=== PATIENT | female | born 1970 ===

== ENCOUNTER 2020-04-06 09:54 | Outpatient (REF) | payer MEDICARE, MEDICAID, SELFPAY ==
[2020-04-06 11:17] LABS: Alanine Aminotransferase 12 U/L (0-31); Albumin Level 4.1 g/dL (3.5-5.0); Alkaline Phosphatase 112 U/L (39-117); Aspartate Amino Transferase 14 U/L (5-31); Bilirubin Direct < 0.2 mg/dL (0.0-0.5); Bilirubin Total 0.4 mg/dL (0.0-1.0); Cholesterol 223 mg/dL; HDL Cholesterol 57 mg/dL; LDL Cholesterol Calculated 153 mg/dl; Total Protein 6.9 g/dL (6.5-8.0); Triglycerides 68 mg/dL
[2020-04-06 11:41] LABS: Vitamin D 25-OH Total 23.7 ng/mL (>30)
== END 2020-04-06 09:55 | disposition home or self-care (01) ==
LOC: HO.LAB 09:54
PROVIDERS: PCP Internal Medicine; Visit Provider Internal Medicine
DX: E78.00 Pure hypercholesterolemia, unspecified (principal); E55.9 Vitamin D deficiency, unspecified
CPT/HCPCS: 80061; 80076; 82306

== ENCOUNTER → 2020-04-27 14:49 | Outpatient (BNVA) | payer MEDICARE, MEDICAID, SELFPAY | PROVIDERS: PCP Internal Medicine; Referring Provider Internal Medicine; Visit Provider Nurse Practitioner Family | DX: Z01.818 Encounter for other preprocedural examination (principal); R19.7 Diarrhea, unspecified; Z80.0 Family history of malignant neoplasm of digestive organs | CPT/HCPCS: 99212 ==

== ENCOUNTER → 2020-05-15 08:13 | Outpatient (BNVA) | payer MEDICARE, MEDICAID, SELFPAY | PROVIDERS: PCP Internal Medicine; Referring Provider Internal Medicine; Visit Provider Internal Medicine | DX: Z01.810 Encounter for preprocedural cardiovascular examination (principal); R06.02 Shortness of breath; R00.2 Palpitations | CPT/HCPCS: 93005; 99202 ==

== ENCOUNTER 2020-06-06 14:03 | Outpatient (REF) | payer MEDICARE, MEDICAID, SELFPAY | END 2020-06-06 14:04 | disposition home or self-care (01) | LOC: HO.LAB 14:03 | PROVIDERS: Nurse Practitioner Family; Visit Provider Internal Medicine | DX: Z20.828 Contact with and (suspected) exposure to other viral communicable diseases (principal) | CPT/HCPCS: U0003 ==

== ENCOUNTER → 2020-06-29 09:25 | Outpatient (REF) | payer MEDICARE, MEDICAID, SELFPAY ==
--- NOTE | 2020-06-29 09:29 | ECG_ITS ---
Hook-up date: 2020-06-29 10:43:00 Duration: 23:31:00 Test Indications: PALPITATIONS Medications: [id number] QRS complexes 6 Ventricular ectopics which represent <1 % of total QRS comp. 31 Supraventricular ectopics which represent <1 % of total QRS comp. * Paced QRS complexs which represent % of total QRS comp. VENTRICULAR ECTOPY 6 Isolated 0 Bigeminal Cycles 0 Couplets 0 Runs 0 Beats in Runs * Beats LONGEST at * BPM at :: -- * Beats FASTEST at * BPM at :: -- SUPRAVENTRICULAR ECTOPY 5 Isolated 0 Couplets 0 Runs 0 Beats in Runs 0 Beats LONGEST at 93 BPM at :: -- 0 Beats FASTEST at 93 BPM at :: -- HEART RATES 58 MIN at 01:05:34 2020-06-30 93 AVG 149 MAX at 16:34:00 2020-06-29 LONGEST RR 1.2080 secs at 17:41:25 2020-06-29 S-T LEVELS Channel 1 - 128 mm at 10:43:00 2020-06-29 - 128 mm at 10:43:00 2020-06-29 Channel 2 - 128 mm at 10:43:00 2020-06-29 - 128 mm at 10:43:00 2020-06-29 Channel 3 - 128 mm at 03:00:21 -- - 128 mm at 03:00:21 Basic rhythm Normal sinus rhythm No long pause or profound bradycardia No dangerous dysrhythm periods No diary submitted Referred By: Levi Willingham Overread By: GODWIN AMADOR MD
--- NOTE | 2020-06-29 09:30 | CA_ITS ---
Acquisition Time: 2020-06-29 10:01:42 Total Exercise Time: 00:06:23 Test Indications: Chest Pain Medications: SIMVASTATIN ALBUTEROL NABUMETINE Protocol: JORJE Max HR: 155 BPM 90% of Pred: 172 BPM Max BP: 132/050 mmHG Max Work Load: 7.5 METS Exercise stress test using Jorje protocol total of 6 min 23 sec. METS 7.5o and TAPHR up to 90%. Pt tolerated well. Denies any anginal sx. EKG with no arrhythmias, no ischemic changes. Normotensive response to exercise. Test reviewed with Dr. Willingham. Referred By: Levi Willingham Overread By: Sandra Mendenhall
== END ==
LOC: HO.CARD 09:25
PROVIDERS: Visit Provider Internal Medicine
DX: Z01.810 Encounter for preprocedural cardiovascular examination (principal); R00.2 Palpitations
CPT/HCPCS: 93017; 93225; 93226

== ENCOUNTER → 2020-06-30 07:34 | Outpatient (REF) | payer MEDICARE, MEDICAID, SELFPAY ==
--- NOTE | 2020-06-30 07:38 | CA_ITS ---
Transthoracic Echocardiogram Patient (Last, First, Middle): Jessy Dolan, Gender: Female Date of : 1970 Age: 49 Procedure Date: 06/30/2020 Procedure Type: Transthoracic Echocardiogram Location: OP Height: 160.02 cm Weight: 87.09 kg BSA: 1.90 m2 Heart Rate: bpm BP: 128 / 68 mmHg Endocrinologist: Referring MD: Levi Willingham MD Symptoms: R06.02 - Shortness of breath Study Quality: Excellent ECG Rhythm: Sinus Conclusions: - Normal left ventricular size and systolic function. - There is mildly increased left ventricular wall thickness. - Diastolic function is normal for age. - No significant valvular or pericardial pathology. Findings Left Ventricle Normal left ventricular size and systolic function. There is mildly increased left ventricular wall thickness. The visually estimated ejection fraction is between 55-60%. There is no evidence of regional wall motion abnormalities. Diastolic function is normal for age. Right Ventricle Normal right ventricular cavity size and systolic function. Atria Both atria are normal in size. Aortic Valve Normal aortic valve structure and function. There is no aortic valve stenosis. There is no aortic valve regurgitation. Mitral Valve Normal mitral valve structure and function. There is no mitral valve regurgitation. There is no mitral valve stenosis. Pulmonic Valve Normal pulmonic valve structure and function. Tricuspid Valve Normal tricuspid valve structure and function. There is trace tricuspid valve regurgitation. Normal right atrial pressure. There is no evidence of pulmonary hypertension. Great Vessels All visible segments of the aorta are normal in size. The visualized portions of the pulmonary artery and branches are normal. Venous The inferior vena cava is normal in size and collapses greater than 50% with inspiration. Pericardium/Pleural There is no evidence of pericardial effusion. Prior Study Comparison No prior study available for comparison. Measurements 2D Linear Measurements IVSd: 1.01 0.6-0.9/0.6-1.0 cm LVIDd: 4.65 3.9-5.3/4.2-5.9 cm LVIDd Index: 2.45 2.4-3.2/2.2-3.1 cm/m2 LVIDs: 2.92 2.0-3.6 cm LVPWd: 1.03 0.7-1.1 cm Ao Root: 2.80 2.1-3.5 cm LA Diam: 3.60 2.7-3.8/3.0-4.0 cm LAIDs Index: 1.89 1.5-2.3 cm/m2 LV Mass: 206.83 67-162/88-224 g LV Mass Index: 108.86 43-95/49-115 g/m2 LVOT Diam: 2.10 3.0+(-)1.3 cm Mitral Valve MV Pk E: 0.83 MV PK A: 0.67 MV Decel Time: 218.00 E/A: 1.20 E'Lateral: 14.80 E'Medial: 12.10 E/E' Med: 6.90 E/E' Lat: 5.60 PHT: 64.00 MVA PHT: 3.44 Decel [place]: 3.80 Aortic Valve AoV Pk Philipp: 1.32 AoV Mn Philipp: 0.84 AoV VTI: 0.29 AoV Pk Grad: 7.00 Aov Mn Grad: 3.00 JERMAINE Cont.VTI: 2.98 LVOT LVOT Pk Philipp: 1.10 LVOT Mn Philipp: 0.67 LVOT VTI: 0.25 LVOT Pk Grad: 5.00 LVOT Mn Grad: 2.00 LVOT Diam: 2.10 LVOT Area: 3.46 Diastolic Function MV Pk E: 0.83 MV Pk A: 0.67 E/A: 1.20 E'Medial: 12.10 E/E' Med: 6.90 E' Laterial: 14.80 E/E' Lat: 5.60 Tricuspid Valve TR Pk Philipp: 1.57 TR Pk Grad: 10.00 RA Press: 3.00 RVSP: 13.00 Great Vessels Aorta Ao Root-2D: 2.80 2.0-3.7 cm Ao Asc: 2.80 2.1-3.4 cm Pulmonary Valve PV Pk Philipp: 0.87 Peak PV Grad: 3.00 Updated in Other Vendor System with Status of Final Kota Gauthier MD electronically signed on 07/02/2020 6:33:44 AM with status of Final
== END ==
LOC: HO.CARD 07:34
PROVIDERS: Visit Provider Internal Medicine
DX: R06.02 Shortness of breath (principal)
CPT/HCPCS: 93306

== ENCOUNTER → 2020-07-03 08:21 | Outpatient (BNVA) | payer MEDICARE, MEDICAID, SELFPAY | PROVIDERS: PCP Internal Medicine; Visit Provider Internal Medicine | DX: Z01.810 Encounter for preprocedural cardiovascular examination (principal); R06.02 Shortness of breath; R00.2 Palpitations | CPT/HCPCS: Q3014 ==

== ENCOUNTER → 2020-07-14 14:16 | Outpatient (BNVA) | payer MEDICARE, MEDICAID, SELFPAY | PROVIDERS: PCP Internal Medicine; Visit Provider Nurse Practitioner Family | DX: Z13.89 Encounter for screening for other disorder (principal) | CPT/HCPCS: 99212 ==

== ENCOUNTER 2020-07-17 16:25 | Outpatient (REF) | payer MEDICARE, MEDICAID, SELFPAY | END 2020-07-17 16:26 | disposition home or self-care (01) | LOC: HO.LAB 16:25 | PROVIDERS: Visit Provider Internal Medicine | DX: Z20.822 Contact with and (suspected) exposure to COVID-19 (principal) | CPT/HCPCS: 36415; C9803; U0003 ==

== ENCOUNTER 2020-08-22 09:26 | Day surgery (SDC) | payer MEDICARE, MEDICAID, SELFPAY ==
[2020-08-16 14:11] VITALS: BMI 33.6
--- NOTE | 2020-08-21 08:27 | P.CONAN_ITS ---
Documented by User: Cheyanne Eastman 08/21/20 08:28 HPI - Anesthesia Eval Consult details Narrative: 50yo F for Colonoscopy [facility] Active Problems Active Problems: All Active Problems (Updated 08/16/20 @ 13:51 by Sarah Kay) Heart palpitations (Acute) Chest pain (Acute) History of IBS (Acute) Hypercholesterolemia (Acute) Hip pain (Acute) Obesity (BMI 30-39.9) (Acute) Asthma (Acute) Tobacco abuse (Acute) Past Medical History Medical History (Updated 08/22/20 @ 10:02 by Katelyn De La Fuente) Anxiety Arthritis Asthma Back pain GERD (gastroesophageal reflux disease) Hip pain History of IBS Hx of tuberculosis Hypercholesterolemia Obesity (BMI 30-39.9) Palpitations Panic attacks Tobacco abuse Family History Family History Father Tongue cancer Mother CVD (cardiovascular disease) Maternal Aunt Colon cancer Maternal Uncle Colon cancer Surgical History Surgical History History of appendectomy History of section History of meniscectomy of left knee History of removal of cyst Hx of endoscopy Hx of tubal ligation Social History Social History Are you a primary senior resident care director to a significant other at home: No Do you presently have visiting nurse or other home services: No Alcohol intake: never Smoking Status: Current every day smoker Tobacco Type: Cigarette Packs Per Day: 0.5 Cigarettes Per Day: 10.0 Years Smoked: 30 Smoked in Last 30 Days: Yes Patient Interested in Nicotine Replacement: No Patient Given Instructions on How to Stop Smoking: No Use of substances other than those prescribed or required for medical reasons: Yes Substance Use Type: Marijuana Substance Use Type Other:: Uses at night to help her sleep Substance Use Frequency: Daily Advance Directives: No Advance Directives Information Provided: No Advance Directives on File: No Recently lost weight without trying: No Meds Allergies Allergy/AdvReac Type Severity Reaction Status Date / Time morphine [MORPHINE] Allergy Unknown REDNESS, Verified 08/22/20 09:48 FEELS REALLY HOT, shortness of breath, anaphylaxis amoxicillin AdvReac Unknown yeast Verified 08/22/20 09:48 infection Penicillins [PENICILLINS] AdvReac Unknown YEAST Verified 08/22/20 09:48 INFECTION Home Medications Medication Instructions Recorded Confirmed Last Taken Type cholecalciferol (vitamin D3) 50 50 mcg PO DAILY 04/11/20 08/16/20 Unknown History mcg (2,000 unit) capsule diclofenac sodium 1 % topical gel 2 g TOPICAL QID 04/11/20 08/16/20 Unknown History dicyclomine 10 mg capsule 20 mg PO TID cap 04/11/20 08/16/20 Unknown History fluticasone furoate 100 1 inh INHALATION DAILY 04/11/20 08/16/20 Unknown History mcg/actuation blister powder for inhalation lorazepam 1 mg tablet 1 mg PO DAILY PRN 04/11/20 08/16/20 Unknown History simvastatin 10 mg tablet 10 mg PO QPM 04/11/20 08/16/20 Unknown History methylcellulose (laxative) 500 mg 500 mg PO DAILY 06/05/20 08/16/20 Unknown History tablet Exam Exam Date and Time: August 21, 2020 0827 Height,Weight and Vital Signs: Height 5 ft 3 in Weight 86.183 kg Narrative Narrative: Per cardiology Echocardiogram with normal LVEF, mild left ventricular hypertrophy but otherwise unremarkable. For 6 minutes and 23 seconds on the Griffin protocol and reached 7.5 Mets and also recent target heart rate. No anginal-type symptoms and no ischemic changes on the EKG. Holter monitor shows underlying sinus rhythm only without any arrhythmias. Overall, based on the above, no cardiac etiology to explain her symptoms. Probably all from smoking. Assessment and Plan Assessment Anesthesia Assessment: Chart Reviewed Documented by User: Katelyn De La Fuente 08/22/20 10:04 [facility] Past Medical History Medical History (Updated 08/22/20 @ 10:02 by Katelyn De La Fuente) Anxiety Arthritis Asthma Back pain GERD (gastroesophageal reflux disease) Hip pain History of IBS Hx of tuberculosis Hypercholesterolemia Obesity (BMI 30-39.9) Palpitations Panic attacks Tobacco abuse Family History Family History Father Tongue cancer Mother CVD (cardiovascular disease) Maternal Aunt Colon cancer Maternal Uncle Colon cancer Family history of problems with anesthesia: No Surgical History Surgical History History of appendectomy History of section History of meniscectomy of left knee History of removal of cyst Hx of endoscopy Hx of tubal ligation History of Problems with Anesthesia: No Social History Social History Are you a primary senior resident care director to a significant other at home: No Do you presently have visiting nurse or other home services: No Alcohol intake: never Smoking Status: Current every day smoker Tobacco Type: Cigarette Packs Per Day: 0.5 Cigarettes Per Day: 10.0 Years Smoked: 30 Smoked in Last 30 Days: Yes Patient Interested in Nicotine Replacement: No Patient Given Instructions on How to Stop Smoking: No Use of substances other than those prescribed or required for medical reasons: Yes Substance Use Type: Marijuana Substance Use Type Other:: Uses at night to help her sleep Substance Use Frequency: Daily Advance Directives: No Advance Directives Information Provided: No Advance Directives on File: No Recently lost weight without trying: No Meds Allergies Allergy/AdvReac Type Severity Reaction Status Date / Time morphine [MORPHINE] Allergy Unknown REDNESS, Verified 08/22/20 09:48 FEELS REALLY HOT, shortness of breath, anaphylaxis amoxicillin AdvReac Unknown yeast Verified 08/22/20 09:48 infection Penicillins [PENICILLINS] AdvReac Unknown YEAST Verified 08/22/20 09:48 INFECTION Home Medications Medication Instructions Recorded Confirmed Last Taken Type cholecalciferol (vitamin D3) 50 50 mcg PO DAILY 04/11/20 08/16/20 Unknown History mcg (2,000 unit) capsule diclofenac sodium 1 % topical gel 2 g TOPICAL QID 04/11/20 08/16/20 Unknown History dicyclomine 10 mg capsule 20 mg PO TID cap 04/11/20 08/16/20 Unknown History fluticasone furoate 100 1 inh INHALATION DAILY 04/11/20 08/16/20 Unknown History mcg/actuation blister powder for inhalation lorazepam 1 mg tablet 1 mg PO DAILY PRN 04/11/20 08/16/20 Unknown History simvastatin 10 mg tablet 10 mg PO QPM 04/11/20 08/16/20 Unknown History methylcellulose (laxative) 500 mg 500 mg PO DAILY 06/05/20 08/16/20 Unknown History tablet Exam Height,Weight and Vital Signs: Vital Signs Temp Pulse Resp BP Pulse Ox 08/22/20 09:50 98.4 F 95 16 123/68 98 Airway TM Dist: >3cm Neck ROM: Full Partial: Upper Loose/Missing/Broken Teeth: Yes (molars) Heart: RRR Lungs: CTAB Assessment and Plan Assessment Anesthesia Assessment: Anesthesia Plan Discussed and Chart Reviewed Final Anesthetic Review NPO: Yes ASA Class: II Final Preanesthetic Review: No Changes in Pt Med Stat, Meds/Allgs Chart Reviewed, Consent Obtained/Reviewed and Anes Risks/Benef Reviewed Patient Risk: Intermediate Procedure Risk: Low Assessment/Block/Sedation in SS: Assess/Block/Sedation-SS Anesthetic Plan Anesthetic Plan: MAC: Disposition: Standard PACU
[2020-08-22 09:50] VITALS: BP 123/68; PULSE 95; RESP 16; TEMP 36.9; O2SAT 98
[2020-08-22] MEDS: Lactated Ringers 1,000 ML 100 ML IVCONT (10:00)
--- NOTE | 2020-08-22 10:33 | MHC.SHP ---
Pre-Procedural Eval Section B Chief Complaint: screening Relevant Social History: Tobacco Use Present Medications: see Short Stay Collaborative assessment Medical History: Significant History (Anxiety Arthritis Asthma Back pain GERD (gastroesophageal reflux disease) Hip pain History of IBS Hx of tuberculosis Hypercholesterolemia Obesity (BMI 30-39.9) Palpitations Panic attacks Tobacco abuse) History of Previous Operations: Relevant previous surgery/procedure and date(s) (History of appendectomy History of section History of meniscectomy of left knee History of removal of cyst Hx of endoscopy Hx of tubal ligation) Allergies: Allergies Allergy/AdvReac Type Severity Reaction Status Date / Time morphine [MORPHINE] Allergy Unknown REDNESS, Verified 08/22/20 09:48 FEELS REALLY HOT, shortness of breath, anaphylaxis amoxicillin AdvReac Unknown yeast Verified 08/22/20 09:48 infection Penicillins [PENICILLINS] AdvReac Unknown YEAST Verified 08/22/20 09:48 INFECTION Review of Systems Sugical H&P ROS: Negative: Constitution, Cardiovascular, Respiratory, Neurological, Psychiatric, Hem-Onc, Allergic/Immunologic, Gastrointestinal, Genitourinary, Musculoskeletal, Integumentary, Endocrine and Eyes/Ears/Nose/Throat Exam Surgical H&P Exam: Normal: HEENT, Normal: Heart, Normal: Lungs, Normal: Extremities, Normal: Abdomen, Normal: Skin and Normal: Neurological Plan Diagnosis/Plan: Unchanged I have reviewed the history and physical and performed a pertinent physical examination on my patient. No changes have occurred unless specified.
--- NOTE | 2020-08-22 10:44 | PM.OP ---
Brief Operative Note Date of Service: 08/22/20 Pre-op diagnosis: colon screening Post-op diagnosis: same Procedure: see op note Surgeon: Jan Gutierrez MD Anesthesia: MAC Estimated blood loss (mL): 0 Condition: stable Disposition: PACU
--- NOTE | 2020-08-22 10:45 | W.PM.OPN ---
Operative Note Operative Note Date of Service: 08/22/20 Narrative: Operative Information Procedure Description: Colonoscopy COLONOSCOPY Instrument: Olympus variable stiffness pediatric scope 190L Colonoscopy Monitoring: Vital signs and clinical assessment, continuous EKG monitoring, Pulse oximetry, Carbon Dioxide monitoring and blood pressure monitoring were done throughout the procedure. Colon withdrawal time was 15 minutes. Procedure: The patient was placed in the left lateral decubitis position and pre-procedure medications were administered. After a digital rectal examination of the ano-rectum, the video colonoscope was inserted into the rectum and advanced through the colon to the cecum/TI. The colonoscope was slowly withdrawn in a retrograde panoramic fashion and the colon mucosa was carefully examined including a retroflexed view of the rectum. Findings and interventions are described below. Procedure Difficulty:moderate due to looping Findings: Terminal Ileum-normal, bx taken random colon bx taken due to c/o variable bowel habit and diarrhea Cecum:normal Ascending Colon: normal Transverse Colon -normal Descending Colon:normal Sigmoid Colon: mild diverticulosis noted Rectum: Retroflexion with small internal hemorrhoids, grade I Anorectum - normal Colon preparation: [place] Bowel Preparation Scale Right colon; 3 Transverse colon: 3 Left colon; 3 (0 = Unprepared colon segment with mucosa not seen due to solid stool that cannot be cleared. 1 = Portion of mucosa of the colon segment seen, but other areas of the colon segment not well seen due to staining, residual stool and/or opaque liquid. 2 = Minor amount of residual staining, small fragments of stool and/or opaque liquid, but mucosa of colon segment seen well. 3 = Entire mucosa of colon segment seen well with no residual staining, small fragments of stool or opaque liquid) Impression and Post Procedure Diagnosis: internal hemorrhoids diverticular disease Plan: High fiber diet leaflet Avoid straining at stool, epsom salts and sitz bath, anusol supps or cream as needed Repeat Colonoscopy in 10 years or earlier if clinically indicated Above findings were reviewed with the patient and relevant handouts were provided if indicated.
[2020-08-22 11:27] VITALS: BP 111/74; PULSE 78; RESP 20; O2SAT 98
== END 2020-08-22 12:45 | disposition home or self-care (01) ==
PROVIDERS: PCP Internal Medicine; Visit Provider Internal Medicine Gastroenterology
PROC: 0DJD8ZZ Inspection of Lower Intestinal Tract, Via Natural or Artificial Opening Endoscopic (ICD-10-PCS; CPT 45378; principal; 2020-08-22 10:40)
DX: Z12.11 Encounter for screening for malignant neoplasm of colon (principal); R19.7 Diarrhea, unspecified; K57.30 Diverticulosis of large intestine without perforation or abscess without bleeding; K64.0 First degree hemorrhoids; J45.909 Unspecified asthma, uncomplicated; K58.9 Irritable bowel syndrome, unspecified; F17.210 Nicotine dependence, cigarettes, uncomplicated; F12.90 Cannabis use, unspecified, uncomplicated; Z99.89 Dependence on other enabling machines and devices; Z88.0 Allergy status to penicillin; Z88.8 Allergy status to other drugs, medicaments and biological substances
CPT/HCPCS: 45380; 88305

== ENCOUNTER → 2020-09-05 14:35 | Outpatient (BNVA) | payer MEDICARE, MEDICAID, SELFPAY | PROVIDERS: PCP Internal Medicine; Visit Provider Nurse Practitioner Family | DX: Z13.89 Encounter for screening for other disorder (principal) | CPT/HCPCS: Q3014 ==

== ENCOUNTER → 2020-10-03 13:50 | Outpatient (BNVA) | payer MEDICARE, MEDICAID, SELFPAY | PROVIDERS: PCP Internal Medicine; Visit Provider Nurse Practitioner Family | DX: Z13.89 Encounter for screening for other disorder (principal) | CPT/HCPCS: Q3014 ==

== ENCOUNTER 2020-10-11 09:58 | Outpatient (REF) | payer MEDICARE, MEDICAID, SELFPAY ==
--- NOTE | ~2020-10-11 | XR_ITS ---
EXAMINATION: XR FOOT, LEFT CLINICAL INFORMATION: M79.675 - Pain in left toe(s) COMPARISON: 02/10/2020 TECHNIQUE: AP, lateral, and oblique views of the left foot. FINDINGS: No acute fracture or malalignment in the left foot. Bone mineralization is normal. 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 Joint spaces are well-preserved. No erosions. Mild generalized soft tissue swelling is present at the foot. XR/XR foot LT min 3V IMPRESSION: 1. No acute osseous findings at the left foot. 2. 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
== END 2020-10-11 09:59 | disposition home or self-care (01) ==
LOC: HO.LAB 09:58
PROVIDERS: PCP Internal Medicine; Visit Provider Internal Medicine
DX: M79.675 Pain in left toe(s) (principal)
CPT/HCPCS: 73630

== ENCOUNTER 2020-10-14 05:59 | Emergency (ER) | payer MEDICARE, MEDICAID, SELFPAY ==
--- NOTE | ~2020-10-14 | CT_ITS ---
EXAMINATION: CT FACIAL BONES WITHOUT CONTRAST CLINICAL INFORMATION: Severe sudden right thigh/Baylee pain. COMPARISON: None TECHNIQUE: CT facial bones with coronal and sagittal reconstructions. This CT examination was performed using dose optimization techniques as appropriate, variously including the following: *Automated exposure control *Adjustment of mA and/or kV according to patient size (this includes techniques or standardized protocols for targeted exams where dose is matched to indication/reason for exam; i.e. extremities or head) *Use of iterative reconstruction technique DLP: 360 mGy-cm FINDINGS: There is no acute maxillofacial fracture. The pterygoid plates are intact. The zygomatic arches are intact. The lamina papyracea are intact. The orbital rims are intact. No intraconal abnormality appreciated. There appears to be a small amount of fluid/edema with slightly increased Hounsfield unit density measurement compared to water just superficial to the right masseter muscle without significant abscess or significant fat stranding. The paranasal sinuses are well-aerated. No air-fluid levels are seen. There is a mucous retention cyst seen within the right maxillary sinus. There is no significant deviation of the nasal septum. The ostiomeatal complexes are clear. The lamina papyracea are intact. The ethmoid roofs are symmetric. The carotid canals are normally covered by bone. No maxillary periapical disease is seen. The mastoid air cells and visualized middle ear cavities are well-aerated. The orbits are normal. The TMJs are unremarkable. The imaged portions of the brain demonstrate no acute abnormality. CT/CT facial bones wo con IMPRESSION: Small amount of complex fluid just superficial to the right masseter muscle with no definite underlying abscess identified. This could be related to a small hematoma or early infectious process. No significant bony abnormality seen. Temporomandibular joint unremarkable. No right intraconal abnormality appreciated.
[2020-10-14 06:21] VITALS: PULSE 77; RESP 16; TEMP 36.6; O2SAT 98; BMI 33.2
--- NOTE | 2020-10-14 06:59 | ED_ITS ---
HPI - General Adult General Chief complaint: General Medical Stated complaint: JAW PAIN/HURTS TO SWALLOW Time Seen by Provider: 10/14/20 06:53 Source: patient Mode of arrival: ambulatory Limitations: no limitations History of Present Illness HPI narrative: 50-year-old female came in for evaluation of right facial pain. Right facial pain started at 03:00, patient started to open and close her mouth hoping the pain would be relieved the patient went to bed in pain, patient woke up this morning with pain is more severe on able to open her mouth with pain around her right ear and the whole right facial area, pain is constant, described as sharp pain mostly on the right show area, no radiation of the pain to the neck or chest. Patient declined any recent dental work, no trauma to the face. Pain is worsening with opening and closing the mouth. Nothing relieves the pain. Related Data Home Medications Medication Instructions Recorded Confirmed cholecalciferol (vitamin D3) 50 50 mcg PO DAILY 04/11/20 10/10/20 mcg (2,000 unit) capsule diclofenac sodium 1 % topical gel 2 g TOPICAL QID 04/11/20 10/10/20 dicyclomine 10 mg capsule 20 mg PO TID cap 04/11/20 10/10/20 fluticasone furoate 100 1 inh INHALATION DAILY 04/11/20 10/10/20 mcg/actuation blister powder for inhalation lorazepam 1 mg tablet 1 mg PO DAILY PRN 04/11/20 10/10/20 simvastatin 10 mg tablet 10 mg PO QPM 04/11/20 10/10/20 methylcellulose (laxative) 500 mg 500 mg PO DAILY 06/05/20 10/10/20 tablet Previous Rx's Medication Instructions Recorded dextromethorphan-guaifenesin ER 60 1 tab PO Q12H 7 Days #14 tab 06/05/20 mg-1,200 mg tab,extend release,12hr albuterol sulfate 90 mcg/actuation 2 puff INHALATION Q4-6H PRN #8.5 g 06/27/20 aerosol inhaler polyethylene glycol 3350 17 17 g PO ONCE #238 g 07/14/20 gram/dose oral powder sennosides 8.6 mg tablet 8.6 mg PO BEDTIME PRN #30 tab 07/14/20 linaclotide 145 mcg capsule 145 mcg PO DAILY #30 cap 09/05/20 nabumetone 500 mg tablet 500 mg PO BID #60 tab 09/12/20 cyclobenzaprine 10 mg PO TID PRN #10 tab 10/14/20 oxycodone 5 mg PO Q8H PRN #7 tab 10/14/20 Allergies Allergy/AdvReac Type Severity Reaction Status Date / Time morphine [MORPHINE] Allergy Unknown REDNESS, Verified 10/03/20 13:55 FEELS REALLY HOT, shortness of breath, anaphylaxis amoxicillin AdvReac Unknown yeast Verified 10/03/20 13:55 infection Penicillins [PENICILLINS] AdvReac Unknown YEAST Verified 10/03/20 13:55 INFECTION Review of Systems Review of Systems: All other systems are reviewed and are negative Constitutional: Reports as per HPI and Reports no additional constitutional complaints Eyes: Reports as per HPI and Reports no additional eye complaints Reports system reviewed and no additional complaints, except as documented Cardiovascular: Reports as per HPI and Reports no additional cardiovascular complaints Respiratory: Reports as per HPI and Reports no additional respiratory complaints Gastrointestinal: Reports as per HPI and Reports no additional gastrointestinal complaints Genitourinary: Reports no additional female genitourinary complaints Musculoskeletal: Reports no additional musculoskeletal complaints Skin/Breast: Reports system reviewed and no additional complaints, except as docu Psychiatric: Reports no additional psychiatric complaints Endocrine: Reports no additional endocrine complaints Hematologic/Lymphatic: Reports no additional hematologic/lymphatic complaints Allergic/Immunologic: Reports no additional allergic/immunologic complaints Reports system reviewed and no additional complaints, except as documented and Reports Abnormal speech present [facility] Past Medical History Medical History Anxiety Arthritis Asthma Back pain GERD (gastroesophageal reflux disease) Hip pain History of IBS Hx of tuberculosis Hypercholesterolemia Obesity (BMI 30-39.9) Palpitations Panic attacks Tobacco abuse Surgical History History of appendectomy History of section History of meniscectomy of left knee History of removal of cyst Hx of colonoscopy Hx of endoscopy Hx of tubal ligation Family History Family History Father Tongue cancer Mother CVD (cardiovascular disease) Maternal Aunt Colon cancer Maternal Uncle Colon cancer Social History Social History Household Members: Spouse and Children Alcohol intake: never Smoking Status: Current every day smoker Tobacco Type: Cigarette Packs Per Day: 0.5 Cigarettes Per Day: 10.0 Years Smoked: 30 Substance Use Type: Marijuana Advance Directives: No Advance Directives Information Provided: No Current occupational status: disabled Physical Exam Vital Signs: Vital Signs: Last Vital Signs Temp 98 F 10/14/20 06:21 Pulse 73 10/14/20 08:25 Resp 16 10/14/20 06:21 BP 126/79 10/14/20 08:25 Pulse Ox 98 10/14/20 06:21 Body Mass Index 33.2 Vital signs have been reviewed as appeared to be correct. Blood pressure normal. Heart rate normal. Respiration rate normal. Temperature normal. Oxygen saturation normal. Appearance: Alert. Oriented X3. No acute distress. Head: Normal external exam. Normocephalic. Atraumatic. No Hernandez signs noted. No raccoon eyes noted Eyes: PERRLA. EOMI. Conjunctiva and sclera normal. Eyelids normal. ENT: TM's Normal. Pharynx normal. Uvula midline. Moist mucous membranes. No trismus noted. No drooling noted. No muffled voice noted. Patient unable to fully open the mouth which is limiting the physical exam, due to severe pain cannot palpate right jaw joint, right ear appear unremarkable. No apparent dental decay or tenderness. Neck: Normal inspection. Neck supple. FROM. No adenopathy. Thyroid Normal. No meningeal signs. No neck mass noted. CVS: Normal heart rate and rhythm. Heart sound normal. No murmurs noted. Pulses normal throughout. Respiratory: No respiratory distress. Painless inspiration. Breath sounds normal. No wheezes/rales/rhonchi noted. Chest nontender. No accessory muscle usage noted or decreased air movement noted. Abdomen: Soft and nontender. Bowel sounds normal in all 4 quadrants. No distention noted. No organomegaly noted. No visible injury noted. Back: No CVA tenderness. Full range of motion noted. Skin: Skin warm and dry. Normal skin color. Normal skin turgor. No rashes/lesions/lacerations noted. Extremities: No lower extremity edema. Extremities exhibit normal range of motion. Extremities nontender. Neuro: Oriented X 3. No motor deficit. No sensory deficit. Reflexes normal. Course Course Course Narrative: Assessment and plan. 50-year-old female presented with right facial pain that started suddenly at 03:00 o'clock in the morning after vigorously opening and closing her mouth, CT not showing evidence of TMJ dislocation or any significant bony abnormalities however small amount of complex fluid in on the right masseter muscle which could be a hematoma. Physical exam vital Signs not indicated for infectious process. As discussed with the patient continue with NSAIDs, applying ice, will give 1 dose of steroid to help the inflammation and swelling. Patient was instructed if any fever chills to return back to the emergency department. Medical Decision Making Imaging Data Facial CT: Radiologist's impression: Small amount of complex fluid just superficial to the right masseter muscle with no definite underlying abscess identified. This could be related to a small hematoma or early infectious process. No significant bony abnormality seen. Temporomandibular joint unremarkable. No right intraconal abnormality appreciated. ECG Data Interpretation: Normal sinus rhythm at 70 beats per minutes with sinus arrhythmia, normal intervals, normal axis deviation, no ST-T changes. Discharge Plan Discharge Clinical Impression: Acute facial pain, Hematoma of muscle Patient Disposition: Home, Self-Care Instructions: Contusion in Adults (ED) Additional Instructions: Return for fever or chills. Prescriptions: New oxycodone 5 mg tablet 5 mg PO Q8H PRN (Reason: pain) Qty: 7 RF: 0 cyclobenzaprine 10 mg tablet 10 mg PO TID PRN (Reason: muscle spasm) Qty: 10 RF: 0 No Action albuterol sulfate [Ventolin HFA] 90 mcg/actuation HFA aerosol inhaler 2 puff inhalation Q4-6H PRN (Reason: bronchospasm) Qty: 8.5 RF: 0 nabumetone 500 mg tablet 500 mg PO BID Qty: 60 RF: 5 lorazepam [Ativan] 1 mg tablet 1 mg PO DAILY PRN (Reason: Anxiety) RF: 0 Arnuity Ellipta 100 mcg/actuation blister with device 1 inh inhalation DAILY RF: 0 diclofenac sodium [Voltaren] 1 % gel 2 g topical QID RF: 0 simvastatin 10 mg tablet 10 mg PO QPM RF: 0 cholecalciferol (vitamin D3) 50 mcg (2,000 unit) capsule 50 mcg PO DAILY RF: 0 dicyclomine 10 mg capsule 20 mg PO TID RF: 0 Fiber Laxative (methylcellulo) 500 mg tablet 500 mg PO DAILY RF: 0 dextromethorphan-guaifenesin [Mucinex DM] 60-1,200 mg tablet extended release 12 hr 1 tab PO Q12H 7 Days Qty: 14 RF: 0 sennosides [Natural Senna Laxative] 8.6 mg tablet 8.6 mg PO BEDTIME PRN (Reason: constipation) Qty: 30 RF: 2 polyethylene glycol 3350 [Miralax] 17 gram/dose powder 17 g PO ONCE Qty: 238 RF: 0 Linzess 145 mcg capsule 145 mcg PO DAILY Qty: 30 RF: 2 Referrals: Po,Shira Orta MD [Primary Care Provider] - 2 days Interventions: ED Discharge Assessment Last Done: 10/14/20 09:19 Discharge Date/Time: 10/14/20 09:00
--- NOTE | 2020-10-14 07:05 | ECG_ITS ---
Test Reason : JAW PAIN Blood Pressure : / mmHG Vent. Rate : 070 BPM Atrial Rate : 070 BPM P-R Int : 142 ms QRS Dur : 082 ms QT Int : 374 ms P-R-T Axes : 046 052 055 degrees QTc Int : 403 ms Normal sinus rhythm with sinus arrhythmia Normal ECG When compared with ECG of 24-JUN-2019 11:51, No significant change was found Referred By: Juan Carlos Wright Electronically Signed By:GODWIN AMADOR MD
[2020-10-14] MEDS: diazePAM 5 MG TABLET PO (07:12)
[2020-10-14] MEDS: oxyCODONE HCl Immed Release 5 MG TABLET PO (07:12)
[2020-10-14 07:14] VITALS: BP 126/69; PULSE 73
[2020-10-14 08:25] VITALS: BP 126/79; PULSE 73
[2020-10-14] MEDS: predniSONE 20 MG TABLET 60 MG PO (08:59)
== END 2020-10-14 09:00 | disposition home or self-care (01) ==
PROVIDERS: Emergency Provider Emergency Medicine; PCP Internal Medicine
DX: R68.84 Jaw pain (principal); R51.9 Headache, unspecified; S00.83XA Contusion of other part of head, initial encounter; X58.XXXA Exposure to other specified factors, initial encounter; Y93.9 Activity, unspecified; Y92.9 Unspecified place or not applicable; Y99.9 Unspecified external cause status; F17.210 Nicotine dependence, cigarettes, uncomplicated; E78.00 Pure hypercholesterolemia, unspecified; K21.9 Gastro-esophageal reflux disease without esophagitis; J45.909 Unspecified asthma, uncomplicated
CPT/HCPCS: 70486; 93005; 99283; 99284

== ENCOUNTER 2020-10-16 10:24 | Outpatient (REF) | payer MEDICARE, MEDICAID, SELFPAY ==
--- NOTE | ~2020-10-16 | FL_ITS ---
EXAMINATION: FL BARIUM SWALLOW CLINICAL INFORMATION: Dysphagia. COMPARISON: Barium swallow 09/14/2015 TECHNIQUE: Barium swallow examination is performed using fluoroscopic evaluation in addition to multiple fluoroscopic spot views. The patient is imaged both upright and prone and using both thick and thin sulfate along with effervescent granules. Fluoroscopy time: 1.1 minutes DAP: 60.6 Gycm2 Images: 49 FINDINGS: Normal esophageal motility and distention. No mass or mucosal lesions are seen in the esophagus. Small sliding hiatal hernia. No reflux is seen during the course of the procedure. Patient swallowed a barium tablet with normal passage to the stomach. FL/FL barium swallow IMPRESSION: Small sliding hiatal hernia. No significant abnormality otherwise demonstrated by barium study.
== END 2020-10-16 10:25 | disposition home or self-care (01) ==
LOC: HO.XRAY 10:24
PROVIDERS: PCP Internal Medicine; Visit Provider Internal Medicine
DX: R13.10 Dysphagia, unspecified (principal)
CPT/HCPCS: 74220

== ENCOUNTER → 2020-10-26 14:47 | Outpatient (BNVA) | payer MEDICARE, MEDICAID, SELFPAY | PROVIDERS: PCP Internal Medicine; Visit Provider Nurse Practitioner Family ==

== ENCOUNTER 2020-11-21 07:14 | Outpatient (REF) | payer MEDICARE, MEDICAID, SELFPAY ==
[2020-11-21 08:10] LABS: MANUAL DIFF FLAG NO
[2020-11-21 08:20] LABS: Basophils Percent Auto 0.3 % (0-2); Eosinophils Absolute Auto 0.1 X10*3/uL (0.0-0.4); Eosinophils Percent Auto 0.7 % (0-4); Hematocrit 47.9 % (37-47); Hemoglobin 15.6 g/dl (12.0-16.0); Imm Gran Abs Auto 0.05 X10*3/uL (0.00-0.03); Imm Gran Pct Auto 0.4 % (0.0-0.4); Lymphocytes Absolute Auto 1.9 X10*3/uL (1.2-4.9); Lymphocytes Percent Auto 16.2 % (20-40); Mean Corpuscular HGB Conc 32.6 g/dl (31.0-35.0); Mean Corpuscular Hemoglobin 30.6 pg (27.0-33.0); Mean Corpuscular Volume 94.1 fL (80-98); Mean Platelet Volume 8.9 fL (9.4-12.3); Monocytes Percent Auto 8.7 % (2-11); Neutrophils Absolute Auto 8.6 X10*3/uL (2.0-8.3); Neutrophils Percent Auto 73.7 % (45-73); Platelet Count 368 X10*3/uL (160-400); Red Blood Count 5.09 X10*6/uL (4.20-5.50); Red Cell Distribution Width 13.7 % (11.0-16.0); White Blood Count 11.6 X10*3/uL (4.8-10.8)
[2020-11-21 08:34] LABS: Lipase 17 U/L (8-78)
[2020-11-21 08:35] LABS: Alanine Aminotransferase 11 U/L (0-31); Albumin Level 4.3 g/dL (3.5-5.0); Alkaline Phosphatase 125 U/L (39-117); Anion Gap 14 (12-20); Aspartate Amino Transferase 16 U/L (5-31); Bilirubin Total 0.3 mg/dL (0.0-1.0); Blood Urea Nitrogen 10 mg/dL (9-16); Calcium 9.6 mg/dL (8.4-10.2); Carbon Dioxide 29 mmol/L (22-29); Chloride 103 mmol/L (96-108); Cholesterol 228 mg/dL; Estimated Glomerular Filt Rate > 60; Glucose Random 118 mg/dL (60-115); HDL Cholesterol 57 mg/dL; LDL Cholesterol Calculated 145 mg/dl; Potassium 4.7 mmol/L (3.3-5.1); Sodium 141 mmol/L (135-145); Total Protein 7.5 g/dL (6.5-8.0); Triglycerides 134 mg/dL
[2020-11-24 22:37] LABS: Transglutaminase Ab IgG 2 U/mL; Transglutaminase IgA 1 U/mL
== END 2020-11-21 07:15 | disposition home or self-care (01) ==
LOC: HO.LAB 07:14
PROVIDERS: Absent Provider Nurse Practitioner Family; PCP Internal Medicine; Visit Provider Internal Medicine
DX: E78.00 Pure hypercholesterolemia, unspecified (principal); R19.7 Diarrhea, unspecified; R14.0 Abdominal distension (gaseous)
CPT/HCPCS: 36415; 80053; 80061; 83516; 83690; 85025

== ENCOUNTER → 2020-11-27 13:03 | Outpatient (REF) | payer MEDICARE, MEDICAID, SELFPAY | LOC: HO.SL 13:03 | PROVIDERS: PCP Internal Medicine; Visit Provider Internal Medicine | DX: G47.10 Hypersomnia, unspecified (principal) | CPT/HCPCS: 95806 ==

== ENCOUNTER 2020-11-29 08:30 | Outpatient (REF) | payer MEDICARE, SELFPAY ==
--- NOTE | ~2020-11-29 | MM_ITS ---
EXAMINATION: MM SCREENING DIGITAL BREAST TOMOSYNTHESIS, BILATERAL CLINICAL INFORMATION: Screening. Asymptomatic. The lifetime risk of breast cancer based on the Tyrer-Cuzick Model is 14.6%. COMPARISON: Mammography: 05/24/2015 and 09/17/2013. TECHNIQUE: Digital breast tomosynthesis is performed in both the craniocaudal and mediolateral oblique views along with computer-aided detection (CAD). Synthesized 2D images are generated from the tomosynthesis. FINDINGS: The breasts are heterogeneously dense, which may obscure small masses (ACR BI-RADS breast composition Category c). There is a stable parenchymal pattern within the right breast with some nodularity present. Within the deep slightly medial aspect of the left breast, 8.5 cm from the nipple, there is a bilobed density which is smoothly marginated measuring approximately 1.0 x 0.6 cm in size. No associated calcifications are seen. I do not definitely see a similar density amongst the dense tissue on mediolateral oblique view, however, on tomosynthesis views, this appears to lie in central position on mediolateral oblique image. MM/MM tomosynthesis screening BI IMPRESSION: Bilobed left breast density for which further evaluation with spot compression view and ultrasound is recommended. ASSESSMENT: BI-RADS 0: Incomplete - Need Additional Imaging Evaluation RECOMMENDATION: 1. Additional views of the left breast. 2. Targeted ultrasound if warranted after review of the additional views. 3. Radiology department staff will contact the patient for additional imaging. This patient's information was entered into a reminder system with a target due date for their next mammogram.
== END 2020-11-29 08:31 | disposition home or self-care (01) ==
LOC: HO.MAMMO 08:30
PROVIDERS: PCP Internal Medicine; Visit Provider Internal Medicine
DX: Z12.31 Encounter for screening mammogram for malignant neoplasm of breast (principal); R13.14 Dysphagia, pharyngoesophageal phase; K21.9 Gastro-esophageal reflux disease without esophagitis
CPT/HCPCS: 77063; 77067; 99212

== ENCOUNTER 2020-12-07 08:06 | Outpatient (REF) | payer MEDICARE, MEDICAID, SELFPAY ==
--- NOTE | ~2020-12-07 | MM_ITS ---
EXAMINATION: MM DIAGNOSTIC DIGITAL BREAST TOMOSYNTHESIS, LEFT US DIAGNOSTIC ULTRASOUND BREAST, LEFT CLINICAL INFORMATION: Recall from screening for question of lobulated density mid central 9:00 left breast. TC score 15%. COMPARISON: Mammography: 11/29/2020, 05/24/2015 TECHNIQUE: Digital breast tomosynthesis is performed. 2D images are generated from the tomosynthesis. The following views are obtained: Spot CC, standard ML. Ultrasound left breast is targeted to the central breast FINDINGS: There are scattered areas of fibroglandular density (ACR BI-RADS breast composition Category b). Breast tissue composition borders on heterogeneously dense in the upper outer quadrant. The additional views suggest subtle subcentimeter oval nodule with smooth margins in the area recall mid central 9:00 left breast. Ultrasound demonstrates simple cyst 9:00 position 4 cm from nipple measuring 0.7 x 0.5 x 0.4 cm. There is a tiny adjacent satellite cyst. The cyst corresponds to the finding on mammography. There is no solid mass or architectural abnormality. Results are discussed with the patient at time of visit. MM/MM tomosynthesis added views L IMPRESSION: Small oval cyst central 9:00 position mid left breast corresponding to finding on recent screening mammography. ASSESSMENT: BI-RADS 2: Benign RECOMMENDATION: Routine annual mammography screening. This patient's information was entered into a reminder system with a target due date for their next mammogram.
== END 2020-12-07 08:07 | disposition home or self-care (01) ==
LOC: HO.MAMMO 08:06
PROVIDERS: Visit Provider Internal Medicine
DX: R92.2 Inconclusive mammogram (principal)
CPT/HCPCS: 76642; 77061; 77065

== ENCOUNTER → 2021-03-09 07:32 | Outpatient (REF) | payer MEDICARE, MEDICAID, SELFPAY ==
--- NOTE | ~2021-03-09 | NM_ITS ---
EXAMINATION: PR RADIONUCLIDE SOLID FOOD GASTRIC EMPTYING 4-HOUR STUDY CLINICAL INFORMATION: Gastritis. COMPARISON: Barium swallow 09/14/2015. TECHNIQUE: A standard meal consisting of 4 oz of scrambled egg whites tagged with 950 uCi Tc-99m Sulfur Colloid, 8 oz water and 1.5 slices of toast with jelly was administered orally to the patient. Images were obtained using a dual head gamma camera in the anterior and posterior projections over of the stomach immediately post ingestion and at hourly intervals up to 4 hours post ingestion. The anterior and posterior counts at each time interval were averaged using the geometric mean and expressed as percentage of the immediate post ingestion counts. FINDINGS: There is good visualization of activity in the stomach immediately post ingestion. As the study progresses, there is good clearance of activity from the stomach and visualization of progressively increasing small bowel activity. By the end of the study, there is almost no retention noted in the stomach. Retention in the stomach at each time interval was: 1 ho ur 79% (normal 37%-90%) 2 hours 50% (normal 30%-60%) 3 hours 26% 4 hours 13% (normal 0%-10%) PR/PR gastric emptying study IMPRESSION: 1. The 4 hour solid gastric emptying study demonstrates minimally increased retention of activity in the stomach at the end of 4 hours.
== END ==
LOC: HO.NUCMED 07:32
PROVIDERS: PCP Internal Medicine; Visit Provider Nurse Practitioner Family
DX: K29.70 Gastritis, unspecified, without bleeding (principal); R13.14 Dysphagia, pharyngoesophageal phase
CPT/HCPCS: 78264; A9541

== ENCOUNTER 2021-03-14 12:23 | Outpatient (REF) | payer MEDICARE, MEDICAID, SELFPAY ==
--- NOTE | ~2021-03-14 | US_ITS ---
EXAMINATION: US THYROID CLINICAL INFORMATION: Nontoxic goiter, unspecified COMPARISON: None TECHNIQUE: Linear transducer grayscale and color Doppler examination with attention to the region of the thyroid. FINDINGS: SIZE: Measurements of the thyroid lobes and nodules are given in sagittal, anteroposterior and transverse dimensions respectively. Right Thyroid Lobe: 5.4 x 3.5 x 1.5 cm, volume 14.3 mL. Parenchyma: The gland echotexture is homogeneous. Thyroid vascularity is normal. Left Thyroid Lobe: 5.5 x 1.4 x 1.4 cm, volume 5.5 mL. Parenchyma: The gland echotexture is homogeneous. Thyroid vascularity is normal. Isthmus: 0.3 cm in maximum AP dimension. Estimated total number of nodules greater than or equal to 1 cm: 0. Blanket Maker nodules are described as follows: NODES: No lymphadenopathy is seen in the tissue surrounding the thyroid gland. US/US thyroid IMPRESSION: Slightly asymmetrically enlarged right thyroid lobe but no focal lesion seen. ACR TI-RADS RECOMMENDATION REFERENCE: Ultrasound-guided fine-needle aspiration, followup ultrasound, no further follow up. * TR1 (0 point) and TR 2 (2 points): No FNA or follow up * TR3 (3 points): FNA if more than or equal to 2.5 cm in maximum dimension, followup ultrasound in 1, 3 and 5 years if 1.5 to 2.4 cm in maximum dimension. * TR4 (4-6 points): FNA if more than or equal to 1.5 cm in maximum dimension, followup ultrasound in 1, 2, 3 and 5 years if 1 to 1.4 cm in maximum dimension. * TR5 (more than or equal to 7 points): FNA if more than or equal to 1 cm in maximum dimension, followup ultrasound every year for 5 years if 0.5 to 0.9 cm in maximum dimension. * TR3, TR4 or TR5 nodules that are below the size threshold for follow up receive no follow up.
== END 2021-03-14 12:24 | disposition home or self-care (01) ==
LOC: HO.US 12:23
PROVIDERS: PCP Internal Medicine; Visit Provider Internal Medicine
DX: E04.9 Nontoxic goiter, unspecified (principal)
CPT/HCPCS: 76536

== ENCOUNTER → 2021-03-16 08:30 | Outpatient (BNVA) | payer MEDICARE, MEDICAID, SELFPAY | PROVIDERS: PCP Internal Medicine; Visit Provider Nurse Practitioner Family | DX: K21.9 Gastro-esophageal reflux disease without esophagitis (principal); K58.1 Irritable bowel syndrome with constipation | CPT/HCPCS: Q3014 ==

== ENCOUNTER → 2021-03-20 13:58 | Outpatient (BNVA) | payer MEDICARE, MEDICAID, SELFPAY | PROVIDERS: Visit Provider Physician Assistant | DX: M25.572 Pain in left ankle and joints of left foot (principal); G89.29 Other chronic pain | CPT/HCPCS: 99202 ==

== ENCOUNTER 2021-03-22 13:47 | Outpatient (REF) | payer MEDICARE, MEDICAID, SELFPAY | END 2021-03-22 13:48 | disposition home or self-care (01) | LOC: HO.LAB 13:47 | PROVIDERS: PCP Internal Medicine; Visit Provider Internal Medicine | DX: Z20.822 Contact with and (suspected) exposure to COVID-19 (principal) | CPT/HCPCS: C9803; U0003; U0005 ==

== ENCOUNTER 2021-03-28 08:48 | Outpatient (REF) | payer MEDICARE, MEDICAID, SELFPAY ==
--- NOTE | ~2021-03-28 | MR_ITS ---
EXAMINATION: MR ANKLE WITHOUT CONTRAST, LEFT CLINICAL INFORMATION: Pain in left ankle and joints of left foot. Patient reports swelling, no injury, symptoms getting worse for 2 months, started a long time ago. COMPARISON: XR left foot 10/11/2020. TECHNIQUE: MRI of the ankle was obtained using routine sequences on a high-field scanner. FINDINGS: ACHILLES TENDON: Intact PLANTAR FASCIA: There is slight thickening and mild signal abnormality at the origin of the central band of the plantar aponeurosis consistent with mild fasciitis. There is an enthesophyte at the origin. There is minor underlying bone marrow edema. OTHER ANKLE TENDONS: There is tendinosis and a longitudinal partial tear of the peroneus brevis tendon as it extends around and distal to the lateral malleolus. The rest of the ankle tendons are intact. LIGAMENTS: The calcaneofibular ligament is slightly thickened with minimal signal abnormality, consistent with a mild sprain. The rest of the lateral ligaments appear intact. There is mild irregularity of the deep deltoid ligament consistent with a mild sprain. 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 There is patchy bone marrow edema and a few small subchondral degenerative cysts in the navicular side of the coalition. JOINT FLUID/BURSA: Within normal limits. TARSAL SINUS/TARSAL TUNNEL: Within normal limits. MR/MR ankle LT wo con IMPRESSION: 1. Mild proximal plantar fasciitis. 2. Tendinosis and longitudinal partial tear of the peroneus brevis tendon. 3. Mild calcaneofibular and deep deltoid ligament sprains. 4. 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
== END 2021-03-28 08:49 | disposition home or self-care (01) ==
LOC: HO.MRI 08:48
PROVIDERS: Visit Provider Physician Assistant
DX: G89.29 Other chronic pain (principal); M25.572 Pain in left ankle and joints of left foot
CPT/HCPCS: 73721

== ENCOUNTER 2021-03-28 10:30 | Outpatient (REF) | payer MEDICARE, MEDICAID, SELFPAY | END 2021-03-28 10:31 | disposition home or self-care (01) | LOC: HO.LAB 10:30 | PROVIDERS: PCP Internal Medicine; Visit Provider Internal Medicine | DX: Z20.822 Contact with and (suspected) exposure to COVID-19 (principal) | CPT/HCPCS: C9803; U0003; U0005 ==

== ENCOUNTER 2021-04-02 15:33 | Outpatient (REF) | payer MEDICARE, MEDICAID, SELFPAY | END 2021-04-02 15:34 | disposition home or self-care (01) | LOC: HO.LAB 15:33 | PROVIDERS: Visit Provider Internal Medicine | DX: Z20.822 Contact with and (suspected) exposure to COVID-19 (principal) | CPT/HCPCS: C9803; U0003; U0005 ==

== ENCOUNTER → 2021-04-03 08:47 | Outpatient (BNVA) | payer MEDICARE, MEDICAID, SELFPAY | PROVIDERS: PCP Internal Medicine; Visit Provider Physician Assistant | DX: M25.572 Pain in left ankle and joints of left foot (principal); G89.29 Other chronic pain | CPT/HCPCS: 99212 ==

== ENCOUNTER → 2021-04-18 08:55 | Outpatient (BNVA) | payer MEDICARE, MEDICAID, SELFPAY | PROVIDERS: PCP Internal Medicine; Visit Provider Nurse Practitioner Family | DX: Z13.89 Encounter for screening for other disorder (principal) | CPT/HCPCS: Q3014 ==

== ENCOUNTER → 2021-04-25 14:01 | Outpatient (BNVA) | payer MEDICARE, MEDICAID, SELFPAY | PROVIDERS: PCP Internal Medicine; Visit Provider Anesthesiology | DX: M72.2 Plantar fascial fibromatosis (principal); M25.572 Pain in left ankle and joints of left foot; G89.29 Other chronic pain | CPT/HCPCS: 99202 ==

== ENCOUNTER → 2021-06-08 09:28 | Outpatient (BNVA) | payer MEDICARE, MEDICAID, SELFPAY | PROVIDERS: PCP Internal Medicine; Visit Provider Hospitalist | DX: J45.909 Unspecified asthma, uncomplicated (principal); K21.9 Gastro-esophageal reflux disease without esophagitis; R05.3 Chronic cough | CPT/HCPCS: 99202 ==

== ENCOUNTER 2021-06-14 10:43 | Outpatient (REF) | payer MEDICARE, MEDICAID, SELFPAY | END 2021-06-14 10:44 | disposition home or self-care (01) | LOC: HO.LAB 10:43 | PROVIDERS: Visit Provider Internal Medicine | DX: Z20.822 Contact with and (suspected) exposure to COVID-19 (principal) | CPT/HCPCS: C9803; U0003; U0005 ==

== ENCOUNTER 2021-07-12 07:23 | Outpatient (REF) | payer MEDICARE, MEDICAID, SELFPAY ==
--- NOTE | ~2021-07-12 | XR_ITS ---
EXAMINATION: XR KNEE, RIGHT CLINICAL INFORMATION: M25.561 - Pain in right knee COMPARISON: None TECHNIQUE: Four views of the right knee. FINDINGS: No fracture, dislocation, destructive process. No definite suprapatellar effusion. Hoffa's fat pad appears normal. There is no joint narrowing or erosive change or visible chondrocalcinosis. Axial view patella shows no lateralization or tilting. XR/XR knee RT 4V IMPRESSION: Normal right knee.
--- NOTE | ~2021-07-12 | XR_ITS ---
EXAMINATION: XR CHEST CLINICAL INFORMATION: Chronic cough COMPARISON: Chest x-ray 02/10/2020 TECHNIQUE: 2 views of the chest were obtained. FINDINGS: Cardiac silhouette is normal in size. The lungs are well aerated. There is no lobar consolidation. No pleural effusion or pneumothorax. Mild degenerative changes of the spine. XR/XR chest 2V IMPRESSION: Stable examination demonstrating no acute pulmonary pathology.
[2021-07-12 07:38] LABS: MANUAL DIFF FLAG NO
[2021-07-12 08:38] LABS: Basophils Percent Auto 0.3 % (0-2); Eosinophils Absolute Auto 0.1 X10*3/uL (0.0-0.4); Eosinophils Percent Auto 0.4 % (0-4); Hematocrit 45.5 % (37.0-47.0); Imm Gran Abs Auto 0.07 X10*3/uL (0.00-0.03); Imm Gran Pct Auto 0.4 % (0.0-0.4); Lymphocytes Absolute Auto 2.4 X10*3/uL (1.2-4.9); Lymphocytes Percent Auto 15.2 % (20-40); Mean Corpuscular Hemoglobin 30.8 pg (27.0-33.0); Mean Corpuscular Volume 93.4 fL (80.0-98.0); Mean Platelet Volume 8.7 fL (9.4-12.3); Monocytes Absolute Auto 0.9 X10*3/uL (0.1-1.2); Monocytes Percent Auto 5.8 % (2-11); Neutrophils Absolute Auto 12.4 x10*3/uL (2.0-8.3); Neutrophils Percent Auto 77.9 % (45-73); Platelet Count 425 X10*3/uL (160-400); Red Blood Count 4.87 X10*6/uL (4.20-5.50); Red Cell Distribution Width 13.6 % (11.0-16.0); White Blood Count 15.9 X10*3/uL (4.8-10.8)
[2021-07-12 09:23] LABS: Erythrocyte Sedimentation Rate 32 MM/HR (0-20)
== END 2021-07-12 07:24 | disposition home or self-care (01) ==
LOC: HO.LAB 07:23
PROVIDERS: PCP Internal Medicine; Visit Provider Hospitalist
DX: R05.3 Chronic cough (principal); J45.909 Unspecified asthma, uncomplicated; K21.9 Gastro-esophageal reflux disease without esophagitis
CPT/HCPCS: 36415; 71046; 73564; 82785; 85025; 85652; 86003; 99212

== ENCOUNTER 2021-07-18 07:20 | Day surgery (SDC) | payer MEDICARE, MEDICAID, SELFPAY ==
[2021-07-12 15:44] VITALS: BMI 35.0
--- NOTE | 2021-07-17 09:24 | HO.ANESPROP2 ---
Documented by User: Cheyanne Eastman NP 07/17/21 09:25 HPI - Anesthesia Eval Consult details Narrative: 51yo F for Upper Endoscopy s/p colo 08/2020 with TIVA *Multiple Med Allergies* PMFSH Active Problems Active Problems: All Active Problems (Updated 07/12/21 @ 09:15 by Loyd Maya MD) Bicipital tendinitis of left shoulder (Acute) Lateral epicondylitis of left elbow (Acute) Numbness of left hand (Acute) Breast cancer screening by mammogram (Acute) Plantar fasciitis, bilateral (Acute) Dysphagia (Acute) Easy bruisability (Chronic) Hypersomnia (Acute) Breast density (Acute) Gastroesophageal reflux disease (Acute) Generalized anxiety disorder (Acute) Impaired fasting blood sugar (Acute) Left ankle pain (Acute) Verruca (Acute) Thyroid enlarged (Acute) Chronic pain of left ankle (Acute) Annual physical exam (Acute) Right knee pain (Acute) Chronic cough (Acute) Plantar fasciitis (Acute) Tobacco abuse (Acute) Asthma (Acute) Obesity (BMI 30-39.9) (Acute) Hip pain (Acute) Hypercholesterolemia (Acute) History of IBS (Acute) Past Medical History Medical History Arthritis Asthma Back pain Chronic cough GERD (gastroesophageal reflux disease) Hip pain History of IBS Hx of tuberculosis Hypercholesterolemia Obesity (BMI 30-39.9) Palpitations Panic attacks Plantar fasciitis Tobacco abuse Family History Family History Father Tongue cancer Mother CVD (cardiovascular disease) Maternal Aunt Colon cancer Maternal Uncle Colon cancer Brother CVD (cardiovascular disease) Family history of problems with anesthesia: No Surgical History Surgical History (Updated 07/12/21 @ 15:38 by Teresa Mcgill RN) History of appendectomy History of section History of meniscectomy of left knee History of removal of cyst History of surgical removal of pilonidal cyst Hx of colonoscopy Hx of endoscopy Hx of tubal ligation History of Problems with Anesthesia: No Social History Social History Household Members: Spouse and Children Housing: Apartment Are you a primary floor care technician to a significant other at home: No Do you presently have visiting nurse or other home services: No Alcohol intake: former Patient Tobacco Use Status: Current everyday Tobacco user Tobacco use type: Cigarette Cigarette Packs Per Day: 0.5 Cigarettes Per Day: 10 Years Smoked: 30 e-Cigarette/Vaping Use: Never Used Second Hand Smoke Exposure: No Use of substances other than those prescribed or required for medical reasons: Yes Substance Use Type: Marijuana Advance Directives: No (unknown) Advance Directives Information Provided: Yes Advance Directives on File: No service: No Current occupational status: disabled Current occupation: rt handed Meds Allergies Allergy/AdvReac Type Severity Reaction Status Date / Time acetaminophen [From Vicodin] Allergy Severe Stomach Verified 07/12/21 10:44 Pain hydrocodone [From Vicodin] Allergy Severe Stomach Verified 07/12/21 10:44 Pain morphine [MORPHINE] Allergy Severe REDNESS, Verified 07/12/21 10:44 FEELS REALLY HOT, shortness of breath, anaphylaxis oxycodone Allergy Severe Stomach Verified 07/12/21 10:44 Upset amoxicillin AdvReac Severe yeast Verified 07/12/21 10:44 infection Penicillins [PENICILLINS] AdvReac Severe YEAST Verified 07/12/21 10:44 INFECTION Home Medications Medication Instructions Recorded Confirmed Last Taken Type cholecalciferol (vitamin D3) 50 50 mcg PO DAILY 04/11/20 07/12/21 Unknown History mcg (2,000 unit) capsule dicyclomine 10 mg capsule 20 mg PO TID cap 04/11/20 07/12/21 Unknown History lorazepam 1 mg tablet (Ativan) 1 mg PO DAILY PRN 04/11/20 07/12/21 Unknown History Exam Exam Date and Time: July 17, 2021 0924 Height,Weight and Vital Signs: Height 5 ft 3 in Weight 89.8 kg Assessment and Plan Assessment Anesthesia Assessment: Chart Reviewed Final Anesthetic Review Family History of Problems with Anesthesia: No History of Problems with Anesthesia: No Documented by User: Yue See MD 07/18/21 08:03 [facility] Past Medical History Medical History Arthritis Asthma Back pain Chronic cough GERD (gastroesophageal reflux disease) Hip pain History of IBS Hx of tuberculosis Hypercholesterolemia Obesity (BMI 30-39.9) Palpitations Panic attacks Plantar fasciitis Tobacco abuse Family History Family History Father Tongue cancer Mother CVD (cardiovascular disease) Maternal Aunt Colon cancer Maternal Uncle Colon cancer Brother CVD (cardiovascular disease) Surgical History Surgical History (Updated 07/12/21 @ 15:38 by Teresa Mcgill RN) History of appendectomy History of section History of meniscectomy of left knee History of removal of cyst History of surgical removal of pilonidal cyst Hx of colonoscopy Hx of endoscopy Hx of tubal ligation Social History Social History Household Members: Spouse and Children Housing: Apartment Are you a primary floor care technician to a significant other at home: No Do you presently have visiting nurse or other home services: No Alcohol intake: former Patient Tobacco Use Status: Current everyday Tobacco user Tobacco use type: Cigarette Cigarette Packs Per Day: 0.5 Cigarettes Per Day: 10 Years Smoked: 30 e-Cigarette/Vaping Use: Never Used Second Hand Smoke Exposure: No Use of substances other than those prescribed or required for medical reasons: Yes Substance Use Type: Marijuana Advance Directives: No (unknown) Advance Directives Information Provided: Yes Advance Directives on File: No service: No Current occupational status: disabled Current occupation: rt handed Meds Allergies Allergy/AdvReac Type Severity Reaction Status Date / Time acetaminophen [From Vicodin] Allergy Severe Stomach Verified 07/12/21 10:44 Pain hydrocodone [From Vicodin] Allergy Severe Stomach Verified 07/12/21 10:44 Pain morphine [MORPHINE] Allergy Severe REDNESS, Verified 07/12/21 10:44 FEELS REALLY HOT, shortness of breath, anaphylaxis oxycodone Allergy Severe Stomach Verified 07/12/21 10:44 Upset amoxicillin AdvReac Severe yeast Verified 07/12/21 10:44 infection Penicillins [PENICILLINS] AdvReac Severe YEAST Verified 07/12/21 10:44 INFECTION Home Medications Medication Instructions Recorded Confirmed Last Taken Type cholecalciferol (vitamin D3) 50 50 mcg PO DAILY 04/11/20 07/12/21 Unknown History mcg (2,000 unit) capsule dicyclomine 10 mg capsule 20 mg PO TID cap 04/11/20 07/12/21 Unknown History lorazepam 1 mg tablet (Ativan) 1 mg PO DAILY PRN 04/11/20 07/12/21 Unknown History Exam Airway Mallampati Class: II TM Dist: >3cm Neck ROM: Full Partial: Upper Heart: rrr Lungs: cta Assessment and Plan Assessment Anesthesia Assessment: Anesthesia Plan Discussed and Chart Reviewed Final Anesthetic Review NPO: Yes ASA Class: II Final Preanesthetic Review: No Changes in Pt Med Stat, Meds/Allgs Chart Reviewed and Consent Obtained/Reviewed Patient Risk: Intermediate Procedure Risk: Intermediate Anesthetic Plan Anesthetic Plan: MAC: Disposition: Standard PACU
--- NOTE | 2021-07-18 07:06 | MHC.SHP ---
Pre-Procedural Eval Section A Date of Service: 07/18/21 Section B Chief Complaint: reflux disease Relevant Family History (Specify if Yes): No Relevant Social History: Tobacco Use Present Medications: see Short Stay Collaborative assessment Medical History: Significant History (Arthritis Asthma Back pain Chronic cough GERD (gastroesophageal reflux disease) Hip pain History of IBS Hx of tuberculosis Hypercholesterolemia Obesity (BMI 30-39.9) Palpitations Panic attacks Plantar fasciitis Tobacco abuse) History of Previous Operations: Relevant previous surgery/procedure and date(s) (History of appendectomy History of section History of meniscectomy of left knee History of removal of cyst History of surgical removal of pilonidal cyst Hx of colonoscopy Hx of endoscopy Hx of tubal ligation) Allergies: Allergies Allergy/AdvReac Type Severity Reaction Status Date / Time acetaminophen [From Vicodin] Allergy Severe Stomach Verified 07/12/21 10:44 Pain hydrocodone [From Vicodin] Allergy Severe Stomach Verified 07/12/21 10:44 Pain morphine [MORPHINE] Allergy Severe REDNESS, Verified 07/12/21 10:44 FEELS REALLY HOT, shortness of breath, anaphylaxis oxycodone Allergy Severe Stomach Verified 07/12/21 10:44 Upset amoxicillin AdvReac Severe yeast Verified 07/12/21 10:44 infection Penicillins [PENICILLINS] AdvReac Severe YEAST Verified 07/12/21 10:44 INFECTION Review of Systems Sugical H&P ROS: Negative: Constitution, Cardiovascular, Respiratory, Neurological, Psychiatric, Hem-Onc, Allergic/Immunologic, Gastrointestinal, Genitourinary, Musculoskeletal, Integumentary, Endocrine and Eyes/Ears/Nose/Throat Exam Surgical H&P Exam: Normal: HEENT, Normal: Heart, Normal: Lungs, Normal: Extremities, Normal: Abdomen, Normal: Skin and Normal: Neurological Plan Diagnosis/Plan: Unchanged I have reviewed the history and physical and performed a pertinent physical examination on my patient. No changes have occurred unless specified.
[2021-07-18 07:40] VITALS: BP 101/60; PULSE 73; RESP 16; TEMP 36.8; O2SAT 96
[2021-07-18] MEDS: Lactated Ringers 1,000 ML 100 ML IVCONT (07:47)
--- NOTE | 2021-07-18 08:41 | PM.OP ---
Brief Operative Note Date of Service: 07/18/21 Pre-op diagnosis: GERD, dysphagia Post-op diagnosis: same Procedure: see op note Surgeon: Jan Gutierrez MD Anesthesia: MAC Was an Technician Test Systems used for this Procedure?: No Estimated blood loss (mL): 0 Condition: stable Disposition: PACU
--- NOTE | 2021-07-18 08:41 | W.PM.OPN ---
Operative Note Operative Note Date of Service: 07/18/21 Narrative: Procedure Description: EGD FLEXIBLE TRANSORAL UPPER GASTROINTESTINAL ENDOSCOPY UPPER ENDOSCOPY Consent: Indications for the procedure and potential complications of bleeding, perforation, reaction to medications and missed diagnosis were discussed with the patient and informed consent was obtained. Instrument: Olympus GIF H 190 J mid size upper endoscope Monitoring: Vital signs and clinical assessment, continuous EKG monitoring, Pulse oximetry, Carbon Dioxide monitoring and blood pressure monitoring were done throughout the procedure. Procedure: The patient was placed in the left lateral decubitis position and pre-procedure medications were administered and a bite block was placed. The endoscope was inserted into the mouth and advanced under direct vision to the third part of duodenum. A careful inspection was made as the upper endoscope was withdrawn including a retroflexed examination of the proximal stomach; Findings and interventions are described below. Findings: Larynx:normal Esophagus: GE junction at 33 cm, diaphragm hiatus at 35 cm, consistent with 2 cm sliding hiatal hernia, bogginess and erythema with erosions at GEJ, bx taken. Balloon dilation doen at LES and UES to 19mm and 20 mm, no tears seen. Random esophagus bx taken. Stomach: Patchy gastric erythema with erosions and pitting of the mucosa. Biopsies were obtained. Grade 3 flap valve on retroflexed examination of the cardia. Duodenum: Normal bulb and descending duodenum, Intervention: Biopsies as noted above, balloon dilation Impression/Findings: schatzki ring esophagitis erosive gastritis hiatal hernia PLAN: await results if h pylori pos then treat reflux precautions smoking cessation may help as well
[2021-07-18 09:09] VITALS: BP 122/75; PULSE 93; RESP 16; TEMP 37.1; O2SAT 96
[2021-07-18 09:24] VITALS: BP 106/62; PULSE 82; RESP 16; O2SAT 97
== END 2021-07-18 10:15 | disposition home or self-care (01) ==
PROVIDERS: Visit Provider Internal Medicine Gastroenterology
PROC: 0DJ08ZZ Inspection of Upper Intestinal Tract, Via Natural or Artificial Opening Endoscopic (ICD-10-PCS; CPT 43235; principal; 2021-07-18 08:30)
DX: K21.9 Gastro-esophageal reflux disease without esophagitis (principal); K22.2 Esophageal obstruction; K20.80 Other esophagitis without bleeding; R13.10 Dysphagia, unspecified; K29.60 Other gastritis without bleeding; K44.9 Diaphragmatic hernia without obstruction or gangrene
CPT/HCPCS: 43239; 43249; 88305; 88342; C1726

== ENCOUNTER → 2021-08-03 09:43 | Outpatient (BNVA) | payer MEDICARE, MEDICAID, SELFPAY | PROVIDERS: Visit Provider Physician Assistant | DX: M23.91 Unspecified internal derangement of right knee (principal) | CPT/HCPCS: 99212 ==

== ENCOUNTER → 2021-08-06 11:42 | Outpatient (BNVA) | payer MEDICARE, MEDICAID, SELFPAY | PROVIDERS: PCP Internal Medicine; Visit Provider Nurse Practitioner Family | DX: K21.9 Gastro-esophageal reflux disease without esophagitis (principal); K58.1 Irritable bowel syndrome with constipation; K59.04 Chronic idiopathic constipation; R13.14 Dysphagia, pharyngoesophageal phase; K22.70 Barrett's esophagus without dysplasia | CPT/HCPCS: 99212 ==

== ENCOUNTER 2021-08-30 08:50 | Outpatient (REF) | payer MEDICARE, MEDICAID, SELFPAY ==
--- NOTE | 2021-08-30 13:20 | PFT_ITS ---
Forced vital capacity 63%, FEV1 62%. FEF 25-75 is 52%, MVV 75%. Post bronchodilator therapy, there is a slight improvement in FEF 25-75. Total lung capacity 73% and residual volume 85%. Diffusion capacity is 62%. CONCLUSION: 1. Restrictive pulmonary disorder, moderately severe. 2. Obstructive airway disorder mainly involving small airways, mild, with a slight improvement after bronchodilator therapy. 3. Clinical correlation is recommended. MD MIRACLE Ortiz/MODBrendon / [id number]
== END 2021-08-30 08:51 | disposition home or self-care (01) ==
LOC: HO.RESP 08:50
PROVIDERS: PCP Internal Medicine; Visit Provider Hospitalist
DX: R05.3 Chronic cough (principal)
CPT/HCPCS: 94060; 94727; 94729

== ENCOUNTER → 2021-09-17 12:52 | Outpatient (BNVA) | payer MEDICARE, MEDICAID, SELFPAY | PROVIDERS: PCP Internal Medicine; Visit Provider Hospitalist | DX: J45.909 Unspecified asthma, uncomplicated (principal); J44.9 Chronic obstructive pulmonary disease, unspecified; K21.9 Gastro-esophageal reflux disease without esophagitis; R05.3 Chronic cough | CPT/HCPCS: 99212 ==

== ENCOUNTER 2021-10-26 15:26 | Outpatient (REF) | payer MEDICARE, MEDICAID, SELFPAY | END 2021-10-26 15:27 | disposition home or self-care (01) | LOC: HO.CT 15:26 | PROVIDERS: PCP Internal Medicine; Visit Provider Physician Assistant Medical | DX: F17.210 Nicotine dependence, cigarettes, uncomplicated (principal); Z71.6 Tobacco abuse counseling | CPT/HCPCS: G0296 ==

== ENCOUNTER 2021-11-23 15:58 | Outpatient (REF) | payer MEDICARE, MEDICAID, SELFPAY ==
--- NOTE | ~2021-11-23 | US_ITS ---
EXAMINATION: US VENOUS ULTRASOUND WITH DOPPLER LOWER EXTREMITY, BILATERAL CLINICAL INFORMATION: Localized edema. COMPARISON: None TECHNIQUE: Ultrasound of the deep veins is performed from the hip to the calf with compression sonography and color and pulse Doppler assessment. Spectral analysis with color-flow imaging is performed. FINDINGS: RIGHT: There is normal venous compression and respiratory variation and augmented flow. The visualized common femoral vein, superficial femoral vein, profunda femoral vein, popliteal vein, and the trifurcation region shows no evidence of deep venous thrombosis. There is no significant popliteal fossa cyst. LEFT: There is normal venous compression and respiratory variation and augmented flow. The visualized common femoral vein, superficial femoral vein, profunda femoral vein, popliteal vein, and the trifurcation region shows no evidence of deep venous thrombosis. There is no significant popliteal fossa cyst. If the patient's symptoms persist, followup ultrasound in 5 days 7 days might be of value to exclude proximal propagation from a non-visualized calf vein. US/US venous duplex LE BI IMPRESSION: No evidence for deep venous thrombosis in the visualized veins of the bilateral lower extremities.
== END 2021-11-23 15:59 | disposition home or self-care (01) ==
LOC: HO.US 15:58
PROVIDERS: PCP Internal Medicine; Visit Provider Nurse Practitioner Family
DX: R60.0 Localized edema (principal)
CPT/HCPCS: 93970

== ENCOUNTER → 2021-12-05 08:25 | Outpatient (BNVA) | payer MEDICARE, MEDICAID, SELFPAY | PROVIDERS: PCP Internal Medicine; Referring Provider Internal Medicine; Visit Provider Nurse Practitioner Family | DX: K21.9 Gastro-esophageal reflux disease without esophagitis (principal); K22.70 Barrett's esophagus without dysplasia; K58.2 Mixed irritable bowel syndrome; K31.84 Gastroparesis; M25.561 Pain in right knee; Z79.899 Other long term (current) drug therapy | CPT/HCPCS: 99212 ==

== ENCOUNTER 2021-12-12 07:46 | Outpatient (REF) | payer MEDICARE, SELFPAY ==
--- NOTE | ~2021-12-12 | MM_ITS ---
EXAMINATION: MM SCREENING DIGITAL BREAST TOMOSYNTHESIS, BILATERAL CLINICAL INFORMATION: Screening. Asymptomatic. The lifetime risk of breast cancer based on the Tyrer-Cuzick Model is 12%. COMPARISON: Mammography: 12/07/2020, 11/29/2020, 05/24/2015; left breast ultrasound 12/07/2020. TECHNIQUE: Digital breast tomosynthesis is performed in both the craniocaudal and mediolateral oblique views along with computer-aided detection (CAD). Synthesized 2D images are generated from the tomosynthesis. FINDINGS: The breasts are heterogeneously dense, which may obscure small masses (ACR BI-RADS breast composition Category c). Breast tissue composition borders on average fibroglandular. There is no significant mass. No developing density or architectural abnormality. No abnormal calcifications. The axilla and skin contours are unremarkable. MM/MM tomosynthesis screening BI IMPRESSION: No mammographic evidence of malignancy. ASSESSMENT: BI-RADS 1: Negative RECOMMENDATION: Routine annual mammography screening. This patient's information was entered into a reminder system with a target due date for their next mammogram.
== END 2021-12-12 07:47 | disposition home or self-care (01) ==
LOC: HO.MAMMO 07:46
PROVIDERS: PCP Internal Medicine; Visit Provider Internal Medicine
DX: Z12.31 Encounter for screening mammogram for malignant neoplasm of breast (principal)
CPT/HCPCS: 77063; 77067

== ENCOUNTER → 2022-02-27 08:18 | Outpatient (BNVA) | payer MEDICARE, MEDICAID, SELFPAY | PROVIDERS: PCP Internal Medicine; Visit Provider Nurse Practitioner Family | DX: R13.14 Dysphagia, pharyngoesophageal phase (principal); K31.84 Gastroparesis; K21.00 Gastro-esophageal reflux disease with esophagitis, without bleeding; K22.70 Barrett's esophagus without dysplasia; K58.1 Irritable bowel syndrome with constipation; K64.0 First degree hemorrhoids; Z79.899 Other long term (current) drug therapy | CPT/HCPCS: 99212 ==

== ENCOUNTER 2022-02-28 08:03 | Outpatient (REF) | payer MEDICARE, MEDICAID, SELFPAY ==
[2022-02-28 08:22] LABS: MANUAL DIFF FLAG NO
[2022-02-28 08:55] LABS: Basophils Percent Auto 0.4 % (0-2); Eosinophils Absolute Auto 0.1 X10*3/uL (0.0-0.4); Eosinophils Percent Auto 0.7 % (0-4); Hematocrit 42.9 % (37.0-47.0); Hemoglobin 14.1 g/dl (12.0-16.0); Imm Gran Abs Auto 0.04 X10*3/uL (0.00-0.03); Imm Gran Pct Auto 0.4 % (0.0-0.4); Lymphocytes Absolute Auto 1.8 X10*3/uL (1.2-4.9); Lymphocytes Percent Auto 18.2 % (20-40); Mean Corpuscular HGB Conc 32.9 g/dl (31.0-35.0); Mean Corpuscular Hemoglobin 30.1 pg (27.0-33.0); Mean Corpuscular Volume 91.5 fL (80.0-98.0); Mean Platelet Volume 8.9 fL (9.4-12.3); Monocytes Absolute Auto 0.9 X10*3/uL (0.1-1.2); Monocytes Percent Auto 9.2 % (2-11); Neutrophils Absolute Auto 7.1 x10*3/uL (2.0-8.3); Neutrophils Percent Auto 71.1 % (45-73); Platelet Count 346 X10*3/uL (160-400); Red Blood Count 4.69 X10*6/uL (4.20-5.50); Red Cell Distribution Width 13.9 % (11.0-16.0); White Blood Count 9.9 X10*3/uL (4.8-10.8)
[2022-02-28 09:04] LABS: Prothrombin Time 11.9 SEC (10.0-13.1)
[2022-02-28 09:05] LABS: Estimated Average Glucose 105 mg/dL; Hemoglobin A1c % 5.3 %
[2022-02-28 09:54] LABS: Alanine Aminotransferase 7 U/L (0-31); Albumin Level 3.9 g/dL (3.5-5.0); Alkaline Phosphatase 104 U/L (39-117); Anion Gap 16 (12-20); Aspartate Amino Transferase 15 U/L (5-31); Bilirubin Total 0.3 mg/dL (0.0-1.0); Blood Urea Nitrogen 13 mg/dL (9-16); Calcium 8.9 mg/dL (8.4-10.2); Carbon Dioxide 26 mmol/L (22-29); Chloride 104 mmol/L (96-108); Cholesterol 222 mg/dL; Estimated Glomerular Filt Rate > 60; Glucose Random 97 mg/dL (60-115); HDL Cholesterol 54 mg/dL; LDL Cholesterol Calculated 157 mg/dl; Potassium 4.6 mmol/L (3.3-5.1); Sodium 141 mmol/L (135-145); Total Protein 6.9 g/dL (6.5-8.0); Triglycerides 55 mg/dL
[2022-02-28 10:06] LABS: Free T4 (Free Thyroxine) 0.88 ng/dL (0.71-1.85); Thyroid Stimulating Hormone 0.87 uIU/mL (0.32-4.0)
[2022-02-28 10:38] LABS: Folate 8.1 ng/mL (> or = 4.0); Vitamin B12 319 pg/mL (200-900)
== END 2022-02-28 08:04 | disposition home or self-care (01) ==
LOC: HO.LAB 08:03
PROVIDERS: Nurse Practitioner Family; Absent Provider Nurse Practitioner Family; PCP Internal Medicine; Visit Provider Internal Medicine
DX: R13.14 Dysphagia, pharyngoesophageal phase (principal); K21.9 Gastro-esophageal reflux disease without esophagitis; R73.01 Impaired fasting glucose; E04.9 Nontoxic goiter, unspecified; E78.00 Pure hypercholesterolemia, unspecified; R60.0 Localized edema; K20.90 Esophagitis, unspecified without bleeding; K29.70 Gastritis, unspecified, without bleeding
CPT/HCPCS: 36415; 80053; 80061; 82306; 82607; 82746; 83036; 84439; 84443; 85025; 85610; 86003

== ENCOUNTER → 2022-06-26 09:08 | Outpatient (BNVA) | payer MEDICARE, MEDICAID, SELFPAY | PROVIDERS: PCP Internal Medicine; Visit Provider Nurse Practitioner Family | DX: K21.00 Gastro-esophageal reflux disease with esophagitis, without bleeding (principal); K58.2 Mixed irritable bowel syndrome; K31.84 Gastroparesis; Z79.899 Other long term (current) drug therapy | CPT/HCPCS: 99212 ==

== ENCOUNTER 2022-09-10 14:01 | Emergency (ER) | payer MEDICARE, MEDICAID, SELFPAY ==
--- NOTE | ~2022-09-10 | XR_ITS ---
EXAMINATION: XR CHEST CLINICAL INFORMATION: Chest pain. COMPARISON: 07/12/2021 chest radiographs. TECHNIQUE: Frontal view of the chest was obtained. FINDINGS: No significant abnormality is noted involving the heart, lungs, mediastinum, bony thorax or soft tissues. XR/XR chest 1V IMPRESSION: No acute cardiopulmonary process.
--- NOTE | 2022-09-10 14:05 | ECG_ITS ---
Test Reason : CP Blood Pressure : / mmHG Vent. Rate : 061 BPM Atrial Rate : 061 BPM P-R Int : 132 ms QRS Dur : 078 ms QT Int : 370 ms P-R-T Axes : 060 050 043 degrees QTc Int : 372 ms Normal sinus rhythm Normal ECG When compared with ECG of 14-OCT-2020 07:30, No significant change was found Referred By: Generic ED Physician Electronically Signed By:GODWIN AMADOR MD
--- NOTE | 2022-09-10 14:06 | ED.CHESTPAIN ---
HPI - Chest Pain General Chief Complaint: Chest Pain Stated Complaint: chest pain Related Data Home Medications ?Medication ?Instructions ?Recorded ?Confirmed cholecalciferol (vitamin D3) 50 50 mcg PO DAILY 04/11/20 10/08/23 mcg (2,000 unit) capsule lorazepam 1 mg tablet (Ativan) 1 mg PO DAILY PRN Anxiety 04/11/20 10/08/23 acetaminophen 500 mg tablet 500 mg PO Q8H PRN mild pain 10/08/23 10/08/23 Previous Rx's ?Medication ?Instructions ?Recorded lidocaine 4 % topical cream 1 appl topical BID 2 weeks #15 01/28/22 grams hydrocortisone 2.5 % topical cream 1 appl MS BID-QID PRN hemorrhoids 06/26/22 with perineal applicator #30 grams (Proctosol HC) polyethylene glycol 3350 17 17 g PO DAILY #510 grams 03/05/23 gram/dose oral powder (Miralax) esomeprazole magnesium 40 mg 40 mg PO DAILY #90 caps 06/03/23 capsule,delayed release metoclopramide HCl 5 mg tablet 5 mg PO QIDACHS #120 tabs 06/03/23 (Reglan) albuterol sulfate 90 mcg/actuation 2 puff inhalation Q6H PRN 09/05/23 aerosol inhaler (Ventolin HFA) shortness of breath or wheezing #8.5 grams linaclotide 145 mcg capsule 145 mcg PO DAILY #30 caps 12/10/23 (Linzess) sucralfate 100 mg/mL oral 10 ml PO BEDTIME #400 mL 12/10/23 suspension cyclobenzaprine 10 mg tablet 10 mg PO TID PRN for muscle spasm 12/21/23 #90 tabs nabumetone 500 mg tablet 500 mg PO BID #60 tabs 12/21/23 Allergies Allergy/AdvReac Type Severity Reaction Status Date / Time hydrocodone [From Vicodin] Allergy Severe Stomach Verified 12/10/23 07:52 Pain morphine [MORPHINE] Allergy Severe REDNESS, Verified 12/10/23 07:52 FEELS REALLY HOT, shortness of breath, anaphylaxis oxycodone Allergy Severe Stomach Verified 12/10/23 07:52 Upset amoxicillin AdvReac Severe yeast Verified 12/10/23 07:52 infection Penicillins [PENICILLINS] AdvReac Severe YEAST Verified 12/10/23 07:52 INFECTION [facility] Past Medical History Medical History Arthralgia of right hand Bilateral hand numbness Verruca Generalized anxiety disorder Gastroesophageal reflux disease Hypersomnia Dysphagia Plantar fasciitis, bilateral Achilles tendinitis of left lower extremity De Quervain's tenosynovitis, right Calcaneal spur of left foot Well woman exam with routine gynecological exam Epidermoid cyst of skin of back Sacrococcygeal pilonidal cyst with abscess Numbness of right hand Gastroparesis COVID-19 virus infection Dyspnea Personal history of nicotine dependence Asthma-COPD overlap syndrome Cohn's esophagus determined by endoscopy Chronic cough Plantar fasciitis Chronic pain of left ankle Impaired fasting blood sugar Breast density Easy bruisability Lateral epicondylitis of left elbow Bicipital tendinitis of left shoulder Back pain Arthritis GERD (gastroesophageal reflux disease) Panic attacks Hx of tuberculosis Palpitations History of IBS Hypercholesterolemia Hip pain Obesity (BMI 30-39.9) Surgical History Hx of carpal tunnel repair History of loop electrosurgical excision procedure (LEEP) History of tubal ligation History of colonoscopy History of esophagogastroduodenoscopy (EGD) History of surgical removal of pilonidal cyst History of meniscectomy of left knee History of appendectomy History of section Family History Family History Father Tongue cancer Mother CVD (cardiovascular disease) Maternal Aunt Colon cancer Maternal Uncle Colon cancer Brother CVD (cardiovascular disease) Substance abuse Sister CVD (cardiovascular disease) Social History Social History Household Members: Spouse and Children Housing: Apartment Are you a primary care management coordinator to a significant other at home: No Do you presently have visiting nurse or other home services: No Alcohol intake: former Comment: counts correct Patient Tobacco Use Status: Current everyday Tobacco user Tobacco use type: Cigarette Cigarettes Per Day: 10 Years Smoked: 30 e-Cigarette/Vaping Use: Never Used Second Hand Smoke Exposure: Yes Substance Use Type: Marijuana service: No Current occupational status: disabled Cognitive needs: No Hearing needs: No Vision needs: No Physical Exam Vital Signs: Vital Signs: Last Vital Signs Temp 98 F 09/10/22 14:46 Pulse 84 09/10/22 14:46 Resp 18 09/10/22 14:46 BP 139/85 09/10/22 14:46 Pulse Ox 99 09/10/22 14:46 BMI result Body Mass Index 32.5 Course Course Course Narrative: This is an RME: Additional HPI, ROS, PE not included below will be deferred to primary provider. 52-year-old female presents the emergency department for evaluation of substernal chest pressure, with radiation into left arm, this started yesterday, worsening over the past few minutes. Patient reports she is now having just chest pressure without radiation into the left arm. No associated shortness of breath, fevers, chills, nausea, vomiting, abdominal pain, headache, vision changes, dizziness. Physical exam benign. Ordered EKG, basic labs, troponin, BNP, chest x-ray. Medical Decision Making Lab Data 09/10/22 14:45 09/10/22 14:45 Labs: Lab Results 09/10/22 Range/Units 14:45 WBC 9.8 (4.8-10.8) X10*3/uL RBC 4.86 (4.20-5.50) X10*6/uL Hgb 14.4 (12.0-16.0) g/dl Hct 44.8 (37.0-47.0) % MCV 92.2 (80.0-98.0) fL MCH 29.6 (27.0-33.0) pg MCHC 32.1 (31.0-35.0) g/dl RDW 13.8 (11.0-16.0) % Plt Count 320 (160-400) X10*3/uL MPV 8.8 L (9.4-12.3) fL Immature Gran % (Auto) 0.3 (0.0-0.4) % Neut % (Auto) 65.8 (45-73) % Lymph % (Auto) 22.9 (20-40) % Waller % (Auto) 10.3 (2-11) % Eos % (Auto) 0.4 (0-4) % Baso % (Auto) 0.3 (0-2) % Lymph # (Auto) 2.2 (1.2-4.9) X10*3/uL Waller # (Auto) 1.0 (0.1-1.2) X10*3/uL Eos # (Auto) 0.0 (0.0-0.4) X10*3/uL Baso # (Auto) 0.0 (0.0-0.2) X10*3/uL Abs Immat Gran (auto) 0.03 (0.00-0.03) X10*3/uL Absolute Neuts (auto) 6.4 (2.0-8.3) x10*3/uL Absolute Nucleated RBC 0.000 (0.0-0.012) X10*3/uL Nucleated RBC % (auto) 0.0 (0.0-0.2) /100WBC Sodium 138 (135-145) mmol/L Potassium 4.4 (3.3-5.1) mmol/L Chloride 104 (96-108) mmol/L Carbon Dioxide 27 (22-29) mmol/L Anion Gap 11 L (12-20) BUN 9 (9-16) mg/dL Creatinine 0.77 (0.5-1.4) mg/dL Estim Creat Clear Calc 88.4 Estimated GFR > 60 Random Glucose 92 (60-115) mg/dL Calcium 9.2 (8.4-10.2) mg/dL Magnesium 2.1 (1.6-2.6) mg/dL Total Bilirubin 0.4 (0.0-1.0) mg/dL AST 16 (5-31) U/L ALT 12 (0-31) U/L Alkaline Phosphatase 110 (39-117) U/L Troponin I High Sens < 3.5 (<3.5-17.0) ng/L B-Natriuretic Peptide 14 (<100) pg/mL Total Protein 6.6 (6.5-8.0) g/dL Albumin 3.9 (3.5-5.0) g/dL COVID-19 (MAURICE) Negative (Negative) COVID-19 Clin Com See Note Discharge Plan Discharge Clinical Impression: Eloped from emergency department Patient Disposition: Elopement Prescriptions: No Action albuterol sulfate [Ventolin HFA] 90 mcg/actuation HFA aerosol inhaler 2 puff inhalation Q6H PRN (Reason: shortness of breath or wheezing) Qty: 8.5 0RF cyclobenzaprine 10 mg tablet 10 mg PO TID PRN (Reason: for muscle spasm) Qty: 90 0RF nabumetone 500 mg tablet 500 mg PO BID Qty: 60 0RF lorazepam [Ativan] 1 mg tablet 1 mg PO DAILY PRN (Reason: Anxiety) cholecalciferol (vitamin D3) 50 mcg (2,000 unit) capsule 50 mcg PO DAILY lidocaine 4 % cream 1 appl topical BID 14 Days Qty: 15 0RF hydrocortisone [Proctosol HC] 2.5 % cream with perineal applicator 1 appl MS BID-QID PRN (Reason: hemorrhoids) Qty: 30 2RF polyethylene glycol 3350 [Miralax] 17 gram/dose powder 17 g PO DAILY Qty: 510 2RF esomeprazole magnesium 40 mg capsule,delayed release(DR/EC) 40 mg PO DAILY Qty: 90 2RF metoclopramide HCl [Reglan] 5 mg tablet 5 mg PO QIDACHS Qty: 120 4RF Rx Instructions: hansa un comprimido 30 minutos antes de las comidas acetaminophen 500 mg tablet 500 mg PO Q8H PRN (Reason: mild pain) sucralfate 100 mg/mL suspension 10 ml PO BEDTIME Qty: 400 3RF Linzess 145 mcg capsule 145 mcg PO DAILY Qty: 30 2RF Referrals: Shira Raines MD [Primary Care Provider] - 1 Week Interventions: ED Discharge Assessment Last Done: 09/10/22 19:56 Discharge Date/Time: 09/10/22 19:57 Print Language: Persian
[2022-09-10 14:46] VITALS: BP 139/85; PULSE 84; RESP 18; TEMP 36.6; O2SAT 99; BMI 32.5
[2022-09-10 14:50] LABS: MANUAL DIFF FLAG NO
[2022-09-10 14:54] LABS: Basophils Percent Auto 0.3 % (0-2); Eosinophils Percent Auto 0.4 % (0-4); Hematocrit 44.8 % (37.0-47.0); Hemoglobin 14.4 g/dl (12.0-16.0); Imm Gran Abs Auto 0.03 X10*3/uL (0.00-0.03); Imm Gran Pct Auto 0.3 % (0.0-0.4); Lymphocytes Absolute Auto 2.2 X10*3/uL (1.2-4.9); Lymphocytes Percent Auto 22.9 % (20-40); Mean Corpuscular HGB Conc 32.1 g/dl (31.0-35.0); Mean Corpuscular Hemoglobin 29.6 pg (27.0-33.0); Mean Corpuscular Volume 92.2 fL (80.0-98.0); Mean Platelet Volume 8.8 fL (9.4-12.3); Monocytes Percent Auto 10.3 % (2-11); Neutrophils Absolute Auto 6.4 x10*3/uL (2.0-8.3); Neutrophils Percent Auto 65.8 % (45-73); Platelet Count 320 X10*3/uL (160-400); Red Blood Count 4.86 X10*6/uL (4.20-5.50); Red Cell Distribution Width 13.8 % (11.0-16.0); White Blood Count 9.8 X10*3/uL (4.8-10.8)
[2022-09-10 15:04] LABS: COVID-19 Test Negative (Negative); IDNOW Serial# 6674DD1D
[2022-09-10 15:17] LABS: B Type Natriuretic Peptide 14 pg/mL (<100)
[2022-09-10 15:21] LABS: Alanine Aminotransferase 12 U/L (0-31); Albumin Level 3.9 g/dL (3.5-5.0); Alkaline Phosphatase 110 U/L (39-117); Anion Gap 11 (12-20); Aspartate Amino Transferase 16 U/L (5-31); Bilirubin Total 0.4 mg/dL (0.0-1.0); Blood Urea Nitrogen 9 mg/dL (9-16); Calcium 9.2 mg/dL (8.4-10.2); Carbon Dioxide 27 mmol/L (22-29); Chloride 104 mmol/L (96-108); Creatinine Clr Calc Pharmacy 88.4; Estimated Glomerular Filt Rate > 60; Glucose Random 92 mg/dL (60-115); Magnesium 2.1 mg/dL (1.6-2.6); Potassium 4.4 mmol/L (3.3-5.1); Sodium 138 mmol/L (135-145); Total Protein 6.6 g/dL (6.5-8.0)
[2022-09-10 15:42] LABS: Troponin-I High Sensitivity < 3.5 ng/L (<3.5-17.0)
== END 2022-09-10 19:57 | disposition left against medical advice (07) ==
PROVIDERS: Physician Assistant; Emergency Provider Emergency Medicine; PCP Internal Medicine
DX: R07.89 Other chest pain (principal); R06.02 Shortness of breath; F17.210 Nicotine dependence, cigarettes, uncomplicated; Z20.822 Contact with and (suspected) exposure to COVID-19; Z20.828 Contact with and (suspected) exposure to other viral communicable diseases; Z71.6 Tobacco abuse counseling; Z79.899 Other long term (current) drug therapy
CPT/HCPCS: 71045; 80053; 83735; 83880; 84484; 85025; 87635; 93005; 99282; 99283

== ENCOUNTER 2022-09-13 09:23 | Outpatient (REF) | payer MEDICARE, MEDICAID, SELFPAY ==
[2022-09-13 14:09] LABS: CT PCR NOT DETECTED (Not Detect.); NG PCR NOT DETECTED (Not Detect.)
[2022-09-15 13:31] LABS: BV Int Neg Control Negative (Negative); BV Int Pos Control Positive (Positive)
[2022-09-17 06:38] LABS: HPV mRNA E6/E7 rflx Not Detected (Not Detected)
== END 2022-09-13 09:24 | disposition home or self-care (01) ==
LOC: HO.LNP 09:23
PROVIDERS: PCP Internal Medicine; Visit Provider Advanced Practice Midwife
DX: Z01.419 Encounter for gynecological examination (general) (routine) without abnormal findings (principal); Z11.51 Encounter for screening for human papillomavirus (HPV); Z20.2 Contact with and (suspected) exposure to infections with a predominantly sexual mode of transmission
CPT/HCPCS: 0353U; 87480; 87510; 87624; 87660; 88142

== ENCOUNTER 2022-09-13 10:34 | Outpatient (REF) | payer MEDICARE, MEDICAID, SELFPAY ==
--- NOTE | ~2022-09-13 | XR_ITS ---
EXAMINATION: XR hand LT 2V, XR hand RT 2V CLINICAL INFORMATION: Reason for Exam R20.0 - Anesthesia of skin COMPARISON: None. TECHNIQUE: AP, lateral, and oblique views of the bilateral hands XR/XR hand LT 2V FINDINGS/IMPRESSION: * No acute fracture or dislocation. * Joint spaces are maintained without significant degenerative change. * No soft tissue abnormality.
--- NOTE | ~2022-09-13 | XR_ITS ---
EXAMINATION: XR cervical spine 2V CLINICAL INFORMATION: Pain COMPARISON: None TECHNIQUE: 3 views of the cervical spine were obtained. FINDINGS: The cervical spine is visualized to the level of C6 on the lateral view. Vertebral body alignment is maintained. Vertebral body heights are maintained. Lateral masses of C1 are well aligned on C2. Visualized portion of the dens is intact. Intervertebral disc spaces are preserved. No prevertebral soft tissue swelling. XR/XR cervical spine 2V IMPRESSION: Unremarkable examination.
--- NOTE | ~2022-09-13 | XR_ITS ---
EXAMINATION: XR hand LT 2V, XR hand RT 2V CLINICAL INFORMATION: Reason for Exam R20.0 - Anesthesia of skin COMPARISON: None. TECHNIQUE: AP, lateral, and oblique views of the bilateral hands XR/XR hand RT 2V FINDINGS/IMPRESSION: * No acute fracture or dislocation. * Joint spaces are maintained without significant degenerative change. * No soft tissue abnormality.
== END 2022-09-13 10:35 | disposition home or self-care (01) ==
LOC: HO.XRAY 10:34
PROVIDERS: PCP Internal Medicine; Visit Provider Internal Medicine
DX: R20.0 Anesthesia of skin (principal)
CPT/HCPCS: 72040; 73120

== ENCOUNTER 2022-12-18 07:50 | Outpatient (REF) | payer MEDICARE, MEDICAID, SELFPAY ==
--- NOTE | ~2022-12-18 | MM_ITS ---
EXAMINATION: MM SCREENING DIGITAL BREAST TOMOSYNTHESIS, BILATERAL CLINICAL INFORMATION: Screening. Asymptomatic. The lifetime risk of breast cancer based on the Tyrer-Cuzick Model is 8%. COMPARISON: Mammography: 12/12/2021, 12/07/2020, 11/29/2020 TECHNIQUE: Digital breast tomosynthesis is performed in both the craniocaudal and mediolateral oblique views along with computer-aided detection (CAD). Synthesized 2D images are generated from the tomosynthesis. FINDINGS: The breasts are heterogeneously dense, which may obscure small masses (ACR BI-RADS breast composition Category c). Breast tissue composition borders on average fibroglandular. Scattered minor asymmetries are stable. No developing density or significant mass or architectural abnormality. No abnormal calcifications. The axilla and skin contours are unremarkable. MM/MM tomosynthesis screening BI IMPRESSION: No mammographic evidence of malignancy. ASSESSMENT: BI-RADS 1: Negative RECOMMENDATION: Routine annual mammography screening. This patient's information was entered into a reminder system with a target due date for their next mammogram.
== END 2022-12-18 07:51 | disposition home or self-care (01) ==
LOC: HO.MAMMO 07:50
PROVIDERS: PCP Internal Medicine; Visit Provider Internal Medicine
DX: Z12.31 Encounter for screening mammogram for malignant neoplasm of breast (principal)
CPT/HCPCS: 77063; 77067

== ENCOUNTER 2023-01-27 12:04 | Emergency (ER) | payer MEDICARE, MEDICAID, SELFPAY ==
--- NOTE | ~2023-01-27 | XR_ITS ---
EXAMINATION: XR WRIST, RIGHT XR HAND, RIGHT CLINICAL INFORMATION: Right hand pain and swelling. COMPARISON: Right hand radiographs dated 09/13/2022. TECHNIQUE: PA, lateral, and oblique views of the right wrist and PA, lateral, and oblique views of the right hand. Indicator arrow points to the fifth metacarpal. FINDINGS: RIGHT WRIST: The bones and soft tissues are normal. No fracture. Alignment is anatomic. Joint spaces are maintained. No erosions or soft tissue calcifications. RIGHT HAND: An expansile cystic lesion is seen within the distal aspect of the distal phalanx of the third digit with narrow zone of transition. The remainder the digits are intact. There is no acute fracture or dislocation. The soft tissues are unremarkable. XR/XR hand wrist RT IMPRESSION: 1. No acute abnormality in the right hand and wrist. 2. Cystic lesion in the distal aspect of the distal phalanx of the third digit is nonspecific, but demonstrates overall benign features suggesting a benign bone cyst. An epidermal inclusion cyst would be less likely. Correlate with physical exam. This can be monitored for stability with a repeat right hand radiographic study in one year.
--- NOTE | ~2023-01-27 | US_ITS ---
EXAMINATION: US VENOUS WITH DOPPLER UPPER EXTREMITY, RIGHT CLINICAL INFORMATION: Right upper extremity pain and swelling. COMPARISON: None available. TECHNIQUE: Ultrasound of the upper extremity is performed using compression sonography and color and pulse Doppler flow with assessment of augmentation of flow. There is also imaging and Doppler assessment of the jugular and subclavian veins. Spectral analysis with color-flow imaging is performed. FINDINGS: Respiratory variation, normal compression, and augmented flow are noted throughout the upper extremity including the axillary, brachial, cubital, and radial and ulnar veins. There is normal flow in the internal jugular and subclavian veins. There is no visible deep or superficial thrombophlebitis. If the patient's symptoms progress, a followup ultrasound in 5 -7 days might be of value to exclude proximal propagation from a nonvisualized distal arm vein. US/US venous duplex UE RT IMPRESSION: No evidence for deep venous thrombosis in the visualized veins of the right upper extremity.
--- NOTE | 2023-01-27 12:29 | ED_ITS ---
HPI - General Adult General Chief complaint: Extremity Problem Stated complaint: R arm swelling/pain no inj Time Seen by Provider: 01/27/23 12:45 Source: patient, RN notes reviewed and old records reviewed Mode of arrival: ambulatory History of Present Illness HPI narrative: 52-year-old female with a past medical history of arthritis, asthma/COPD overlap syndrome, Cohn's esophagus, gastroparesis, GERD, HLD, presenting to the ED complaining of atraumatic right hand pain radiating to right wrist/RUE with associated swelling and paresthesias/numbness x 1 week. Reports symptoms radiate mainly to elbow with mild weakness secondary to pain. Denies fever/chills, headache/neck pain, CP/SOB, history of clots. Denies taking anticoagulation Onset (ago): week(s) Related Data Home Medications Medication Instructions Recorded Confirmed cholecalciferol (vitamin D3) 50 50 mcg PO DAILY 04/11/20 09/13/22 mcg (2,000 unit) capsule lorazepam 1 mg tablet (Ativan) 1 mg PO DAILY PRN Anxiety 04/11/20 09/13/22 Previous Rx's Medication Instructions Recorded diclofenac sodium 1 % topical gel 2 g topical QID PRN pain 14 days 07/12/21 (Arthritis Pain (diclofenac)) #100 grams lidocaine 4 % topical cream 1 appl topical BID 2 weeks #15 01/28/22 grams cyclobenzaprine 10 mg tablet 10 mg PO TID PRN for muscle spasm 02/03/22 #90 tabs famotidine 40 mg tablet 40 mg PO .QHS #90 tabs 06/26/22 hydrocortisone 2.5 % topical cream 1 appl [place] BID-QID PRN hemorrhoids 06/26/22 with perineal applicator #30 grams (Proctosol HC) metoclopramide HCl 5 mg tablet 5 mg PO QIDACHS #120 tabs 06/26/22 (Reglan) pantoprazole 40 mg tablet,delayed 40 mg PO Q12H #180 tabs 06/26/22 release albuterol sulfate 90 mcg/actuation 2 puff inhalation Q6H PRN 08/05/22 aerosol inhaler (Ventolin HFA) shortness of breath or wheezing #8.5 grams nabumetone 500 mg tablet 500 mg PO BID #20 tabs 09/04/22 naproxen 500 mg tablet 500 mg PO BID PRN pain 10 days #20 01/27/23 tabs prednisone 20 mg tablet 40 mg PO DAILY 5 days #10 tabs 01/27/23 Allergies Allergy/AdvReac Type Severity Reaction Status Date / Time acetaminophen [From Vicodin] Allergy Severe Stomach Verified 09/13/22 09:38 Pain hydrocodone [From Vicodin] Allergy Severe Stomach Verified 09/13/22 09:38 Pain morphine [MORPHINE] Allergy Severe REDNESS, Verified 09/13/22 09:38 FEELS REALLY HOT, shortness of breath, anaphylaxis oxycodone Allergy Severe Stomach Verified 09/13/22 09:38 Upset amoxicillin AdvReac Severe yeast Verified 09/13/22 09:38 infection Penicillins [PENICILLINS] AdvReac Severe YEAST Verified 09/13/22 09:38 INFECTION Review of Systems Review of Systems: Constitutional: No Fever, No Chills ENT/Mouth: No Ear Pain, No Nasal Congestion, No sore throat, No Rhinorrhea, No Swallowing Difficulty Cardiovascular: No Chest Pain, No SOB Respiratory: No Cough, No Sputum, No Wheezing Gastrointestinal: No Nausea, No Vomiting, No Diarrhea, No Constipation, No Abdominal pain Genitourinary: No Dysuria, No Urinary Frequency, No Hematuria, No Flank Pain Musculoskeletal: + joint pain, No Myalgias, + Joint Swelling Skin: No Skin Lesions, No rash Neuro: No Weakness, No Numbness, + Paresthesias Yes all other systems are reviewed and are negative Constitutional: Constitutional: Reports as per [facility] Past Medical History Attestation statement: The following information was validated with the patient. Source: old records reviewed Medical History Annual physical exam Annual physical exam Arthritis Asthma Asthma-COPD overlap syndrome Axillary abscess Back pain Cohn's esophagus determined by endoscopy Bicipital tendinitis of left shoulder Bilateral lower extremity edema Breast cancer screening by mammogram Breast density Cervical cancer screening Chest pain Chronic cough Chronic pain of left ankle COVID-19 virus infection Dyspnea Easy bruisability Gastroparesis GERD (gastroesophageal reflux disease) Hip pain History of IBS Hx of tuberculosis Hypercholesterolemia Impaired fasting blood sugar Internal derangement of right knee Lateral epicondylitis of left elbow Left ankle pain Left foot pain Numbness of left hand Numbness of right hand Obesity (BMI 30-39.9) Palpitations Panic attacks Personal history of nicotine dependence Plantar fasciitis Right knee pain Right shoulder pain Smoker Tobacco abuse Surgical History History of appendectomy History of section History of colonoscopy History of esophagogastroduodenoscopy (EGD) History of loop electrosurgical excision procedure (LEEP) History of meniscectomy of left knee History of surgical removal of pilonidal cyst History of tubal ligation Family History Family History Father Tongue cancer Mother CVD (cardiovascular disease) Maternal Aunt Colon cancer Maternal Uncle Colon cancer Brother CVD (cardiovascular disease) Substance abuse Sister CVD (cardiovascular disease) Social History Social History Household Members: Spouse and Children Housing: Apartment Are you a primary assurance services manager health care to a significant other at home: No Do you presently have visiting nurse or other home services: No Alcohol intake: former Patient Tobacco Use Status: Current everyday Tobacco user Tobacco use type: Cigarette Cigarettes Per Day: 4 e-Cigarette/Vaping Use: Never Used Second Hand Smoke Exposure: Yes Substance Use Type: Marijuana Advance Directives: No Advance Directives Information Provided: No service: No Current occupational status: disabled Cognitive needs: No Hearing needs: No Vision needs: No Physical Exam ED Vital Signs: Vital Signs - 24 hr 01/27/23 12:30 01/27/23 15:25 Temperature 97.5 F Pulse Rate 74 66 Respiratory Rate 16 Blood Pressure 138/100 H 128/71 Pulse Oximetry 98 Oxygen Delivery Method Room Air BMI result Body Mass Index 29.8 Const General: cooperative, healthy appearing and no acute distress Orientation/consciousness: patient oriented x3 Limitations: no limitations HENMT Head: Yes normal to inspection and Yes atraumatic Ears: hearing grossly normal bilaterally General nose exam: Normal external nose present Face and sinus: Yes normal facial exam Eyes General: appearance normal, both eyes and all related structures EOM: EOMs intact bilaterally Neck Other: No midline cervical spinous tenderness Neck: Yes normal visual inspection and Yes no meningeal signs Resp Effort & Inspection: normal respiratory effort and no respiratory distress Cardio Rate: regular rate Heart sounds: S1 normal heart sound present and S2 normal heart sound present Peripheral pulses: radial pulses present and ulnar radial pulses present Skin Rashes: no rashes Wounds: no wounds Neuro General: patient oriented x3, tone normal and no meningeal signs Gait exam (Neuro): Normal gait present Extrem Other: Right wrist > palmar aspect with mild swelling and diffuse tenderness to palpation. Digit AROM/finger to thumb opposition intact with discomfort. Right wrist ROM limited secondary to pain. Neurovascularly intact with equal pulses bilaterally. No erythema/warmth or crepitus. Forearm/elbow nontender, pronation/supination intact. Compartments soft No RUE pitting edema Course Course Course Narrative: RME performed by Summer Harrison PA-C. Patient is a 52 year old assigned female at presenting to the emergency department with right extremity pain. Patient's right hand is swollen and she is unable to close her hand or remove the rings from the hand. Patient denies any trauma. Labs and imaging ordered. Patient placed back in the waiting room pending room availability and results. - 2 rings removed from right hand with lube, no complications 1511--WBC 10.9. ESR and BMP WNL. Chem 7 and CRP hemolyzed > patient refusing repeat labsm & EKG XR hand wrist RT IMPRESSION: 1. No acute abnormality in the right hand and wrist. 2. Cystic lesion in the distal aspect of the distal phalanx of the third digit is nonspecific, but demonstrates overall benign features suggesting a benign bone cyst. An epidermal inclusion cyst would be less likely. Correlate with physical exam. This can be monitored for stability with a repeat right hand radiographic study in one year. US venous duplex UE RT IMPRESSION: No evidence for deep venous thrombosis in the visualized veins of the right upper extremity. > results discussed with patient, volar splint applied Results discussed with patient including worrisome signs and symptoms and strict return precautions, and when to return to the emergency department. They verbalized understanding and feel safe for discharge at this time. Medical Decision Making Medical Decision Making MDM Narrative: 52-year-old female with a past medical history of arthritis, asthma/COPD overlap syndrome, Cohn's esophagus, gastroparesis, GERD, HLD, presenting to the ED complaining of atraumatic right hand pain radiating to right wrist/RUE with associated swelling and paresthesias/numbness x 1 week. On exam hypertensive, NAD, nontoxic-appearing, physical exam as noted above, right wrist/hand swelling with diffuse tenderness noted without erythema/warmth or crepitus. Limited ROM secondary to pain. No right upper extremity pitting edema, compartment soft. No midline cervical tenderness. Concern for osteoarthritic flare vs ?Gout vs possible DVT. No evidence of cellulitis/compartment syndrome cervical dissection. Pulses intact, low suspicion for PAD/arterial stenosis Plan: EKG, Labs, venous duplex ultrasound Please refer to course for remaining clinical decision making, interpretation of labs/imaging results, and discussions with consultants and/or family members. Differential Diagnosis Differential Diagnoses: The differential diagnosis associated with the presentation includes As above Admission/Observation Consideration of admission/observation: Escalation of care including admi ssion/observation considered Lab Data MDM Lab Attestation statement: I reviewed the patient's lab results. 01/27/23 12:50 Labs: Lab Results 01/27/23 01/27/23 01/27/23 Range/Units 12:50 12:50 12:50 WBC 10.9 H (4.8-10.8) X10*3/uL RBC 4.89 (4.20-5.50) X10*6/uL Hgb 15.1 (12.0-16.0) g/dl Hct 45.7 (37.0-47.0) % MCV 93.5 (80.0-98.0) fL MCH 30.9 (27.0-33.0) pg MCHC 33.0 (31.0-35.0) g/dl RDW 14.0 (11.0-16.0) % Plt Count 306 (160-400) X10*3/uL MPV 8.9 L (9.4-12.3) fL Immature Gran % (Auto) 0.5 H (0.0-0.4) % Neut % (Auto) 67.8 (45-73) % Lymph % (Auto) 23.9 (20-40) % [place] % (Auto) 6.9 (2-11) % Eos % (Auto) 0.5 (0-4) % Baso % (Auto) 0.4 (0-2) % Lymph # (Auto) 2.6 (1.2-4.9) X10*3/uL [place] # (Auto) 0.8 (0.1-1.2) X10*3/uL Eos # (Auto) 0.1 (0.0-0.4) X10*3/uL Baso # (Auto) 0.0 (0.0-0.2) X10*3/uL Abs Immat Gran (auto) 0.06 H (0.00-0.03) X10*3/uL Absolute Neuts (auto) 7.4 (2.0-8.3) x10*3/uL Absolute Nucleated RBC 0.000 (0.0-0.012) X10*3/uL Nucleated RBC % (auto) 0.0 (0.0-0.2) /100WBC ESR 12 (0-20) MM/HR B-Natriuretic Peptide 12 (<100) pg/mL Independent Interpretation I performed an independent interpretation of an: EKG Radiology Impression Discussion of test interpretation with radiology: I have reviewed the radiologist's reading. External Record Review External record reviewed: Inpatient record, Office record, Outpatient record, Prior outpatient labs, Prior outpatient radiology, Primary care record and Outside ED record Tests considered The following testing was considered but not selected: As above Prescription Management I considered prescription management with: Pain Medication Discharge Plan Discharge Clinical Impression: Osteoarthritis Patient Disposition: Home, Self-Care Instructions: Osteoarthritis (DC) Additional Instructions: The blood work you let us obtain was unremarkable. Your ultrasound was negative for blood clot Your x-ray does show a cystic lesion on your middle finger which is likely benign, however please follow-up with her primary care doctor and have her repeat x-rays in 1 year to ensure this is stable Prednisone as a steroid please take as prescribed In addition naproxen as an anti-inflammatory/pain medication, take with food You may also take Tylenol Follow-up with her doctor If symptoms persist or worsen return to the ED Prescriptions: New prednisone 20 mg tablet 40 mg PO DAILY 5 Days Qty: 10 0RF naproxen 500 mg tablet 500 mg PO BID PRN (Reason: pain) 10 Days Qty: 20 0RF No Action cyclobenzaprine 10 mg tablet 10 mg PO TID PRN (Reason: for muscle spasm) Qty: 90 0RF albuterol sulfate [Ventolin HFA] 90 mcg/actuation HFA aerosol inhaler 2 puff inhalation Q6H PRN (Reason: shortness of breath or wheezing) Qty: 8.5 0RF lorazepam [Ativan] 1 mg tablet 1 mg PO DAILY PRN (Reason: Anxiety) cholecalciferol (vitamin D3) 50 mcg (2,000 unit) capsule 50 mcg PO DAILY lidocaine 4 % cream 1 appl topical BID 14 Days Qty: 15 0RF nabumetone 500 mg tablet 500 mg PO BID Qty: 20 0RF diclofenac sodium [Arthritis Pain (diclofenac)] 1 % gel 2 g topical QID PRN (Reason: pain) 14 Days Qty: 100 0RF Rx Instructions: apply to single elbow, wrist or hand; for hand includes palm/fingers/back of hand pantoprazole 40 mg tablet,delayed release (DR/EC) 40 mg PO Q12H Qty: 180 1RF famotidine 40 mg tablet 40 mg PO .QHS Qty: 90 3RF hydrocortisone [Proctosol HC] 2.5 % cream with perineal applicator 1 appl [place] BID-QID PRN (Reason: hemorrhoids) Qty: 30 2RF metoclopramide HCl [Reglan] 5 mg tablet 5 mg PO QIDACHS Qty: 120 4RF Rx Instructions: hansa un comprimido 30 minutos antes de las comidas Referrals: Po,Shira Orta MD [Primary Care Provider] - 1 week Stand Alone Forms: Work/School Release Interventions: ED Discharge Assessment Last Done: 01/27/23 15:33
[2023-01-27 12:30] VITALS: BP 138/100; PULSE 74; RESP 16; TEMP 36.4; O2SAT 98; BMI 29.8
[2023-01-27 12:56] LABS: Basophils Percent Auto 0.4 % (0-2); Eosinophils Absolute Auto 0.1 X10*3/uL (0.0-0.4); Eosinophils Percent Auto 0.5 % (0-4); Hematocrit 45.7 % (37.0-47.0); Hemoglobin 15.1 g/dl (12.0-16.0); Imm Gran Abs Auto 0.06 X10*3/uL (0.00-0.03); Imm Gran Pct Auto 0.5 % (0.0-0.4); Lymphocytes Absolute Auto 2.6 X10*3/uL (1.2-4.9); Lymphocytes Percent Auto 23.9 % (20-40); MANUAL DIFF FLAG NO; Mean Corpuscular Hemoglobin 30.9 pg (27.0-33.0); Mean Corpuscular Volume 93.5 fL (80.0-98.0); Mean Platelet Volume 8.9 fL (9.4-12.3); Monocytes Absolute Auto 0.8 X10*3/uL (0.1-1.2); Monocytes Percent Auto 6.9 % (2-11); Neutrophils Absolute Auto 7.4 x10*3/uL (2.0-8.3); Neutrophils Percent Auto 67.8 % (45-73); Platelet Count 306 X10*3/uL (160-400); Red Blood Count 4.89 X10*6/uL (4.20-5.50); White Blood Count 10.9 X10*3/uL (4.8-10.8)
--- NOTE | 2023-01-27 13:00 | MHC.EDTECH ---
3/4 labs drawn and sent, nurse aware
[2023-01-27 13:15] LABS: B Type Natriuretic Peptide 12 pg/mL (<100)
[2023-01-27 13:40] LABS: Erythrocyte Sedimentation Rate 12 MM/HR (0-20)
[2023-01-27 15:25] VITALS: BP 128/71; PULSE 66
== END 2023-01-27 15:35 | disposition home or self-care (01) ==
PROVIDERS: Physician Assistant Medical; Emergency Provider Emergency Medicine; PCP Internal Medicine
DX: M19.041 Primary osteoarthritis, right hand (principal); M79.641 Pain in right hand; M79.601 Pain in right arm; F17.210 Nicotine dependence, cigarettes, uncomplicated; E78.00 Pure hypercholesterolemia, unspecified; Z79.899 Other long term (current) drug therapy
CPT/HCPCS: 36415; 73110; 73130; 83880; 85025; 85652; 93971; 99282; 99283; 99284

== ENCOUNTER 2023-01-29 08:59 | Outpatient (AMB) | payer MEDICARE, MEDICAID, SELFPAY ==
--- NOTE | 2023-01-29 09:10 | MHC.OFFVIS ---
Intake Vital Signs 01/29/23 09:11 Height 5 ft 3 in Weight 167 lb 15.876 oz BMI 29.8 BP 121/70 Blood Pressure Location Lt brachial Position Sitting Pulse 90 Intake Visit Reasons: Follow Up Intake Note: Jessy presents in office as a est.patient for f/u for GERD. 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 by: Self / Same As Patient Allergies acetaminophen [From Vicodin] Allergy (Severe, Verified 01/29/23 11:13) Stomach Pain hydrocodone [From Vicodin] Allergy (Severe, Verified 01/29/23 11:13) Stomach Pain morphine [MORPHINE] Allergy (Severe, Verified 01/29/23 11:13) REDNESS, FEELS REALLY HOT, shortness of breath, anaphylaxis oxycodone Allergy (Severe, Verified 01/29/23 11:13) Stomach Upset amoxicillin Adverse Reaction (Severe, Verified 01/29/23 11:13) yeast infection Penicillins [PENICILLINS] Adverse Reaction (Severe, Verified 01/29/23 11:13) YEAST INFECTION HPI Follow Up HPI Details LAST VISIT: (1) Gastroesophageal reflux disease: ?Code(s): K21.9 - Gastro-esophageal reflux disease without esophagitis ?Qualifiers: ?Esophagitis bleeding:?without hemorrhage??Esophagitis presence:?with esophagitis? Qualified Code(s):?K21.00 - Gastro-esophageal reflux disease with esophagitis, without bleeding ?Plan: Continue pantoprazole in the morning and famotidine at bedtime.? Was diagnosed with Cohn's on upper endoscopy will need to repeat upper endoscopy again at some point.? Currently her symptoms are suppressed patient has been doing well.? Continue avoiding dietary triggers and late night snacking.? Staying upright for minimum 3 hours after meals discussed with patient. (2) IBS (irritable bowel syndrome): ?Code(s): K58.9 - Irritable bowel syndrome without diarrhea ?Qualifiers: ?Irritable bowel syndrome type:?with both diarrhea and constipation? Qualified Code(s):?K58.2 - Mixed irritable bowel syndrome ?Plan: Continue low FODMAP diet. (3) Gastroparesis: ?Code(s): K31.84 - Gastroparesis ?Plan: Patient denies any adverse effects from taking Reglan.? Patient states that she is tolerating the medications well.? No longer she feels nauseous and full after eating.? States that Reglan?has been helping her quite a bit.? She is on 5 mg for now we can keep her on that does on this patient symptoms will return we can increase that to 10 mg.? I will see her in 6 months, sooner on as needed basis.? Patient is agreeable to this plan and verbalizes understanding of instructions.? She was given the opportunity to ask questions and all questions answered.? TODAY'S VISIT: Patient is here today for follow-up. Patient reports that since the last time I have seen her she has been doing well, however in the past few weeks patient started with dyspepsia and occasional dysphagia without odynophagia. Patient states that she has difficulty swallowing mostly solid. Patient states that she takes Reglan before meals, reports that it helps, patient denies having nausea or vomiting. However patient states that she feels like food is getting stuck in the upper part of her throat. Patient denies eating late at night or big meals. Patient states that she eats only once or twice a day. Diagnosed in 2020 with Cohn's esophagus. I will send patient for repeat upper endoscopy to see if treatment is helping. Patient reports that she is taking pantoprazole twice a day and take famotidine at bedtime. Patient reports that she is moving her bowels, however she does not feel like she empties them completely. Denies melena, hematochezia, unintentional weight loss or ribbon like stools. [facility] Medical History Annual physical exam Annual physical exam Arthritis Asthma Asthma-COPD overlap syndrome Axillary abscess Back pain Cohn's esophagus determined by endoscopy Bicipital tendinitis of left shoulder Bilateral lower extremity edema Breast cancer screening by mammogram Breast density Cervical cancer screening Chest pain Chronic cough Chronic pain of left ankle COVID-19 virus infection Dyspnea Easy bruisability Gastroparesis GERD (gastroesophageal reflux disease) Hip pain History of IBS Hx of tuberculosis Hypercholesterolemia Impaired fasting blood sugar Internal derangement of right knee Lateral epicondylitis of left elbow Left ankle pain Left foot pain Numbness of left hand Numbness of right hand Obesity (BMI 30-39.9) Palpitations Panic attacks Personal history of nicotine dependence Plantar fasciitis Right knee pain Right shoulder pain Smoker Tobacco abuse Surgical History History of appendectomy History of section History of colonoscopy History of esophagogastroduodenoscopy (EGD) History of loop electrosurgical excision procedure (LEEP) History of meniscectomy of left knee History of surgical removal of pilonidal cyst History of tubal ligation Family History Father Tongue cancer Mother CVD (cardiovascular disease) Maternal Aunt Colon cancer Maternal Uncle Colon cancer Brother CVD (cardiovascular disease) Substance abuse Sister CVD (cardiovascular disease) Social History Household Members: Spouse and Children Housing: Apartment Are you a primary youth care professional to a significant other at home: No Do you presently have visiting nurse or other home services: No Alcohol intake: former Patient Tobacco Use Status: Current everyday Tobacco user Tobacco use type: Cigarette Cigarettes Per Day: 4 e-Cigarette/Vaping Use: Never Used Second Hand Smoke Exposure: Yes Substance Use Type: Marijuana service: No Current occupational status: disabled Cognitive needs: No Hearing needs: No Vision needs: No Female Reproductive History Menstrual Age of Menarche: 12 Review of Systems Const Denies weight gain and Denies weight loss ENT Reports no additional complaints, Reports dysphagia and Denies odynophagia Card Reports no additional complaints Resp Reports no additional complaints GI Reports abdominal pain (Epigastric), Denies belching, Denies melena, Denies bloating, Denies change in bowel habits, Reports constipation, Reports dysphagia, Denies excessive flatus, Reports dyspepsia, Denies heartburn, Denies diarrhea, Denies loose stools, Denies nausea, Denies odynophagia and Denies vomiting Reports no additional complaints Musc Reports no additional complaints Neuro Reports no additional complaints Psych Reports no additional complaints Endo Reports no additional complaints Physical Exam Vital Signs: Last Vital Signs Pulse 90 01/29/23 09:11 BP 121/70 01/29/23 09:11 BMI result Body Mass Index 29.8 Const General: healthy appearing, no acute distress and well developed Nutritional Appearance: obese Orientation/consciousness: patient oriented x3 HEENT Head: Yes normal to inspection, Yes normocephalic and Yes atraumatic Face and sinus: Yes normal facial exam Mouth: Normal oral and palatal mucosa present Throat: Yes posterior oropharynx normal, Yes tonsils normal and Yes uvula midline Eyes General: appearance normal, both eyes and all related structures Neck Neck: Yes normal visual inspection, Yes full ROM and Yes trachea midline Thyroid: Thyroid normal Resp Effort & Inspection: normal respiratory effort, able to speak in complete sentences, no tracheal deviation and symmetric chest movement Auscultation: clear to auscultation bilaterally Cardio Rate: regular rate Heart sounds: S1 normal heart sound present and S2 normal heart sound present GI Inspection: Yes normal to inspection, No distended and Yes obesity Palpation (GI): Soft to palpation, not firm, nontender and No hepatosplenomegaly present Auscultation: normal bowel sounds Rectal Exam - Female: other (Anal abscess) General: Yes no CVA tenderness Back/Spine/Pelvis Back: no CVA tenderness Skin General skin exam: elasticity normal, turgor normal and dry skin Neuro General: patient oriented x3 Psych Appearance: grossly normal Mental Status: mental status grossly normal Speech and movement: Normal speech and movement present Affect: normal affect Assessment & Plan Assessment & Plan (1) Gastroparesis: Code(s): K31.84 - Gastroparesis Plan: Diagnosed with gastroparesis continue taking Reglan. Patient also was instructed to eat small amounts meal and more often. (2) Cohn's esophagus determined by endoscopy: Code(s): K22.70 - Cohn's esophagus without dysplasia Plan: Diagnosed with Cohn's esophagus in 2020. Will send patient for repeat upper endoscopy. Patient was encouraged to stop smoking (3) Gastroesophageal reflux disease: Code(s): K21.9 - Gastro-esophageal reflux disease without esophagitis Qualifiers: Esophagitis bleeding: without hemorrhage Esophagitis presence: with esophagitis Qualified Code(s): K21.00 - Gastro-esophageal reflux disease with esophagitis, without bleeding Plan: Continue taking pantoprazole twice a day half an hour before breakfast and half an hour before dinner. Continue taking famotidine at bedtime. Patient will go for upper endoscopy to rule out esophagitis, Cohn's, gastric or peptic ulcers, gastritis, H pylori. (4) Perirectal abscess: Code(s): K61.1 - Rectal abscess Plan: Perirectal abscess. Patient will be sent to General surgery. I will see patient after her endoscopy, sooner on as needed basis. Patient is agreeable to this plan and verbalizes understanding of instructions. She was given the opportunity to ask questions and all questions answered. Orders: Referrals General Surgery Referral K61.1 - Rectal abscess Medications: New polyethylene glycol 3350 (Miralax) 17 grams PO DAILY 510 grams 2RF Coding Level of Care Code Est Pt Level 4 (04266) Diagnoses Gastroparesis K31.84 Cohn's esophagus determined by endoscopy K22.70 Gastroesophageal reflux disease K21.00 Esophagitis bleeding: without hemorrhage Esophagitis presence: with esophagitis Perirectal abscess K61.1 Time Spent (min) 40 Comment 25 minute spent with patient and additional 15 minutes spent reviewing her records
[2023-01-29 09:11] VITALS: BP 121/70; PULSE 90; BMI 29.8
== END 2023-01-29 10:15 | disposition home or self-care (01) ==
PROVIDERS: PCP Internal Medicine; Visit Provider Nurse Practitioner Family
DX: K31.84 Gastroparesis (principal); K22.70 Barrett's esophagus without dysplasia; K21.00 Gastro-esophageal reflux disease with esophagitis, without bleeding; K61.1 Rectal abscess
CPT/HCPCS: 99214

== ENCOUNTER → 2023-01-29 08:59 | Outpatient (BNVA) | payer MEDICARE, MEDICAID, SELFPAY | PROVIDERS: PCP Internal Medicine; Visit Provider Nurse Practitioner Family | DX: M25.50 Pain in unspecified joint (principal); M25.541 Pain in joints of right hand; R20.0 Anesthesia of skin; G56.00 Carpal tunnel syndrome, unspecified upper limb; K31.84 Gastroparesis; K22.70 Barrett's esophagus without dysplasia; K21.00 Gastro-esophageal reflux disease with esophagitis, without bleeding; K61.1 Rectal abscess | CPT/HCPCS: 99202; 99212 ==

== ENCOUNTER 2023-01-29 10:29 | Outpatient (AMB) | payer MEDICARE, MEDICAID, SELFPAY ==
--- NOTE | 2023-01-29 11:07 | MHC.OFFVIS ---
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 Patient reports that this pain has been ongoing for quite some time now. Her symptoms of pain swelling, numbness and tingling have come and gone for years now but for the last week her symptoms have been presents with no relief. She feels pain in the right wrist that radiates to the elbow, swelling of the hand and wrist. She has been wearing a brace for a day now. She is taking 5 day course of prednisone, she was given naproxen as well but does not take this as it causes stomach upset. She is taking tylenol PRN which only helps midly. Allergies acetaminophen [From Vicodin] Allergy (Severe, Verified 01/29/23 11:13) Stomach Pain hydrocodone [From Vicodin] Allergy (Severe, Verified 01/29/23 11:13) Stomach Pain morphine [MORPHINE] Allergy (Severe, Verified 01/29/23 11:13) REDNESS, FEELS REALLY HOT, shortness of breath, anaphylaxis oxycodone Allergy (Severe, Verified 01/29/23 11:13) Stomach Upset amoxicillin Adverse Reaction (Severe, Verified 01/29/23 11:13) yeast infection Penicillins [PENICILLINS] Adverse Reaction (Severe, Verified 01/29/23 11:13) YEAST INFECTION Medication List - Last Reconciled 01/29/23 by Lissa Correa MD albuterol sulfate 90 mcg/actuation (Ventolin HFA) 2 puffs inhalation Q6H PRN cholecalciferol (vitamin D3) 50 mcg PO DAILY cyclobenzaprine 10 mg PO TID PRN diclofenac sodium 1% (Arthritis Pain (diclofenac)) 2 grams topical QID PRN 14 days famotidine 40 mg PO .QHS hydrocortisone 2.5% (Proctosol HC) 1 appl IN BID-QID PRN lidocaine 4% 1 appl topical BID 2 weeks lorazepam (Ativan) 1 mg PO DAILY PRN metoclopramide HCl (Reglan) 5 mg PO QIDACHS pantoprazole 40 mg PO Q12H polyethylene glycol 3350 (Miralax) 17 grams PO DAILY prednisone 40 mg (2 x 20 mg) PO DAILY 5 days HPI HPI Comments History of Present Illness Details Right wrist pain on and off for the past 6 months. Denies any falls or inciting injuries. Last week, pain became so severe that she had gone to emergency room. Describe 2nd finger being swollen. Pain in the wrist. Both dorsal and volar aspects. Radiating up to the elbow. At the emergency room, she was prescribed 5 days of prednisone which she only started yesterday. She was prescribed naproxen but she cannot take any NSAIDs due to IBS. X-rays were done which was unremarkable. X-ray did show possible CIS on distal 3rd digit which is not where her pain is. She has had other x-rays offer had this year which have all been unremarkable, without mention of arthritis. Ultrasound was negative for DVT. She was given a resting hand splint but she cannot tolerate wearing this. On further history, she admits to numbness of all fingers, can happen all day. Denies any rheumatoid arthritis or lupus in her family. Her mom does have osteoarthritis. [facility] Medical History Annual physical exam Annual physical exam Arthritis Asthma Asthma-COPD overlap syndrome Axillary abscess Back pain Cohn's esophagus determined by endoscopy Bicipital tendinitis of left shoulder Bilateral lower extremity edema Breast cancer screening by mammogram Breast density Cervical cancer screening Chest pain Chronic cough Chronic pain of left ankle COVID-19 virus infection Dyspnea Easy bruisability Gastroparesis GERD (gastroesophageal reflux disease) Hip pain History of IBS Hx of tuberculosis Hypercholesterolemia Impaired fasting blood sugar Internal derangement of right knee Lateral epicondylitis of left elbow Left ankle pain Left foot pain Numbness of left hand Numbness of right hand Obesity (BMI 30-39.9) Palpitations Panic attacks Personal history of nicotine dependence Plantar fasciitis Right knee pain Right shoulder pain Smoker Tobacco abuse Surgical History History of appendectomy History of section History of colonoscopy History of esophagogastroduodenoscopy (EGD) History of loop electrosurgical excision procedure (LEEP) History of meniscectomy of left knee History of surgical removal of pilonidal cyst History of tubal ligation Family History Father Tongue cancer Mother CVD (cardiovascular disease) Maternal Aunt Colon cancer Maternal Uncle Colon cancer Brother CVD (cardiovascular disease) Substance abuse Sister CVD (cardiovascular disease) Social History Household Members: Spouse and Children Housing: Apartment Are you a primary care management specialist to a significant other at home: No Do you presently have visiting nurse or other home services: No Alcohol intake: former Patient Tobacco Use Status: Current everyday Tobacco user Tobacco use type: Cigarette Cigarettes Per Day: 4 e-Cigarette/Vaping Use: Never Used Second Hand Smoke Exposure: Yes Substance Use Type: Marijuana service: No Current occupational status: disabled Cognitive needs: No Hearing needs: No Vision needs: No Female Reproductive History Menstrual Age of Menarche: 12 Review of Systems Const All systems reviewed & are unremarkable except as noted in HPI and below Physical Exam Vital Signs: BMI result Body Mass Index 29.6 Constitutional: Patient appears to be in no acute distress, well nourished and well developed. MSK: Inspection reveals appropriate head and neck positioning. No pain with palpation over the neck musculature. Cervical ROM was full. Spurling's sign negative. Bilateral shoulder ROM WNL. No ligamentous laxity or crepitance. No increased effusion. Hawkin's test is negative. Swelling on her fingers right side noted. No intrinsic hand weakness noted. No atrophy noted. Scott test unable to do. Carpal compression test positive on right wrist. Tinel sign negative on elbow. Tender on 2nd digit the AP, PIP and MCP joint; 1st digit PIP joint. Strength is 5/5 in all muscle groups tested. No increased tone noted. Neurological: Neurologic examination of the upper and lower extremities was nonfocal with intact sensation, muscle stretch reflexes and without focal motor deficits . Ho?s negative bilaterally. Babinski was down going bilaterally. Clonus was negative. Gait is non-antalgic without loss of balance. Results Reviewed Results Reviewed: Independently reviewed: X-ray did show possible CIS on distal 3rd digit which is not where her pain is. She has had other x-rays offer had this year which have all been unremarkable, without mention of arthritis. ConditionORDER #: [id number] XR/XR hand wrist RT IMPRESSION: ? 1. No acute abnormality in the right hand and wrist. 2. Cystic lesion in the distal aspect of the distal phalanx of the third digit is nonspecific, but demonstrates overall benign features suggesting a benign bone cyst. An epidermal inclusion cyst would be less likely. Correlate with physical exam. This can be monitored for stability with a repeat right hand radiographic study in one year. Assessment & Plan Assessment & Plan (1) Joint pain: Code(s): M25.50 - Pain in unspecified joint (2) Arthralgia of right hand: Code(s): M25.541 - Pain in joints of right hand (3) Bilateral hand numbness: Code(s): R20.0 - Anesthesia of skin (4) Carpal tunnel syndrome: Code(s): G56.00 - Carpal tunnel syndrome, unspecified upper limb Plan Symptoms are more diffuse and on further history, symptoms are suggestive of carpal tunnel syndrome. We discussed need for NCS/EMG testing but she defers. She says her PCP referred her for such testing before but she did not want to proceed with it, thinking it might be painful. Encourage use of resting wrist splint at night which is what she already has. I removed the metal inside which might make it more tolerable to use. We can trial diclofenac gel up to twice a day. Which hopefully will have less systemic side effects and she can not tolerate it. Side effects discussed. Continue prednisone as prescribed from the ED. We will check lab tests such as RF and BENNIE. Referring her for hand therapy/OT. Assessment and plan discussed with patent, and patient was agreeable. All questions were answered thoroughly. Prior to departure, she mentions chronic left ankle pain. She has been previously seen by pain management and Ortho for plantar fasciitis. She would like to be seen here in physiatry for same issue. We will schedule another follow-up visit in 4 weeks. I advised that she does the lab tests and OT prior to seeing me at that time. We might as well do ankle x-rays prior to that visit. Orders: Orders Rheumatoid Factor Today M25.50 - Pain in unspecified joint, M25.541 - Pain in joints of right hand, R20.0 - Anesthesia of skin BENNIE Reflex Titer and Pattern Today M25.50 - Pain in unspecified joint, M25.541 - Pain in joints of right hand, R20.0 - Anesthesia of skin OT Evaluation and Treatment Today G56.00 - Carpal tunnel syndrome, unspecified upper limb, M25.50 - Pain in unspecified joint, M25.541 - Pain in joints of right hand, R20.0 - Anesthesia of skin Medications: New diclofenac sodium 1% apply up to twice a day to fingers and wrist as needed 2 grams topical BID 100 grams 0RF M25.50 - Pain in unspecified joint Discontinued diclofenac sodium 1% (Arthritis Pain (diclofenac)) apply to single elbow, wrist or hand; for hand includes palm/fingers/back of hand Discontinued Reason: Doctor's Order 2 grams topical QID 14 days PRN 100 grams 0RF pain M25.561 - Pain in right knee Coding Level of Care Code New Pt Level 4 (27572) Diagnoses Joint pain M25.50 Arthralgia of right hand M25.541 Bilateral hand numbness R20.0 Carpal tunnel syndrome G56.00
[2023-01-29 11:15] VITALS: BMI 29.6
== END 2023-01-29 11:54 | disposition home or self-care (01) ==
PROVIDERS: PCP Internal Medicine; Visit Provider Physical Medicine & Rehabilitation
DX: M25.541 Pain in joints of right hand (principal); R20.0 Anesthesia of skin; G56.00 Carpal tunnel syndrome, unspecified upper limb
CPT/HCPCS: 99204

== ENCOUNTER 2023-02-12 08:11 | Outpatient (REF) | payer MEDICARE, MEDICAID, SELFPAY ==
[2023-02-12 09:41] LABS: Rheumatoid Factor < 13.0 IU/mL (<15.0)
[2023-02-17 12:34] LABS: Anti Nuclear Antibody Screen NEGATIVE (NEGATIVE)
== END 2023-02-12 08:12 | disposition home or self-care (01) ==
LOC: HO.LAB 08:11
PROVIDERS: Absent Provider Physical Medicine & Rehabilitation; PCP Internal Medicine; Visit Provider Internal Medicine
DX: M25.50 Pain in unspecified joint (principal); M25.541 Pain in joints of right hand; R20.0 Anesthesia of skin; L05.01 Pilonidal cyst with abscess; L72.0 Epidermal cyst; Z79.899 Other long term (current) drug therapy
CPT/HCPCS: 36415; 86038; 86431; 99202

== ENCOUNTER 2023-02-12 13:55 | Outpatient (AMB) | payer MEDICARE, MEDICAID, SELFPAY ==
--- NOTE | 2023-02-12 13:57 | MHC.OFFVIS ---
Intake Vital Signs 02/12/23 13:59 Height 5 ft 3 in Weight 172 lb BMI 30.5 BP 125/72 Blood Pressure Location Lt brachial Position Sitting Pulse 91 Intake Visit Reasons: rectal abscess Intake Note: This patient presents for an assessment for rectal abscess. Patient c/o; reports pain, denies draining, reports multiple abscesses, reports having this same issues 12 years ago which she had surgery on it, reports itchiness. 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 Accompanied by: Self / Same As Patient Allergies acetaminophen [From Vicodin] Allergy (Severe, Verified 02/12/23 14:04) Stomach Pain hydrocodone [From Vicodin] Allergy (Severe, Verified 02/12/23 14:04) Stomach Pain morphine [MORPHINE] Allergy (Severe, Verified 02/12/23 14:04) REDNESS, FEELS REALLY HOT, shortness of breath, anaphylaxis oxycodone Allergy (Severe, Verified 02/12/23 14:04) Stomach Upset amoxicillin Adverse Reaction (Severe, Verified 02/12/23 14:04) yeast infection Penicillins [PENICILLINS] Adverse Reaction (Severe, Verified 02/12/23 14:04) YEAST INFECTION Medication List - Last Reconciled 02/12/23 by Jonny Jerome MD albuterol sulfate 90 mcg/actuation (Ventolin HFA) 2 puffs inhalation Q6H PRN cholecalciferol (vitamin D3) 50 mcg PO DAILY cyclobenzaprine 10 mg PO TID PRN diclofenac sodium 1% 2 grams topical BID famotidine 40 mg PO .QHS hydrocortisone 2.5% (Proctosol HC) 1 appl NC BID-QID PRN lidocaine 4% 1 appl topical BID 2 weeks lorazepam (Ativan) 1 mg PO DAILY PRN metoclopramide HCl (Reglan) 5 mg PO QIDACHS pantoprazole 40 mg PO Q12H polyethylene glycol 3350 (Miralax) 17 grams PO DAILY HPI rectal abscess HPI Details [age] year old female referred for pain and swelling on the sacral area. She says that she has had this for more than 3 weeks now. She describes swelling the midline. She denies any drainage. She says this is tender and painful She says she had a similar problem in 2011 and she had undergone surgery for this. She says that this seems to be the same as it was before. She also points to another cystic area on the mid back that she says she wants removed. She says that this has been bothering her because of pain and tenderness for many years. [facility] Medical History (Updated 02/12/23 @ 14:24 by Jonny Jerome MD) Annual physical exam Annual physical exam Arthritis Asthma Asthma-COPD overlap syndrome Axillary abscess Back pain Cohn's esophagus determined by endoscopy Bicipital tendinitis of left shoulder Bilateral lower extremity edema Breast cancer screening by mammogram Breast density Cervical cancer screening Chest pain Chronic cough Chronic pain of left ankle COVID-19 virus infection Dyspnea Easy bruisability Epidermoid cyst of skin of back Gastroparesis GERD (gastroesophageal reflux disease) Hip pain History of IBS Hx of tuberculosis Hypercholesterolemia Impaired fasting blood sugar Internal derangement of right knee Lateral epicondylitis of left elbow Left ankle pain Left foot pain Numbness of left hand Numbness of right hand Obesity (BMI 30-39.9) Palpitations Panic attacks Personal history of nicotine dependence Plantar fasciitis Right knee pain Right shoulder pain Sacrococcygeal pilonidal cyst with abscess Smoker Tobacco abuse Surgical History History of appendectomy History of section History of colonoscopy History of esophagogastroduodenoscopy (EGD) History of loop electrosurgical excision procedure (LEEP) History of meniscectomy of left knee History of surgical removal of pilonidal cyst History of tubal ligation Family History Father Tongue cancer Mother CVD (cardiovascular disease) Maternal Aunt Colon cancer Maternal Uncle Colon cancer Brother CVD (cardiovascular disease) Substance abuse Sister CVD (cardiovascular disease) Social History Household Members: Spouse and Children Housing: Apartment Are you a primary childcare aide to a significant other at home: No Do you presently have visiting nurse or other home services: No Alcohol intake: former Patient Tobacco Use Status: Current everyday Tobacco user Tobacco use type: Cigarette Cigarettes Per Day: 4 e-Cigarette/Vaping Use: Never Used Second Hand Smoke Exposure: Yes Substance Use Type: Marijuana service: No Current occupational status: disabled Cognitive needs: No Hearing needs: No Vision needs: No Female Reproductive History Menstrual Age of Menarche: 12 Review of Systems Const Denies chills and Denies fever(s) Card Denies chest pain, Denies dyspnea and Denies dyspnea on exertion Resp Denies cough, Denies dyspnea and Denies dyspnea on exertion GI Denies hematochezia and Denies change in bowel habits Denies hematuria Musc Denies back pain and Denies limited range of motion Neuro Denies focal weakness and Denies convulsions Psych Denies depression and Denies mood swings Physical Exam Vital Signs: Last Vital Signs Pulse 91 02/12/23 13:59 BP 125/72 02/12/23 13:59 BMI result Body Mass Index 30.5 Const General: comfortable and no acute distress Orientation/consciousness: patient oriented x3 Neck Neck: Yes no lymphadenopathy Resp Auscultation: clear to auscultation bilaterally Cardio Rhythm: regular rhythm GI Palpation (GI): Soft to palpation, nontender and no guarding Back/Spine/Pelvis Other: Area of induration, with redness, about cm in diameter, on the sacrococcygeal area to the right of the midline, with surgical scar in the midline gluteal cleft, induration is not fluctuance at this time no active drainage On the mid back is note of a cystic mass, non inflamed, about 1 cm in diameter consistent with an epidermal cyst Neuro General: patient oriented x3 Assessment & Plan Assessment & Plan (1) Sacrococcygeal pilonidal cyst with abscess: Code(s): L05.01 - Pilonidal cyst with abscess Plan: She has an area of tender and painful induration as described above on the sacrococcygeal aspect . This seems to be a recurrent pilonidal cyst. She had undergone excision with Dr. Rodriguez in 2011. I explained the technique of excision under anesthesia in the operating room. I discussed the risks including but not limited to bleeding, infections, postop pain, poor healing, as well as the benefits and alternatives. She understands what to expect postoperatively and has given consent. (2) Epidermoid cyst of skin of back: Code(s): L72.0 - Epidermal cyst Plan: We will excise this cyst from the mid back as well on the same procedure date. She understands this procedure as was the risks, benefits, and alternatives Coding Level of Care Code New Pt Level 3 (00755) Diagnoses Sacrococcygeal pilonidal cyst with abscess L05.01 Epidermoid cyst of skin of back L72.0
[2023-02-12 13:59] VITALS: BP 125/72; PULSE 91; BMI 30.5
== END 2023-02-12 14:30 | disposition home or self-care (01) ==
PROVIDERS: PCP Internal Medicine; Referring Provider Nurse Practitioner Family; Visit Provider Surgery
DX: L05.01 Pilonidal cyst with abscess (principal); L72.0 Epidermal cyst
CPT/HCPCS: 99203

== ENCOUNTER 2023-02-20 12:35 | Day surgery (SDC) | payer MEDICARE, MEDICAID, SELFPAY ==
[2023-02-18 10:19] VITALS: BMI 29.8
--- NOTE | 2023-02-19 09:22 | P.CONAN_ITS ---
Documented by User: Cheyanne Eastman NP 02/19/23 09:25 HPI - Anesthesia Eval Consult details Narrative: 52yo F for Upper Endoscopy PMFSH Active Problems Active Problems: All Active Problems (Updated 02/18/23 @ 10:20 by Teresa Mcgill, BLUE) Plantar fasciitis, bilateral (Acute) Dysphagia (Acute) Hypersomnia (Acute) Gastroesophageal reflux disease (Acute) Generalized anxiety disorder (Acute) Verruca (Acute) Thyroid enlarged (Acute) Arthralgia of right hand (Acute) Bilateral hand numbness (Acute) Joint pain (Acute) Epidermoid cyst of skin of back (Acute) Sacrococcygeal pilonidal cyst with abscess (Acute) History of loop electrosurgical excision procedure (LEEP) (Acute) Gastroparesis (Acute) Personal history of nicotine dependence (Acute) Asthma-COPD overlap syndrome (Acute) Smoker (Acute) Cohn's esophagus determined by endoscopy (Acute) Chronic cough (Acute) Plantar fasciitis (Acute) Tobacco abuse (Acute) Asthma (Acute) Obesity (BMI 30-39.9) (Acute) Hip pain (Acute) Hypercholesterolemia (Acute) History of IBS (Acute) Past Medical History Medical History (Updated 02/18/23 @ 10:20 by Teresa Mcgill RN) Annual physical exam Arthritis Asthma Asthma-COPD overlap syndrome Axillary abscess Back pain Cohn's esophagus determined by endoscopy Bicipital tendinitis of left shoulder Bilateral lower extremity edema Breast cancer screening by mammogram Breast density Cervical cancer screening Chest pain Chronic cough Chronic pain of left ankle COVID-19 virus infection Dyspnea Easy bruisability Epidermoid cyst of skin of back Gastroparesis GERD (gastroesophageal reflux disease) Hip pain History of IBS Hx of tuberculosis Hypercholesterolemia Impaired fasting blood sugar Internal derangement of right knee Lateral epicondylitis of left elbow Left ankle pain Left foot pain Numbness of left hand Numbness of right hand Obesity (BMI 30-39.9) Palpitations Panic attacks Personal history of nicotine dependence Plantar fasciitis Right knee pain Right shoulder pain Sacrococcygeal pilonidal cyst with abscess Smoker Tobacco abuse Family History Family History Father Tongue cancer Mother CVD (cardiovascular disease) Maternal Aunt Colon cancer Maternal Uncle Colon cancer Brother CVD (cardiovascular disease) Substance abuse Sister CVD (cardiovascular disease) Family history of problems with anesthesia: No Surgical History Surgical History History of appendectomy History of section History of colonoscopy History of esophagogastroduodenoscopy (EGD) History of loop electrosurgical excision procedure (LEEP) History of meniscectomy of left knee History of surgical removal of pilonidal cyst History of tubal ligation History of Problems with Anesthesia: No Social History Social History Household Members: Spouse and Children Housing: Apartment Are you a primary career orientation teacher to a significant other at home: No Do you presently have visiting nurse or other home services: No Alcohol intake: former Patient Tobacco Use Status: Current everyday Tobacco user Tobacco use type: Cigarette Cigarettes Per Day: 4 e-Cigarette/Vaping Use: Never Used Second Hand Smoke Exposure: Yes Substance Use Type: Marijuana service: No Current occupational status: disabled Cognitive needs: No Hearing needs: No Vision needs: No Meds Allergies Allergy/AdvReac Type Severity Reaction Status Date / Time hydrocodone [From Vicodin] Allergy Severe Stomach Verified 02/12/23 14:04 Pain morphine [MORPHINE] Allergy Severe REDNESS, Verified 02/12/23 14:04 FEELS REALLY HOT, shortness of breath, anaphylaxis oxycodone Allergy Severe Stomach Verified 02/12/23 14:04 Upset amoxicillin AdvReac Severe yeast Verified 02/12/23 14:04 infection Penicillins [PENICILLINS] AdvReac Severe YEAST Verified 02/12/23 14:04 INFECTION Home Medications Medication Instructions Recorded Confirmed Last Taken Type cholecalciferol (vitamin D3) 50 50 mcg PO DAILY 04/11/20 02/12/23 Unknown History mcg (2,000 unit) capsule lorazepam 1 mg tablet (Ativan) 1 mg PO DAILY PRN Anxiety 04/11/20 02/12/23 Unknown History Exam Exam Date and Time: February 19, 2023 0922 Height,Weight and Vital Signs: Height 5 ft 3 in Weight 76.204 kg Pertinent Lab Results Pertinent Lab Results: Laboratory Tests 09/10/22 01/27/23 14:45 12:50 WBC 10.9 H Hgb 15.1 Hct 45.7 Plt Count 306 Sodium 138 Potassium 4.4 Chloride 104 Carbon Dioxide 27 BUN 9 Creatinine 0.77 Narrative Narrative: EKG 08/2022 Vent. Rate : 061 BPM ? ? Atrial Rate : 061 BPM ?? P-R Int : 132 ms? QRS Dur : 078 ms ? ? QT Int : 370 ms ? ? ? P-R-T Axes : 060 050 043 degrees ?? QTc Int : 372 ms ? Normal sinus rhythm Normal ECG When compared with ECG of 14-OCT-2020 07:30, No significant change was found ECHO 2020 Conclusions: - Normal left ventricular size and systolic function.? - There is mildly increased left ventricular wall thickness. ? ? - Diastolic function is normal for age.? - No significant valvular or pericardial pathology.? ? Exercise Stress Protocol: GRIFFIN ? Max HR: 155 BPM? 90% of? Pred: 172 BPM Max BP: 132/050 mmHG Max Work Load: 7.5 METS ? Exercise stress test using Griffin protocol total of 6 min 23 sec.? METS 7.5o and TAPHR up to 90%.? Pt tolerated well.? Denies any anginal sx.? EKG with no arrhythmias, no ?ischemic changes.? Normotensive response to exercise.? Test reviewed with Dr. Tinoco. Assessment and Plan Assessment Anesthesia Assessment: Chart Reviewed Final Anesthetic Review Family History of Problems with Anesthesia: No History of Problems with Anesthesia: No Documented by User: Charles Hamilton MD 02/20/23 11:47 [facility] Past Medical History Medical History (Updated 02/18/23 @ 10:20 by Teresa Mcgill RN) Annual physical exam Arthritis Asthma Asthma-COPD overlap syndrome Axillary abscess Back pain Cohn's esophagus determined by endoscopy Bicipital tendinitis of left shoulder Bilateral lower extremity edema Breast cancer screening by mammogram Breast density Cervical cancer screening Chest pain Chronic cough Chronic pain of left ankle COVID-19 virus infection Dyspnea Easy bruisability Epidermoid cyst of skin of back Gastroparesis GERD (gastroesophageal reflux disease) Hip pain History of IBS Hx of tuberculosis Hypercholesterolemia Impaired fasting blood sugar Internal derangement of right knee Lateral epicondylitis of left elbow Left ankle pain Left foot pain Numbness of left hand Numbness of right hand Obesity (BMI 30-39.9) Palpitations Panic attacks Personal history of nicotine dependence Plantar fasciitis Right knee pain Right shoulder pain Sacrococcygeal pilonidal cyst with abscess Smoker Tobacco abuse Family History Family History Father Tongue cancer Mother CVD (cardiovascular disease) Maternal Aunt Colon cancer Maternal Uncle Colon cancer Brother CVD (cardiovascular disease) Substance abuse Sister CVD (cardiovascular disease) Surgical History Surgical History History of appendectomy History of section History of colonoscopy History of esophagogastroduodenoscopy (EGD) History of loop electrosurgical excision procedure (LEEP) History of meniscectomy of left knee History of surgical removal of pilonidal cyst History of tubal ligation Social History Social History Household Members: Spouse and Children Housing: Apartment Are you a primary career orientation teacher to a significant other at home: No Do you presently have visiting nurse or other home services: No Alcohol intake: former Patient Tobacco Use Status: Current everyday Tobacco user Tobacco use type: Cigarette Cigarettes Per Day: 4 e-Cigarette/Vaping Use: Never Used Second Hand Smoke Exposure: Yes Substance Use Type: Marijuana service: No Current occupational status: disabled Cognitive needs: No Hearing needs: No Vision needs: No Meds Allergies Allergy/AdvReac Type Severity Reaction Status Date / Time hydrocodone [From Vicodin] Allergy Severe Stomach Verified 02/12/23 14:04 Pain morphine [MORPHINE] Allergy Severe REDNESS, Verified 02/12/23 14:04 FEELS REALLY HOT, shortness of breath, anaphylaxis oxycodone Allergy Severe Stomach Verified 02/12/23 14:04 Upset amoxicillin AdvReac Severe yeast Verified 02/12/23 14:04 infection Penicillins [PENICILLINS] AdvReac Severe YEAST Verified 02/12/23 14:04 INFECTION Home Medications Medication Instructions Recorded Confirmed Last Taken Type cholecalciferol (vitamin D3) 50 50 mcg PO DAILY 04/11/20 02/12/23 Unknown History mcg (2,000 unit) capsule lorazepam 1 mg tablet (Ativan) 1 mg PO DAILY PRN Anxiety 04/11/20 02/12/23 Unknown History Exam Airway Mallampati Class: II TM Dist: >3cm Neck ROM: Full Heart: rrr Lungs: cta Assessment and Plan Assessment Anesthesia Assessment: Anesthesia Plan Discussed Final Anesthetic Review NPO: Yes ASA Class: II Final Preanesthetic Review: No Changes in Pt Med Stat, Meds/Allgs Chart Reviewed, Consent Obtained/Reviewed and Anes Risks/Benef Reviewed Patient Risk: Intermediate Procedure Risk: Intermediate Anesthetic Plan Anesthetic Plan: MAC: and Agree w/ Assess. and Plan Disposition: Standard PACU
[2023-02-20 13:25] VITALS: BP 104/64; PULSE 90; RESP 16; TEMP 36.9; O2SAT 98
[2023-02-20] MEDS: Lactated Ringers 1,000 ML 100 ML IVCONT (13:26)
--- NOTE | 2023-02-20 13:34 | MHC.SHP ---
Pre-Procedural Eval Section A Date of Service: 02/20/23 Section B Chief Complaint: Cohn's esophagus without dysplasia, Gastropares Details of Present Illness: choking Relevant Family History (Specify if Yes): No Relevant Social History: Tobacco Use Present Medications: see Short Stay Collaborative assessment Medical History: Significant History (Arthritis Asthma Asthma-COPD overlap syndrome Axillary abscess Back pain Cohn's esophagus determined by endoscopy Bicipital tendinitis of left shoulder Bilateral lower extremity edema Breast cancer screening by mammogram Breast density Cervical cancer screening Chest pain Chronic cough Chronic pa) History of Previous Operations: Relevant previous surgery/procedure and date(s) (History of appendectomy History of section History of colonoscopy History of esophagogastroduodenoscopy (EGD) History of loop electrosurgical excision procedure (LEEP) History of meniscectomy of left knee History of surgical removal of pilonidal cyst History of tubal ligation) Allergies: Allergies Allergy/AdvReac Type Severity Reaction Status Date / Time hydrocodone [From Vicodin] Allergy Severe Stomach Verified 02/12/23 14:04 Pain morphine [MORPHINE] Allergy Severe REDNESS, Verified 02/12/23 14:04 FEELS REALLY HOT, shortness of breath, anaphylaxis oxycodone Allergy Severe Stomach Verified 02/12/23 14:04 Upset amoxicillin AdvReac Severe yeast Verified 02/12/23 14:04 infection Penicillins [PENICILLINS] AdvReac Severe YEAST Verified 02/12/23 14:04 INFECTION Review of Systems Sugical H&P ROS: Negative: Constitution, Cardiovascular, Respiratory, Neurological, Psychiatric, Hem-Onc, Allergic/Immunologic, Gastrointestinal, Genitourinary, Musculoskeletal, Integumentary, Endocrine and Eyes/Ears/Nose/Throat Exam Surgical H&P Exam: Normal: HEENT, Normal: Heart, Normal: Lungs, Normal: Extremities, Normal: Abdomen, Normal: Skin and Normal: Neurological Plan Diagnosis/Plan: Unchanged I have reviewed the history and physical and performed a pertinent physical examination on my patient. No changes have occurred unless specified. Time Spent With Patient Time: Total time managing care of this patient today ____ minutes.
--- NOTE | 2023-02-20 13:41 | W.PM.OPN ---
Operative Note Operative Note Date of Service: 02/20/23 Narrative: Procedure Description: EGD Indication: choking, GERD Anesthesia: MAC FLEXIBLE TRANSORAL UPPER GASTROINTESTINAL ENDOSCOPY UPPER ENDOSCOPY Consent: Indications for the procedure and potential complications of bleeding, perforation, reaction to medications and missed diagnosis were discussed with the patient and informed consent was obtained. Instrument: Olympus GIF H 190 J mid size upper endoscope Monitoring: Vital signs and clinical assessment, continuous EKG monitoring, Pulse oximetry, Carbon Dioxide monitoring and blood pressure monitoring were done throughout the procedure. Procedure: The patient was placed in the left lateral decubitis position and pre-procedure medications were administered and a bite block was placed. The endoscope was inserted into the mouth and advanced under direct vision to the third part of duodenum. A careful inspection was made as the upper endoscope was withdrawn including a retroflexed examination of the proximal stomach; Findings and interventions are described below. Findings: Larynx:normal Esophagus: GE junction at 35 cm, diaphragm hiatus at 37 cm, consistent with 2 cm hiatal hernia, bogginess and congestion at GEJ, bx taken as well as from distal and proximal esophagus, balloon dilation also done at LES and UEs to 19 mm, no tears seen. Schatzki ring also noted Stomach: Patchy gastric erythema. Biopsies were obtained. Grade 2 flap valve on retroflexed examination of the cardia. Duodenum: Normal bulb and descending duodenum, Intervention: Biopsies as noted above Impression/Findings: schatzki ring esophagitis gastritis hiatal hernia PLAN: reflux precautions PPI compliance, consider changing preparation e.g to nexium if needed smoking cessation Breast [place] Node Biopsy All colored nodes or non-colored nodes present at the end of a dye filled lymphatic channel were removed, if dye was used as the substrate for localization: N/A General Surg. - Synoptic Notes Breast [place] Node Biopsy All colored nodes or non-colored nodes present at the end of a dye filled lymphatic channel were removed, if dye was used as the substrate for localization: N/A
[2023-02-20 14:15] VITALS: BP 116/84; PULSE 94; RESP 14; TEMP 36.2; O2SAT 96
[2023-02-20 14:30] VITALS: BP 105/70; PULSE 90; RESP 16; O2SAT 97
[2023-02-20 14:44] VITALS: BP 114/68; PULSE 83; RESP 16; TEMP 36.3; O2SAT 97
== END 2023-02-20 15:16 | disposition home or self-care (01) ==
PROVIDERS: PCP Internal Medicine; Visit Provider Internal Medicine Gastroenterology
PROC: 0DJ08ZZ Inspection of Upper Intestinal Tract, Via Natural or Artificial Opening Endoscopic (ICD-10-PCS; CPT 43235; principal; 2023-02-20 14:10)
DX: K21.9 Gastro-esophageal reflux disease without esophagitis (principal); K22.2 Esophageal obstruction; K22.70 Barrett's esophagus without dysplasia; K31.84 Gastroparesis; K20.80 Other esophagitis without bleeding; K29.70 Gastritis, unspecified, without bleeding; K44.9 Diaphragmatic hernia without obstruction or gangrene; Z79.899 Other long term (current) drug therapy; J44.9 Chronic obstructive pulmonary disease, unspecified; Z86.16 Personal history of COVID-19
CPT/HCPCS: 43249; 43239; 88305; 88342; C1726; J2250

== ENCOUNTER → 2023-02-20 12:35 | Outpatient (BNV) | payer MEDICARE, MEDICAID, SELFPAY | PROVIDERS: PCP Internal Medicine; Visit Provider Internal Medicine Gastroenterology | DX: K21.00 Gastro-esophageal reflux disease with esophagitis, without bleeding (principal); T17.920A Food in respiratory tract, part unspecified causing asphyxiation, initial encounter; K29.70 Gastritis, unspecified, without bleeding; K22.2 Esophageal obstruction; K31.7 Polyp of stomach and duodenum; K22.81 Esophageal polyp | CPT/HCPCS: 43249 ==

== ENCOUNTER 2023-02-26 08:34 | Outpatient (REF) | payer MEDICARE, MEDICAID, SELFPAY ==
--- NOTE | ~2023-02-26 | XR_ITS ---
EXAMINATION: XR ANKLE, LEFT CLINICAL INFORMATION: Plantar fascial fibromatosis. COMPARISON: None available. TECHNIQUE: AP, lateral, and mortise views of the left ankle. FINDINGS: There is no acute fracture, dislocation or subluxation seen. The ankle mortise and subtalar joints are normal. There is a large calcaneal heel enthesophyte with mild thickening of the plantar fascia. Also visualized is a small retrocalcaneal enthesophyte. A small bone fragment is seen inferior to the medial malleolus, likely old injury. Minimal bimalleolar soft tissue swelling. XR/XR ankle LT min 3V IMPRESSION: No acute fracture or dislocation. Large calcaneal heel and [id number] size retrocalcaneal enthesophytes. There is mild thickening of the plantar fascia. Old fracture fragment tip of medial malleolus.
== END 2023-02-26 08:35 | disposition home or self-care (01) ==
LOC: HO.HOSX 08:34
PROVIDERS: Visit Provider Physical Medicine & Rehabilitation
DX: M76.62 Achilles tendinitis, left leg (principal); M72.2 Plantar fascial fibromatosis; G56.01 Carpal tunnel syndrome, right upper limb
CPT/HCPCS: 73610; 99212

== ENCOUNTER 2023-02-26 09:59 | Outpatient (AMB) | payer MEDICARE, MEDICAID, SELFPAY ==
--- NOTE | 2023-02-26 10:04 | A.OFFVIS_ITS ---
Intake Intake Visit Reasons: New Prob - left ankle pain Intake Note: Jessy is a 52 year old right hand dominant female who presents today for her left ankle pain. Patient reports ongoing pain for many years and it been getting worse over the years. She states when she wakes up in the morning she tends to be stiff. Patient reports having a burning sensation under her foot. Allergies hydrocodone [From Vicodin] Allergy (Severe, Verified 02/26/23 10:04) Stomach Pain morphine [MORPHINE] Allergy (Severe, Verified 02/26/23 10:04) REDNESS, FEELS REALLY HOT, shortness of breath, anaphylaxis oxycodone Allergy (Severe, Verified 02/26/23 10:04) Stomach Upset amoxicillin Adverse Reaction (Severe, Verified 02/26/23 10:04) yeast infection Penicillins [PENICILLINS] Adverse Reaction (Severe, Verified 02/26/23 10:04) YEAST INFECTION Medication List - Last Reconciled 02/26/23 by Lissa Correa MD albuterol sulfate 90 mcg/actuation (Ventolin HFA) 2 puffs inhalation Q6H PRN cholecalciferol (vitamin D3) 50 mcg PO DAILY cyclobenzaprine 10 mg PO TID PRN diclofenac sodium 1% 2 grams topical BID esomeprazole magnesium 40 mg PO DAILY famotidine 40 mg PO .QHS hydrocortisone 2.5% (Proctosol HC) 1 appl NM BID-QID PRN lidocaine 4% 1 appl topical BID 2 weeks lorazepam (Ativan) 1 mg PO DAILY PRN metoclopramide HCl (Reglan) 5 mg PO QIDACHS pantoprazole 40 mg PO Q12H polyethylene glycol 3350 (Miralax) 17 grams PO DAILY HPI HPI Comments History of Present Illness Details Initially seen for right wrist pain. Right wrist pain on and off for the past 6 months. Denies any falls or inciting injuries. Last week, pain became so severe that she had gone to emergency room. Describe 2nd finger being swollen. Pain in the wrist. Both dorsal and volar aspects. Radiating up to the elbow. At the emergency room, she was prescribed 5 days of prednisone which she only started yesterday. She was prescribed naproxen but she cannot take any NSAIDs due to IBS. X-rays were done which was unremarkable. She has been wearing the right wrist splint and a counterforce brace provided on last visit. She says overall the pain is the same but she admits that there is some relief whenever she remembers to put on the braces. BENNIE and RF both negative. She is here today for evaluation of left chronic ankle pain. She has gone to pain management in the past. Past diagnosis have included plantar fasciitis. She says she has had 3 injections already without any long-lasting relief. Today she is wearing flat sandals. [facility] Medical History (Updated 02/26/23 @ 10:40 by Lissa Correa MD) Achilles tendinitis of left lower extremity Annual physical exam Arthritis Asthma Asthma-COPD overlap syndrome Axillary abscess Back pain Cohn's esophagus determined by endoscopy Bicipital tendinitis of left shoulder Bilateral lower extremity edema Breast cancer screening by mammogram Breast density Carpal tunnel syndrome of left wrist Carpal tunnel syndrome of right wrist Cervical cancer screening Chest pain Chronic cough Chronic pain of left ankle COVID-19 virus infection Dyspnea Easy bruisability Epidermoid cyst of skin of back Gastroparesis GERD (gastroesophageal reflux disease) Hip pain History of IBS Hx of tuberculosis Hypercholesterolemia Impaired fasting blood sugar Internal derangement of right knee Lateral epicondylitis of left elbow Left ankle pain Left foot pain Numbness of left hand Numbness of right hand Obesity (BMI 30-39.9) Palpitations Panic attacks Personal history of nicotine dependence Plantar fasciitis Plantar fasciitis of left foot Right knee pain Right shoulder pain Sacrococcygeal pilonidal cyst with abscess Smoker Tobacco abuse Surgical History (Updated 02/26/23 @ 09:53 by Teresa Mcgill RN) History of appendectomy History of section History of colonoscopy History of esophagogastroduodenoscopy (EGD) History of loop electrosurgical excision procedure (LEEP) History of meniscectomy of left knee History of surgical removal of pilonidal cyst History of tubal ligation Family History Father Tongue cancer Mother CVD (cardiovascular disease) Maternal Aunt Colon cancer Maternal Uncle Colon cancer Brother CVD (cardiovascular disease) Substance abuse Sister CVD (cardiovascular disease) Social History Household Members: Spouse and Children Housing: Apartment Are you a primary pharmacy customer care specialist to a significant other at home: No Do you presently have visiting nurse or other home services: No Alcohol intake: former Patient Tobacco Use Status: Current everyday Tobacco user Tobacco use type: Cigarette Cigarettes Per Day: 10 Years Smoked: 30 e-Cigarette/Vaping Use: Never Used Second Hand Smoke Exposure: Yes Substance Use Type: Marijuana service: No Current occupational status: disabled Cognitive needs: No Hearing needs: No Vision needs: No Female Reproductive History Menstrual Age of Menarche: 12 Physical Exam Constitutional: Patient appears to be in no acute distress, well nourished and well developed. MSK: Tender along Achilles tendon left. Tender plantar fascia. No calf tenderness. She has edema of left lower extremity. Neurological: Neurologic examination of the upper and lower extremities was nonfocal with intact sensation, muscle stretch reflexes and without focal motor deficits . Ho?s negative bilaterally. Babinski was down going bilaterally. Clonus was negative. Gait is non-antalgic without loss of balance. Results Reviewed Results Reviewed: Independently reviewed: Left ankle xrays done today, images show heel/calcaneal spur. Await official reading. X-ray did show possible CIS on distal 3rd digit which is not where her pain is. She has had other x-rays offer had this year which have all been unremarkable, without mention of arthritis. ConditionORDER #: [id number] XR/XR hand wrist RT IMPRESSION: ? 1. No acute abnormality in the right hand and wrist. 2. Cystic lesion in the distal aspect of the distal phalanx of the third digit is nonspecific, but demonstrates overall benign features suggesting a benign bone cyst. An epidermal inclusion cyst would be less likely. Correlate with physical exam. This can be monitored for stability with a repeat right hand radiographic study in one year. Assessment & Plan Assessment & Plan (1) Carpal tunnel syndrome of right wrist: Code(s): G56.01 - Carpal tunnel syndrome, right upper limb Plan: Right we discussed the importance of doing EMG before seeking surgical management for Carpal Tunnel Syndrome. She finally agreed and we will schedule. For now continue the wrist brace. (2) Plantar fasciitis of left foot: Code(s): M72.2 - Plantar fascial fibromatosis (3) Achilles tendinitis of left lower extremity: Code(s): M76.62 - Achilles tendinitis, left leg Plan Almost diffusely tender on right foot/ankle but suspicion for Achilles tendinitis and plantar fasciitis. She has already trialed injections in the past. She is not seeking any surgery. We could put her on a plantar fascia sock that she can wear during the day and a night splint to rest her Achillis tendons at night. Advised to get better shoes like sneakers with good question rather than wearing flats or sandals. Relative rest and elevation as much as she can. Follow-up in 3 months. Assessment and plan discussed with patent, and patient was agreeable. All questions were answered thoroughly. Orders: Orders XR ankle LT min 3V Today M72.2 - Plantar fascial fibromatosis NE electromyogram (EMG) Today G56.01 - Carpal tunnel syndrome, right upper limb NE nerve conduction velocity Today G56.01 - Carpal tunnel syndrome, right upper limb Coding Level of Care Code Est Pt Level 4 (21882) Diagnoses Carpal tunnel syndrome of right wrist G56.01 Plantar fasciitis of left foot M72.2 Achilles tendinitis of left lower extremity M76.62
== END 2023-02-26 10:53 | disposition home or self-care (01) ==
PROVIDERS: PCP Internal Medicine; Visit Provider Physical Medicine & Rehabilitation
DX: G56.01 Carpal tunnel syndrome, right upper limb (principal); M72.2 Plantar fascial fibromatosis; M76.62 Achilles tendinitis, left leg
CPT/HCPCS: 99214

== ENCOUNTER 2023-02-27 08:00 | Outpatient (RCR) | payer MEDICARE, MEDICAID, SELFPAY ==
--- NOTE | 2023-02-17 09:17 | MHC.OT.EP ---
[address] [phone] Occupational Therapy Plan of Care Patient Name: Jessy Dolan Date of Evaluation: 02/17/23 Diagnosis: Bilateral CTS Pain Location: Achy, sharp, burning, pins and needles . Right hand > left Pain Score: 6 Pain Scale Used: Aggravating Factors: Gripping , lifting with right hand Alleviating Factors: Nothing. Assessment: Pt reports several months of worsening right hand pain and numbness limiting use of her right dominant hand. She reports mild symptoms of left hand and her feet Pt declined NCS . XR and Venous doppler US of RUE show no abnormality . Pt presents with decreased wrist ROM, severely low jail keeper and pinch strengths due to pain and mild right hand and wrist edema. Pt sx at consistent with a diagnosis of CTS and lateral epicondylitis. Pt will benefit from OT to address CTS and lateral epicondylitis Frequency and Duration: The patient will be seen Short Term Goals: Demo indep with HEP Indep with thermal modalities for pain Wrist flexion to >40 deg Care Home Goals: Report pain free at rest Report mild difficulty with daily activities due to right hand sx with modifications as needed Right wrist flexion to 55 deg Right jail keeper to > 25 lb Quick DASH to < 25 pts with modifications as needed Treatment Plan: Therapeutic Exercise Therapeutic Activity Home Exercise Program Splinting Patient Education ADL Training Ultrasound Iontophoresis Soft Tissue Mobilization Electronically Signed By: Whitney Wylie OT CHT CLT Please Sign and return to therapist. Thank you once again for your referral.
== END 2023-11-19 13:21 | disposition home or self-care (01) ==
LOC: HO.OT 08:00
PROVIDERS: PCP Internal Medicine; Visit Provider Physical Medicine & Rehabilitation
DX: M25.50 Pain in unspecified joint (principal); R20.0 Anesthesia of skin; M25.541 Pain in joints of right hand; G56.00 Carpal tunnel syndrome, unspecified upper limb
CPT/HCPCS: 97033; 97110; 97140; 97166

== ENCOUNTER 2023-02-28 07:25 | Day surgery (SDC) | payer MEDICARE, MEDICAID, SELFPAY ==
[2023-02-26 09:57] VITALS: BMI 30.5
--- NOTE | 2023-02-27 09:38 | HO.ANESPROP2 ---
Documented by User: Cheyanne Eastman NP 02/27/23 09:39 HPI - Anesthesia Eval Consult details Narrative: 52yo F for I&D, possible Excision Pilondial Cyst, Excision Epidermal Cyst MidBack PMFSH Active Problems Active Problems: All Active Problems (Updated 02/26/23 @ 10:40 by Lissa Correa MD) Achilles tendinitis of left lower extremity (Acute) Plantar fasciitis of left foot (Acute) Carpal tunnel syndrome of right wrist (Acute) Carpal tunnel syndrome of left wrist (Acute) Plantar fasciitis, bilateral (Acute) Dysphagia (Acute) Hypersomnia (Acute) Gastroesophageal reflux disease (Acute) Generalized anxiety disorder (Acute) Verruca (Acute) Thyroid enlarged (Acute) Arthralgia of right hand (Acute) Bilateral hand numbness (Acute) Joint pain (Acute) Epidermoid cyst of skin of back (Acute) Sacrococcygeal pilonidal cyst with abscess (Acute) History of loop electrosurgical excision procedure (LEEP) (Acute) Gastroparesis (Acute) Personal history of nicotine dependence (Acute) Asthma-COPD overlap syndrome (Acute) Smoker (Acute) Cohn's esophagus determined by endoscopy (Acute) Chronic cough (Acute) Plantar fasciitis (Acute) Tobacco abuse (Acute) Asthma (Acute) Obesity (BMI 30-39.9) (Acute) Hip pain (Acute) Hypercholesterolemia (Acute) History of IBS (Acute) Past Medical History Medical History Achilles tendinitis of left lower extremity Plantar fasciitis of left foot Carpal tunnel syndrome of right wrist Carpal tunnel syndrome of left wrist Epidermoid cyst of skin of back Sacrococcygeal pilonidal cyst with abscess Chest pain Right shoulder pain Left foot pain Numbness of right hand Cervical cancer screening Annual physical exam Gastroparesis Axillary abscess COVID-19 virus infection Dyspnea Bilateral lower extremity edema Personal history of nicotine dependence Asthma-COPD overlap syndrome Smoker Cohn's esophagus determined by endoscopy Internal derangement of right knee Right knee pain Chronic cough Plantar fasciitis Chronic pain of left ankle Left ankle pain Impaired fasting blood sugar Breast density Easy bruisability Breast cancer screening by mammogram Numbness of left hand Lateral epicondylitis of left elbow Bicipital tendinitis of left shoulder Back pain Arthritis GERD (gastroesophageal reflux disease) Panic attacks Hx of tuberculosis Palpitations History of IBS Hypercholesterolemia Hip pain Obesity (BMI 30-39.9) Asthma Tobacco abuse Family History Family History Father Tongue cancer Mother CVD (cardiovascular disease) Maternal Aunt Colon cancer Maternal Uncle Colon cancer Brother CVD (cardiovascular disease) Substance abuse Sister CVD (cardiovascular disease) Family history of problems with anesthesia: No Surgical History Surgical History History of loop electrosurgical excision procedure (LEEP) History of tubal ligation History of colonoscopy History of esophagogastroduodenoscopy (EGD) History of surgical removal of pilonidal cyst History of meniscectomy of left knee History of appendectomy History of section History of Problems with Anesthesia: No Social History Social History Household Members: Spouse and Children Housing: Apartment Are you a primary emergency care tech to a significant other at home: No Do you presently have visiting nurse or other home services: No Alcohol intake: former Patient Tobacco Use Status: Current everyday Tobacco user Tobacco use type: Cigarette Cigarettes Per Day: 10 Years Smoked: 30 Smoked in Last 30 Days: Yes e-Cigarette/Vaping Use: Never Used Patient Interested in Nicotine Replacement: No Second Hand Smoke Exposure: Yes Substance Use Type: Marijuana Substance Use Frequency: Daily Are you DNR?: No Advance Directives: No Advance Directives Information Provided: Yes Nutrition Risks: No Nutritional Risk FDLMP: currently service: No Current occupational status: disabled Cognitive needs: No Hearing needs: No Vision needs: No Meds Allergies Allergy/AdvReac Type Severity Reaction Status Date / Time hydrocodone [From Vicodin] Allergy Severe Stomach Verified 02/26/23 10:04 Pain morphine [MORPHINE] Allergy Severe REDNESS, Verified 02/26/23 10:04 FEELS REALLY HOT, shortness of breath, anaphylaxis oxycodone Allergy Severe Stomach Verified 02/26/23 10:04 Upset amoxicillin AdvReac Severe yeast Verified 02/26/23 10:04 infection Penicillins [PENICILLINS] AdvReac Severe YEAST Verified 02/26/23 10:04 INFECTION Home Medications Medication Instructions Recorded Confirmed Last Taken Type cholecalciferol (vitamin D3) 50 50 mcg PO DAILY 04/11/20 02/26/23 Unknown History mcg (2,000 unit) capsule lorazepam 1 mg tablet (Ativan) 1 mg PO DAILY PRN Anxiety 04/11/20 02/26/23 Unknown History Exam Exam Date and Time: February 27, 2023 0938 Height,Weight and Vital Signs: Height 5 ft 3 in Weight 78.018 kg Pertinent Lab Results Pertinent Lab Results: Laboratory Tests 09/10/22 09/10/22 09/10/22 14:45 14:45 14:45 WBC Hgb Hct Plt Count Sodium 138 Potassium 4.4 Chloride 104 Carbon Dioxide 27 BUN 9 Creatinine 0.77 01/27/23 01/27/23 01/27/23 12:50 12:50 12:50 WBC 10.9 H Hgb 15.1 Hct 45.7 Plt Count 306 Sodium Potassium Chloride Carbon Dioxide BUN Creatinine Narrative Narrative: EKG 08/2022 Vent. Rate : 061 BPM Atrial Rate : 061 BPM P-R Int : 132 ms QRS Dur : 078 ms QT Int : 370 ms P-R-T Axes : 060 050 043 degrees QTc Int : 372 ms Normal sinus rhythm Normal ECG When compared with ECG of 14-OCT-2020 07:30, No significant change was found Assessment and Plan Assessment Anesthesia Assessment: Chart Reviewed Final Anesthetic Review Family History of Problems with Anesthesia: No History of Problems with Anesthesia: No Documented by User: Brissa Ramos MD 02/28/23 08:11 [facility] Past Medical History Medical History Achilles tendinitis of left lower extremity Plantar fasciitis of left foot Carpal tunnel syndrome of right wrist Carpal tunnel syndrome of left wrist Epidermoid cyst of skin of back Sacrococcygeal pilonidal cyst with abscess Chest pain Right shoulder pain Left foot pain Numbness of right hand Cervical cancer screening Annual physical exam Gastroparesis Axillary abscess COVID-19 virus infection Dyspnea Bilateral lower extremity edema Personal history of nicotine dependence Asthma-COPD overlap syndrome Smoker Cohn's esophagus determined by endoscopy Internal derangement of right knee Right knee pain Chronic cough Plantar fasciitis Chronic pain of left ankle Left ankle pain Impaired fasting blood sugar Breast density Easy bruisability Breast cancer screening by mammogram Numbness of left hand Lateral epicondylitis of left elbow Bicipital tendinitis of left shoulder Back pain Arthritis GERD (gastroesophageal reflux disease) Panic attacks Hx of tuberculosis Palpitations History of IBS Hypercholesterolemia Hip pain Obesity (BMI 30-39.9) Asthma Tobacco abuse Family History Family History Father Tongue cancer Mother CVD (cardiovascular disease) Maternal Aunt Colon cancer Maternal Uncle Colon cancer Brother CVD (cardiovascular disease) Substance abuse Sister CVD (cardiovascular disease) Surgical History Surgical History History of loop electrosurgical excision procedure (LEEP) History of tubal ligation History of colonoscopy History of esophagogastroduodenoscopy (EGD) History of surgical removal of pilonidal cyst History of meniscectomy of left knee History of appendectomy History of section Social History Social History Household Members: Spouse and Children Housing: Apartment Are you a primary emergency care tech to a significant other at home: No Do you presently have visiting nurse or other home services: No Alcohol intake: former Patient Tobacco Use Status: Current everyday Tobacco user Tobacco use type: Cigarette Cigarettes Per Day: 10 Years Smoked: 30 Smoked in Last 30 Days: Yes e-Cigarette/Vaping Use: Never Used Patient Interested in Nicotine Replacement: No Second Hand Smoke Exposure: Yes Substance Use Type: Marijuana Substance Use Frequency: Daily Are you DNR?: No Advance Directives: No Advance Directives Information Provided: Yes Nutrition Risks: No Nutritional Risk FDLMP: currently service: No Current occupational status: disabled Cognitive needs: No Hearing needs: No Vision needs: No Meds Allergies Allergy/AdvReac Type Severity Reaction Status Date / Time hydrocodone [From Vicodin] Allergy Severe Stomach Verified 02/26/23 10:04 Pain morphine [MORPHINE] Allergy Severe REDNESS, Verified 02/26/23 10:04 FEELS REALLY HOT, shortness of breath, anaphylaxis oxycodone Allergy Severe Stomach Verified 02/26/23 10:04 Upset amoxicillin AdvReac Severe yeast Verified 02/26/23 10:04 infection Penicillins [PENICILLINS] AdvReac Severe YEAST Verified 02/26/23 10:04 INFECTION Home Medications Medication Instructions Recorded Confirmed Last Taken Type cholecalciferol (vitamin D3) 50 50 mcg PO DAILY 04/11/20 02/26/23 Unknown History mcg (2,000 unit) capsule lorazepam 1 mg tablet (Ativan) 1 mg PO DAILY PRN Anxiety 04/11/20 02/26/23 Unknown History Exam Airway Mallampati Class: II TM Dist: >3cm Neck ROM: Full Partial: Upper Loose/Missing/Broken Teeth: Upper and Lower Heart: rrr Lungs: cta Assessment and Plan Assessment Anesthesia Assessment: Anesthesia Plan Discussed and Smoking Cess. Discussed Final Anesthetic Review NPO: Yes ASA Class: II Final Preanesthetic Review: No Changes in Pt Med Stat, Meds/Allgs Chart Reviewed, Consent Obtained/Reviewed and Anes Risks/Benef Reviewed Patient Risk: Intermediate Procedure Risk: Low Anesthetic Plan Anesthetic Plan: GA and MAC: Disposition: Standard PACU
[2023-02-28] VITALS (12 sets, daily range): BP systolic 88–138; BP diastolic 50–76; PULSE 63–83; RESP 16–20; TEMP 36.2–36.7; O2SAT 95–99
[2023-02-28] MEDS: Lactated Ringers 1,000 ML 100 ML IVCONT (07:47)
[2023-02-28] MEDS: Albuterol Sulfate (0.083%) 2.5 MG/3 ML VIAL.NEB INHALE (08:08)
--- NOTE | 2023-02-28 08:27 | MHC.SHP ---
Pre-Procedural Eval Section A Date of Service: 02/28/23 The patient is an INPATIENT: No Changes since office visit: No Cold of Flu in the past 2 weeks, No New Medical Problems, No Changes in Medication and No Patient answered all questions The History & Physical has been completed within 30 days and I have reviewed it.: Yes Section B Chief Complaint: Pilonidal cyst with abscess, Epidermal cyst Allergies: Allergies Allergy/AdvReac Type Severity Reaction Status Date / Time hydrocodone [From Vicodin] Allergy Severe Stomach Verified 02/26/23 10:04 Pain morphine [MORPHINE] Allergy Severe REDNESS, Verified 02/26/23 10:04 FEELS REALLY HOT, shortness of breath, anaphylaxis oxycodone Allergy Severe Stomach Verified 02/26/23 10:04 Upset amoxicillin AdvReac Severe yeast Verified 02/26/23 10:04 infection Penicillins [PENICILLINS] AdvReac Severe YEAST Verified 02/26/23 10:04 INFECTION Plan I have reviewed the history and physical and performed a pertinent physical examination on my patient. No changes have occurred unless specified. Time Spent With Patient Time: Total time managing care of this patient today ____ minutes.
--- NOTE | 2023-02-28 09:57 | P.OP_ITS ---
Operative Note Operative Note Date of Service: 02/28/23 Narrative: Preop diagnosis: Recurrent pilonidal this cyst, sacrococcygeal area, epidermal cyst on the mid back Postop diagnosis: The same Procedure: Excision of recurrent pilonidal cyst from the sacrococcygeal area and excision of an epidermal cyst from the mid back Surgeon: Jonny Jerome MD Strategic Marketing Associate: ROSENDO Hunter student The patient is a 52 year female with a recurrent final cyst on the sacrococcygeal area, as well as an epidermal cyst on the mid back. She understood the technique of excision of both lesions. She was aware of the risks, benefits, and alternatives. She was brought to the operating room and placed in prone position under general anesthesia via endotracheal tube. The sacrococcygeal area as well as the area of the cyst on the mid back were prepped and draped in the usual sterile fashion. A surgical time-out was done. The patient received cefazolin 2 g IV preoperatively. I infiltrated the planned line of incision on the sacrococcygeal area using lidocaine 1%. I made the incision elliptically around this induration and sinus using a blade 15. This was carried down with electrocautery through the full-thickness of the skin and subcutaneous fat to including the entire indurated and tissue. This was sent as specimen. The area excised was about 3 cm long and about 1.5 cm wide. I created flaps of subcutaneous tissue on both side and reapposed this with Polysorb 3-0 simple interrupted sutures. Skin closure was achieved with 3-0 vertical mattress sutures alternating with simple interrupted sutures. I infiltrated the area with Marcaine 0.5% for postop analgesia I then proceeded to infiltrate the area around the epidermal cyst on the mid back using lidocaine 1%. I made an incision on the skin overlying the cyst using blade 15 and this carried down sharply through the full-thickness of the skin until the capsule was visualized. I sharply dissected the cyst capsule off of the rest of the subcutaneous layer with the blade 15 until was delivered. This was about a 1.2 cm diameter cyst I closed the incision after irrigation using nylon 3-0 simple interrupted sutures. The procedure was then completed. The patient tolerated procedure well. There were no immediate complications. Initial and final counts of sponges and instruments were correct. Estimated blood loss about 5 cc The patient was extubated without difficulty and transferred to the recovery room with stable vital signs.
[2023-02-28] MEDS: fentaNYL citrate/PF 100 MCG/2 ML VIAL 25 MCG IVPUSH ×2 (10:21→10:29)
== END 2023-02-28 11:10 | disposition home or self-care (01) ==
PROVIDERS: PCP Internal Medicine; Visit Provider Surgery
PROC: (CPT 11771; principal; 2023-02-28 08:30)
DX: L05.01 Pilonidal cyst with abscess (principal); L72.0 Epidermal cyst; J44.9 Chronic obstructive pulmonary disease, unspecified; K31.84 Gastroparesis; E78.00 Pure hypercholesterolemia, unspecified; R73.01 Impaired fasting glucose; Z79.899 Other long term (current) drug therapy; Z88.0 Allergy status to penicillin; Z88.1 Allergy status to other antibiotic agents; Z88.8 Allergy status to other drugs, medicaments and biological substances; F17.210 Nicotine dependence, cigarettes, uncomplicated; Z86.16 Personal history of COVID-19
CPT/HCPCS: 11771; 11402; 88304; 94640; J0131; J0690; J1100; J1885; J2250; J2405; J2795; J3010

== ENCOUNTER → 2023-02-28 07:25 | Outpatient (BNV) | payer MEDICARE, MEDICAID, SELFPAY | PROVIDERS: PCP Internal Medicine; Visit Provider Surgery | DX: L05.92 Pilonidal sinus without abscess (principal); L72.0 Epidermal cyst | CPT/HCPCS: 11402; 11771 ==

== ENCOUNTER 2023-03-05 08:21 | Outpatient (AMB) | payer MEDICARE, MEDICAID, SELFPAY ==
--- NOTE | 2023-03-05 08:39 | MHC.OFFVIS ---
Intake Vital Signs 03/05/23 08:43 Height 5 ft 3 in Weight 166 lb BMI 29.4 BP 126/82 Blood Pressure Location Lt brachial Position Sitting Pulse 80 Intake Visit Reasons: s/p egd Gutierrez Intake Note: Patient follow up for EGD results. Patient cc: abdominal pain and diarrhea. Denies any other GI issues. Patient can not seat dowm due the back surgery pain. Form Tamper Operator Required: No Accompanied by: Self / Same As Patient Allergies hydrocodone [From Vicodin] Allergy (Severe, Verified 03/05/23 09:24) Stomach Pain morphine [MORPHINE] Allergy (Severe, Verified 03/05/23 09:24) REDNESS, FEELS REALLY HOT, shortness of breath, anaphylaxis oxycodone Allergy (Severe, Verified 03/05/23 09:24) Stomach Upset amoxicillin Adverse Reaction (Severe, Verified 03/05/23 09:24) yeast infection Penicillins [PENICILLINS] Adverse Reaction (Severe, Verified 03/05/23 09:24) YEAST INFECTION HPI s/p egd Gutierrez HPI Details LAST VISIT Gastroparesis Diagnosed with gastroparesis continue taking Reglan. Patient also was instructed to eat small amounts meal and more often. Cohn's esophagus determined by endoscopy Diagnosed with Cohn's esophagus in 2020. Will send patient for repeat upper endoscopy. Patient was encouraged to stop smoking Gastroesophageal reflux disease Continue taking pantoprazole twice a day half an hour before breakfast and half an hour before dinner. Continue taking famotidine at bedtime. Patient will go for upper endoscopy to rule out esophagitis, Cohn's, gastric or peptic ulcers, gastritis, H pylori. Perirectal abscess Perirectal abscess. Patient will be sent to General surgery. I will see patient after her endoscopy, sooner on as needed basis. Patient is agreeable to this plan and verbalizes understanding of instructions. She was given the opportunity to ask questions and all questions answered. UPPER ENDOSCOPY Findings: Larynx:normal Esophagus: GE junction at 35 cm, diaphragm hiatus at 37 cm, consistent with 2 cm hiatal hernia, bogginess and congestion at GEJ, bx taken as well as from distal and proximal esophagus, balloon dilation also done at LES and UEs to 19 mm, no tears seen. Schatzki ring also noted Stomach: Patchy gastric erythema. Biopsies were obtained. Grade 2 flap valve on retroflexed examination of the cardia. Duodenum: Normal bulb and descending duodenum, Intervention: Biopsies as noted above Impression/Findings: schatzki ring esophagitis gastritis hiatal hernia PLAN: reflux precautions PPI compliance, consider changing preparation e.g to nexium if needed smoking cessation PATHOLOGY RESULTS Diagnosis A. Stomach, biopsy: Gastric mucosa with no diagnostic alteration; no evidence of H. pylori, intestinal metaplasia, or dysplasia. B. Gastroesophageal junction, biopsy: Inflamed cardiofundic-type mucosa, no evidence of intestinal metaplasia or dysplasia. C. Esophagus, distal, biopsy: Esophageal squamous mucosa with mild reactive changes, no evidence of active esophagitis. D. Esophagus, proximal, biopsy: Esophageal squamous mucosa with no diagnostic alteration, no evidence of active esophagitis. TODAY'S VISIT Patient is here today for follow-up and to discuss upper endoscopy results. Patient denies any ill effects from anesthesia or procedure itself. Patient reports that she can swallow better. Her PPI was switched to Nexium and she started taking it couple days ago. Patient has not noticed much of improvement year. She continues to smoke cigarettes. Patient reports that she is not eating late at night. Patient had her surgery few weeks ago and reports that her rectum still is very painful. Patient is unable to sit due to severe pain. Patient will have appointment with general surgeon today. Patient denies any nausea or vomiting. Patient denies any melena, hematochezia, unintentional weight loss or ribbon like stools. Patient was unable to get her MiraLax from pharmacy as insurance did not pay for it. Patient does feel constipated at times. Patient is taking Reglan 4 times a day and not with meals. Patient only eats couple times a day. Discussed with patient that she should only take Reglan with meals. [facility] Medical History Achilles tendinitis of left lower extremity Plantar fasciitis of left foot Carpal tunnel syndrome of right wrist Carpal tunnel syndrome of left wrist Epidermoid cyst of skin of back Sacrococcygeal pilonidal cyst with abscess Chest pain Right shoulder pain Left foot pain Numbness of right hand Cervical cancer screening Annual physical exam Gastroparesis Axillary abscess COVID-19 virus infection Dyspnea Bilateral lower extremity edema Personal history of nicotine dependence Asthma-COPD overlap syndrome Smoker Cohn's esophagus determined by endoscopy Internal derangement of right knee Right knee pain Chronic cough Plantar fasciitis Chronic pain of left ankle Left ankle pain Impaired fasting blood sugar Breast density Easy bruisability Breast cancer screening by mammogram Numbness of left hand Lateral epicondylitis of left elbow Bicipital tendinitis of left shoulder Back pain Arthritis GERD (gastroesophageal reflux disease) Panic attacks Hx of tuberculosis Palpitations History of IBS Hypercholesterolemia Hip pain Obesity (BMI 30-39.9) Asthma Tobacco abuse Surgical History History of loop electrosurgical excision procedure (LEEP) History of tubal ligation History of colonoscopy History of esophagogastroduodenoscopy (EGD) History of surgical removal of pilonidal cyst History of meniscectomy of left knee History of appendectomy History of section Family History Father Tongue cancer Mother CVD (cardiovascular disease) Maternal Aunt Colon cancer Maternal Uncle Colon cancer Brother CVD (cardiovascular disease) Substance abuse Sister CVD (cardiovascular disease) Social History Household Members: Spouse and Children Housing: Apartment Are you a primary live in caregiver to a significant other at home: No Do you presently have visiting nurse or other home services: No Alcohol intake: former Patient Tobacco Use Status: Current everyday Tobacco user Tobacco use type: Cigarette Cigarettes Per Day: 10 Years Smoked: 30 e-Cigarette/Vaping Use: Never Used Second Hand Smoke Exposure: Yes Substance Use Type: Marijuana service: No Current occupational status: disabled Cognitive needs: No Hearing needs: No Vision needs: No Female Reproductive History Menstrual Age of Menarche: 12 Review of Systems Const Denies weight gain and Denies weight loss ENT Reports no additional complaints, Denies dysphagia and Denies odynophagia Card Reports no additional complaints Resp Reports no additional complaints GI Reports abdominal pain, Denies belching, Denies melena, Denies bloating, Denies change in bowel habits, Reports constipation, Denies dysphagia, Denies excessive flatus, Denies dyspepsia, Reports heartburn, Denies diarrhea, Denies loose stools, Denies nausea, Denies odynophagia and Denies vomiting Reports no additional complaints Musc Reports no additional complaints Neuro Reports no additional complaints Psych Reports no additional complaints Endo Reports no additional complaints Physical Exam Vital Signs: Last Vital Signs Pulse 80 03/05/23 08:43 BP 126/82 03/05/23 08:43 BMI result Body Mass Index 29.4 Const General: healthy appearing, no acute distress and well developed Nutritional Appearance: obese Orientation/consciousness: patient oriented x3 HEENT Head: Yes normal to inspection, Yes normocephalic and Yes atraumatic Face and sinus: Yes normal facial exam Mouth: Normal oral and palatal mucosa present Throat: Yes posterior oropharynx normal, Yes tonsils normal and Yes uvula midline Eyes General: appearance normal, both eyes and all related structures Neck Neck: Yes normal visual inspection, Yes full ROM and Yes trachea midline Thyroid: Thyroid normal Resp Effort & Inspection: normal respiratory effort, able to speak in complete sentences, no tracheal deviation and symmetric chest movement Auscultation: clear to auscultation bilaterally Cardio Rate: regular rate Heart sounds: S1 normal heart sound present and S2 normal heart sound present GI Inspection: Yes normal to inspection, No distended and Yes obesity Palpation (GI): Soft to palpation, not firm, nontender and No hepatosplenomegaly present Auscultation: normal bowel sounds General: Yes no CVA tenderness Back/Spine/Pelvis Back: no CVA tenderness Skin General skin exam: elasticity normal, turgor normal and dry skin Neuro General: patient oriented x3 Psych Appearance: grossly normal Mental Status: mental status grossly normal Assessment & Plan Assessment & Plan (1) Gastroesophageal reflux disease: Code(s): K21.9 - Gastro-esophageal reflux disease without esophagitis Qualifiers: Esophagitis presence: with esophagitis Esophagitis bleeding: without hemorrhage Qualified Code(s): K21.00 - Gastro-esophageal reflux disease with esophagitis, without bleeding Plan: Continue as omeprazole in the morning, sucralfate at bedtime. Patient was also encouraged to avoid dietary triggers and late night snacking. Staying upright for minimal 3 hours after meals discussed with patient. Smoking cessation discussed (2) Gastroparesis: Code(s): K31.84 - Gastroparesis Plan: Continue Reglan only with meals. Small meals and more often. Gastroparesis diet discussed with patient. (3) Constipation: Code(s): K59.00 - Constipation, unspecified Qualifiers: Constipation type: chronic idiopathic constipation Qualified Code(s): K59.04 - Chronic idiopathic constipation Plan: Start Linzess. Patient was also encouraged to increase fluid intake and activity to promote better bowel motility. I will see patient in 3 months, at bases. Patient is agreeable to this plan and verbalizes understanding of instructions. She was given the opportunity to ask questions and all questions answered. Thank you for allowing me to participate in her care Medications: New linaclotide (Linzess) 72 mcg PO DAILY 30 caps 2RF sucralfate 10 mL PO BEDTIME 400 mL 3RF K21.9 - Gastro-esophageal reflux disease without esophagitis Refilled polyethylene glycol 3350 (Miralax) 17 grams PO DAILY 510 grams 2RF Discontinued famotidine Discontinued Reason: Doctor's Order 40 mg PO .QHS 90 tabs 3RF K21.9 - Gastro-esophageal reflux disease without esophagitis Coding Level of Care Code Est Pt Level 4 (00844) Diagnoses Gastroesophageal reflux disease with esophagitis without hemorrhage K21.00 Esophagitis presence: with esophagitis Esophagitis bleeding: without hemorrhage Gastroparesis K31.84 Chronic idiopathic constipation K59.04 Constipation type: chronic idiopathic constipation Time Spent (min) 35 Comment 20 minutes spent with patient and additional 15 minutes spent reviewing her records
[2023-03-05 08:43] VITALS: BP 126/82; PULSE 80; BMI 29.4
== END 2023-03-05 09:08 | disposition home or self-care (01) ==
PROVIDERS: PCP Internal Medicine; Visit Provider Nurse Practitioner Family
DX: K21.00 Gastro-esophageal reflux disease with esophagitis, without bleeding (principal); K31.84 Gastroparesis; K59.04 Chronic idiopathic constipation
CPT/HCPCS: 99214

== ENCOUNTER → 2023-03-05 08:21 | Outpatient (BNVA) | payer MEDICARE, MEDICAID, SELFPAY | PROVIDERS: PCP Internal Medicine; Visit Provider Nurse Practitioner Family | DX: Z48.817 Encounter for surgical aftercare following surgery on the skin and subcutaneous tissue (principal); K21.00 Gastro-esophageal reflux disease with esophagitis, without bleeding; K31.84 Gastroparesis; K59.04 Chronic idiopathic constipation; Z87.2 Personal history of diseases of the skin and subcutaneous tissue | CPT/HCPCS: 99212 ==

== ENCOUNTER 2023-03-05 09:11 | Outpatient (AMB) | payer MEDICARE, MEDICAID, SELFPAY ==
[2023-03-05 09:20] VITALS: BP 126/82; PULSE 80; BMI 29.4
--- NOTE | 2023-03-05 09:20 | A.OFFVIS_ITS ---
Intake Vital Signs 03/05/23 09:20 Height 5 ft 3 in Weight 165 lb 15.988 oz BMI 29.4 BP 126/82 Blood Pressure Location Lt brachial Position Sitting Pulse 80 Intake Visit Reasons: excision pilonidal cyst, epidermal cyst mid back Intake Note: This patient presensts for a wound check status post excision of pilonidal cyst and excision of epidermal cyst mid back. Patient c/o; reports minimal blood on dressings, reports using hydrogen peroxide and triple abx ointment on the area, reports she is unable to sit, stand or sleep due to pain, denies fever. Network Contract Manager Required: No Accompanied by: Self / Same As Patient Allergies hydrocodone [From Vicodin] Allergy (Severe, Verified 03/05/23 09:24) Stomach Pain morphine [MORPHINE] Allergy (Severe, Verified 03/05/23 09:24) REDNESS, FEELS REALLY HOT, shortness of breath, anaphylaxis oxycodone Allergy (Severe, Verified 03/05/23 09:24) Stomach Upset amoxicillin Adverse Reaction (Severe, Verified 03/05/23 09:24) yeast infection Penicillins [PENICILLINS] Adverse Reaction (Severe, Verified 03/05/23 09:24) YEAST INFECTION HPI excision pilonidal cyst, epidermal cyst mid back HPI Details She had undergone excision of a pilonidal cyst as well as an epidermal cyst on the mid back last 02/28/2023. She tolerated procedure well She had call this morning asking for a wound check because of pain on the surgical sites. She says that in view of this pain, she has difficulty with sitting down. She denies any fever. She denies any significant discharge. [facility] Medical History Achilles tendinitis of left lower extremity Plantar fasciitis of left foot Carpal tunnel syndrome of right wrist Carpal tunnel syndrome of left wrist Epidermoid cyst of skin of back Sacrococcygeal pilonidal cyst with abscess Chest pain Right shoulder pain Left foot pain Numbness of right hand Cervical cancer screening Annual physical exam Gastroparesis Axillary abscess COVID-19 virus infection Dyspnea Bilateral lower extremity edema Personal history of nicotine dependence Asthma-COPD overlap syndrome Smoker Cohn's esophagus determined by endoscopy Internal derangement of right knee Right knee pain Chronic cough Plantar fasciitis Chronic pain of left ankle Left ankle pain Impaired fasting blood sugar Breast density Easy bruisability Breast cancer screening by mammogram Numbness of left hand Lateral epicondylitis of left elbow Bicipital tendinitis of left shoulder Back pain Arthritis GERD (gastroesophageal reflux disease) Panic attacks Hx of tuberculosis Palpitations History of IBS Hypercholesterolemia Hip pain Obesity (BMI 30-39.9) Asthma Tobacco abuse Surgical History History of loop electrosurgical excision procedure (LEEP) History of tubal ligation History of colonoscopy History of esophagogastroduodenoscopy (EGD) History of surgical removal of pilonidal cyst History of meniscectomy of left knee History of appendectomy History of section Family History Father Tongue cancer Mother CVD (cardiovascular disease) Maternal Aunt Colon cancer Maternal Uncle Colon cancer Brother CVD (cardiovascular disease) Substance abuse Sister CVD (cardiovascular disease) Social History Household Members: Spouse and Children Housing: Apartment Are you a primary medicare coordinator to a significant other at home: No Do you presently have visiting nurse or other home services: No Alcohol intake: former Patient Tobacco Use Status: Current everyday Tobacco user Tobacco use type: Cigarette Cigarettes Per Day: 10 Years Smoked: 30 e-Cigarette/Vaping Use: Never Used Second Hand Smoke Exposure: Yes Substance Use Type: Marijuana service: No Current occupational status: disabled Cognitive needs: No Hearing needs: No Vision needs: No Female Reproductive History Menstrual Age of Menarche: 12 Review of Systems Const Denies chills and Denies fever(s) Card Denies chest pain, Denies dyspnea and Denies dyspnea on exertion Resp Denies cough, Denies dyspnea and Denies dyspnea on exertion GI Denies hematochezia and Denies change in bowel habits Denies hematuria Musc Denies back pain and Denies limited range of motion Neuro Denies focal weakness and Denies convulsions Psych Denies depression and Denies mood swings Physical Exam Vital Signs: Last Vital Signs Pulse 80 03/05/23 09:20 BP 126/82 03/05/23 09:20 BMI result Body Mass Index 29.4 Const General: no acute distress Resp Effort & Inspection: normal respiratory effort Back/Spine/Pelvis Other: Both excision sites on the sacrococcygeal area as well as on the upper back are healing well, with no pus, no induration, no fluctuance, sutures intact, no cellulitis Assessment & Plan Assessment & Plan (1) Sacrococcygeal pilonidal cyst with abscess: Code(s): L05.01 - Pilonidal cyst with abscess Plan: Status post excision of pilonidal cyst from the sacrococcygeal area as well as epidermal cyst on the upper back. She came to the office today because of pain especially when sitting down. I assured her that examination does not suggest any wound infection. There is no fluctuance or cellulitis. The incisions are actually healing well I told her that she can continue with pain medications. She should keep the areas clean and dry. I can seen again next week for another wound check Coding Level of Care Code Global (84740) Diagnoses Sacrococcygeal pilonidal cyst with abscess L05.01
== END 2023-03-05 09:26 | disposition home or self-care (01) ==
PROVIDERS: PCP Internal Medicine; Visit Provider Surgery
DX: L05.01 Pilonidal cyst with abscess (principal)
CPT/HCPCS: 99024

== ENCOUNTER 2023-03-13 10:32 | Outpatient (AMB) | payer MEDICARE, MEDICAID, SELFPAY ==
--- NOTE | 2023-03-13 10:50 | A.OFFVIS_ITS ---
Intake Intake Visit Reasons: S/P exc. pilonidal cyst, epidermal cyst mid back Intake Note: This patient presents for a post-op assessment status post excision pilonidal cyst, excision epidermal cyst mid back. Patient c/o; reports oozing, reports yellowish-bloody discharge. Electrical Manager Required: No Accompanied by: Self / Same As Patient Allergies hydrocodone [From Vicodin] Allergy (Severe, Verified 03/13/23 11:00) Stomach Pain morphine [MORPHINE] Allergy (Severe, Verified 03/13/23 11:00) REDNESS, FEELS REALLY HOT, shortness of breath, anaphylaxis oxycodone Allergy (Severe, Verified 03/13/23 11:00) Stomach Upset amoxicillin Adverse Reaction (Severe, Verified 03/13/23 11:00) yeast infection Penicillins [PENICILLINS] Adverse Reaction (Severe, Verified 03/13/23 11:00) YEAST INFECTION HPI S/P exc. pilonidal cyst, epidermal cyst mid back HPI Details She is here for follow-up after excision of an epidermal cyst from the mid back and pilonidal cyst last February 28. She says that she feeling better although she still has some pain on the sacrococcygeal area. She denies any fever or chills. [facility] Medical History Achilles tendinitis of left lower extremity Plantar fasciitis of left foot Carpal tunnel syndrome of right wrist Carpal tunnel syndrome of left wrist Epidermoid cyst of skin of back Sacrococcygeal pilonidal cyst with abscess Chest pain Right shoulder pain Left foot pain Numbness of right hand Cervical cancer screening Annual physical exam Gastroparesis Axillary abscess COVID-19 virus infection Dyspnea Bilateral lower extremity edema Personal history of nicotine dependence Asthma-COPD overlap syndrome Smoker Cohn's esophagus determined by endoscopy Internal derangement of right knee Right knee pain Chronic cough Plantar fasciitis Chronic pain of left ankle Left ankle pain Impaired fasting blood sugar Breast density Easy bruisability Breast cancer screening by mammogram Numbness of left hand Lateral epicondylitis of left elbow Bicipital tendinitis of left shoulder Back pain Arthritis GERD (gastroesophageal reflux disease) Panic attacks Hx of tuberculosis Palpitations History of IBS Hypercholesterolemia Hip pain Obesity (BMI 30-39.9) Asthma Tobacco abuse Surgical History History of loop electrosurgical excision procedure (LEEP) History of tubal ligation History of colonoscopy History of esophagogastroduodenoscopy (EGD) History of surgical removal of pilonidal cyst History of meniscectomy of left knee History of appendectomy History of section Family History Father Tongue cancer Mother CVD (cardiovascular disease) Maternal Aunt Colon cancer Maternal Uncle Colon cancer Brother CVD (cardiovascular disease) Substance abuse Sister CVD (cardiovascular disease) Social History Household Members: Spouse and Children Housing: Apartment Are you a primary adult live in caregiver to a significant other at home: No Do you presently have visiting nurse or other home services: No Alcohol intake: former Patient Tobacco Use Status: Current everyday Tobacco user Tobacco use type: Cigarette Cigarettes Per Day: 10 Years Smoked: 30 e-Cigarette/Vaping Use: Never Used Second Hand Smoke Exposure: Yes Substance Use Type: Marijuana service: No Current occupational status: disabled Cognitive needs: No Hearing needs: No Vision needs: No Female Reproductive History Menstrual Age of Menarche: 12 Review of Systems Const Denies chills and Denies fever(s) Card Denies chest pain, Denies dyspnea and Denies dyspnea on exertion Resp Denies cough, Denies dyspnea and Denies dyspnea on exertion GI Denies hematochezia and Denies change in bowel habits Denies hematuria Musc Denies back pain and Denies limited range of motion Neuro Denies focal weakness and Denies convulsions Psych Denies depression and Denies mood swings Physical Exam Const General: comfortable and no acute distress Resp Effort & Inspection: normal respiratory effort Back/Spine/Pelvis Other: Excision site on the upper back is well healed, excision site for the pilonidal cyst on the sacrococcygeal area is healing well, no evidence of any infection with no induration, no fluctuance, no cellulitis Assessment & Plan Assessment & Plan (1) Sacrococcygeal pilonidal cyst with abscess: Code(s): L05.01 - Pilonidal cyst with abscess Plan: Status post excision of pilonidal cyst and epidermal cyst from the back. The lesion site on the upper back is well healed. I removed all her sutures The sacrococcygeal area is healing well. I removed all her sutures as well. She still has some drainage from the area. I told her to continue doing good wound care. I will see her again in the office in about 3 weeks for another wound check. Coding Level of Care Code Global (16099) Diagnoses Sacrococcygeal pilonidal cyst with abscess L05.01
== END 2023-03-13 11:18 | disposition home or self-care (01) ==
PROVIDERS: PCP Internal Medicine; Visit Provider Surgery
DX: L05.01 Pilonidal cyst with abscess (principal)
CPT/HCPCS: 99024

== ENCOUNTER → 2023-03-13 10:32 | Outpatient (BNVA) | payer MEDICARE, MEDICAID, SELFPAY | PROVIDERS: PCP Internal Medicine; Visit Provider Surgery ==

== ENCOUNTER 2023-04-03 10:03 | Outpatient (AMB) | payer MEDICARE, MEDICAID, SELFPAY ==
--- NOTE | 2023-04-03 10:08 | MHC.OFFVIS ---
Intake Vital Signs 04/03/23 10:08 Height 5 ft 3 in Intake Visit Reasons: S/P exc. pilonidal cyst, wound check Intake Note: This patient presents for a follow-up assessment for wound check. Patient c/o; reports blood-yellowish drainage, reports tenderness. 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 pilonidal cyst, wound check HPI Details She is here for a postop visit after excision of a pilonidal cyst last February 28. She continues to do well. She does describe some drainage from the area although scanty. [facility] Medical History Achilles tendinitis of left lower extremity Plantar fasciitis of left foot Carpal tunnel syndrome of right wrist Carpal tunnel syndrome of left wrist Epidermoid cyst of skin of back Sacrococcygeal pilonidal cyst with abscess Chest pain Right shoulder pain Left foot pain Numbness of right hand Cervical cancer screening Annual physical exam Gastroparesis Axillary abscess COVID-19 virus infection Dyspnea Bilateral lower extremity edema Personal history of nicotine dependence Asthma-COPD overlap syndrome Smoker Cohn's esophagus determined by endoscopy Internal derangement of right knee Right knee pain Chronic cough Plantar fasciitis Chronic pain of left ankle Left ankle pain Impaired fasting blood sugar Breast density Easy bruisability Breast cancer screening by mammogram Numbness of left hand Lateral epicondylitis of left elbow Bicipital tendinitis of left shoulder Back pain Arthritis GERD (gastroesophageal reflux disease) Panic attacks Hx of tuberculosis Palpitations History of IBS Hypercholesterolemia Hip pain Obesity (BMI 30-39.9) Asthma Tobacco abuse Surgical History History of loop electrosurgical excision procedure (LEEP) History of tubal ligation History of colonoscopy History of esophagogastroduodenoscopy (EGD) History of surgical removal of pilonidal cyst History of meniscectomy of left knee History of appendectomy History of section Family History Father Tongue cancer Mother CVD (cardiovascular disease) Maternal Aunt Colon cancer Maternal Uncle Colon cancer Brother CVD (cardiovascular disease) Substance abuse Sister CVD (cardiovascular disease) Social History Household Members: Spouse and Children Housing: Apartment Are you a primary rn intensive care unit to a significant other at home: No Do you presently have visiting nurse or other home services: No Alcohol intake: former Patient Tobacco Use Status: Current everyday Tobacco user Tobacco use type: Cigarette Cigarettes Per Day: 10 Years Smoked: 30 e-Cigarette/Vaping Use: Never Used Second Hand Smoke Exposure: Yes Substance Use Type: Marijuana service: No Current occupational status: disabled Cognitive needs: No Hearing needs: No Vision needs: No Female Reproductive History Menstrual Age of Menarche: 12 Review of Systems Const Denies chills and Denies fever(s) Card Denies chest pain, Denies dyspnea and Denies dyspnea on exertion Resp Denies cough, Denies dyspnea and Denies dyspnea on exertion GI Denies hematochezia and Denies change in bowel habits Denies hematuria Musc Denies back pain and Denies limited range of motion Neuro Denies focal weakness and Denies convulsions Psych Denies depression and Denies mood swings Physical Exam Const General: comfortable and no acute distress Back/Spine/Pelvis Other: Excision site in the sacrococcygeal your actually healed but there is note of 1 area with very scanty clear drainage Assessment & Plan Assessment & Plan (1) Sacrococcygeal pilonidal cyst with abscess: Code(s): L05.01 - Pilonidal cyst with abscess Plan: Status post excision of pilonidal cyst. The area is actually well healed but she does describe some scanty drainage. There is no abscess or any induration. I have instructed her on keeping the area clean and dry. I will see her again in the office for another wound check in a month. Coding Level of Care Code Global (93837) Diagnoses Sacrococcygeal pilonidal cyst with abscess L05.01
== END 2023-04-03 10:30 | disposition home or self-care (01) ==
PROVIDERS: PCP Internal Medicine; Visit Provider Surgery
DX: L05.01 Pilonidal cyst with abscess (principal)
CPT/HCPCS: 99024

== ENCOUNTER 2023-04-03 14:04 | Outpatient (REF) | payer MEDICARE, MEDICAID, SELFPAY ==
--- NOTE | 2023-04-03 14:07 | EMG_ITS ---
Chief complaint: Hand pain and numbness Reason for referral: Evaluate for Carpal Tunnel Syndrome Procedure done: Bilateral upper extremities NCS Precautions and/or limitations: None The limb temperature was monitored continuously and remained between 32-36 degrees C during the performance of the NCS. Nerve Conduction Studies Anti Sensory Summary Table ?Stim Site NR Onset (ms) Norm Onset (ms) Peak (ms) Norm Peak (ms) O-P Amp (?V) Norm O-P Amp Site1 Site2 Delta-0 (ms) Dist (cm) Philipp (m/s) Norm Philipp (m/s) Left Median Anti Sensory (2nd Digit) Wrist ? 3.6 4.3 <3.6 18.3 >10 Wrist 2nd Digit 3.6 14.0 39 Right Median Anti Sensory (2nd Digit) Wrist NR <3.6 >10 Wrist 2nd Digit 14.0 Left Ulnar Anti Sensory (5th Digit) Wrist ? 2.7 3.3 <3.7 36.5 >15.0 Wrist 5th Digit 2.7 14.0 52 Right Ulnar Anti Sensory (5th Digit) Wrist ? 2.7 3.2 <3.7 17.5 >15.0 Wrist 5th Digit 2.7 14.0 52 Motor Summary Table ?Stim Site NR Onset (ms) Norm Onset (ms) O-P Amp (mV) Norm O-P Amp iAmp (mV) Amp (1st) (%) Site1 Site2 Delta-0 (ms) Dist (cm) Philipp (m/s) Norm Philipp (m/s) Left Median Motor (Abd Poll Brev) Wrist ? 5.2 <3.9 8.6 >4.5 9.9 100.0 Elbow Wrist 3.4 17.0 50 >45 Elbow ? 8.6 6.4 7.4 74.4 Right Median Motor (Abd Poll Brev) Wrist ? 4.5 <3.9 8.6 >4.5 10.1 100.0 Elbow Wrist 3.4 17.0 50 >45 Elbow ? 7.9 8.3 9.1 96.5 Left Ulnar Motor (Abd Dig Minimi) Wrist ? 2.6 <3.0 10.4 >5 11.4 100.0 B Elbow Wrist 3.0 16.0 53 >45 B Elbow ? 5.6 4.4 5.0 42.3 A Elbow B Elbow 1.4 10.0 71 >45 A Elbow ? 7.0 4.6 5.2 44.2 Right Ulnar Motor (Abd Dig Minimi) Wrist ? 2.5 <3.0 8.2 >5 10.4 100.0 B Elbow Wrist 2.8 16.0 57 >45 B Elbow ? 5.3 7.6 9.7 92.7 A Elbow B Elbow 1.7 10.0 59 >45 A Elbow ? 7.0 8.1 10.2 98.8 Comparison Summary Table ?Stim Site NR Peak (ms) Norm Peak (ms) P-T Amp (?V) Site1 Site2 Delta-P (ms) Norm Delta (ms) Right Median/Radial Dig I Comparison (Digit 1 - 10cm) Median ? 3.3 <2.9 26.5 Median Radial 1.0 Radial ? 2.3 <2.8 7.5 FINDINGS: Bilateral median motor nerve showed prolonged distal latency, normal amplitude and normal conduction velocity. Signs of Prosper Raven anastomosis seen, bilateral, which is a normal anatomic variant. Significant interlatency difference between right median and radial sensory nerve. Right median sensory nerve did not show response. Right median sensory nerve showed prolonged peak latency. All other nerves tested were within normal. Patient was anxious during exam, needle EMG deferred. IMPRESSION: 1. This is an abnormal study. 2. There is electrodiagnostic evidence for bilateral moderate-severe median neuropathy at the wrist, consistent with carpal tunnel syndrome. 3. There is no electrodiagnostic evidence for ulnar neuropathy, brachial plexopathy, or cervical radiculopathy. 4. Signs of Prosper Raven anastomosis seen, bilateral, which is a normal anatomic variant. Thank you for your kind referral. Lissa Correa MD, MARGARITO Board Certified, [place] [employer] and [employer] (ABPMR) Board Certified, [place] Board [employer] Electrodiagnostic [employer] (ABEM) CODIN MTDD
== END 2023-04-03 14:05 | disposition home or self-care (01) ==
LOC: HO.NEURO 14:04
PROVIDERS: PCP Internal Medicine; Visit Provider Physical Medicine & Rehabilitation
DX: G56.01 Carpal tunnel syndrome, right upper limb (principal)
CPT/HCPCS: 95911

== ENCOUNTER → 2023-04-03 14:07 | Outpatient (BNV) | payer MEDICARE, MEDICAID, SELFPAY | PROVIDERS: PCP Internal Medicine; Visit Provider Physical Medicine & Rehabilitation | DX: G56.13 Other lesions of median nerve, bilateral upper limbs (principal); G56.03 Carpal tunnel syndrome, bilateral upper limbs | CPT/HCPCS: 95911 ==

== ENCOUNTER 2023-05-05 08:53 | Outpatient (AMB) | payer MEDICARE, MEDICAID, SELFPAY ==
--- NOTE | 2023-05-05 08:54 | A.OFFVIS_ITS ---
Intake Vital Signs 05/05/23 08:55 Height 5 ft 3 in Weight 165 lb 15.988 oz BMI 29.4 BP 120/78 Blood Pressure Location Rt brachial Position Sitting Pulse 77 Intake Visit Reasons: one month S/P exc. pilonidal cyst, wound check Intake Note: This patient presents for a one month follow-up assessment for a wound check status post excision of pilonidal cyst. Patient c/o; reports occasional drainage, reports lumps surgical site. 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 pilonidal cyst, wound check HPI Details She is here for another postop visit after excision of a pilonidal cyst from the sacrococcygeal area last February 2023. She says she still occasionally notices some scanty drainage and pain but over all this has continued improved. [facility] Medical History Achilles tendinitis of left lower extremity Plantar fasciitis of left foot Carpal tunnel syndrome of right wrist Carpal tunnel syndrome of left wrist Epidermoid cyst of skin of back Sacrococcygeal pilonidal cyst with abscess Chest pain Right shoulder pain Left foot pain Numbness of right hand Cervical cancer screening Annual physical exam Gastroparesis Axillary abscess COVID-19 virus infection Dyspnea Bilateral lower extremity edema Personal history of nicotine dependence Asthma-COPD overlap syndrome Smoker Cohn's esophagus determined by endoscopy Internal derangement of right knee Right knee pain Chronic cough Plantar fasciitis Chronic pain of left ankle Left ankle pain Impaired fasting blood sugar Breast density Easy bruisability Breast cancer screening by mammogram Numbness of left hand Lateral epicondylitis of left elbow Bicipital tendinitis of left shoulder Back pain Arthritis GERD (gastroesophageal reflux disease) Panic attacks Hx of tuberculosis Palpitations History of IBS Hypercholesterolemia Hip pain Obesity (BMI 30-39.9) Asthma Tobacco abuse Surgical History History of loop electrosurgical excision procedure (LEEP) History of tubal ligation History of colonoscopy History of esophagogastroduodenoscopy (EGD) History of surgical removal of pilonidal cyst History of meniscectomy of left knee History of appendectomy History of section Family History Father Tongue cancer Mother CVD (cardiovascular disease) Maternal Aunt Colon cancer Maternal Uncle Colon cancer Brother CVD (cardiovascular disease) Substance abuse Sister CVD (cardiovascular disease) Social History Household Members: Spouse and Children Housing: Apartment Are you a primary respiratory care faculty to a significant other at home: No Do you presently have visiting nurse or other home services: No Alcohol intake: former Patient Tobacco Use Status: Current everyday Tobacco user Tobacco use type: Cigarette Cigarettes Per Day: 10 Years Smoked: 30 e-Cigarette/Vaping Use: Never Used Second Hand Smoke Exposure: Yes Substance Use Type: Marijuana service: No Current occupational status: disabled Cognitive needs: No Hearing needs: No Vision needs: No Female Reproductive History Menstrual Age of Menarche: 12 Review of Systems Const Denies chills and Denies fever(s) Card Denies chest pain, Denies dyspnea and Denies dyspnea on exertion Resp Denies cough, Denies dyspnea and Denies dyspnea on exertion GI Denies hematochezia and Denies change in bowel habits Denies hematuria Musc Details: Pain on both wrists Denies back pain and Denies limited range of motion Neuro Denies focal weakness and Denies convulsions Psych Denies depression and Denies mood swings Physical Exam Const General: comfortable and no acute distress Back/Spine/Pelvis Other: excision site on the sacrococcygeal area is healed, induration, no active discharge, no cellulitis Assessment & Plan Assessment & Plan (1) Sacrococcygeal pilonidal cyst with abscess: Code(s): L05.01 - Pilonidal cyst with abscess Plan: status post excision. The incisions are completely healed. I told her to continue to exercise good hygiene on the area especially if she notices some drainage. She also says that she has this wide area of recurrent swelling and drainage under the pannus of her abdomen. Examination shows what appears to be hidradenitis suppurative a. I told her to come back to the office to have this excised if she continues to have problems. She says she is going to have carpal tunnel surgery for her wrists so she will come back to me in a couple of months. Coding Level of Care Code Global (99047) Diagnoses Sacrococcygeal pilonidal cyst with abscess L05.01
[2023-05-05 08:55] VITALS: BP 120/78; PULSE 77; BMI 29.4
== END 2023-05-05 09:23 | disposition home or self-care (01) ==
PROVIDERS: PCP Internal Medicine; Visit Provider Surgery
DX: L05.01 Pilonidal cyst with abscess (principal)
CPT/HCPCS: 99024

== ENCOUNTER → 2023-05-05 08:53 | Outpatient (BNVA) | payer MEDICARE, MEDICAID, SELFPAY | PROVIDERS: PCP Internal Medicine; Visit Provider Surgery | DX: G56.03 Carpal tunnel syndrome, bilateral upper limbs (principal); M65.4 Radial styloid tenosynovitis [de Quervain]; Z48.817 Encounter for surgical aftercare following surgery on the skin and subcutaneous tissue; Z87.2 Personal history of diseases of the skin and subcutaneous tissue | CPT/HCPCS: 99212 ==

== ENCOUNTER 2023-05-05 09:27 | Outpatient (AMB) | payer MEDICARE, MEDICAID, SELFPAY ==
--- NOTE | 2023-05-05 09:47 | MHC.OFFVIS ---
Intake Vital Signs 05/05/23 09:49 Height 5 ft 3 in Weight 165 lb BMI 29.2 Intake Visit Reasons: OV discuss surgery uriah CTS Intake Note: Jessy 52 yr old female presents today to discuss Carpal tunnel release surgery. States her right is worse. Patient also mentioned she has burning sensation in hand. Also mentioned she has she has on and off swelling in her forearms. Allergies hydrocodone [From Vicodin] Allergy (Severe, Verified 05/05/23 09:58) Stomach Pain morphine [MORPHINE] Allergy (Severe, Verified 05/05/23 09:58) REDNESS, FEELS REALLY HOT, shortness of breath, anaphylaxis oxycodone Allergy (Severe, Verified 05/05/23 09:58) Stomach Upset amoxicillin Adverse Reaction (Severe, Verified 05/05/23 09:58) yeast infection Penicillins [PENICILLINS] Adverse Reaction (Severe, Verified 05/05/23 09:58) YEAST INFECTION HPI OV discuss surgery uriah CTS HPI Details The patient is a 52-year-old [id number] woman who claims that she is disabled after having had a heart attack when she was 36. Her chief complaint today is of numbness and tingling and pain and burning in both hands right worse than left. Some symptoms come and go but she also says some of it is persistent. She also complains of some pain in the radial aspect of her right wrist and then also some pain and swelling that she is getting in the ulnar aspect of her right and now start happened in her left wrist. She had a nerve conduction study and was given bilateral wrist splints which she has been wearing all the time. She says she does have some anxiety, and her primary care provider will give her Ativan periodically for her anxiety. [facility] Medical History Achilles tendinitis of left lower extremity Plantar fasciitis of left foot Carpal tunnel syndrome of right wrist Carpal tunnel syndrome of left wrist Epidermoid cyst of skin of back Sacrococcygeal pilonidal cyst with abscess Chest pain Right shoulder pain Left foot pain Numbness of right hand Cervical cancer screening Annual physical exam Gastroparesis Axillary abscess COVID-19 virus infection Dyspnea Bilateral lower extremity edema Personal history of nicotine dependence Asthma-COPD overlap syndrome Smoker Cohn's esophagus determined by endoscopy Internal derangement of right knee Right knee pain Chronic cough Plantar fasciitis Chronic pain of left ankle Left ankle pain Impaired fasting blood sugar Breast density Easy bruisability Breast cancer screening by mammogram Numbness of left hand Lateral epicondylitis of left elbow Bicipital tendinitis of left shoulder Back pain Arthritis GERD (gastroesophageal reflux disease) Panic attacks Hx of tuberculosis Palpitations History of IBS Hypercholesterolemia Hip pain Obesity (BMI 30-39.9) Asthma Tobacco abuse Surgical History History of loop electrosurgical excision procedure (LEEP) History of tubal ligation History of colonoscopy History of esophagogastroduodenoscopy (EGD) History of surgical removal of pilonidal cyst History of meniscectomy of left knee History of appendectomy History of section Family History Father Tongue cancer Mother CVD (cardiovascular disease) Maternal Aunt Colon cancer Maternal Uncle Colon cancer Brother CVD (cardiovascular disease) Substance abuse Sister CVD (cardiovascular disease) Social History Household Members: Spouse and Children Housing: Apartment Are you a primary pet caregiver to a significant other at home: No Do you presently have visiting nurse or other home services: No Alcohol intake: former Patient Tobacco Use Status: Current everyday Tobacco user Tobacco use type: Cigarette Cigarettes Per Day: 10 Years Smoked: 30 e-Cigarette/Vaping Use: Never Used Second Hand Smoke Exposure: Yes Substance Use Type: Marijuana service: No Current occupational status: disabled Cognitive needs: No Hearing needs: No Vision needs: No Female Reproductive History Menstrual Age of Menarche: 12 Physical Exam Vital Signs: BMI result Body Mass Index 29.2 Const General: cooperative, healthy appearing and no acute distress Orientation/consciousness: oriented to person and oriented to place HEENT Head: Yes normocephalic and Yes atraumatic Eyes EOM: EOMs intact bilaterally Resp Effort & Inspection: normal respiratory effort and able to speak in complete sentences Cardio Jugular venous distension: no JVD Skin General skin exam: turgor normal Rashes: no rashes Neuro General: oriented to person and oriented to place Extrem Other: Evaluation of right Upper Extremity: Neuro: Median, ulnar, radial nerves motor and sensory intact except for decreased subjective sensation in the median nerve distribution. More normal sensation to the small finger. No intrinsic or thenar wasting.. Vascular: Cap refill brisk. ROM: Can bring fingers closed to a fist and back out to extension. No locking or catching. Skin: No lacerations or abrasions. General: No eccymosis. No erythema or evidence of infection. She also complains of pain in the radial aspect of her right wrist. She has tenderness to palpation over the 1st dorsal compartment as it passes over the radial styloid. She had difficulty even performing a Scott test on the right because of pain when bring the thumb into flexion an trying to bring her wrist into ulnar deviation. I would call this a positive test. She also demonstrates that she gets pain and burning in the ulnar aspect of her wrist that radiates up the ulnar aspect of her forearm to her elbow. No visible swelling. Smooth prono-supination without visible discomfort. She does say she is having similar problems on the radial and ulnar aspect left wrist and forearm. EMG nerve conduction study: FINDINGS: Bilateral median motor nerve showed prolonged distal latency, normal amplitude and normal conduction velocity. Signs of Prosper Raven anastomosis seen, bilateral, which is a normal anatomic variant. Significant interlatency difference between right median and radial sensory nerve. Right median sensory nerve did not show response. Right median sensory nerve showed prolonged peak latency. All other nerves tested were within normal. Patient was anxious during exam, needle EMG deferred. IMPRESSION: 1. This is an abnormal study. 2. There is electrodiagnostic evidence for bilateral moderate-severe median neuropathy at the wrist, consistent with carpal tunnel syndrome. 3. There is no electrodiagnostic evidence for ulnar neuropathy, brachial plexopathy, or cervical radiculopathy. 4. Signs of Prosper Raven anastomosis seen, bilateral, which is a normal anatomic variant. Thank you for your kind referral. Lissa Correa MD, MARGARITO Board Certified, [place] Board [employer] and Rehabilitation (ABPMR) Board Certified, [place] Board [employer] Electrodiagnostic [employer] (ABEM) Signed By: <Electronically signed by Lissa Luque> 04/04/23 0922 Psych Appearance: grossly normal Affect: normal affect Attitude: cooperative Assessment & Plan Assessment & Plan (1) Carpal tunnel syndrome of left wrist: Code(s): G56.02 - Carpal tunnel syndrome, left upper limb (2) Carpal tunnel syndrome of right wrist: Code(s): G56.01 - Carpal tunnel syndrome, right upper limb (3) De Quervain's tenosynovitis, right: Code(s): M65.4 - Radial styloid tenosynovitis [de Quervain] Plan Assessment and plan: 1. Right carpal tunnel syndrome moderate to severe With persistent numbness in the median nerve distribution in clinic today 2. Left carpal tunnel syndrome, moderately severe 3. Right de Quervain tenosynovitis I educated her about these problems. I discussed operative and non operative treatment options for these problems including a possible steroid injection for her de Quervain tenosynovitis. She wishes to proceed with surgery for the right carpal tunnel. She is afraid of an injection and refused a steroid injection for the right de Quervain tenosynovitis The risks and benefits of operative treatment were discussed with the patient and the patient wishes to proceed with surgery. These risks include, but are not limited to risk of damage to blood vessels, nerves, tendons, infection, recurrence, incomplete relief of preoperative symptoms, persistent pain, possible need for further surgery and the risks associated with regional blocks and anesthesia. The plan is to take the patient to the operating room sometime in the next few weeks for the following procedures: 1. Right carpal tunnel release under local 2. [ ] All of the preoperative paperwork including the consent was filled out today. All the patient's questions were answered. The patient understands that they will be contacted by our subcontracts manager soon to schedule this procedure She denies having diabetes or being on blood thinners. She has anxiety, and her primary care provider occasionally gives her Ativan for anxiety. She may take an Ativan pill before her surgery. She can follow-up at a later date to discuss treatment for her left carpal tunnel syndrome, and possible treatment for her right de Quervain tenosynovitis. I did tell her that she really needs to try an injection at least 1 time before we consider possible operative management for her right de Quervain tenosynovitis. In addition, please note that many of these symptoms are bilateral. She also has pain and burning in the ulnar aspect of her wrist extending up the ulnar forearm to the elbow. She also complains of pain not just in the 1st dorsal compartment but also extending somewhat dorsally into the 1st web space and even the index finger on the right. She has had other steroid injections in her feet and complains of pain in her ankles and her feet as well. Coding Level of Care Code Est Pt Level 4 (98493) Diagnoses Carpal tunnel syndrome of left wrist G56.02 Carpal tunnel syndrome of right wrist G56.01 De Quervain's tenosynovitis, right M65.4
[2023-05-05 09:49] VITALS: BMI 29.2
== END 2023-05-05 10:40 | disposition home or self-care (01) ==
PROVIDERS: PCP Internal Medicine; Visit Provider Orthopaedic Surgery
DX: G56.03 Carpal tunnel syndrome, bilateral upper limbs (principal); M65.4 Radial styloid tenosynovitis [de Quervain]
CPT/HCPCS: 99214

== ENCOUNTER 2023-05-28 09:19 | Outpatient (AMB) | payer MEDICARE, MEDICAID, SELFPAY ==
--- NOTE | 2023-05-28 09:23 | MHC.OFFVIS ---
Intake Intake Visit Reasons: O/V Right foot pain follow up Intake Note: Jessy bonilla 52 year old female presents today for a follow up of right foot pain. Patient reports that she continues to have intermittent pain/swelling despite changing of her shoes and wearing compression socks. States warm to the touch at the lateral aspect of foot. Also states she has cont' pain and swelling in her right CMC joint and index finger. Reports numbness and tingling in her middle,ring and pinky finger. EMG done. Allergies hydrocodone [From Vicodin] Allergy (Severe, Verified 05/05/23 09:58) Stomach Pain morphine [MORPHINE] Allergy (Severe, Verified 05/05/23 09:58) REDNESS, FEELS REALLY HOT, shortness of breath, anaphylaxis oxycodone Allergy (Severe, Verified 05/05/23 09:58) Stomach Upset amoxicillin Adverse Reaction (Severe, Verified 05/05/23 09:58) yeast infection Penicillins [PENICILLINS] Adverse Reaction (Severe, Verified 05/05/23 09:58) YEAST INFECTION HPI HPI Comments History of Present Illness Details Initially seen for right wrist pain. Right wrist pain on and off. Denies any falls or inciting injuries. Right wrist x-rays mention IP joint arthritis but no CMC joint arthritis seen. EMG done by me 04/03/2023 showed bilateral Carpal Tunnel Syndrome. She has met Dr. Emanuel who has recommended and scheduled her for right Carpal Tunnel Syndrome surgery in June. She continues to complain of right wrist pain radial side. She does not like injections though. BENNIE and RF both negative. S also complaining of left chronic ankle pain. She has gone to pain management in the past. Past diagnosis have included plantar fasciitis. She says she has had 3 injections already without any long-lasting relief. Surgery for calcaneal spur done 10 years ago in [place]. X-ray done showed large calcaneal spur. [facility] Medical History (Updated 05/28/23 @ 10:27 by Lissa Correa MD) Calcaneal spur of left foot Achilles tendinitis of left lower extremity Plantar fasciitis of left foot Carpal tunnel syndrome of right wrist Carpal tunnel syndrome of left wrist Epidermoid cyst of skin of back Sacrococcygeal pilonidal cyst with abscess Chest pain Right shoulder pain Left foot pain Numbness of right hand Cervical cancer screening Annual physical exam Gastroparesis Axillary abscess COVID-19 virus infection Dyspnea Bilateral lower extremity edema Personal history of nicotine dependence Asthma-COPD overlap syndrome Smoker Cohn's esophagus determined by endoscopy Internal derangement of right knee Right knee pain Chronic cough Plantar fasciitis Chronic pain of left ankle Left ankle pain Impaired fasting blood sugar Breast density Easy bruisability Breast cancer screening by mammogram Numbness of left hand Lateral epicondylitis of left elbow Bicipital tendinitis of left shoulder Back pain Arthritis GERD (gastroesophageal reflux disease) Panic attacks Hx of tuberculosis Palpitations History of IBS Hypercholesterolemia Hip pain Obesity (BMI 30-39.9) Asthma Tobacco abuse Surgical History History of loop electrosurgical excision procedure (LEEP) History of tubal ligation History of colonoscopy History of esophagogastroduodenoscopy (EGD) History of surgical removal of pilonidal cyst History of meniscectomy of left knee History of appendectomy History of section Family History Father Tongue cancer Mother CVD (cardiovascular disease) Maternal Aunt Colon cancer Maternal Uncle Colon cancer Brother CVD (cardiovascular disease) Substance abuse Sister CVD (cardiovascular disease) Social History Household Members: Spouse and Children Housing: Apartment Are you a primary health care sanitary technician to a significant other at home: No Do you presently have visiting nurse or other home services: No Alcohol intake: former Patient Tobacco Use Status: Current everyday Tobacco user Tobacco use type: Cigarette Cigarettes Per Day: 10 Years Smoked: 30 e-Cigarette/Vaping Use: Never Used Second Hand Smoke Exposure: Yes Substance Use Type: Marijuana service: No Current occupational status: disabled Cognitive needs: No Hearing needs: No Vision needs: No Female Reproductive History Menstrual Age of Menarche: 12 Physical Exam Constitutional: Patient appears to be in no acute distress, well nourished and well developed. MSK: Positive right Scott test. No tenderness on the CMC joint itself. Today not render along Achilles tendon left nor on left plantar fascia. Neurological: Neurologic examination of the upper and lower extremities was nonfocal with intact sensation, muscle stretch reflexes and without focal motor deficits . Ho?s negative bilaterally. Babinski was down going bilaterally. Clonus was negative. Gait is non-antalgic without loss of balance. Results Reviewed Results Reviewed: IMPRESSION: 1. This is an abnormal study. 2. There is electrodiagnostic evidence for bilateral moderate-severe median neuropathy at the wrist, consistent with carpal tunnel syndrome. 3. There is no electrodiagnostic evidence for ulnar neuropathy, brachial plexopathy, or cervical radiculopathy. 4. Signs of Prosper Raven anastomosis seen, bilateral, which is a normal anatomic variant. XR ANKLE, LEFT CLINICAL INFORMATION: Plantar fascial fibromatosis. COMPARISON: None available. TECHNIQUE: AP, lateral, and mortise views of the left ankle. FINDINGS: There is no acute fracture, dislocation or subluxation seen. The ankle mortise and subtalar joints are normal. There is a large calcaneal heel enthesophyte with mild thickening of the plantar fascia. Also visualized is a small retrocalcaneal enthesophyte. A small bone fragment is seen inferior to the medial malleolus, likely old injury. Minimal bimalleolar soft tissue swelling. XR/XR ankle LT min 3V IMPRESSION: No acute fracture or dislocation. Large calcaneal heel and [id number] size retrocalcaneal enthesophytes. There is mild thickening of the plantar fascia. Old fracture fragment tip of medial malleolus. XR WRIST, RIGHT XR HAND, RIGHT CLINICAL INFORMATION: Right hand pain and swelling. COMPARISON: Right hand radiographs dated 09/13/2022. TECHNIQUE: PA, lateral, and oblique views of the right wrist and PA, lateral, and oblique views of the right hand. Indicator arrow points to the fifth metacarpal. FINDINGS: RIGHT WRIST: The bones and soft tissues are normal. No fracture. Alignment is anatomic. Joint spaces are maintained. No erosions or soft tissue calcifications. RIGHT HAND: An expansile cystic lesion is seen within the distal aspect of the distal phalanx of the third digit with narrow zone of transition. The remainder the digits are intact. There is no acute fracture or dislocation. The soft tissues are unremarkable. XR/XR hand wrist RT IMPRESSION: 1. No acute abnormality in the right hand and wrist. 2. Cystic lesion in the distal aspect of the distal phalanx of the third digit is nonspecific, but demonstrates overall benign features suggesting a benign bone cyst. An epidermal inclusion cyst would be less likely. Correlate with physical exam. This can be monitored for stability with a repeat right hand radiographic study in one year. XR WRIST, RIGHT XR HAND, RIGHT CLINICAL INFORMATION: Right hand pain and swelling. COMPARISON: Right hand radiographs dated 09/13/2022. TECHNIQUE: PA, lateral, and oblique views of the right wrist and PA, lateral, and oblique views of the right hand. Indicator arrow points to the fifth metacarpal. FINDINGS: RIGHT WRIST: The bones and soft tissues are normal. No fracture. Alignment is anatomic. Joint spaces are maintained. No erosions or soft tissue calcifications. RIGHT HAND: An expansile cystic lesion is seen within the distal aspect of the distal phalanx of the third digit with narrow zone of transition. The remainder the digits are intact. There is no acute fracture or dislocation. The soft tissues are unremarkable. XR/XR hand wrist RT IMPRESSION: 1. No acute abnormality in the right hand and wrist. 2. Cystic lesion in the distal aspect of the distal phalanx of the third digit is nonspecific, but demonstrates overall benign features suggesting a benign bone cyst. An epidermal inclusion cyst would be less likely. Correlate with physical exam. This can be monitored for stability with a repeat right hand radiographic study in one year. Assessment & Plan Assessment & Plan (1) De Quervain's tenosynovitis, right: Code(s): M65.4 - Radial styloid tenosynovitis [de Quervain] (2) Carpal tunnel syndrome of right wrist: Code(s): G56.01 - Carpal tunnel syndrome, right upper limb (3) Carpal tunnel syndrome of left wrist: Code(s): G56.02 - Carpal tunnel syndrome, left upper limb (4) Calcaneal spur of left foot: Code(s): M77.32 - Calcaneal spur, left foot Plan We looked at the images for both right wrist and left foot. Results as above. For left foot, suspect pain from calcaneal spur. Will refer to Dr. Dotson, podiatry, for further evaluation and management. Right de Quervain tenosynovitis. Patient does not like injections. Will put on a comfort cool/thumb spica brace to be worn during the day. Clarified that wrist brace for Carpal Tunnel Syndrome is to be worn during the night. Await surgery for Carpal Tunnel Syndrome in June. Assessment and plan discussed with patient, and patient was agreeable. All questions were answered thoroughly. Lissa Correa MD, MARGARITO Board Certified, [place] [employer] and [employer] (ABPMR) Board Certified, [place] Board [employer] Electro[employer]ostic [employer] (ABEM) Orders: Referrals Podiatry Referral M72.2 - Plantar fascial fibromatosis, M77.32 - Calcaneal spur, left foot Coding Level of Care Code Est Pt Level 4 (26212) Diagnoses De Quervain's tenosynovitis, right M65.4 Carpal tunnel syndrome of right wrist G56.01 Carpal tunnel syndrome of left wrist G56.02 Calcaneal spur of left foot M77.32
== END 2023-05-28 10:11 | disposition home or self-care (01) ==
PROVIDERS: PCP Internal Medicine; Visit Provider Physical Medicine & Rehabilitation
DX: M65.4 Radial styloid tenosynovitis [de Quervain] (principal); G56.01 Carpal tunnel syndrome, right upper limb; G56.02 Carpal tunnel syndrome, left upper limb; M77.32 Calcaneal spur, left foot
CPT/HCPCS: 99214

== ENCOUNTER → 2023-05-28 09:19 | Outpatient (BNVA) | payer MEDICARE, MEDICAID, SELFPAY | PROVIDERS: PCP Internal Medicine; Visit Provider Physical Medicine & Rehabilitation | DX: M65.4 Radial styloid tenosynovitis [de Quervain] (principal); M77.32 Calcaneal spur, left foot; G56.03 Carpal tunnel syndrome, bilateral upper limbs | CPT/HCPCS: 99212 ==

== ENCOUNTER 2023-06-03 07:49 | Outpatient (AMB) | payer MEDICARE, MEDICAID, SELFPAY ==
--- NOTE | 2023-06-03 08:10 | MHC.OFFVIS ---
Intake Vital Signs 06/03/23 08:14 Height 5 ft 3 in Weight 164 lb BMI 29.0 BP 124/59 L Blood Pressure Location Lt brachial Position Sitting Pulse 90 Intake Visit Reasons: 3 month follow up Intake Note: Patient followup for IBS Patient cc: Abdominal pain with nauseas and some white flame, really painful when she move or bend over, between diarrhea and constipation and some swallowing problems. 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 Accompanied by: Self / Same As Patient Allergies hydrocodone [From Vicodin] Allergy (Severe, Verified 06/03/23 08:09) Stomach Pain morphine [MORPHINE] Allergy (Severe, Verified 06/03/23 08:09) REDNESS, FEELS REALLY HOT, shortness of breath, anaphylaxis oxycodone Allergy (Severe, Verified 06/03/23 08:09) Stomach Upset amoxicillin Adverse Reaction (Severe, Verified 06/03/23 08:09) yeast infection Penicillins [PENICILLINS] Adverse Reaction (Severe, Verified 06/03/23 08:09) YEAST INFECTION HPI 3 month follow up HPI Details LAST VISIT: Gastroesophageal reflux disease Continue as omeprazole in the morning, sucralfate at bedtime. Patient was also encouraged to avoid dietary triggers and late night snacking. Staying upright for minimal 3 hours after meals discussed with patient. Smoking cessation discussed Gastroparesis Continue Reglan only with meals. Small meals and more often. Gastroparesis diet discussed with patient. Constipation Start Linzess. Patient was also encouraged to increase fluid intake and activity to promote better bowel motility. I will see patient in 3 months, at bases. Patient is agreeable to this plan and verbalizes understanding of instructions. She was given the opportunity to ask questions and all questions answered. ? Thank you for allowing me to participate in her care Plan Medications New linaclotide (Linzess) 72 mcg PO DAILY 30 caps 2RF sucralfate 10 mL PO BEDTIME 400 mL 3RF K21.9 Refilled polyethylene glycol 3350 (Miralax) 17 grams PO DAILY 510 grams 2RF Discontinued famotidine Discontinued Reason: Doctor's Order 40 mg PO .QHS 90 tabs 3RF K21.9 TODAY'S VISIT: Patient is here today for follow-up. Patient reports that she continues to have nausea. Reports that lot of mucus and phlegm is coming now in the morning when she wakes up. Patient does not eat he much. Patient admits to be drinking 5-6 cups of coffee a day. Patient is using Linzess and reports that her bowels are moving better, however he does not feel like she empties them completely. Patient is under lot of stress, will have carpal tunnel surgery in June. Patient reports that her dog is sick and she might have to put him to sleep. Reports a lot of stress around that. Patient reports dyspepsia without dysphagia or odynophagia he. Patient denies melena, hematochezia, unintentional weight loss or ribbon like stools. [facility] Medical History (Updated 05/28/23 @ 10:27 by Lissa Correa MD) Calcaneal spur of left foot Achilles tendinitis of left lower extremity Plantar fasciitis of left foot Carpal tunnel syndrome of right wrist Carpal tunnel syndrome of left wrist Epidermoid cyst of skin of back Sacrococcygeal pilonidal cyst with abscess Chest pain Right shoulder pain Left foot pain Numbness of right hand Cervical cancer screening Annual physical exam Gastroparesis Axillary abscess COVID-19 virus infection Dyspnea Bilateral lower extremity edema Personal history of nicotine dependence Asthma-COPD overlap syndrome Smoker Cohn's esophagus determined by endoscopy Internal derangement of right knee Right knee pain Chronic cough Plantar fasciitis Chronic pain of left ankle Left ankle pain Impaired fasting blood sugar Breast density Easy bruisability Breast cancer screening by mammogram Numbness of left hand Lateral epicondylitis of left elbow Bicipital tendinitis of left shoulder Back pain Arthritis GERD (gastroesophageal reflux disease) Panic attacks Hx of tuberculosis Palpitations History of IBS Hypercholesterolemia Hip pain Obesity (BMI 30-39.9) Asthma Tobacco abuse Surgical History History of loop electrosurgical excision procedure (LEEP) History of tubal ligation History of colonoscopy History of esophagogastroduodenoscopy (EGD) History of surgical removal of pilonidal cyst History of meniscectomy of left knee History of appendectomy History of section Family History Father Tongue cancer Mother CVD (cardiovascular disease) Maternal Aunt Colon cancer Maternal Uncle Colon cancer Brother CVD (cardiovascular disease) Substance abuse Sister CVD (cardiovascular disease) Social History Household Members: Spouse and Children Housing: Apartment Are you a primary group care worker to a significant other at home: No Do you presently have visiting nurse or other home services: No Alcohol intake: former Patient Tobacco Use Status: Current everyday Tobacco user Tobacco use type: Cigarette Cigarettes Per Day: 10 Years Smoked: 30 e-Cigarette/Vaping Use: Never Used Second Hand Smoke Exposure: Yes Substance Use Type: Marijuana service: No Current occupational status: disabled Cognitive needs: No Hearing needs: No Vision needs: No Female Reproductive History Menstrual Age of Menarche: 12 Review of Systems Const Denies weight gain and Denies weight loss ENT Reports no additional complaints, Denies dysphagia and Denies odynophagia Card Reports no additional complaints Resp Reports no additional complaints GI Denies abdominal pain, Denies belching, Denies melena, Denies bloating, Denies change in bowel habits, Denies dysphagia, Denies excessive flatus, Denies dyspepsia, Denies heartburn, Denies diarrhea, Denies loose stools, Denies nausea, Denies odynophagia and Denies vomiting Musc Reports no additional complaints Neuro Reports no additional complaints Psych Reports no additional complaints Endo Reports no additional complaints Physical Exam Vital Signs: Last Vital Signs Pulse 90 06/03/23 08:14 BP 124/59 L 06/03/23 08:14 BMI result Body Mass Index 29.0 Const General: healthy appearing, no acute distress and well developed Nutritional Appearance: well nourished Orientation/consciousness: patient oriented x3 HEENT Head: Yes normal to inspection, Yes normocephalic and Yes atraumatic Face and sinus: Yes normal facial exam Mouth: Normal oral and palatal mucosa present Throat: Yes posterior oropharynx normal, Yes tonsils normal and Yes uvula midline Eyes General: appearance normal, both eyes and all related structures Neck Neck: Yes normal visual inspection, Yes full ROM and Yes trachea midline Thyroid: Thyroid normal Resp Effort & Inspection: normal respiratory effort, able to speak in complete sentences, no tracheal deviation and symmetric chest movement Auscultation: clear to auscultation bilaterally Cardio Rate: regular rate GI Inspection: Yes normal to inspection and No distended Palpation (GI): Soft to palpation, not firm, nontender and No hepatosplenomegaly present Auscultation: normal bowel sounds General: Yes no CVA tenderness Back/Spine/Pelvis Back: no CVA tenderness Skin General skin exam: elasticity normal, turgor normal and dry skin Neuro General: patient oriented x3 Psych Appearance: grossly normal Mental Status: mental status grossly normal Assessment & Plan Assessment & Plan (1) Gastroparesis: Code(s): K31.84 - Gastroparesis (2) Cohn's esophagus determined by endoscopy: Code(s): K22.70 - Cohn's esophagus without dysplasia (3) Gastroesophageal reflux disease: Code(s): K21.9 - Gastro-esophageal reflux disease without esophagitis Qualifiers: Esophagitis bleeding: without hemorrhage Esophagitis presence: with esophagitis Qualified Code(s): K21.00 - Gastro-esophageal reflux disease with esophagitis, without bleeding (4) Constipation: Code(s): K59.00 - Constipation, unspecified Qualifiers: Constipation type: slow transit constipation Qualified Code(s): K59.01 - Slow transit constipation (5) Postprandial abdominal bloating: Code(s): R14.0 - Abdominal distension (gaseous) Plan Discussed with patient avoiding dietary triggers. Patient drinks 5-6 cups of coffee a day, patient was encouraged to drink 1-2 cups a day. Patient will eat smaller meals and more often. Continue of smoking cessation. Continue Reglan before meals. Patient will increase Linzess to 145 mcg daily. Patient was encouraged to avoid ibuprofen, may use Tylenol. Continue taking as omeprazole in the morning and sucralfate at bedtime. For patient was encouraged to increase fluid intake and activity to promote better bowel motility. I will see patient in 6 months, sooner on as needed basis. Patient is agreeable to this plan and verbalizes understanding of instructions. She was given the opportunity to ask questions and all questions answered. Thank you for allowing me to participate in her care Medications: New linaclotide (Linzess) 145 mcg PO DAILY 30 caps 2RF Refilled esomeprazole magnesium 40 mg PO DAILY 90 caps 2RF sucralfate 10 mL PO BEDTIME 400 mL 3RF K21.9 - Gastro-esophageal reflux disease without esophagitis metoclopramide HCl (Reglan) hansa un comprimido 30 minutos antes de las comidas 5 mg PO QIDACHS 120 tabs 4RF K31.84 - Gastroparesis Discontinued linaclotide (Linzess) Discontinued Reason: Doctor's Order 72 mcg PO DAILY 30 caps 2RF Coding Level of Care Code Est Pt Level 4 (23463) Diagnoses Gastroparesis K31.84 Cohn's esophagus determined by endoscopy K22.70 Gastroesophageal reflux disease with esophagitis without hemorrhage K21.00 Esophagitis bleeding: without hemorrhage Esophagitis presence: with esophagitis Slow transit constipation K59.01 Constipation type: slow transit constipation Postprandial abdominal bloating R14.0 Time Spent (min) 35 Comment 20 minutes spent with patient and additional 15 minutes spent reviewing her records
[2023-06-03 08:14] VITALS: BP 124/59; PULSE 90; BMI 29.0
== END 2023-06-03 08:50 | disposition home or self-care (01) ==
PROVIDERS: PCP Internal Medicine; Visit Provider Nurse Practitioner Family
DX: K31.84 Gastroparesis (principal); K22.70 Barrett's esophagus without dysplasia; K21.00 Gastro-esophageal reflux disease with esophagitis, without bleeding; K59.01 Slow transit constipation; R14.0 Abdominal distension (gaseous)
CPT/HCPCS: 99214

== ENCOUNTER → 2023-06-03 07:49 | Outpatient (BNVA) | payer MEDICARE, MEDICAID, SELFPAY | PROVIDERS: PCP Internal Medicine; Visit Provider Nurse Practitioner Family | DX: K31.84 Gastroparesis (principal); K22.70 Barrett's esophagus without dysplasia; K21.00 Gastro-esophageal reflux disease with esophagitis, without bleeding; K59.01 Slow transit constipation; R14.0 Abdominal distension (gaseous) | CPT/HCPCS: 99212 ==

== ENCOUNTER 2023-06-30 08:01 | Emergency (ER) | payer MEDICARE, MEDICAID, SELFPAY ==
[2023-06-30 08:37] VITALS: BP 137/75; PULSE 80; RESP 20; TEMP 37; O2SAT 97; BMI 29.2
--- NOTE | 2023-06-30 09:02 | ED.FALL ---
HPI - Fall General Chief Complaint: Fall Stated Complaint: Fall/Lower back pain L leg pain Time Seen by Provider: 06/30/23 08:58 Source: patient Mode of arrival: ambulatory Limitations: no limitations History of Present Illness HPI Narrative: Patient states that fell in the store this morning, states that floor was wet, states that she slipped and fell she is complaining of lower back pain left hip pain. Denies head injury denies any neck pain MD complaint: fall Onset (ago): hour(s) (2) Fall from: standing Place fall occurred: other (store) Loss of consciousness: none Prolonged down time: no Context: tripped/slipped Location of injury: other (lower back and left hip) Related Data Home Medications Medication Instructions Recorded Confirmed cholecalciferol (vitamin D3) 50 50 mcg PO DAILY 04/11/20 02/26/23 mcg (2,000 unit) capsule lorazepam 1 mg tablet (Ativan) 1 mg PO DAILY PRN Anxiety 04/11/20 02/26/23 Previous Rx's Medication Instructions Recorded lidocaine 4 % topical cream 1 appl topical BID 2 weeks #15 01/28/22 grams cyclobenzaprine 10 mg tablet 10 mg PO TID PRN for muscle spasm 02/03/22 #90 tabs hydrocortisone 2.5 % topical cream 1 appl [place] BID-QID PRN hemorrhoids 06/26/22 with perineal applicator #30 grams (Proctosol HC) albuterol sulfate 90 mcg/actuation 2 puff inhalation Q6H PRN 08/05/22 aerosol inhaler (Ventolin HFA) shortness of breath or wheezing #8.5 grams diclofenac sodium 1 % topical gel 2 g topical BID #100 grams 01/29/23 polyethylene glycol 3350 17 17 g PO DAILY #510 grams 03/05/23 gram/dose oral powder (Miralax) oxycodone-acetaminophen 5 mg-325 1 tab PO Q4-6H PRN pain #30 tabs 03/10/23 mg tablet (Percocet) esomeprazole magnesium 40 mg 40 mg PO DAILY #90 caps 06/03/23 capsule,delayed release linaclotide 145 mcg capsule 145 mcg PO DAILY #30 caps 06/03/23 (Linzess) metoclopramide HCl 5 mg tablet 5 mg PO QIDACHS #120 tabs 06/03/23 (Reglan) sucralfate 100 mg/mL oral 10 ml PO BEDTIME #400 mL 06/03/23 suspension oxycodone 5 mg tablet 5 mg PO Q6H PRN pain #8 tabs 06/30/23 Allergies Allergy/AdvReac Type Severity Reaction Status Date / Time hydrocodone [From Vicodin] Allergy Severe Stomach Verified 06/03/23 08:09 Pain morphine [MORPHINE] Allergy Severe REDNESS, Verified 06/03/23 08:09 FEELS REALLY HOT, shortness of breath, anaphylaxis oxycodone Allergy Severe Stomach Verified 06/03/23 08:09 Upset amoxicillin AdvReac Severe yeast Verified 06/03/23 08:09 infection Penicillins [PENICILLINS] AdvReac Severe YEAST Verified 06/03/23 08:09 INFECTION Review of Systems Constitutional: Constitutional: Reports no additional constitutional complaints ENT: Reports system reviewed and no additional complaints, except as documented Cardiovascular: Cardiovascular: Reports no additional cardiovascular complaints Respiratory: Respiratory: Reports no additional respiratory complaints PMFSH Past Medical History Attestation statement: The following information was validated with the patient. Source: unable to obtain Onset Date is defined in the Problem List Problems that require an onset date and time if occurred within 24 hrs of arrival to the ED Aortic Dissection and Rupture; Neurologic impairment; Cardiopulmonary Arrest; Endotracheal Intubation; Insertion or Replacement of Mechanical Circulatory Assist Device Medical History Calcaneal spur of left foot Achilles tendinitis of left lower extremity Plantar fasciitis of left foot Carpal tunnel syndrome of right wrist Carpal tunnel syndrome of left wrist Epidermoid cyst of skin of back Sacrococcygeal pilonidal cyst with abscess Chest pain Right shoulder pain Left foot pain Numbness of right hand Cervical cancer screening Annual physical exam Gastroparesis Axillary abscess COVID-19 virus infection Dyspnea Bilateral lower extremity edema Personal history of nicotine dependence Asthma-COPD overlap syndrome Smoker Cohn's esophagus determined by endoscopy Internal derangement of right knee Right knee pain Chronic cough Plantar fasciitis Chronic pain of left ankle Left ankle pain Impaired fasting blood sugar Breast density Easy bruisability Breast cancer screening by mammogram Numbness of left hand Lateral epicondylitis of left elbow Bicipital tendinitis of left shoulder Back pain Arthritis GERD (gastroesophageal reflux disease) Panic attacks Hx of tuberculosis Palpitations History of IBS Hypercholesterolemia Hip pain Obesity (BMI 30-39.9) Asthma Tobacco abuse Surgical History History of loop electrosurgical excision procedure (LEEP) History of tubal ligation History of colonoscopy History of esophagogastroduodenoscopy (EGD) History of surgical removal of pilonidal cyst History of meniscectomy of left knee History of appendectomy History of section Family History Family History Father Tongue cancer Mother CVD (cardiovascular disease) Maternal Aunt Colon cancer Maternal Uncle Colon cancer Brother CVD (cardiovascular disease) Substance abuse Sister CVD (cardiovascular disease) Social History Social History Household Members: Spouse and Children Housing: Apartment Are you a primary insurance healthcare consultant to a significant other at home: No Do you presently have visiting nurse or other home services: No Alcohol intake: former Patient Tobacco Use Status: Current everyday Tobacco user Tobacco use type: Cigarette Cigarettes Per Day: 10 Years Smoked: 30 e-Cigarette/Vaping Use: Never Used Second Hand Smoke Exposure: Yes Substance Use Type: Marijuana Advance Directives: No service: No Current occupational status: disabled Cognitive needs: No Hearing needs: No Vision needs: No Physical Exam Vital Signs: Vital Signs: Last Vital Signs Temp 98.6 F 06/30/23 08:37 Pulse 80 06/30/23 08:37 Resp 20 06/30/23 08:37 BP 137/75 06/30/23 08:37 Pulse Ox 97 06/30/23 08:37 O2 Del Method Room Air 06/30/23 08:37 BMI result Body Mass Index 29.2 Const: General: cooperative, comfortable, no acute distress and well developed Nutritional Appearance: average body habitus Orientation/consciousness: patient oriented x3 HEENT: Head: Yes normal to inspection General nose exam: Normal external nose present Face and sinus: Yes normal facial exam Throat: Yes posterior oropharynx normal Neck: Neck: Yes normal visual inspection, Yes full ROM and Yes no lymphadenopathy Thyroid: Thyroid normal Resp: Effort & Inspection: normal respiratory effort and able to speak in complete sentences Auscultation: clear to auscultation bilaterally Cardio: Jugular venous distension: no JVD Rate: regular rate Rhythm: regular rhythm GI: Palpation (GI): Soft to palpation, not firm and nontender Auscultation: normal bowel sounds Skin: General skin exam: no rashes or lesions noted, elasticity normal and turgor normal Lesions: no lesions Rashes: no rashes Neuro: General: patient oriented x3 Course Reevaluation(s) Reevaluation #1: xray negative will d/c Time: 09:55 Medications Administered Discontinued Medications Generic Name Dose Route Start Last Admin Trade Name Freq PRN Reason Stop Dose Admin Acetaminophen 975 mg 06/30/23 09:02 06/30/23 09:20 Acetaminophen 325 Mg Tablet PO 06/30/23 09:03 975 mg ONCE ONE Administration Medical Decision Making Medical Decision Making [facility] Narrative: Patient presented with a fall will obtain imaging of the hip and back Differential Diagnosis Differential Diagnoses: The differential diagnosis associated with the presentation includes Fracture hip/dislocation Independent Interpretation I performed an independent interpretation of an: Plain X-Ray Interpretation: no fx No similar priors. TECHNIQUE: Three views of the lumbosacral spine. FINDINGS: No evidence of acute compression deformity or traumatic subluxation. Moderate intervertebral disc height loss and facet arthropathy at L5-S1 with some degree of neural foraminal encroachment. Symmetric SI joints. No significant paraspinal soft tissue abnormality. XR/XR lumbar spine 2-3V IMPRESSION: 1. No acute compression deformity or malalignment. 2. Moderate lumbar spondylosis at L5-S1. Dictated By: Joyce Aragon COMPARISON: No similar priors. TECHNIQUE: Two views of the left hip. FINDINGS: No fracture. Anatomic alignment. Mild multifocal degenerative osteoarthritis. SI joints are symmetric. Pubic symphysis and pelvic rami are maintained. No osseous erosions. Small pelvic phleboliths. No significant soft tissue abnormality. XR/XR hip LT w PEL1V IMPRESSION: No acute fracture or malalignment. Mild multifocal degenerative osteoarthritis. Dictated By: Joyce Aragon Signed By: <Electronically signed Radiology Impression Discussion of test interpretation with radiology: I have reviewed the radiologist's reading. Prescription Management I considered prescription management with: Pain Medication Discharge Plan Discharge Clinical Impression: Back contusion Patient Disposition: Home, Self-Care Instructions: Contusion in Adults (ED) Prescriptions: New oxycodone 5 mg tablet 5 mg PO Q6H PRN (Reason: pain) Qty: 8 0RF Rx Instructions: partial filing upon pt request; Partial Fill upon patient request. No Action cyclobenzaprine 10 mg tablet 10 mg PO TID PRN (Reason: for muscle spasm) Qty: 90 0RF albuterol sulfate [Ventolin HFA] 90 mcg/actuation HFA aerosol inhaler 2 puff inhalation Q6H PRN (Reason: shortness of breath or wheezing) Qty: 8.5 0RF oxycodone-acetaminophen [Percocet] 5-325 mg tablet 1 tab PO Q4-6H PRN (Reason: pain) Qty: 30 0RF Rx Instructions: Partial Fill upon patient request. lorazepam [Ativan] 1 mg tablet 1 mg PO DAILY PRN (Reason: Anxiety) cholecalciferol (vitamin D3) 50 mcg (2,000 unit) capsule 50 mcg PO DAILY lidocaine 4 % cream 1 appl topical BID 14 Days Qty: 15 0RF hydrocortisone [Proctosol HC] 2.5 % cream with perineal applicator 1 appl [place] BID-QID PRN (Reason: hemorrhoids) Qty: 30 2RF polyethylene glycol 3350 [Miralax] 17 gram/dose powder 17 g PO DAILY Qty: 510 2RF esomeprazole magnesium 40 mg capsule,delayed release(DR/EC) 40 mg PO DAILY Qty: 90 2RF sucralfate 100 mg/mL suspension 10 ml PO BEDTIME Qty: 400 3RF Linzess 145 mcg capsule 145 mcg PO DAILY Qty: 30 2RF metoclopramide HCl [Reglan] 5 mg tablet 5 mg PO QIDACHS Qty: 120 4RF Rx Instructions: hansa un comprimido 30 minutos antes de las comidas diclofenac sodium 1 % gel 2 g topical BID Qty: 100 0RF Rx Instructions: apply up to twice a day to fingers and wrist as needed
== END 2023-06-30 10:52 | disposition home or self-care (01) ==
PROVIDERS: Emergency Provider Emergency Medicine; PCP Internal Medicine
DX: S30.0XXA Contusion of lower back and pelvis, initial encounter (principal); S79.912A Unspecified injury of left hip, initial encounter; M25.552 Pain in left hip; W01.0XXA Fall on same level from slipping, tripping and stumbling without subsequent striking against object, initial encounter; Y93.9 Activity, unspecified; Y92.9 Unspecified place or not applicable; Y99.9 Unspecified external cause status
CPT/HCPCS: 72100; 73502; 99283

== ENCOUNTER 2023-07-02 11:09 | Outpatient (AMB) | payer MEDICARE, MEDICAID, SELFPAY ==
[2023-07-02 11:16] VITALS: BMI 29.2
--- NOTE | 2023-07-02 11:16 | MHC.OFFVIS ---
Intake Vital Signs 07/02/23 11:16 Height 5 ft 3 in Weight 165 lb BMI 29.2 Intake Visit Reasons: N/Prob Rt hand injury 06/30/23 Intake Note: Jessy 53 yr old female presents today for a new problem visit. Patient reports she fell 06/30/23 putting her hand out to break her fall . States she wrist was painful swollen and will be having CTR on 07/07/23. States she is in pain and also wants to make sure her hand is ok for upcoming surgery. Allergies hydrocodone [From Vicodin] Allergy (Severe, Verified 07/02/23 11:21) Stomach Pain morphine [MORPHINE] Allergy (Severe, Verified 07/02/23 11:21) REDNESS, FEELS REALLY HOT, shortness of breath, anaphylaxis oxycodone Allergy (Severe, Verified 07/02/23 11:21) Stomach Upset amoxicillin Adverse Reaction (Severe, Verified 07/02/23 11:21) yeast infection Penicillins [PENICILLINS] Adverse Reaction (Severe, Verified 07/02/23 11:21) YEAST INFECTION HPI N/Prob Rt hand injury 06/30/23 HPI Details Jessy is a 53 year old right hand dominant woman who presents with complaints of right hand & wrist and forearm pain. She says she fell onto her wrist on 06/30/23, and she has had pain & swelling in her hand since. She has pain with use of her hand and wrist motion. She is scheduled for a right carpal tunnel release on 07/07/23, and she wants to make sure there are no issues prior to surgery. COUNTS INCLUDE 234 BEDS AT THE [facility] Medical History Calcaneal spur of left foot Achilles tendinitis of left lower extremity Plantar fasciitis of left foot Carpal tunnel syndrome of right wrist Carpal tunnel syndrome of left wrist Epidermoid cyst of skin of back Sacrococcygeal pilonidal cyst with abscess Chest pain Right shoulder pain Left foot pain Numbness of right hand Cervical cancer screening Annual physical exam Gastroparesis Axillary abscess COVID-19 virus infection Dyspnea Bilateral lower extremity edema Personal history of nicotine dependence Asthma-COPD overlap syndrome Smoker Cohn's esophagus determined by endoscopy Internal derangement of right knee Right knee pain Chronic cough Plantar fasciitis Chronic pain of left ankle Left ankle pain Impaired fasting blood sugar Breast density Easy bruisability Breast cancer screening by mammogram Numbness of left hand Lateral epicondylitis of left elbow Bicipital tendinitis of left shoulder Back pain Arthritis GERD (gastroesophageal reflux disease) Panic attacks Hx of tuberculosis Palpitations History of IBS Hypercholesterolemia Hip pain Obesity (BMI 30-39.9) Asthma Tobacco abuse Surgical History History of loop electrosurgical excision procedure (LEEP) History of tubal ligation History of colonoscopy History of esophagogastroduodenoscopy (EGD) History of surgical removal of pilonidal cyst History of meniscectomy of left knee History of appendectomy History of section Family History Father Tongue cancer Mother CVD (cardiovascular disease) Maternal Aunt Colon cancer Maternal Uncle Colon cancer Brother CVD (cardiovascular disease) Substance abuse Sister CVD (cardiovascular disease) Social History Household Members: Spouse and Children Housing: Apartment Are you a primary caregivers homecare to a significant other at home: No Do you presently have visiting nurse or other home services: No Alcohol intake: former Patient Tobacco Use Status: Current everyday Tobacco user Tobacco use type: Cigarette Cigarettes Per Day: 10 Years Smoked: 30 e-Cigarette/Vaping Use: Never Used Second Hand Smoke Exposure: Yes Substance Use Type: Marijuana service: No Current occupational status: disabled Cognitive needs: No Hearing needs: No Vision needs: No Female Reproductive History Menstrual Age of Menarche: 12 Review of Systems Const All systems reviewed & are unremarkable except as noted in HPI and below Physical Exam Vital Signs: BMI result Body Mass Index 29.2 Const General: cooperative, healthy appearing and no acute distress Orientation/consciousness: oriented to person and oriented to place HEENT Head: Yes normocephalic and Yes atraumatic Eyes EOM: EOMs intact bilaterally Resp Effort & Inspection: normal respiratory effort and able to speak in complete sentences Cardio Jugular venous distension: no JVD Skin General skin exam: turgor normal Rashes: no rashes Neuro General: oriented to person and oriented to place Extrem Other: Evaluation of Right Upper Extremity: The patient is alert, oriented, and in no acute distress Neuro: Median, Ulnar, Radial nerves motor and sensory grossly intact except the sensation to median nerve is not quite normal. Vascular: Cap refill brisk General: She can make a fist and extend all her digits She is tender over the medial epicondyle, & generally running down her forearm She has some mild tenderness all along the line of the ulna, with no focal tenderness Some discomfort with gentle squeezing of forearm muscle Some snuffbox tenderness, but not different than the mild tenderness diffusely in so many places of her forearm wrist and hand Gentle squeeze of the distal radius and distal ulna was uncomfortable General tenderness about the distal radius and the distal ulna Painless wrist prono supination and the DRUJ felt stable No ecchymosis No appreciable swelling Radiographs: 3 views of the right wrist were taken and viewed by me today in clinic. They show no fractures or dislocations Nerve conduction study: FINDINGS: Bilateral median motor nerve showed prolonged distal latency, normal amplitude and normal conduction velocity. Signs of Prosper Raven anastomosis seen, bilateral, which is a normal anatomic variant. Significant interlatency difference between right median and radial sensory nerve. Right median sensory nerve did not show response. Right median sensory nerve showed prolonged peak latency. All other nerves tested were within normal. Patient was anxious during exam, needle EMG deferred. IMPRESSION: 1. This is an abnormal study. 2. There is electrodiagnostic evidence for bilateral moderate-severe median neuropathy at the wrist, consistent with carpal tunnel syndrome. 3. There is no electrodiagnostic evidence for ulnar neuropathy, brachial plexopathy, or cervical radiculopathy. 4. Signs of Prosper Raven anastomosis seen, bilateral, which is a normal anatomic variant. Lissa Correa MD, MARGARITO 04/04/23 Psych Appearance: grossly normal Affect: normal affect Attitude: cooperative Assessment & Plan Assessment & Plan (1) Carpal tunnel syndrome of left wrist: Code(s): G56.02 - Carpal tunnel syndrome, left upper limb (2) Carpal tunnel syndrome of right wrist: Code(s): G56.01 - Carpal tunnel syndrome, right upper limb (3) De Quervain's tenosynovitis, right: Code(s): M65.4 - Radial styloid tenosynovitis [de Quervain] (4) Right wrist pain: Code(s): M25.531 - Pain in right wrist Plan Assessment and plan: 1. Right generalized wrist & forearm pain After a fall, DOI: 06/30/23 She has some mild snuffbox tenderness, but she is TTP in multiple areas around hand, wrist, and forearm after her fall No evidence of fracture seen on radiographs today 2. Right carpal tunnel syndrome moderate to severe With persistent numbness in the median nerve distribution in clinic today I educated her about these problems. I discussed operative and non operative treatment options She wishes to proceed with surgery for the right carpal tunnel. However given her ongoing hand & wrist pain after her fall, I think the best option would be to delay her surgery by a few weeks to give her time to recover. She declined a velcro wrist brace at this time, as she finds them tight and uncomfortable. She will follow up on 07/22/23 to assess her right wrist, and possibly a pre-op appointment if her symptoms have improved. If she continues to have pain then at next appointment we should order X-rays, 3V R wrist + scaphoid view 3. Left carpal tunnel syndrome, moderately severe 4. Right de Quervain tenosynovitis No complaints today She can follow-up at a later date to discuss treatment for her left carpal tunnel syndrome, and possible treatment for her right de Quervain tenosynovitis. I did tell her that she really needs to try an injection at least 1 time before we consider possible operative management for her right de Quervain tenosynovitis. In addition, please note that many of these symptoms are bilateral. She also has pain and burning in the ulnar aspect of her wrist extending up the ulnar forearm to the elbow. She also complains of pain not just in the 1st dorsal compartment but also extending somewhat dorsally into the 1st web space and even the index finger on the right. She has had other steroid injections in her feet and complains of pain in her ankles and her feet as well. Scribed for Antonia Emanuel MD by Anjel Echeverria, medical leader, on 07/02/23 at 11:45 AM, EST. Orders: Orders XR wrist RT min 3V Today M25.531 - Pain in right wrist Coding Level of Care Code Est Pt Level 4 (75327) Diagnoses Carpal tunnel syndrome of left wrist G56.02 Carpal tunnel syndrome of right wrist G56.01 De Quervain's tenosynovitis, right M65.4 Right wrist pain M25.531
== END 2023-07-02 11:54 | disposition home or self-care (01) ==
PROVIDERS: PCP Internal Medicine; Visit Provider Orthopaedic Surgery
DX: G56.03 Carpal tunnel syndrome, bilateral upper limbs (principal); M65.4 Radial styloid tenosynovitis [de Quervain]; M25.531 Pain in right wrist; W19.XXXA Unspecified fall, initial encounter
CPT/HCPCS: 99214

== ENCOUNTER 2023-07-02 11:09 | Outpatient (REF) | payer MEDICARE, MEDICAID, SELFPAY ==
--- NOTE | ~2023-07-02 | XR_ITS ---
EXAMINATION: XR WRIST, RIGHT CLINICAL INFORMATION: Pain in the right wrist COMPARISON: 01/27/2023 and 3 TECHNIQUE: PA, lateral, and oblique views of the right wrist. FINDINGS: The bones and soft tissues are normal. No fracture. Alignment is anatomic with normal joint spaces. No erosions or abnormal soft tissue calcifications. XR/XR wrist RT min 3V IMPRESSION: Normal right wrist.
== END 2023-07-02 11:10 | disposition home or self-care (01) ==
LOC: HO.HOSX 11:09
PROVIDERS: PCP Internal Medicine; Visit Provider Orthopaedic Surgery
DX: M25.531 Pain in right wrist (principal); G56.03 Carpal tunnel syndrome, bilateral upper limbs; M65.4 Radial styloid tenosynovitis [de Quervain]
CPT/HCPCS: 73110; 99212

== ENCOUNTER 2023-07-22 10:24 | Outpatient (AMB) | payer MEDICARE, MEDICAID, SELFPAY ==
[2023-07-22 10:28] VITALS: BMI 29.2
--- NOTE | 2023-07-22 10:28 | MHC.OFFVIS ---
Intake Vital Signs 07/22/23 10:28 Height 5 ft 3 in Weight 165 lb BMI 29.2 Intake Visit Reasons: OV-reevaluate Right CTR Intake Note: Jessy 53 yr old female presents today for to re-evaluate Right carpal tunnel syndrome and right De Quervain's tenosynovitis s/p falling 06/30/23. Patient states she feels like her CTS has worsen. States she is having burning sensation inboth hands, more often in her right hand. States her numbness is radiating to her forearm. Allergies hydrocodone [From Vicodin] Allergy (Severe, Verified 07/22/23 10:36) Stomach Pain morphine [MORPHINE] Allergy (Severe, Verified 07/22/23 10:36) REDNESS, FEELS REALLY HOT, shortness of breath, anaphylaxis oxycodone Allergy (Severe, Verified 07/22/23 10:36) Stomach Upset amoxicillin Adverse Reaction (Severe, Verified 07/22/23 10:36) yeast infection Penicillins [PENICILLINS] Adverse Reaction (Severe, Verified 07/22/23 10:36) YEAST INFECTION HPI OV-reevaluate Right CTR HPI Details Jessy is a 53 year old right hand dominant woman who returns to discuss her right carpal tunnel syndrome & pain after a fall, DOI: 06/30/23. She says her numbness is intermittent, but daily, worse at night. She feels this bilaterally, but more in her right side. She complains of a painful burning sensation primarily on the back of her hands and radial aspect of her wrists. She says she still has some pain in her wrist from after her fall, but this is mild compared to the burning pain she feels at times. She claims that she is disabled after having had a heart attack when she was 36. [facility] Medical History Calcaneal spur of left foot Achilles tendinitis of left lower extremity Plantar fasciitis of left foot Carpal tunnel syndrome of right wrist Carpal tunnel syndrome of left wrist Epidermoid cyst of skin of back Sacrococcygeal pilonidal cyst with abscess Chest pain Right shoulder pain Left foot pain Numbness of right hand Cervical cancer screening Annual physical exam Gastroparesis Axillary abscess COVID-19 virus infection Dyspnea Bilateral lower extremity edema Personal history of nicotine dependence Asthma-COPD overlap syndrome Smoker Cohn's esophagus determined by endoscopy Internal derangement of right knee Right knee pain Chronic cough Plantar fasciitis Chronic pain of left ankle Left ankle pain Impaired fasting blood sugar Breast density Easy bruisability Breast cancer screening by mammogram Numbness of left hand Lateral epicondylitis of left elbow Bicipital tendinitis of left shoulder Back pain Arthritis GERD (gastroesophageal reflux disease) Panic attacks Hx of tuberculosis Palpitations History of IBS Hypercholesterolemia Hip pain Obesity (BMI 30-39.9) Asthma Tobacco abuse Surgical History History of loop electrosurgical excision procedure (LEEP) History of tubal ligation History of colonoscopy History of esophagogastroduodenoscopy (EGD) History of surgical removal of pilonidal cyst History of meniscectomy of left knee History of appendectomy History of section Family History Father Tongue cancer Mother CVD (cardiovascular disease) Maternal Aunt Colon cancer Maternal Uncle Colon cancer Brother CVD (cardiovascular disease) Substance abuse Sister CVD (cardiovascular disease) Social History Household Members: Spouse and Children Housing: Apartment Are you a primary childcare center administrator to a significant other at home: No Do you presently have visiting nurse or other home services: No Alcohol intake: former Patient Tobacco Use Status: Current everyday Tobacco user Tobacco use type: Cigarette Cigarettes Per Day: 10 Years Smoked: 30 e-Cigarette/Vaping Use: Never Used Second Hand Smoke Exposure: Yes Substance Use Type: Marijuana service: No Current occupational status: disabled Cognitive needs: No Hearing needs: No Vision needs: No Female Reproductive History Menstrual Age of Menarche: 12 Physical Exam Vital Signs: BMI result Body Mass Index 29.2 Extrem Other: Evaluation of Right Upper Extremity: The patient is alert, oriented, and in no acute distress Neuro: Median, Ulnar, Radial nerves motor and sensory grossly intact except the sensation to median nerve is not quite normal. Vascular: Cap refill brisk General: She can make a fist and extend all her digits Negative Scott test Today she did have some mild tenderness over the 1st dorsal compartment. Smooth wrist flexion and extension and prono-supination today with minimal discomfort. No swelling or ecchymosis. Patient demonstrates that she gets a burning sensation over the dorsal aspect of her fingers extending over the dorsal hand up her dorsal forearm. I 1st palpated the scaphoid tubercle on the left after seeing her radiographs. She said she had tenderness over the left scaphoid tubercle which is the uninjured hand. I then palpated the scaphoid tubercle on the right and she said that that was not painful. Radiographs: 3 views of the right wrist, plus a scaphoid view, were taken and viewed by me today in clinic. They show no evidence of fracture in the distal radius or distal ulna. She does have a slight cortical irregularity seen in the distal volar radial aspect of the scaphoid tubercle. Please see above exam as she was completely nontender palpation in this area. Nerve conduction study: FINDINGS: Bilateral median motor nerve showed prolonged distal latency, normal amplitude and normal conduction velocity. Signs of Prosper Raven anastomosis seen, bilateral, which is a normal anatomic variant. Significant interlatency difference between right median and radial sensory nerve. Right median sensory nerve did not show response. Right median sensory nerve showed prolonged peak latency. All other nerves tested were within normal. Patient was anxious during exam, needle EMG deferred. IMPRESSION: 1. This is an abnormal study. 2. There is electrodiagnostic evidence for bilateral moderate-severe median neuropathy at the wrist, consistent with carpal tunnel syndrome. 3. There is no electrodiagnostic evidence for ulnar neuropathy, brachial plexopathy, or cervical radiculopathy. 4. Signs of Prosper Raven anastomosis seen, bilateral, which is a normal anatomic variant. Lissa Correa MD, MARGARITO 04/04/23 Assessment & Plan Assessment & Plan (1) Carpal tunnel syndrome of left wrist: Code(s): G56.02 - Carpal tunnel syndrome, left upper limb (2) Carpal tunnel syndrome of right wrist: Code(s): G56.01 - Carpal tunnel syndrome, right upper limb (3) De Quervain's tenosynovitis, right: Code(s): M65.4 - Radial styloid tenosynovitis [de Quervain] (4) Right wrist pain: Code(s): M25.531 - Pain in right wrist Plan Assessment and plan: 1. Right carpal tunnel syndrome, moderate to severe Symptoms intermittent, but daily, worse at night 2. Right and left generalized wrist & forearm pain Was exacerbated after a right upper extremity fall, DOI: 06/30/23 She was initially TTP in multiple areas around right hand, wrist, and forearm after her fall No evidence of fracture seen on radiographs again today She also reports that she had pain particularly over the dorsal aspect of the fingers hand and extending up the dorsal forearm in both hands prior to her fall and that this pain in both hands has not changed. 3. Left carpal tunnel syndrome, moderately severe She also has pain and burning in the ulnar aspect of her wrists extending up the ulnar forearm to the elbows bilaterally, R>L. She also complains of pain not just in the 1st dorsal compartment but also extending somewhat dorsally into the 1st web space and even the index finger on the right. I educated her about this condition I discussed operative and non-operative treatment options The patient would like to proceed with surgery I did discuss with her that surgery would likely help with the numbness & burning in the median nerve distribution, but is not likely to help these symptoms in the dorsal hand, wrist, and forearm. The risks and benefits of operative treatment were discussed with the patient and the patient wishes to proceed with surgery. These risks include, but are not limited to risk of damage to blood vessels, nerves, tendons, infection, recurrence, incomplete relief of preoperative symptoms, persistent pain, possible need for further surgery and the risks associated with regional blocks and anesthesia. The plan is to take the patient to the operating room sometime on 09/04/23 for the following procedures: 1. Right carpal tunnel release, under local All of the preoperative paperwork including the consent was reviewed today. All the patient's questions were answered. She would like to have surgery done sooner if there is a cancellation prior to her surgery date. She denies Diabetes, blood thinners, heart, kidney issues She has asthma & COPD She is listed as having an allergy to Hydrocodone & Oxycodone, with complaints of GI upset I did talk to her at length about the fact that she has pain in multiple areas in her hands risks and forearm, and that a carpal tunnel release is most likely to give some relief in the median nerve distribution, but would likely not improve her other areas of pain. She understands this. 4. Possible Right de Quervain tenosynovitis Negative Scott test today Mild tenderness over the 1st dorsal compartment Managed conservatively. Scribed for Antonia Emanuel, MD by Anjel Echeverria, medical imaging director, on 07/22/23 at 10:45 AM, EST. Orders: Orders XR wrist RT w scaphoid Today M25.531 - Pain in right wrist Coding Level of Care Code Est Pt Level 4 (54536) Diagnoses Carpal tunnel syndrome of left wrist G56.02 Carpal tunnel syndrome of right wrist G56.01 De Quervain's tenosynovitis, right M65.4 Right wrist pain M25.531
== END 2023-07-22 11:24 | disposition home or self-care (01) ==
PROVIDERS: PCP Internal Medicine; Visit Provider Orthopaedic Surgery
DX: G56.03 Carpal tunnel syndrome, bilateral upper limbs (principal); M65.4 Radial styloid tenosynovitis [de Quervain]; M25.531 Pain in right wrist
CPT/HCPCS: 99214

== ENCOUNTER 2023-07-22 10:24 | Outpatient (REF) | payer MEDICARE, MEDICAID, SELFPAY ==
--- NOTE | ~2023-07-22 | XR_ITS ---
EXAMINATION: XR wrist RT w scaphoid CLINICAL INFORMATION: Female of 53 years with pain in right wrist COMPARISON: Most recent right wrist radiograph: 07/02/2023 TECHNIQUE: PA, lateral, oblique views and scaphoid view of the right wrist. FINDINGS: RIGHT WRIST: The bones and soft tissues are normal. No fracture. Alignment is anatomic with normal joint spaces. No erosions or abnormal soft tissue calcifications. No fracture of the right wrist. Anatomic alignment. No lytic or sclerotic osseous lesions. Diffuse degenerative changes of the right wrist with joint space narrowing and osteophytosis. No vascular calcifications. No soft tissue edema. XR/XR wrist RT w scaphoid IMPRESSION: Normal right wrist.
== END 2023-07-22 10:25 | disposition home or self-care (01) ==
LOC: HO.HOSX 10:24
PROVIDERS: PCP Internal Medicine; Visit Provider Orthopaedic Surgery
DX: G56.03 Carpal tunnel syndrome, bilateral upper limbs (principal); M65.4 Radial styloid tenosynovitis [de Quervain]; Z91.81 History of falling
CPT/HCPCS: 73110; 99212

== ENCOUNTER 2023-08-12 16:01 | Outpatient (AMB) | payer MEDICARE, MEDICAID, SELFPAY ==
[2023-08-12 16:30] VITALS: BP 106/60; PULSE 88; O2SAT 97; BMI 30.8
--- NOTE | 2023-08-12 16:30 | MHC.PC.OV ---
Vital Signs 08/12/23 16:30 Height 5 ft 3 in Weight 174 lb BMI 30.8 BP 106/60 Blood Pressure Location Lt brachial Position Sitting Pulse 88 Pulse Source Pulse Oximeter Pulse Oximetry (%) 97 Oxygen Delivery Method Room Air Intake Visit Reasons: lower back pain Intake Note: Pt is here with lower back pain resulting from a fall in a store that occurred in June. They are experiencing sharp pain originating from the left shoulder blade. Railroad Worker Required: No Accompanied by: Self / Same As Patient Allergies hydrocodone [From Vicodin] Allergy (Severe, Verified 08/12/23 16:30) Stomach Pain morphine [MORPHINE] Allergy (Severe, Verified 08/12/23 16:30) REDNESS, FEELS REALLY HOT, shortness of breath, anaphylaxis oxycodone Allergy (Severe, Verified 08/12/23 16:30) Stomach Upset amoxicillin Adverse Reaction (Severe, Verified 08/12/23 16:30) yeast infection Penicillins [PENICILLINS] Adverse Reaction (Severe, Verified 08/12/23 16:30) YEAST INFECTION Tobacco use date assessed: 09/11/22 Dental Screening Dental Screen Date: 08/12/23 Did you have a dental visit in the last 12 months?: Yes Did you have a dental problem in the last 6 months where you did not have access to dental care?: No Was dental information given to patient?: Patient has dentist HPI lower back pain HPI Details 53-year-old obese female smoker with Barretts esophagus, generalized anxiety disorder impaired glucose tolerance hypercholesterolemia coming in for follow-up. Last seen in August 2022. Patient's colonoscopy is up-to-date mammogram is due review of the notes recently seen by Orthopedics for the bilateral carpal tunnel syndrome and will have a planned surgery. 06/30/2023 ER visit for a fall due to a wet floor slipped and had lower back pain and left hip pain x-rays done showing moderate lumbar spondylosis L5-S1 no compression fracture. As for the hip mild multifocal degenerative osteoarthritis patient was prescribed a narcotic pain medication. FORMERLY [facility], [facility]1983 Medical History Calcaneal spur of left foot Achilles tendinitis of left lower extremity Plantar fasciitis of left foot Carpal tunnel syndrome of right wrist Carpal tunnel syndrome of left wrist Epidermoid cyst of skin of back Sacrococcygeal pilonidal cyst with abscess Chest pain Right shoulder pain Left foot pain Numbness of right hand Cervical cancer screening Annual physical exam Gastroparesis Axillary abscess COVID-19 virus infection Dyspnea Bilateral lower extremity edema Personal history of nicotine dependence Asthma-COPD overlap syndrome Smoker Cohn's esophagus determined by endoscopy Internal derangement of right knee Right knee pain Chronic cough Plantar fasciitis Chronic pain of left ankle Left ankle pain Impaired fasting blood sugar Breast density Easy bruisability Breast cancer screening by mammogram Numbness of left hand Lateral epicondylitis of left elbow Bicipital tendinitis of left shoulder Back pain Arthritis GERD (gastroesophageal reflux disease) Panic attacks Hx of tuberculosis Palpitations History of IBS Hypercholesterolemia Hip pain Obesity (BMI 30-39.9) Asthma Tobacco abuse Surgical History History of loop electrosurgical excision procedure (LEEP) History of tubal ligation History of colonoscopy History of esophagogastroduodenoscopy (EGD) History of surgical removal of pilonidal cyst History of meniscectomy of left knee History of appendectomy History of section Family History Father Tongue cancer Mother CVD (cardiovascular disease) Maternal Aunt Colon cancer Maternal Uncle Colon cancer Brother CVD (cardiovascular disease) Substance abuse Sister CVD (cardiovascular disease) Social History Household Members: Spouse and Children Housing: Apartment Are you a primary home care and home health aides teacher to a significant other at home: No Do you presently have visiting nurse or other home services: No Alcohol intake: former Patient Tobacco Use Status: Current everyday Tobacco user Tobacco use type: Cigarette Cigarettes Per Day: 10 Years Smoked: 30 Packs per year/per ci.00 e-Cigarette/Vaping Use: Never Used Second Hand Smoke Exposure: Yes Substance Use Type: Marijuana service: No Current occupational status: disabled Cognitive needs: No Hearing needs: No Vision needs: No Female Reproductive History Menstrual Age of Menarche: 12 Questionnaire PHQ-9 Over the last 2 weeks, how often have you been bothered by any of the following problems? 1. Little interest or pleasure in doing things: not at all 2. Feeling down, depressed, or hopeless: not at all 3. Trouble falling or staying asleep, or sleeping too much: not at all 4. Feeling tired or having little energy: not at all 5. Poor appetite or overeating: not at all 6. Feeling bad about yourself - or that you are a failure or have let yourself or your family down: not at all 7. Trouble concentrating on things, such as reading the newspaper or watching television: not at all 8. Moving or speaking so slowly that other people could have noticed. Or the opposite - being so fidgety or restless that you have been moving around a lot more than usual: not at all 9. Thoughts that you would be better off or of hurting yourself in some way: not at all Total score: 0 Depression Screening Interpretation: Negative Depression Screening Done: Yes 83718 - PHQ-9 Billing: Yes Source: Developed by Drs. Kain Gutierrez, Patricia Marx, Damaso Delacruz and colleagues, with an educational allison from [employer]. Thrive Questionnaire Date Thrive assessed: 08/12/23 I am a: Patient What is your living situation today?: I have a steady place to live Within the past 12 months, did the food you bought not last and you didn't have the money to get more?: Never true Within the past 12 months, did you worry whether your food would run out before you got money to buy more?: Never true Do you have trouble paying for medicines?: No Do you have trouble getting transportation to medical appointments?: No Do you have trouble paying your heating and electricity bill?: No Do you have trouble taking care of your child, family member or friend?: No Do you have trouble with day-to-day activities such as bathing, preparing meals, shopping, managing finances, etc.?: No Are you currently unemployed and looking for a job?: No Are you interested in more education?: No Please select the resources that you would like help with: None Currently or been in a relationship where the following occur: no concerns reported THRIVE Score: 0 AUDIT C Alcohol Use Questionnaire (AUDIT-C) 1. How often do you have a drink containing alcohol?: Never 3. How often do you have six or more drinks on one occasion?: Never Total Score: 0 ELIZABETH-7 AMB Questionnaire ELIZABETH-7 Date ELIZABETH - 7 assessed: 08/12/23 Feeling nervous, anxious, or on edge: 0 = Not at all Not being able to stop or control worryin = Not at all Worrying too much about different things: 0 = Not at all Trouble relaxin = Not at all Being so restless that it is hard to sit still: 0 = Not at all Becoming easily annoyed or irritable: 0 = Not at all Feeling afraid as if something awful might happen: 0 = Not at all Total ELIZABETH-7 score (0-4 normal; 5-9 mild; 10-14 moderate; 15-21 severe): 0 Source: Developed by Drs. Kain Gutierrez, Patricia Marx, Damaso Delacruz and colleagues, with an educational allison from [employer]. ELIZABETH-7 Assessment Billing ELIZABETH-7 Assessment Tool: ELIZABETH-7 Assessment 56633 Physical exam (Primary Care) Vital Signs: Last Vital Signs Pulse 88 08/12/23 16:30 BP 106/60 08/12/23 16:30 Pulse Ox 97 08/12/23 16:30 Oxygen Delivery Method Room Air 08/12/23 16:30 BMI result Body Mass Index 30.8 Tobacco/Smoking Status: Tobacco use Status Tobacco use date assessed 09/11/22 08/12/23 16:31 Patient Tobacco Use Status Current everyday Tobacco 08/12/23 16:31 Tobacco use type Cigarette 08/12/23 16:31 e-Cigarette/Vaping Use Never Used 08/12/23 16:31 PHQ-9: PHQ-9 Score PHQ-9: Total score 0 08/12/23 17:49 Depression Screening Interpretation: Negative Thrive Assessment: Date of Thrive Assessment Date Thrive assessed 08/12/23 08/12/23 16:31 Currently or been in a relationship where the following occur: no concerns reported Const General: alert; No acute distress Eyes Conjunctivae: conjunctivae normal Resp Auscultation: clear to auscultation bilaterally Cardio Rate: regular rate Rhythm: regular rhythm GI Inspection: Yes normal to inspection Back/Spine/Pelvis Other: Tender on The left paravertebral thoracic and lumbar area tender on the lower lumbar area tender on the left hip area also no redness or swelling noted Extrem General: Yes normal to inspection and No edema Assessment and Plan Assessment & Plan (1) Fall: Comment: 06/30/2023 Code(s): W19.XXXA - Unspecified fall, initial encounter (2) Carpal tunnel syndrome of right wrist: Code(s): G56.01 - Carpal tunnel syndrome, right upper limb Plan: Patient follows up with orthopedics and planned carpal tunnel release (3) Carpal tunnel syndrome of left wrist: Code(s): G56.02 - Carpal tunnel syndrome, left upper limb Plan: Patient follows up with orthopedics (4) Tobacco abuse: Code(s): Z72.0 - Tobacco use Plan: Strongly advised to stop smoking! (5) Obesity (BMI 30-39.9): Code(s): E66.9 - Obesity, unspecified Plan: Advised to lose the weight with diet and exercise (6) Hip osteoarthritis: Code(s): M16.9 - Osteoarthritis of hip, unspecified Plan: Keep active lose the weight (7) Lumbar spondylosis: Code(s): M47.816 - Spondylosis without myelopathy or radiculopathy, lumbar region Plan: Patient is prescribed an anti-inflammatory with muscle relaxant and advised to get physical therapy. Advised heating pads also. Orders: Orders PT Evaluation and Treatment 08/12/23 M47.816 - Spondylosis without myelopathy or radiculopathy, lumbar region Medications: New nabumetone 500 mg PO BID 60 tabs 0RF M47.816 - Spondylosis without myelopathy or radiculopathy, lumbar region Refilled cyclobenzaprine 10 mg PO TID PRN 90 tabs 0RF for muscle spasm M25.572 - Pain in left ankle and joints of left foot Discontinued diclofenac sodium 1% apply up to twice a day to fingers and wrist as needed Discontinued Reason: Doctor's Order 2 grams topical BID 100 grams 0RF M25.50 - Pain in unspecified joint Coding Level of Care Code Est Pt Level 4 (55512) Diagnoses Fall W19.XXXA Carpal tunnel syndrome of right wrist G56.01 Carpal tunnel syndrome of left wrist G56.02 Tobacco abuse Z72.0 Obesity (BMI 30-39.9) E66.9 Hip osteoarthritis M16.9 Lumbar spondylosis M47.816 Additional Codes ELIZABETH-7 Assessment Billing - ELIZABETH-7 Assessment Tool: ELIZABETH-7 Assessment [id number] ([id number])
== END 2023-08-12 18:02 | disposition home or self-care (01) ==
PROVIDERS: PCP Internal Medicine; Visit Provider Internal Medicine
DX: G56.03 Carpal tunnel syndrome, bilateral upper limbs (principal); W19.XXXA Unspecified fall, initial encounter; Z72.0 Tobacco use; E66.9 Obesity, unspecified; M16.9 Osteoarthritis of hip, unspecified; M47.816 Spondylosis without myelopathy or radiculopathy, lumbar region
CPT/HCPCS: 99214

== ENCOUNTER 2023-09-04 08:47 | Day surgery (SDC) | payer MEDICARE, MEDICAID, SELFPAY ==
[2023-09-04 09:04] VITALS: BP 116/75; PULSE 75; RESP 18; TEMP 36.1; O2SAT 97; BMI 31.4
--- NOTE | 2023-09-04 10:55 | MHC.SHP ---
Pre-Procedural Eval Section A - 24 Hr Update-Section A only Date of Service: 09/04/23 The patient is an INPATIENT: No Changes since office visit: No Cold of Flu in the past 2 weeks, No New Medical Problems, No Changes in Medication and No Patient answered all questions The patient has been examined within 24 hours of the surgical procedure. The History & Physical has been completed within 30 days and I have reviewed it.: Yes Section B - Complete if H&P > 30 days Chief Complaint: Carpal tunnel syndrome, right upper limb Allergies: Allergies Allergy/AdvReac Type Severity Reaction Status Date / Time hydrocodone [From Vicodin] Allergy Severe Stomach Verified 08/12/23 16:30 Pain morphine [MORPHINE] Allergy Severe REDNESS, Verified 08/12/23 16:30 FEELS REALLY HOT, shortness of breath, anaphylaxis oxycodone Allergy Severe Stomach Verified 08/12/23 16:30 Upset amoxicillin AdvReac Severe yeast Verified 08/12/23 16:30 infection Penicillins [PENICILLINS] AdvReac Severe YEAST Verified 08/12/23 16:30 INFECTION Plan I have reviewed the history and physical and performed a pertinent physical examination on my patient. No changes have occurred unless specified. Time Spent With Patient Time: Total time managing care of this patient today ____ minutes.
--- NOTE | 2023-09-04 10:56 | W.PM.OPN ---
Operative Note Operative Note Date of Service: 09/04/23 Narrative: Preop diagnosis: 1. Right Carpal tunnel syndrome Postop diagnosis: same Procedure: 1. Right Carpal tunnel release Surgeon: Antonia Emanuel MD Anesthesia: local block using 1% lidocaine with epinephrine Findings: Thickened transverse carpal ligament. EBL: Less than 5 mL Specimens: None Complications: None Disposition: Brought to recovery room in stable condition Plan: Follow-up for 10-14 days for wound check and suture removal Indications: The patient is 53 years old, with right carpal tunnel syndrome that has been unresponsive to nonoperative management. The risks and benefits of operative treatment including but not limited to risk of damage to blood vessels, nerves, tendons, infection, persistent pain, persistent symptoms, or possible need for additional surgery were discussed with the patient and the patient wishes to proceed with surgery. Procedure: Once consent was obtained a local block was performed using a combination of 1% lidocaine with epinephrine. The patient was then brought back to the operating suite and placed on the operative table in supine position. The right upper extremity was prepped and draped in a standard surgical fashion. Once assured that we had a good block, a 2.0 cm longitudinal incision was made centered over the carpal tunnel. The incision was made through the skin to the subcutaneous tissues using a #15 blade. Dissection was made down to the level of the transverse carpal ligament with care being taken to protect the palmar cutaneous nerve. Once the transverse carpal ligament was clearly visualized, a longitudinal incision was made in the transverse carpal ligament 1st using a #15 blade, then using tenotomy scissors under direct visualization. Care was taken to look for and protect the motor branch of the median nerve when seen in this area. Once satisfied with our carpal tunnel release the wound was copiously irrigated with normal saline and hemostasis was obtained with a brief period of local pressure. The skin edges were reapproximated with some 5.0 nylon suture material and a sterile dressing was applied. The patient appears to have tolerated the procedure well and with no complications. All digits were well vascularized at the conclusion of the case.
[2023-09-04 11:47] VITALS: BP 137/76; PULSE 74; RESP 18; O2SAT 98
== END 2023-09-04 11:51 | disposition home or self-care (01) ==
PROVIDERS: PCP Internal Medicine; Visit Provider Orthopaedic Surgery
PROC: (CPT 64721; principal; 2023-09-04 10:20)
DX: G56.01 Carpal tunnel syndrome, right upper limb (principal); R20.0 Anesthesia of skin; R20.2 Paresthesia of skin; M65.4 Radial styloid tenosynovitis [de Quervain]; M25.531 Pain in right wrist; Z91.81 History of falling; K22.70 Barrett's esophagus without dysplasia; R73.01 Impaired fasting glucose; J44.9 Chronic obstructive pulmonary disease, unspecified; E78.00 Pure hypercholesterolemia, unspecified; E66.9 Obesity, unspecified; Z68.29 Body mass index [BMI] 29.0-29.9, adult; F17.210 Nicotine dependence, cigarettes, uncomplicated; Z88.0 Allergy status to penicillin; Z88.5 Allergy status to narcotic agent; Z98.890 Other specified postprocedural states
CPT/HCPCS: 64721; J0171

== ENCOUNTER → 2023-09-04 08:47 | Outpatient (BNV) | payer MEDICARE, MEDICAID, SELFPAY | PROVIDERS: PCP Internal Medicine; Visit Provider Orthopaedic Surgery | DX: G56.01 Carpal tunnel syndrome, right upper limb (principal) | CPT/HCPCS: 64721 ==

== ENCOUNTER 2023-09-17 14:16 | Outpatient (AMB) | payer MEDICARE, MEDICAID, SELFPAY ==
[2023-09-17 14:34] VITALS: BMI 31.4
--- NOTE | 2023-09-17 14:34 | MHC.OFFVIS ---
Intake Vital Signs 09/17/23 14:34 Height 5 ft 3 in Weight 177 lb BMI 31.4 Intake Visit Reasons: PO RT CTR 09/04/23 AR Intake Note: Jessy 53 yr old female presents today for her PO visit for her right CTR 09/04/[address] Emanuel. Sutures removed and steri strips applied. States she is having pain and tenderness on her volar aspect of wrist by her incision. Allergies hydrocodone [From Vicodin] Allergy (Severe, Verified 09/17/23 14:35) Stomach Pain morphine [MORPHINE] Allergy (Severe, Verified 09/17/23 14:35) REDNESS, FEELS REALLY HOT, shortness of breath, anaphylaxis oxycodone Allergy (Severe, Verified 09/17/23 14:35) Stomach Upset amoxicillin Adverse Reaction (Severe, Verified 09/17/23 14:35) yeast infection Penicillins [PENICILLINS] Adverse Reaction (Severe, Verified 09/17/23 14:35) YEAST INFECTION HPI PO RT CTR 09/04/23 AR HPI Details Jessy is a 53 year old right hand dominant woman who returns S/P right carpal tunnel release, DOS: 09/04/23. She says her sensation is improving, which she is happy about. However she still has a painful burning sensation primarily on the back of her hands and radial aspect of her wrists. She continues to have numbness in her left hand, intermittent but daily. She claims that she is disabled after having had a heart attack when she was 36. [facility] Medical History Calcaneal spur of left foot Achilles tendinitis of left lower extremity Plantar fasciitis of left foot Carpal tunnel syndrome of right wrist Carpal tunnel syndrome of left wrist Epidermoid cyst of skin of back Sacrococcygeal pilonidal cyst with abscess Chest pain Right shoulder pain Left foot pain Numbness of right hand Cervical cancer screening Annual physical exam Gastroparesis Axillary abscess COVID-19 virus infection Dyspnea Bilateral lower extremity edema Personal history of nicotine dependence Asthma-COPD overlap syndrome Smoker Cohn's esophagus determined by endoscopy Internal derangement of right knee Right knee pain Chronic cough Plantar fasciitis Chronic pain of left ankle Left ankle pain Impaired fasting blood sugar Breast density Easy bruisability Breast cancer screening by mammogram Numbness of left hand Lateral epicondylitis of left elbow Bicipital tendinitis of left shoulder Back pain Arthritis GERD (gastroesophageal reflux disease) Panic attacks Hx of tuberculosis Palpitations History of IBS Hypercholesterolemia Hip pain Obesity (BMI 30-39.9) Asthma Tobacco abuse Surgical History History of loop electrosurgical excision procedure (LEEP) History of tubal ligation History of colonoscopy History of esophagogastroduodenoscopy (EGD) History of surgical removal of pilonidal cyst History of meniscectomy of left knee History of appendectomy History of section Family History Father Tongue cancer Mother CVD (cardiovascular disease) Maternal Aunt Colon cancer Maternal Uncle Colon cancer Brother CVD (cardiovascular disease) Substance abuse Sister CVD (cardiovascular disease) Social History Household Members: Spouse and Children Housing: Apartment Are you a primary nursing care attendant to a significant other at home: No Do you presently have visiting nurse or other home services: No Alcohol intake: former Patient Tobacco Use Status: Current everyday Tobacco user Tobacco use type: Cigarette Cigarettes Per Day: 10 Years Smoked: 30 e-Cigarette/Vaping Use: Never Used Second Hand Smoke Exposure: Yes Substance Use Type: Marijuana service: No Current occupational status: disabled Cognitive needs: No Hearing needs: No Vision needs: No Female Reproductive History Menstrual Age of Menarche: 12 Review of Systems Const All systems reviewed & are unremarkable except as noted in HPI and below Physical Exam Vital Signs: BMI result Body Mass Index 31.4 Const General: no acute distress and alert Orientation/consciousness: patient oriented x3 Neuro General: patient oriented x3 Extrem Other: The patient was alert oriented and in no acute distress The incision is healing well with no erythema drainage or evidence of infection. Sutures removed and Steri-Strips applied Sensation is improved normal to the tips of all digits of the right hand She can make a fist and fully extend all of her digits. Good APB muscle belly firing Smooth wrist flexion and extension and prono-supination today with minimal discomfort. Patient demonstrates that she gets a burning sensation over the dorsal aspect of her fingers extending over the dorsal hand up her dorsal forearm. This was present prior to her surgery as well. Nerve conduction study: FINDINGS: Bilateral median motor nerve showed prolonged distal latency, normal amplitude and normal conduction velocity. Signs of Prosper Raven anastomosis seen, bilateral, which is a normal anatomic variant. Significant interlatency difference between right median and radial sensory nerve. Right median sensory nerve did not show response. Right median sensory nerve showed prolonged peak latency. All other nerves tested were within normal. Patient was anxious during exam, needle EMG deferred. IMPRESSION: 1. This is an abnormal study. 2. There is electrodiagnostic evidence for bilateral moderate-severe median neuropathy at the wrist, consistent with carpal tunnel syndrome. 3. There is no electrodiagnostic evidence for ulnar neuropathy, brachial plexopathy, or cervical radiculopathy. 4. Signs of Prosper Raven anastomosis seen, bilateral, which is a normal anatomic variant. Lissa Correa MD, MARGARITO 04/04/23 Psych Appearance: grossly normal Affect: normal affect Attitude: cooperative Assessment & Plan Assessment & Plan (1) Carpal tunnel syndrome of left wrist: Code(s): G56.02 - Carpal tunnel syndrome, left upper limb (2) Carpal tunnel syndrome of right wrist: Code(s): G56.01 - Carpal tunnel syndrome, right upper limb (3) De Quervain's tenosynovitis, right: Code(s): M65.4 - Radial styloid tenosynovitis [de Quervain] (4) Right wrist pain: Code(s): M25.531 - Pain in right wrist Plan Assessment and plan: 1. Right carpal tunnel syndrome, S/P release DOS: 09/04/23 Pre-operative symptoms intermittent, but daily, worse at night Now with improving but not yet normal sensation The patient appears to be doing well post-operatively I educated her about the post-operative course I explained the signs and symptoms of infection, if the patient develops any new or worsening erythema, drainage, pain, or warmth they should contact the clinic or attend the ED. I discussed activity modifications, she is to lift nothing heavier than a cellphone for the next two weeks She will perform gentle ROM exercises at home She should avoid any underwater activities for the next 5 days She should gently massage about the incision site to reduce the risk of hypersensitivity She can follow up prn 2. Left carpal tunnel syndrome, moderately severe Symptoms intermittent, but daily, worse at night 3. Bilateral generalized wrist & forearm pain Was exacerbated after a right upper extremity fall, DOI: 06/30/23 She also has pain and burning in the ulnar aspect of her wrists extending up the ulnar forearm to the elbows bilaterally, R>L. She also complains of pain not just in the 1st dorsal compartment but also extending somewhat dorsally into the 1st web space and even the index finger on the right. I educated her about this condition I discussed operative and non-operative treatment options The patient would like to proceed with surgery I did talk to her about the fact that she has pain in multiple areas in her hands risks and forearm, and that a carpal tunnel release is most likely to give some relief in the median nerve distribution, but would likely not improve her other areas of pain. She understands this. The risks and benefits of operative treatment were discussed with the patient and the patient wishes to proceed with surgery. These risks include, but are not limited to risk of damage to blood vessels, nerves, tendons, infection, recurrence, incomplete relief of preoperative symptoms, persistent pain, possible need for further surgery and the risks associated with regional blocks and anesthesia. The plan is to take the patient to the operating room sometime in the next few weeks for the following procedures: 1. Left carpal tunnel release, under local All of the preoperative paperwork including the consent was reviewed today. All the patient's questions were answered. She would like to have surgery done soon, no later than mid-October as she has to help care for her after major surgery, which is scheduled for 12/03/23. She denies Diabetes, blood thinners, heart, kidney issues She has asthma & COPD She is listed as having an allergy to Hydrocodone & Oxycodone, with complaints of GI upset 4. Possible Right de Quervain tenosynovitis Negative Scott test today Mild tenderness over the 1st dorsal compartment Managed conservatively. Scribed for Antonia Emanuel MD by Anjel Echeverria, medical laboratory technicians, on 09/17/23 at 2:50 PM, EST. Coding Level of Care Code Est Pt Level 4 (78184) Diagnoses Carpal tunnel syndrome of left wrist G56.02 Carpal tunnel syndrome of right wrist G56.01 De Quervain's tenosynovitis, right M65.4 Right wrist pain M25.531
== END 2023-09-17 14:52 | disposition home or self-care (01) ==
PROVIDERS: PCP Internal Medicine; Visit Provider Orthopaedic Surgery
DX: G56.03 Carpal tunnel syndrome, bilateral upper limbs (principal); M65.4 Radial styloid tenosynovitis [de Quervain]; M25.531 Pain in right wrist
CPT/HCPCS: 99214

== ENCOUNTER → 2023-09-17 14:16 | Outpatient (BNVA) | payer MEDICARE, MEDICAID, SELFPAY | PROVIDERS: PCP Internal Medicine; Visit Provider Orthopaedic Surgery | DX: G56.03 Carpal tunnel syndrome, bilateral upper limbs (principal); M25.531 Pain in right wrist; M65.4 Radial styloid tenosynovitis [de Quervain]; Z98.890 Other specified postprocedural states; Z48.02 Encounter for removal of sutures | CPT/HCPCS: 99212 ==

== ENCOUNTER 2023-10-08 11:29 | Outpatient (REF) | payer MEDICARE, MEDICAID, SELFPAY ==
[2023-10-16 22:43] LABS: HPV mRNA E6/E7 rflx Not Detected (Not Detected)
== END 2023-10-08 11:30 | disposition home or self-care (01) ==
LOC: HO.LNP 11:29
PROVIDERS: PCP Internal Medicine; Visit Provider Advanced Practice Midwife
DX: Z01.419 Encounter for gynecological examination (general) (routine) without abnormal findings (principal); Z11.51 Encounter for screening for human papillomavirus (HPV)
CPT/HCPCS: 87624; 88142

== ENCOUNTER 2023-10-08 11:29 | Outpatient (AMB) | payer MEDICARE, MEDICAID, SELFPAY ==
[2023-10-08 11:43] VITALS: BP 104/52; BMI 31.4
--- NOTE | 2023-10-08 11:43 | A.OFFVIS_ITS ---
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: Hide Mill Man Present (Aidyn) Allergies hydrocodone [From Vicodin] Allergy (Severe, Verified 10/08/23 11:48) Stomach Pain morphine [MORPHINE] Allergy (Severe, Verified 10/08/23 11:48) REDNESS, FEELS REALLY HOT, shortness of breath, anaphylaxis oxycodone Allergy (Severe, Verified 10/08/23 11:48) Stomach Upset amoxicillin Adverse Reaction (Severe, Verified 10/08/23 11:48) yeast infection Penicillins [PENICILLINS] Adverse Reaction (Severe, Verified 10/08/23 11:48) YEAST INFECTION Medication List - Last Reconciled 10/08/23 by Jane Corrigan CNM acetaminophen 500 mg PO Q8H PRN albuterol sulfate 90 mcg/actuation (Ventolin HFA) 2 puffs inhalation Q6H PRN cholecalciferol (vitamin D3) 50 mcg PO DAILY cyclobenzaprine 10 mg PO TID PRN esomeprazole magnesium 40 mg PO DAILY hydrocortisone 2.5% (Proctosol HC) 1 appl FL BID-QID PRN lidocaine 4% 1 appl topical BID 2 weeks linaclotide (Linzess) 145 mcg PO DAILY lorazepam (Ativan) 1 mg PO DAILY PRN metoclopramide HCl (Reglan) 5 mg PO QIDACHS nabumetone 500 mg PO BID polyethylene glycol 3350 (Miralax) 17 grams PO DAILY sucralfate 10 mL PO BEDTIME Is last menstrual period known: No (no menses since May) 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 She is noticing the hot flashes in going to menopause and she had periods in April and May and then June she did not have anything except the little bit of spotting. She is getting hot flashes but they are worse now than they were before. She has not experiencing any vaginal dryness in fact she is still very moist and is still very sexually active with her . Her main healthy she is gastrointestinal with her IBS trying to figure out what she can eat and she tried avoiding gluten but things taste so land although she also did not get full return of her taste buds after COVID entry years ago She loves milk but knows that if she drinks it she will pay the consequences gastrointestinal so if she ever does treat herself to a nice glass of milk she stays in-house. [facility] Medical History (Updated 10/08/23 @ 12:53 by Jane Corrigan CNM) Calcaneal spur of left foot Achilles tendinitis of left lower extremity Plantar fasciitis of left foot Carpal tunnel syndrome of right wrist Carpal tunnel syndrome of left wrist Epidermoid cyst of skin of back Sacrococcygeal pilonidal cyst with abscess Chest pain Right shoulder pain Left foot pain Numbness of right hand Cervical cancer screening Annual physical exam Gastroparesis Axillary abscess COVID-19 virus infection Dyspnea Bilateral lower extremity edema Personal history of nicotine dependence Asthma-COPD overlap syndrome Smoker Cohn's esophagus determined by endoscopy Internal derangement of right knee Right knee pain Chronic cough Plantar fasciitis Chronic pain of left ankle Left ankle pain Impaired fasting blood sugar Breast density Easy bruisability Breast cancer screening by mammogram Numbness of left hand Lateral epicondylitis of left elbow Bicipital tendinitis of left shoulder Back pain Arthritis GERD (gastroesophageal reflux disease) Panic attacks Hx of tuberculosis Palpitations History of IBS Hypercholesterolemia Hip pain Obesity (BMI 30-39.9) Asthma Tobacco abuse Surgical History (Updated 10/08/23 @ 11:53 by DOMENICA Guzmán) Hx of carpal tunnel repair History of loop electrosurgical excision procedure (LEEP) History of tubal ligation History of colonoscopy History of esophagogastroduodenoscopy (EGD) History of surgical removal of pilonidal cyst History of meniscectomy of left knee History of appendectomy History of section Family History Father Tongue cancer Mother CVD (cardiovascular disease) Maternal Aunt Colon cancer Maternal Uncle Colon cancer Brother CVD (cardiovascular disease) Substance abuse Sister CVD (cardiovascular disease) Social History Household Members: Spouse and Children Housing: Apartment Are you a primary wound care specialist to a significant other at home: No Do you presently have visiting nurse or other home services: No Alcohol intake: former Patient Tobacco Use Status: Current everyday Tobacco user Tobacco use type: Cigarette Cigarettes Per Day: 10 Years Smoked: 30 e-Cigarette/Vaping Use: Never Used Second Hand Smoke Exposure: Yes Substance Use Type: Marijuana service: No Current occupational status: disabled Cognitive needs: No Hearing needs: No Vision needs: No Female Reproductive History Menstrual Age of Menarche: 12 control method: other (tubal ligation) Total pregnancies: 3 Full term: 2 Number of Living Children: 2 Ab spontaneous: 1 Date of last pap smear: 09/13/22 (negative) History of abnormal pap smear: Yes (1997 ENRRIQUE 3) Date of Mammogram: 12/18/22 Physical Exam Vital Signs: Last Vital Signs BP 104/52 L 10/08/23 11:43 BMI result Body Mass Index 31.4 Const General: healthy appearing, comfortable, no acute distress, well developed and alert Nutritional Appearance: average body habitus Orientation/consciousness: patient oriented x3 Limitations: no limitations HEENT Head: Yes normocephalic Neck Neck: Yes normal visual inspection Chest Chest palpation & inspection: normal inspection of the chest Breast/axilla inspection: normal inspection of the breasts and normal inspection of the axillae Breast/axilla palpation: normal palpation of the breasts and normal palpation of the axillae Resp Effort & Inspection: normal respiratory effort GI Inspection: Yes normal to inspection, No Abdominal wall edema and No distended Palpation (GI): Soft to palpation and nontender Other: External exam within normal limits vagina pink and moist cervix nulliparous pink moist uterus small firm anteverted mobile nontender normal clear secretions. Good tone with Kegel. General: Yes bladder normal to palpation External Female Exam: normal external appearance and normal appearance of the urethra Speculum Exam - Vagina: normal appearance of the vagina, normal palpation and normal vaginal discharge Speculum Exam - Cervix: normal appearance of the cervix, normal palpation and nontender Bimanual exam- vagina & uterus: normal bimanual exam, normal palpation, uterine size normal, bladder normal to palpation, consistency normal, normal palpation, uterine mobility normal, uterine shape normal, No Cervical tenderness present, non-tender and no cervical motion tenderness Bimanual Exam- Adnexa, other: normal adnexae, no masses, normal and No adnexal tenderness Neuro General: patient oriented x3 Assessment & Plan Assessment & Plan (1) Well woman exam with routine gynecological exam: Code(s): Z01.419 - Encounter for gynecological examination (general) (routine) without abnormal findings (2) History of loop electrosurgical excision procedure (LEEP): Comment: (LEEP = ENRRIQUE III on 05/26/98, cervical bx = squamous cell dysplasia/HPV changes on 02/22/99 -Dr. Tomer Lombardo, [facility] [place]); 09/13/2022 Pap is negative with negative HPV. Code(s): Z98.890 - Other specified postprocedural states (3) Perimenopausal symptoms: Code(s): N95.1 - Menopausal and female climacteric states Plan -----Discussed in this visit the following: healthy balanced diet, regular and consistent exercise, getting recommended health screens, doing the best she can for her particular health concerns, kegel exercises, pap smear screening and followup recommendations, mammography screening and SBE, normal changes in cycles in her life stage--- Pap repeated this year last year's was negative previous Pap was 2016 and she did have history of abnormal Paps in leaps in re past. She says she is up-to-date on her mammograms. . Discussed in particular making sure she gets enough calcium in her diet and given her GI disturbances suggested speaking with UTI providers to be clear about what would be the best source of calcium for her. So many things affect her IBS -discussed menopause and how to deal with the symptoms in great detail discussed the range of experiences the perimenopause. ---Discussed normal changes that happen premenapausally, perimenapausally, and postmenopausally, and ways to handle them. Discussed the normal variation, and the range of experiences that women experience. Discussed nutrition, health, need for exercise, both weight-bearing and aerobic. Also discussed the normal changes that happen with vaginal mucosal thinning and sensitivity, and simple more natural ways of handling these challenges. Orders: Orders Pap Smear Today Z12.4 - Encounter for screening for malignant neoplasm of cervix Coding Level of Care Code Est Pt Prev Care 40-64y(82329) Diagnoses Well woman exam with routine gynecological exam Z01.419 History of loop electrosurgical excision procedure (LEEP) Z98.890 Perimenopausal symptoms N95.1
== END 2023-10-08 13:00 | disposition home or self-care (01) ==
PROVIDERS: PCP Internal Medicine; Visit Provider Advanced Practice Midwife
DX: Z01.419 Encounter for gynecological examination (general) (routine) without abnormal findings (principal); Z98.890 Other specified postprocedural states; N95.1 Menopausal and female climacteric states
CPT/HCPCS: 99396

== ENCOUNTER 2023-10-13 06:57 | Day surgery (SDC) | payer MEDICARE, MEDICAID, SELFPAY ==
[2023-10-13 07:57] VITALS: BMI 31.4
[2023-10-13 08:00] VITALS: BP 135/88; PULSE 81; RESP 20; TEMP 36.6; O2SAT 98
--- NOTE | 2023-10-13 08:03 | W.PM.OPN ---
Operative Note Operative Note Date of Service: 10/13/23 Narrative: Preop diagnosis: 1. Left Carpal tunnel syndrome Postop diagnosis: same Procedure: 1. Left Carpal tunnel release Surgeon: Antonia Emanuel MD Anesthesia: local block using 1% lidocaine with epinephrine Findings: Thickened transverse carpal ligament. EBL: Less than 5 mL Specimens: None Complications: None Disposition: Brought to recovery room in stable condition Plan: Follow-up for 10-14 days for wound check and suture removal Indications: The patient is 53 years old, with left carpal tunnel syndrome that has been unresponsive to nonoperative management. The risks and benefits of operative treatment including but not limited to risk of damage to blood vessels, nerves, tendons, infection, persistent pain, persistent symptoms, or possible need for additional surgery were discussed with the patient and the patient wishes to proceed with surgery. Procedure: Once consent was obtained a local block was performed using a combination of 1% lidocaine with epinephrine. The patient was then brought back to the operating suite and placed on the operative table in supine position. The left upper extremity was prepped and draped in a standard surgical fashion. Once assured that we had a good block, a 2.0 cm longitudinal incision was made centered over the carpal tunnel. The incision was made through the skin to the subcutaneous tissues using a #15 blade. Dissection was made down to the level of the transverse carpal ligament with care being taken to protect the palmar cutaneous nerve. Once the transverse carpal ligament was clearly visualized, a longitudinal incision was made in the transverse carpal ligament 1st using a #15 blade, then using tenotomy scissors under direct visualization. Care was taken to look for and protect the motor branch of the median nerve when seen in this area. Once satisfied with our carpal tunnel release the wound was copiously irrigated with normal saline and hemostasis was obtained with a brief period of local pressure. The skin edges were reapproximated with some 5.0 nylon suture material and a sterile dressing was applied. The patient appears to have tolerated the procedure well and with no complications. All digits were well vascularized at the conclusion of the case.
--- NOTE | 2023-10-13 08:59 | MHC.SHP ---
Pre-Procedural Eval Section A - 24 Hr Update-Section A only Date of Service: 10/13/23 The patient is an INPATIENT: No Changes since office visit: No Cold of Flu in the past 2 weeks, No New Medical Problems, No Changes in Medication and No Patient answered all questions The patient has been examined within 24 hours of the surgical procedure. The History & Physical has been completed within 30 days and I have reviewed it.: Yes Section B - Complete if H&P > 30 days Chief Complaint: Carpal tunnel syndrome, left upper limb Allergies: Allergies Allergy/AdvReac Type Severity Reaction Status Date / Time hydrocodone [From Vicodin] Allergy Severe Stomach Verified 10/08/23 11:48 Pain morphine [MORPHINE] Allergy Severe REDNESS, Verified 10/08/23 11:48 FEELS REALLY HOT, shortness of breath, anaphylaxis oxycodone Allergy Severe Stomach Verified 10/13/23 07:55 Upset amoxicillin AdvReac Severe yeast Verified 10/08/23 11:48 infection Penicillins [PENICILLINS] AdvReac Severe YEAST Verified 10/08/23 11:48 INFECTION Exam Exam Comment: Left carpal tunnel syndrome Plan Diagnosis/Plan: Unchanged I have reviewed the history and physical and performed a pertinent physical examination on my patient. No changes have occurred unless specified. Time Spent With Patient Time: Total time managing care of this patient today ____ minutes.
[2023-10-13 11:10] VITALS: BP 124/79; PULSE 66; RESP 16; O2SAT 97
== END 2023-10-13 11:12 | disposition home or self-care (01) ==
PROVIDERS: PCP Internal Medicine; Visit Provider Orthopaedic Surgery
PROC: (CPT 64721; principal; 2023-10-13 08:20)
DX: G56.02 Carpal tunnel syndrome, left upper limb (principal); R20.0 Anesthesia of skin; M77.12 Lateral epicondylitis, left elbow; J44.9 Chronic obstructive pulmonary disease, unspecified; R73.01 Impaired fasting glucose; E66.9 Obesity, unspecified; Z68.31 Body mass index [BMI] 31.0-31.9, adult; Z88.0 Allergy status to penicillin; Z88.1 Allergy status to other antibiotic agents; Z88.5 Allergy status to narcotic agent; Z86.11 Personal history of tuberculosis; F17.210 Nicotine dependence, cigarettes, uncomplicated; Z98.890 Other specified postprocedural states
CPT/HCPCS: 64721; J0171

== ENCOUNTER → 2023-10-13 06:57 | Outpatient (BNV) | payer MEDICARE, MEDICAID, SELFPAY | PROVIDERS: PCP Internal Medicine; Visit Provider Orthopaedic Surgery | DX: G56.02 Carpal tunnel syndrome, left upper limb (principal) | CPT/HCPCS: 64721 ==

== ENCOUNTER 2023-10-28 08:32 | Outpatient (AMB) | payer MEDICARE, MEDICAID, SELFPAY ==
--- NOTE | 2023-10-28 08:34 | MHC.OFFVIS ---
Vital Signs 10/28/23 08:37 Height 5 ft 3 in Weight 177 lb BMI 31.4 Intake Visit Reasons: PO LT CTR 10/13/23 AR Intake Note: Jessy 53 year old female who presents today for her PO visit for her left CTR 10/13/[address] Emanuel. Patient reports she is having numbness and burning in her left wrist that radiates to the ulnar aspect of hand. Sutures removed and steri strips applied. Patient mentioned she is having constant pain, swelling, and burning of the right wrist at the incision site. Allergies hydrocodone [From Vicodin] Allergy (Severe, Verified 10/28/23 08:52) Stomach Pain morphine [MORPHINE] Allergy (Severe, Verified 10/28/23 08:52) REDNESS, FEELS REALLY HOT, shortness of breath, anaphylaxis oxycodone Allergy (Severe, Verified 10/28/23 08:52) Stomach Upset amoxicillin Adverse Reaction (Severe, Verified 10/28/23 08:52) yeast infection Penicillins [PENICILLINS] Adverse Reaction (Severe, Verified 10/28/23 08:52) YEAST INFECTION HPI HPI PO LT CTR 10/13/23 AR: Details: Jessy is a 53 year old right hand dominant woman who returns S/P left carp/al tunnel release, DOS: 10/13/23. She is also S/P right carpal tunnel release, DOS: 09/04/23. She says her sensation is improving abut not yet normal in her left hand. She says she is noticing new numbness in the left ring & small fingers. She also complains of a burning sensation in her left wrist, which radiates to the ulnar aspect of her hand. However she continues to complain of right radial sided wrist pain, & burning in her palm. This was present prior to her right carpal tunnel release. She has already met with OT hand therapy and her next appointment is on 10/30/23. She claims that she is disabled after having had a heart attack when she was 36. [facility] Medical History Calcaneal spur of left foot Achilles tendinitis of left lower extremity Plantar fasciitis of left foot Carpal tunnel syndrome of right wrist Carpal tunnel syndrome of left wrist Epidermoid cyst of skin of back Sacrococcygeal pilonidal cyst with abscess Chest pain Right shoulder pain Left foot pain Numbness of right hand Cervical cancer screening Annual physical exam Gastroparesis Axillary abscess COVID-19 virus infection Dyspnea Bilateral lower extremity edema Personal history of nicotine dependence Asthma-COPD overlap syndrome Smoker Cohn's esophagus determined by endoscopy Internal derangement of right knee Right knee pain Chronic cough Plantar fasciitis Chronic pain of left ankle Left ankle pain Impaired fasting blood sugar Breast density Easy bruisability Breast cancer screening by mammogram Numbness of left hand Lateral epicondylitis of left elbow Bicipital tendinitis of left shoulder Back pain Arthritis GERD (gastroesophageal reflux disease) Panic attacks Hx of tuberculosis Palpitations History of IBS Hypercholesterolemia Hip pain Obesity (BMI 30-39.9) Asthma Tobacco abuse Surgical History Hx of carpal tunnel repair History of loop electrosurgical excision procedure (LEEP) History of tubal ligation History of colonoscopy History of esophagogastroduodenoscopy (EGD) History of surgical removal of pilonidal cyst History of meniscectomy of left knee History of appendectomy History of section Family History Father Tongue cancer Mother CVD (cardiovascular disease) Maternal Aunt Colon cancer Maternal Uncle Colon cancer Brother CVD (cardiovascular disease) Substance abuse Sister CVD (cardiovascular disease) Social History Household Members: Spouse and Children Housing: Apartment Are you a primary plant care worker to a significant other at home: No Do you presently have visiting nurse or other home services: No Alcohol intake: former Comment: counts correct Patient Tobacco Use Status: Current everyday Tobacco user Tobacco use type: Cigarette Cigarettes Per Day: 10 Years Smoked: 30 e-Cigarette/Vaping Use: Never Used Second Hand Smoke Exposure: Yes Substance Use Type: Marijuana service: No Current occupational status: disabled Cognitive needs: No Hearing needs: No Vision needs: No Female Reproductive History Menstrual Age of Menarche: 12 Review of Systems Const All systems reviewed & are unremarkable except as noted in HPI and below Physical Exam Vital Signs: BMI result Body Mass Index 31.4 Const General: no acute distress and alert Orientation/consciousness: patient oriented x3 Neuro General: patient oriented x3 Extrem Other: The patient was alert oriented and in no acute distress The incision is healing well with no erythema drainage or evidence of infection. Sutures removed and Steri-Strips applied Sensation is improving but not yet normal in the median nerve distribution. She is noticing more numbness & tingling in her ring & small finger She can make a fist and fully extend all of her digits. Good APB muscle belly firing She continues to have pain in the palmar aspect & 1st dorsal compartment of her right hand Nerve conduction study: FINDINGS: Bilateral median motor nerve showed prolonged distal latency, normal amplitude and normal conduction velocity. Signs of Prosper Raven anastomosis seen, bilateral, which is a normal anatomic variant. Significant interlatency difference between right median and radial sensory nerve. Right median sensory nerve did not show response. Right median sensory nerve showed prolonged peak latency. All other nerves tested were within normal. Patient was anxious during exam, needle EMG deferred. IMPRESSION: 1. This is an abnormal study. 2. There is electrodiagnostic evidence for bilateral moderate-severe median neuropathy at the wrist, consistent with carpal tunnel syndrome. 3. There is no electrodiagnostic evidence for ulnar neuropathy, brachial plexopathy, or cervical radiculopathy. 4. Signs of Prosper Raven anastomosis seen, bilateral, which is a normal anatomic variant. Lissa Correa MD, MARGARITO 04/04/23 Psych Appearance: grossly normal Affect: normal affect Attitude: cooperative Assessment & Plan Assessment & Plan (1) Carpal tunnel syndrome of left wrist: Code(s): G56.02 - Carpal tunnel syndrome, left upper limb Category: Medical (2) Carpal tunnel syndrome of right wrist: Code(s): G56.01 - Carpal tunnel syndrome, right upper limb Category: Medical (3) De Quervain's tenosynovitis, right: Code(s): M65.4 - Radial styloid tenosynovitis [de Quervain] Category: Medical (4) Right wrist pain: Code(s): M25.531 - Pain in right wrist Category: Medical Plan Assessment and plan: 1. Left carpal tunnel syndrome, S/P release DOS: 10/13/23 Pre-operative symptoms intermittent, but daily, worse at night Now with improving but not yet normal sensation The patient appears to be doing well post-operatively I educated her about the post-operative course I discussed activity modifications, she is to lift nothing heavier than a cellphone for the next two weeks She will perform gentle ROM exercises at home She should avoid any underwater activities for the next 5 days She should gently massage about the incision site to reduce the risk of hypersensitivity Of note, the patient did mention that she is appreciating some numbness and tingling in the small and ring fingers of the left hand she has improvement in the median nerve distribution. I asked her to be mindful of this and if it continues I would like for her to let me know about this at her next appointment. 2. Right carpal tunnel syndrome, S/P release DOS: 09/04/23 Pre-operative symptoms intermittent, but daily, worse at night Now with improving but not yet normal sensation She still has some discomfort in the palm of her right hand extending to the volar wrist, with some improvement She will attend OT hand therapy to work on desensitization 3. Bilateral generalized wrist & forearm pain, R>L Was exacerbated after a right upper extremity fall, DOI: 06/30/23 From her visit on 09/17/23: She also has pain and burning in the ulnar aspect of her wrists extending up the ulnar forearm to the elbows bilaterally, R>L. She also complains of pain not just in the 1st dorsal compartment but also extending somewhat dorsally into the 1st web space and even the index finger on the right. I did talk to her about the fact that she has pain in multiple areas in her hands risks and forearm, and that a carpal tunnel release likely would not improve her areas of pain. She expressed her understanding prior to surgery. 4. Possible Right de Quervain tenosynovitis Negative Scott test on 09/17/23 Mild tenderness over the 1st dorsal compartment Managed conservatively. She will attend OT hand therapy to work on this and PO right carpal tunnel release. I discussed activity modification, she is to limit or avoid any heavy or repetitive pinching, gripping, or scissoring activities. She will follow up next available appointment to see how she is doing. We may consider an injection at this time. Scribed for Antonia Emanuel MD by Anjel Echeverria, caregivers non medical, on 10/28/23 at 9:10 AM, EST. Coding Level of Care Code Global (89479) Diagnoses Carpal tunnel syndrome of left wrist G56.02 Carpal tunnel syndrome of right wrist G56.01 De Quervain's tenosynovitis, right M65.4 Right wrist pain M25.531
[2023-10-28 08:37] VITALS: BMI 31.4
== END 2023-10-28 09:33 | disposition home or self-care (01) ==
PROVIDERS: PCP Internal Medicine; Visit Provider Orthopaedic Surgery
DX: G56.03 Carpal tunnel syndrome, bilateral upper limbs (principal); M65.4 Radial styloid tenosynovitis [de Quervain]; M25.531 Pain in right wrist
CPT/HCPCS: 99024

== ENCOUNTER → 2023-10-28 08:32 | Outpatient (BNVA) | payer MEDICARE, MEDICAID, SELFPAY | PROVIDERS: PCP Internal Medicine; Visit Provider Orthopaedic Surgery | DX: Z48.811 Encounter for surgical aftercare following surgery on the nervous system (principal) | CPT/HCPCS: 99212 ==

== ENCOUNTER 2023-11-24 13:00 | Outpatient (RCR) | payer MEDICARE, MEDICAID, SELFPAY ==
--- NOTE | 2023-10-20 14:24 | MHC.OT.EP ---
[address] [phone] Occupational Therapy Plan of Care Patient Name: Jessy Dolan Date of Evaluation: 10/20/23 Diagnosis: S/P R CTR Pain Location: R HAND 6/10 AT REST R HAND 8/10 WITH USE/ GRIPPING (PALM OF R HAND, SURGICAL SITE) Pain Score: 6-8/10 Pain Scale Used: Numeric (0 - 10) Aggravating Factors: GRIPPING, HOLDING ITEMS, USING R HAND Alleviating Factors: MASSAGE, TYLENOL PRN, USING HEAT > ICE Assessment: 53 Y/O F POST OP R CTR ON 09/04/[address] ALARCON. Pt REPORTING PILLAR PAIN THROUGH R PALM AND WRIST, WELL INCREASED INFLAMMATION. Pt EXPERIENCING DIFFICULTIES PERFORMING ADLs. A 53% LIMITATION IS REPORTED PER THE QUICK DASH ASSESSMENT. ONGOING SKILLED OT IS WARRANTED TO ADDRESS DOMINANT RUE IMPAIRMENTS INCLUDING: ROM, STRENGTH, DESENSITIZATION, COORDINATION, EDEMA MANAGEMENT AND RETURN TO ADLs/IADLs. OF NOTE: Pt ALSO S/P L CTR WITH DR ALARCON ON 10/13/23 (ORDER ONLY FOR RUE AT THIS TIME) Frequency and Duration: The patient will be seen 2X/WEEK FOR 4 WEEKS Short Term Goals: IND HEP IND EDEMA MANAGEMENT STRATGIES IND USE OF COLD/ ICE MASSAGE R WRIST FLEX TO 55 DEGREES IND ADL CLOSURE BOARD RUE [employer] Goals: TOLERATE LIFTING >10 POUNDS FOR IADLs WITH <4/10 PAIN R GROSS GRASP >40 POUNDS TOLERATE >8 MINS OF ROUGH TEXTURES TO R PALM Treatment Plan: Therapeutic Exercise Therapeutic Activity Home Exercise Program Splinting Neuro Re-ed Patient Education Desensitization/Sensory Re-ed Edema Control ADL Training Ultrasound NMES Iontophoresis Paraffin Fluidotherapy MHP Cold Packs Joint Mobilization Soft Tissue Mobilization Kinesiotaping Other (see comments) Electronically Signed By: URSULA LOCKE, OTR/L Please Sign and return to therapist. Thank you once again for your referral.
--- NOTE | 2023-11-26 07:18 | MHC.OT.DC ---
[address] [phone] F: [phone] Occupational Therapy Discharge Note Patient Name: Jessy Dolan Provider: Antonia Emanuel Diagnosis: S/P R CTR Date of Surgery: 09/04/23 Date of Evaluation: 10/20/23 Date of Discharge: 11/24/23 Treatments to Date: 8 Cancellations to Date: 2 No Shows to Date: 0 Discharge Status: Achieved Goals Improved Function Independent with HEP Discharge Summary: MS DOLAN HAS IMPROVED ALL ASPECTS OF HER RUE DURING HER COURSE OF OT, INCLUDING ROM, STRENGTH, PARTICIPATION IN ADLs AND IADLs, WELL DESENSITIZATION. EXPECT Pt TO CONT TO IMPROVE HER R UE STRENGTH WITH CONTINUATION OF HER HEP. WILL D/C OT SERVICES AT THIS TIME. MAY BENEFIT FROM OUTPATIENT OT FOR HER LUE ONCE SHE ATTENDS HER F/U WITH ON 12/09/23. Electronically Signed By: URSUAL LOCKE OTR/L Reviewed/agree with student documentation: N/A Therapist: Please Sign and return to therapist, thank you for your referral.
== END 2023-11-26 07:20 | disposition home or self-care (01) ==
LOC: HO.OT 13:00
PROVIDERS: PCP Internal Medicine; Visit Provider Orthopaedic Surgery
DX: G56.01 Carpal tunnel syndrome, right upper limb (principal); T78.40XD Allergy, unspecified, subsequent encounter
CPT/HCPCS: 97110; 97140; 97166

== ENCOUNTER 2023-12-09 09:08 | Outpatient (AMB) | payer MEDICARE, MEDICAID, SELFPAY ==
--- NOTE | 2023-12-09 09:09 | MHC.OFFVIS ---
Vital Signs 12/09/23 09:10 Height 5 ft 3 in Weight 165 lb BMI 29.2 Handedness Right Intake Visit Reasons: New Prob - Left wrist pain Intake Note: Jessy is a 53 year old right hand dominant female who presents today for new problem of left wrist pain. Patient reports burning and tingling along the volar ascpect of the wrist that she describes as needles poking her . Her left hand occasionally becomes swollen and red. OT told her to try the exercises she has for her right hand on the left to see if they improve her symptoms but she states she found no improvement. She ices her hand every 30 min to an hour to help manage her symptoms. She has tried Tylenol but is finding mild relief. She states she received a phone call to conduct a nerve study but refuses. Allergies hydrocodone [From Vicodin] Allergy (Severe, Verified 12/09/23 09:21) Stomach Pain morphine [MORPHINE] Allergy (Severe, Verified 12/09/23 09:21) REDNESS, FEELS REALLY HOT, shortness of breath, anaphylaxis oxycodone Allergy (Severe, Verified 12/09/23 09:21) Stomach Upset amoxicillin Adverse Reaction (Severe, Verified 12/09/23 09:21) yeast infection Penicillins [PENICILLINS] Adverse Reaction (Severe, Verified 12/09/23 09:21) YEAST INFECTION HPI HPI New Prob - Left wrist pain: Details: Jessy is a 53 year old right hand dominant woman who returns to discuss her left hand pain & numbness Her chief complaint today is of a continued burning pain in the ulnar aspect of her left wrist, just ulnar to the carpal tunnel incision. She also complains of pain in the dorsal ulnar aspect of her hand, extending to the dorsal ulnar aspect of her forearm. She describes this pain as needles , as well as a burning sensation. She says this has not improved with home exercises. She is S/P left carpal tunnel release, DOS: 10/13/23, and says she has normal sensation in the median nerve distribution, which she is happy about. She continues to complain of numbness in the left ring & small fingers. She says this is intermittent and occasional, primarily at night. She says this wakes her up ~4 times weekly. She refused to complete her recently ordered NCS while she is still feeling pain in her left wrist. She is S/P right carpal tunnel release, DOS: 09/04/23. She says her sensation in her right hand is normal, which she is happy about. She continues to complain of radial sided wrist pain after completing her OT hand therapy. She feels this has improved but not resolved. She also complains oif a new pain in the dorsal aspect of her index finger, along with a burning sensation in the radial eponychial area of the index finger. She finds some relief from icing this. She claims that she is disabled after having had a heart attack when she was 36. [facility] Medical History Calcaneal spur of left foot Achilles tendinitis of left lower extremity Plantar fasciitis of left foot Carpal tunnel syndrome of right wrist Carpal tunnel syndrome of left wrist Epidermoid cyst of skin of back Sacrococcygeal pilonidal cyst with abscess Chest pain Right shoulder pain Left foot pain Numbness of right hand Cervical cancer screening Annual physical exam Gastroparesis Axillary abscess COVID-19 virus infection Dyspnea Bilateral lower extremity edema Personal history of nicotine dependence Asthma-COPD overlap syndrome Smoker Cohn's esophagus determined by endoscopy Internal derangement of right knee Right knee pain Chronic cough Plantar fasciitis Chronic pain of left ankle Left ankle pain Impaired fasting blood sugar Breast density Easy bruisability Breast cancer screening by mammogram Numbness of left hand Lateral epicondylitis of left elbow Bicipital tendinitis of left shoulder Back pain Arthritis GERD (gastroesophageal reflux disease) Panic attacks Hx of tuberculosis Palpitations History of IBS Hypercholesterolemia Hip pain Obesity (BMI 30-39.9) Asthma Tobacco abuse Surgical History Hx of carpal tunnel repair History of loop electrosurgical excision procedure (LEEP) History of tubal ligation History of colonoscopy History of esophagogastroduodenoscopy (EGD) History of surgical removal of pilonidal cyst History of meniscectomy of left knee History of appendectomy History of section Family History Father Tongue cancer Mother CVD (cardiovascular disease) Maternal Aunt Colon cancer Maternal Uncle Colon cancer Brother CVD (cardiovascular disease) Substance abuse Sister CVD (cardiovascular disease) Social History Household Members: Spouse and Children Housing: Apartment Are you a primary career development coordinator to a significant other at home: No Do you presently have visiting nurse or other home services: No Alcohol intake: former Comment: counts correct Patient Tobacco Use Status: Current everyday Tobacco user Tobacco use type: Cigarette Cigarettes Per Day: 10 Years Smoked: 30 e-Cigarette/Vaping Use: Never Used Second Hand Smoke Exposure: Yes Substance Use Type: Marijuana service: No Current occupational status: disabled Cognitive needs: No Hearing needs: No Vision needs: No Female Reproductive History Menstrual Age of Menarche: 12 Review of Systems Const All systems reviewed & are unremarkable except as noted in HPI and below Physical Exam Vital Signs: BMI result Body Mass Index 29.2 Const General: no acute distress and alert Orientation/consciousness: patient oriented x3 Neuro General: patient oriented x3 Extrem Other: Evaluation of Bilateral Upper Extremity: The patient is alert, oriented, and in no acute distress Neuro: Normal sensation today in the left ulnar nerve distribution. Normal sensation in the left and right median nerve distribution Median, Ulnar, Radial nerves motor and sensory intact and sensation is normal to the tips of all digits of the right hand Vascular: Cap refill brisk ROM: She can make a fist and extend all of her digits in both hands with no pain. Smooth wrist range of motion grossly bilaterally without discomfort. The incision over the left carpal tunnel is now well healed with no evidence of infection. She demonstrates that she gets a burning sensation over skin just ulnar to the incision site. Again no swelling erythema or evidence of infection. Mild ulnar-sided pillar tenderness. I did check a Scott test on the right again today and it was negative. Nerve conduction study: FINDINGS: Bilateral median motor nerve showed prolonged distal latency, normal amplitude and normal conduction velocity. Signs of Prosper Raven anastomosis seen, bilateral, which is a normal anatomic variant. Significant interlatency difference between right median and radial sensory nerve. Right median sensory nerve did not show response. Right median sensory nerve showed prolonged peak latency. All other nerves tested were within normal. Patient was anxious during exam, needle EMG deferred. IMPRESSION: 1. This is an abnormal study. 2. There is electrodiagnostic evidence for bilateral moderate-severe median neuropathy at the wrist, consistent with carpal tunnel syndrome. 3. There is no electrodiagnostic evidence for ulnar neuropathy, brachial plexopathy, or cervical radiculopathy. 4. Signs of Prosper Raven anastomosis seen, bilateral, which is a normal anatomic variant. Lissa Correa MD, MARGARITO 04/04/23 Psych Appearance: grossly normal Affect: normal affect Attitude: cooperative Assessment & Plan Assessment & Plan (1) Left wrist pain: Code(s): M25.532 - Pain in left wrist Category: Medical (2) Carpal tunnel syndrome of left wrist: Code(s): G56.02 - Carpal tunnel syndrome, left upper limb Category: Medical (3) De Quervain's tenosynovitis, right: Code(s): M65.4 - Radial styloid tenosynovitis [de Quervain] Category: Medical (4) Carpal tunnel syndrome of right wrist: Code(s): G56.01 - Carpal tunnel syndrome, right upper limb Category: Medical (5) Right wrist pain: Code(s): M25.531 - Pain in right wrist Category: Medical Plan Assessment and plan: 1. Bilateral dorsal ulnar-sided wrist & forearm pain Today's complaint primarily in the left wrist, no mention of her right wrist at this time. She complains of a painful burning just ulnar to the carpal tunnel release scar with some mild pillar pain, along with pain in the dorsal aspect of her hand, & dorsal ulnar aspect of her forearm. From her visit on 09/17/23: She also has pain and burning in the ulnar aspect of her wrists extending up the ulnar forearm to the elbows bilaterally, R>L. She made no mention of pain in her right wrist or forearm today. I recommend she work on ROM exercises at home, and to massage about these areas to improve her hypersensitivity. If she continues to have difficulty & pain she can follow up to discuss treatment options. 2. Left hand numbness In the ulnar nerve distribution Symptoms intermittent & occasional, primarily at night. Patient reports numbness 4/7 nights a week currently She refused her recently ordered NCS from 11/03/23, and is not interested in a repeat study at this time She says when her other pain has resolved she would be open to discussing a repeat study I explained that if her symptoms persist or worsen, she would benefit from a repeat NCS to assess for cubital tunnel syndrome 3. Left carpal tunnel syndrome, S/P release DOS: 10/13/23 Pre-operative symptoms intermittent, but daily, worse at night Now with normal sensation Mild ulnar sided pillar tenderness & burning just ulnar to the carpal tunnel incision 4. Possible Right de Quervain tenosynovitis Negative Scott test today in clinic Mild tenderness over the 1st dorsal compartment Managed conservatively with OT hand therapy We will continue to manage this conservatively with home exercises. 5. Right carpal tunnel syndrome, S/P release DOS: 09/04/23 Pre-operative symptoms intermittent, but daily, worse at night Now with normal sensation Scribed for Antonia Emanuel MD by Anjel Echeverria, medical doctor md/medical director, on 12/09/23 at 9:30 AM, EST. Scribe Plan - Not visible on output: Scribed for Antonia Emanuel MD by Anjel Echeverria, medical doctor md/medical director, on [ ] at [ ], EST. Coding Level of Care Code Est Pt Level 4 (66419) Diagnoses Left wrist pain M25.532 Carpal tunnel syndrome of left wrist G56.02 De Quervain's tenosynovitis, right M65.4 Carpal tunnel syndrome of right wrist G56.01 Right wrist pain M25.531
[2023-12-09 09:10] VITALS: BMI 29.2
== END 2023-12-09 09:31 | disposition home or self-care (01) ==
PROVIDERS: PCP Internal Medicine; Visit Provider Orthopaedic Surgery
DX: G56.03 Carpal tunnel syndrome, bilateral upper limbs (principal); M65.4 Radial styloid tenosynovitis [de Quervain]
CPT/HCPCS: 99024

== ENCOUNTER → 2023-12-09 09:08 | Outpatient (BNVA) | payer MEDICARE, MEDICAID, SELFPAY | PROVIDERS: PCP Internal Medicine; Visit Provider Orthopaedic Surgery | DX: M25.532 Pain in left wrist (principal); M25.531 Pain in right wrist; M65.4 Radial styloid tenosynovitis [de Quervain]; G56.03 Carpal tunnel syndrome, bilateral upper limbs | CPT/HCPCS: 99212 ==

== ENCOUNTER 2023-12-10 07:44 | Outpatient (AMB) | payer MEDICARE, MEDICAID, SELFPAY ==
[2023-12-10 07:48] VITALS: BP 117/74; PULSE 77; BMI 31.5
--- NOTE | 2023-12-10 07:48 | A.OFFVIS_ITS ---
Vital Signs 12/10/23 07:48 Height 5 ft 3 in Weight 178 lb BMI 31.5 BP 117/74 Blood Pressure Location Lt brachial Position Sitting Pulse 77 Intake Visit Reasons: R/S from 12/03/2023 Intake Note: Jessy presents in the office as a follow up. CC: She states that she has been getting a sharp pain under her rib on the left side. She states that when she coughs and bends over she feels like the hernia effects her. The hernia is on the right side but she is not sure if this is related to that. States that she has IBS so she suffers from both constipation and diarrhea. Healthcare Insurance Sales Agent Required: No Allergies hydrocodone [From Vicodin] Allergy (Severe, Verified 12/10/23 07:52) Stomach Pain morphine [MORPHINE] Allergy (Severe, Verified 12/10/23 07:52) REDNESS, FEELS REALLY HOT, shortness of breath, anaphylaxis oxycodone Allergy (Severe, Verified 12/10/23 07:52) Stomach Upset amoxicillin Adverse Reaction (Severe, Verified 12/10/23 07:52) yeast infection Penicillins [PENICILLINS] Adverse Reaction (Severe, Verified 12/10/23 07:52) YEAST INFECTION HPI HPI R/S from 12/03/2023: Details: LAST VISIT: Gastroparesis Cohn's esophagus determined by endoscopy Gastroesophageal reflux disease Constipation Postprandial abdominal bloating Plan Discussed with patient avoiding dietary triggers. Patient drinks 5-6 cups of coffee a day, patient was encouraged to drink 1-2 cups a day. Patient will eat smaller meals and more often. Continue of smoking cessation. Continue Reglan before meals. Patient will increase Linzess to 145 mcg daily. Patient was encouraged to avoid ibuprofen, may use Tylenol. Continue taking as omeprazole in the morning and sucralfate at bedtime. For patient was encouraged to increase fluid intake and activity to promote better bowel motility. I will see patient in 6 months, sooner on as needed basis. Patient is agreeable to this plan and verbalizes understanding of instructions. She was given the opportunity to ask questions and all questions answered. ? Thank you for allowing me to participate in her care Medications New linaclotide (Linzess) 145 mcg PO DAILY 30 caps 2RF Refilled esomeprazole magnesium 40 mg PO DAILY 90 caps 2RF sucralfate 10 mL PO BEDTIME 400 mL 3RF K21.9 metoclopramide HCl (Reglan) hansa un comprimido 30 minutos antes de las comidas 5 mg PO QIDACHS 120 tabs 4RF K31.84 Discontinued linaclotide (Linzess) Discontinued Reason: Doctor's Order 72 mcg PO DAILY 30 caps 2RF TODAY'S VISIT: Patient is here today for follow-up. Patient reports that she continues to have epigastric pain. Patient reports that the pain is not always there after meals. Patient states that pain is worse when she bends over. Patient states that she is moving her bowels well. Patient is unsure if she is taking Linzess right now patient states that she is not taking sucralfate at this time. Patient is taking Nexium in the morning and takes Reglan 3 to 4 times a day. Patient reports that she is moving her bowels better, however occasionally patient will have loose stools. Patient denies any nausea or vomiting. Patient reports epigastric pain and pain under her right rib that feels like stabbing and burning with movement. Patient also reports acid reflux occasionally. Postprandial increase mucus production. Patient not sure which food causes her to have the symptoms. In 2020 patient was diagnosed with small sliding hiatal hernia and mild gastroparesis. [facility] Medical History Arthralgia of right hand Bilateral hand numbness Verruca Generalized anxiety disorder Gastroesophageal reflux disease Hypersomnia Dysphagia Plantar fasciitis, bilateral Achilles tendinitis of left lower extremity De Quervain's tenosynovitis, right Calcaneal spur of left foot Well woman exam with routine gynecological exam Epidermoid cyst of skin of back Sacrococcygeal pilonidal cyst with abscess Numbness of right hand Gastroparesis COVID-19 virus infection Dyspnea Personal history of nicotine dependence Asthma-COPD overlap syndrome Cohn's esophagus determined by endoscopy Chronic cough Plantar fasciitis Chronic pain of left ankle Impaired fasting blood sugar Breast density Easy bruisability Lateral epicondylitis of left elbow Bicipital tendinitis of left shoulder Back pain Arthritis GERD (gastroesophageal reflux disease) Panic attacks Hx of tuberculosis Palpitations History of IBS Hypercholesterolemia Hip pain Obesity (BMI 30-39.9) Surgical History Hx of carpal tunnel repair History of loop electrosurgical excision procedure (LEEP) History of tubal ligation History of colonoscopy History of esophagogastroduodenoscopy (EGD) History of surgical removal of pilonidal cyst History of meniscectomy of left knee History of appendectomy History of section Family History Father Tongue cancer Mother CVD (cardiovascular disease) Maternal Aunt Colon cancer Maternal Uncle Colon cancer Brother CVD (cardiovascular disease) Substance abuse Sister CVD (cardiovascular disease) Social History Household Members: Spouse and Children Housing: Apartment Are you a primary intensive care medicine specialist to a significant other at home: No Do you presently have visiting nurse or other home services: No Alcohol intake: former Comment: counts correct Patient Tobacco Use Status: Current everyday Tobacco user Tobacco use type: Cigarette Cigarettes Per Day: 10 Years Smoked: 30 e-Cigarette/Vaping Use: Never Used Second Hand Smoke Exposure: Yes Substance Use Type: Marijuana service: No Current occupational status: disabled Cognitive needs: No Hearing needs: No Vision needs: No Female Reproductive History Menstrual Age of Menarche: 12 Review of Systems Const Denies weight gain and Denies weight loss ENT Reports no additional complaints, Denies dysphagia and Denies odynophagia Card Reports no additional complaints Resp Reports no additional complaints GI Reports abdominal pain (Epigastric), Denies belching, Denies melena, Reports bloating, Denies change in bowel habits, Reports constipation, Denies dysphagia, Denies excessive flatus, Denies dyspepsia, Reports heartburn, Denies diarrhea, Reports loose stools, Denies nausea, Denies odynophagia and Denies vomiting Reports no additional complaints Musc Reports no additional complaints Neuro Reports no additional complaints Psych Reports no additional complaints Endo Reports no additional complaints Physical Exam Vital Signs: Last Vital Signs Pulse 77 12/10/23 07:48 BP 117/74 12/10/23 07:48 BMI result Body Mass Index 31.5 Const General: healthy appearing and no acute distress Nutritional Appearance: obese Orientation/consciousness: patient oriented x3 Resp Effort & Inspection: normal respiratory effort, able to speak in complete sentences, no tracheal deviation and symmetric chest movement Auscultation: clear to auscultation bilaterally Cardio Rate: regular rate GI Inspection: Yes normal to inspection, No distended and Yes obesity Palpation (GI): Soft to palpation, not firm, nontender and No hepatosplenomegaly present Auscultation: normal bowel sounds General: Yes no CVA tenderness Back/Spine/Pelvis Back: no CVA tenderness Skin General skin exam: elasticity normal, turgor normal and dry skin Neuro General: patient oriented x3 Psych Appearance: grossly normal Mental Status: mental status grossly normal Assessment & Plan Assessment & Plan (1) Gastroparesis: Code(s): K31.84 - Gastroparesis Category: Medical (2) Cohn's esophagus determined by endoscopy: Code(s): K22.70 - Cohn's esophagus without dysplasia Category: Medical (3) Gastroesophageal reflux disease: Code(s): K21.9 - Gastro-esophageal reflux disease without esophagitis Category: Medical Qualifiers: Esophagitis presence: with esophagitis Esophagitis bleeding: without hemorrhage Qualified Code(s): K21.00 - Gastro-esophageal reflux disease with esophagitis, without bleeding (4) Constipation: Code(s): K59.00 - Constipation, unspecified Qualifiers: Constipation type: slow transit constipation Qualified Code(s): K59.01 - Slow transit constipation (5) Postprandial abdominal bloating: Code(s): R14.0 - Abdominal distension (gaseous) (6) Epigastric pain: Code(s): R10.13 - Epigastric pain Plan Patient will return in 3-4 weeks with her medications. She is unsure of what she really is taking except for Reglan and Nexium. RAST allergen test ordered. Patient expresses large amount of mucus forming after eating food. Upper GI series order as well to evaluate hernia. Patient does describe her pain in upper and right upper quadrant worse when bending. Patient was encouraged to avoid dietary triggers and late night snacking. Staying upright for minimum 3 hours after meals discussed with patient. Patient is agreeable to this plan and verbalizes understanding of instructions. She was given the opportunity to ask questions and all questions answered. Thank you for allowing me to participate in her care Orders: Orders [place] upper GI series Today K21.9 - Gastro-esophageal reflux disease without esophagitis Rast Allergen Today K21.9 - Gastro-esophageal reflux disease without esophagitis Medications: Refilled sucralfate 10 mL PO BEDTIME 400 mL 3RF K21.9 - Gastro-esophageal reflux disease without esophagitis linaclotide (Linzess) 145 mcg PO DAILY 30 caps 2RF Coding Level of Care Code Est Pt Level 4 (74595) Diagnoses Gastroparesis K31.84 Cohn's esophagus determined by endoscopy K22.70 Gastroesophageal reflux disease with esophagitis without hemorrhage K21.00 Esophagitis presence: with esophagitis Esophagitis bleeding: without hemorrhage Slow transit constipation K59.01 Constipation type: slow transit constipation Postprandial abdominal bloating R14.0 Epigastric pain R10.13 Time Spent (min) 35 Comment 20 minutes spent with patient and additional 15 minutes spent reviewing her
== END 2023-12-10 08:36 | disposition home or self-care (01) ==
PROVIDERS: PCP Internal Medicine; Visit Provider Nurse Practitioner Family
DX: K31.84 Gastroparesis (principal); K22.70 Barrett's esophagus without dysplasia; K21.00 Gastro-esophageal reflux disease with esophagitis, without bleeding; K59.01 Slow transit constipation; R14.0 Abdominal distension (gaseous); R10.13 Epigastric pain
CPT/HCPCS: 99214

== ENCOUNTER → 2023-12-10 07:44 | Outpatient (BNVA) | payer MEDICARE, MEDICAID, SELFPAY | PROVIDERS: PCP Internal Medicine; Visit Provider Nurse Practitioner Family | DX: K31.84 Gastroparesis (principal); K22.70 Barrett's esophagus without dysplasia; K21.00 Gastro-esophageal reflux disease with esophagitis, without bleeding; K59.01 Slow transit constipation; R14.0 Abdominal distension (gaseous); R10.13 Epigastric pain | CPT/HCPCS: 99212 ==

== ENCOUNTER 2023-12-16 11:32 | Outpatient (REF) | payer MEDICARE, MEDICAID, SELFPAY | END 2023-12-16 11:33 | disposition home or self-care (01) | LOC: HO.LAB 11:32 | PROVIDERS: PCP Internal Medicine; Visit Provider Nurse Practitioner Family | DX: K21.9 Gastro-esophageal reflux disease without esophagitis (principal) | CPT/HCPCS: 36415; 86003 ==

== ENCOUNTER → 2023-12-24 07:30 | Outpatient (BNV) | payer MEDICARE, MEDICAID, SELFPAY | PROVIDERS: PCP Internal Medicine; Visit Provider Radiology Diagnostic Radiology | DX: Z12.31 Encounter for screening mammogram for malignant neoplasm of breast (principal) | CPT/HCPCS: 77063; 77067 ==

== ENCOUNTER 2023-12-24 07:33 | Outpatient (REF) | payer MEDICARE, MEDICAID, SELFPAY ==
--- NOTE | ~2023-12-24 | MM_ITS ---
EXAMINATION: MM SCREENING DIGITAL BREAST TOMOSYNTHESIS, BILATERAL CLINICAL INFORMATION: Screening. Asymptomatic. COMPARISON: Mammography: This study is compared with prior exams dating back to 2020. TECHNIQUE: Digital breast tomosynthesis is performed in both the craniocaudal and mediolateral oblique views along with computer-aided detection (CAD). Synthesized 2D images are generated from the tomosynthesis. FINDINGS: The breasts are heterogeneously dense, which may obscure small masses (ACR BI-RADS breast composition Category c). There are no significant masses, abnormal calcifications, or other abnormalities. MM/MM tomosynthesis screening BI IMPRESSION: No mammographic evidence of malignancy. ASSESSMENT: BI-RADS BI-RADS 1 - Negative RECOMMENDATION: Routine annual mammography screening. 1 year F/U This examination should not preclude the clinical evaluation of a suspicious palpable abnormality. This patient's information was entered into a reminder system with a target due date for their next mammogram.
== END 2023-12-24 07:34 | disposition home or self-care (01) ==
LOC: HO.MAMMO 07:33
PROVIDERS: PCP Internal Medicine; Visit Provider Internal Medicine
DX: Z12.31 Encounter for screening mammogram for malignant neoplasm of breast (principal)
CPT/HCPCS: 77063; 77067

== ENCOUNTER 2023-12-30 08:11 | Outpatient (AMB) | payer MEDICARE, MEDICAID, SELFPAY ==
--- NOTE | 2023-12-30 08:11 | MHC.OFFVIS ---
Vital Signs 12/30/23 08:13 Height 5 ft 3 in Weight 180 lb 12.465 oz BMI 32.0 BP 107/73 Blood Pressure Location Lt brachial Position Sitting Pulse 85 Intake Visit Reasons: 3 week follow up Intake Note: Jessy presents in the office as a 3 week follow up. CC: She states that she is having pains in her stomach with nausea - she was having pains and sweats having her BM this morning. Stopped Linzess because she was told this should not be nixed with the nexium and reglan. She states that she also is still choking. Pyrometer Mechanic Required: No Allergies hydrocodone [From Vicodin] Allergy (Severe, Verified 12/30/23 08:13) Stomach Pain morphine [MORPHINE] Allergy (Severe, Verified 12/30/23 08:13) REDNESS, FEELS REALLY HOT, shortness of breath, anaphylaxis oxycodone Allergy (Severe, Verified 12/30/23 08:13) Stomach Upset amoxicillin Adverse Reaction (Severe, Verified 12/30/23 08:13) yeast infection Penicillins [PENICILLINS] Adverse Reaction (Severe, Verified 12/30/23 08:13) YEAST INFECTION HPI HPI 3 week follow up: Details: LAST VISIT Gastroparesis Cohn's esophagus determined by endoscopy Gastroesophageal reflux disease Constipation Postprandial abdominal bloating Epigastric pain Plan Patient will return in 3-4 weeks with her medications. She is unsure of what she really is taking except for Reglan and Nexium. RAST allergen test ordered. Patient expresses large amount of mucus forming after eating food. Upper GI series order as well to evaluate hernia. Patient does describe her pain in upper and right upper quadrant worse when bending. Patient was encouraged to avoid dietary triggers and late night snacking. Staying upright for minimum 3 hours after meals discussed with patient. Patient is agreeable to this plan and verbalizes understanding of instructions. She was given the opportunity to ask questions and all questions answered. ? Thank you for allowing me to participate in her care Orders Orders [place] upper GI series Today K21.9 Rast Allergen Today K21.9 Medications Refilled sucralfate 10 mL PO BEDTIME 400 mL 3RF K21.9 linaclotide (Linzess) 145 mcg PO DAILY 30 caps 2RF TODAY'S VISIT Patient is here today for follow-up. Patient had allergen testing done and negative. Patient has upper GI series booked for January. Patient reports that she is taking Reglan before meals and it feels like it helps her. Patient no longer feels full after meals. Patient is not taking Linzess as patient thought that she was taking Reglan to help her with constipation. Patient continues to have trouble moving her bowels. Patient reports abdominal cramping and feeling sweaty when she is about to have a bowel movement. Patient is also suffering with hot flashes and irregular menses. Patient reports occasional acid reflux, takes Nexium daily. Occasional nausea in the morning when no BM for couple days. Patient denies any melena, or hematochezia. Patient reports occasional dyspepsia without dysphagia or odynophagia [facility] Medical History Arthralgia of right hand Bilateral hand numbness Verruca Generalized anxiety disorder Gastroesophageal reflux disease Hypersomnia Dysphagia Plantar fasciitis, bilateral Achilles tendinitis of left lower extremity De Quervain's tenosynovitis, right Calcaneal spur of left foot Well woman exam with routine gynecological exam Epidermoid cyst of skin of back Sacrococcygeal pilonidal cyst with abscess Numbness of right hand Gastroparesis COVID-19 virus infection Dyspnea Personal history of nicotine dependence Asthma-COPD overlap syndrome Cohn's esophagus determined by endoscopy Chronic cough Plantar fasciitis Chronic pain of left ankle Impaired fasting blood sugar Breast density Easy bruisability Lateral epicondylitis of left elbow Bicipital tendinitis of left shoulder Back pain Arthritis GERD (gastroesophageal reflux disease) Panic attacks Hx of tuberculosis Palpitations History of IBS Hypercholesterolemia Hip pain Obesity (BMI 30-39.9) Surgical History Hx of carpal tunnel repair History of loop electrosurgical excision procedure (LEEP) History of tubal ligation History of colonoscopy History of esophagogastroduodenoscopy (EGD) History of surgical removal of pilonidal cyst History of meniscectomy of left knee History of appendectomy History of section Family History Father Tongue cancer Mother CVD (cardiovascular disease) Maternal Aunt Colon cancer Maternal Uncle Colon cancer Brother CVD (cardiovascular disease) Substance abuse Sister CVD (cardiovascular disease) Social History Household Members: Spouse and Children Housing: Apartment Are you a primary caregiver assisted living to a significant other at home: No Do you presently have visiting nurse or other home services: No Alcohol intake: former Comment: counts correct Patient Tobacco Use Status: Current everyday Tobacco user Tobacco use type: Cigarette Cigarettes Per Day: 10 Years Smoked: 30 e-Cigarette/Vaping Use: Never Used Second Hand Smoke Exposure: Yes Substance Use Type: Marijuana service: No Current occupational status: disabled Cognitive needs: No Hearing needs: No Vision needs: No Female Reproductive History Menstrual Age of Menarche: 12 Review of Systems Const Denies weight gain and Denies weight loss ENT Reports no additional complaints, Denies dysphagia and Denies odynophagia Card Reports no additional complaints Resp Reports no additional complaints GI Reports abdominal pain, Denies belching, Denies melena, Reports bloating, Reports constipation, Denies dysphagia, Denies excessive flatus, Denies dyspepsia, Denies heartburn, Denies diarrhea, Denies loose stools, Reports nausea, Denies odynophagia and Denies vomiting Reports no additional complaints Musc Reports no additional complaints Neuro Reports no additional complaints Psych Reports no additional complaints Endo Reports no additional complaints Physical Exam Vital Signs: Last Vital Signs Pulse 85 12/30/23 08:13 BP 107/73 12/30/23 08:13 BMI result Body Mass Index 32.0 Const General: healthy appearing and no acute distress Nutritional Appearance: obese Orientation/consciousness: patient oriented x3 Resp Effort & Inspection: normal respiratory effort, able to speak in complete sentences, no tracheal deviation and symmetric chest movement Auscultation: clear to auscultation bilaterally Cardio Rate: regular rate GI Inspection: Yes normal to inspection, No distended and Yes obesity Palpation (GI): Soft to palpation, not firm, nontender and No hepatosplenomegaly present Auscultation: normal bowel sounds General: Yes no CVA tenderness Back/Spine/Pelvis Back: no CVA tenderness Skin General skin exam: elasticity normal, turgor normal and dry skin Neuro General: patient oriented x3 Psych Appearance: grossly normal Mental Status: mental status grossly normal Assessment & Plan Assessment & Plan (1) Gastroparesis: Code(s): K31.84 - Gastroparesis Category: Medical (2) Cohn's esophagus determined by endoscopy: Code(s): K22.70 - Cohn's esophagus without dysplasia Category: Medical (3) Gastroesophageal reflux disease: Code(s): K21.9 - Gastro-esophageal reflux disease without esophagitis Category: Medical Qualifiers: Esophagitis bleeding: without hemorrhage Esophagitis presence: with esophagitis Qualified Code(s): K21.00 - Gastro-esophageal reflux disease with esophagitis, without bleeding (4) Constipation: Code(s): K59.00 - Constipation, unspecified Qualifiers: Constipation type: slow transit constipation Qualified Code(s): K59.01 - Slow transit constipation (5) Postprandial abdominal bloating: Code(s): R14.0 - Abdominal distension (gaseous) (6) Epigastric pain: Code(s): R10.13 - Epigastric pain Plan Continue Reglan with meals. Smaller meals and more often, patient will start taking Linzess. Increase fluid intake and activity to promote better bowel motility. Continue Nexium every morning before breakfast. Avoid dietary triggers and late night snacking. Staying upright for minimum 3 hours after meals discussed with patient. Patient will return in the office in 3 months, sooner on as needed basis. She is agreeable to this plan and verbalizes understanding of instructions. She was given the opportunity to ask questions and all questions answered. Thank you for allowing me to participate in her care Coding Level of Care Code Est Pt Level 3 (88165) Diagnoses Gastroparesis K31.84 Cohn's esophagus determined by endoscopy K22.70 Gastroesophageal reflux disease with esophagitis without hemorrhage K21.00 Esophagitis bleeding: without hemorrhage Esophagitis presence: with esophagitis Slow transit constipation K59.01 Constipation type: slow transit constipation Postprandial abdominal bloating R14.0 Epigastric pain R10.13 Time Spent (min) 30 Comment 20 minutes spent with patient and additional 10 minutes spent reviewing her records
[2023-12-30 08:13] VITALS: BP 107/73; PULSE 85; BMI 32.0
== END 2023-12-30 08:39 | disposition home or self-care (01) ==
PROVIDERS: PCP Internal Medicine; Visit Provider Nurse Practitioner Family
DX: K31.84 Gastroparesis (principal); K22.70 Barrett's esophagus without dysplasia; K21.00 Gastro-esophageal reflux disease with esophagitis, without bleeding; K59.01 Slow transit constipation; R14.0 Abdominal distension (gaseous); R10.13 Epigastric pain
CPT/HCPCS: 99213

== ENCOUNTER → 2023-12-30 08:11 | Outpatient (BNVA) | payer MEDICARE, MEDICAID, SELFPAY | PROVIDERS: PCP Internal Medicine; Visit Provider Nurse Practitioner Family | DX: K31.84 Gastroparesis (principal); K22.70 Barrett's esophagus without dysplasia; K21.00 Gastro-esophageal reflux disease with esophagitis, without bleeding; K59.01 Slow transit constipation; R14.0 Abdominal distension (gaseous); R10.13 Epigastric pain | CPT/HCPCS: 99212 ==

== ENCOUNTER 2024-01-01 13:29 | Outpatient (AMB) | payer MEDICARE, MEDICAID, SELFPAY ==
--- NOTE | 2024-01-01 13:29 | MHC.PC.OV ---
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 Channel Required: No Allergies hydrocodone [From Vicodin] Allergy (Severe, Verified 01/01/24 13:30) Stomach Pain morphine [MORPHINE] Allergy (Severe, Verified 01/01/24 13:30) REDNESS, FEELS REALLY HOT, shortness of breath, anaphylaxis oxycodone Allergy (Severe, Verified 01/01/24 13:30) Stomach Upset amoxicillin Adverse Reaction (Severe, Verified 01/01/24 13:30) yeast infection Penicillins [PENICILLINS] Adverse Reaction (Severe, Verified 01/01/24 13:30) YEAST INFECTION Medication List - Last Reconciled 01/01/24 by Shira Orta Po, acetaminophen 500 mg PO Q8H PRN albuterol sulfate 90 mcg/actuation (Ventolin HFA) 2 puffs inhalation Q6H PRN atorvastatin 10 mg PO DAILY cholecalciferol (vitamin D3) 50 mcg PO DAILY cyclobenzaprine 10 mg PO TID PRN esomeprazole magnesium 40 mg PO DAILY hydrocortisone 2.5% (Proctosol HC) 1 appl AR BID-QID PRN lidocaine 4% 1 appl topical BID 2 weeks linaclotide (Linzess) 145 mcg PO DAILY lorazepam (Ativan) 1 mg PO DAILY PRN metoclopramide HCl (Reglan) 5 mg PO QIDACHS nabumetone 500 mg PO BID polyethylene glycol 3350 (Miralax) 17 grams PO DAILY sucralfate 10 mL PO BEDTIME Tobacco use date assessed: 01/01/24 Dental Screening Dental Screen Date: 08/12/23 HPI LowerBackPain HPI Details 53-year-old obese female smoker with multiple medical problems. Hypercholesterolemia asthma Barretts esophagus carpal tunnel syndrome lumbar spondylosis hip osteoarthritis coming in for follow-up. Last seen in July 2023. Patient has been advised physical therapy. Patient's colonoscopy is up-to-date 09/09/2020 mammogram is due. Review of the notes has seen gastroenterology diagnosis of gastroparesis and constipation advised Reglan start Linzess increasing fluids continue with Nexium. Patient also also seen Orthopedics complains of left wrist pain advised [id number] exercises declined further testing patient did have a left carpal tunnel release done by Dr. Emanuel in September 22. Right carpal tunnel release August 2023 patient also had an ER visit in June 2023 for a fall diagnosis of back contusion continues to have the back pain radiating now to the left side. Otherwise wants refill on the cholesterol medication but does forget about the medication taking at nighttime. Will switch simvastatin to atorvastatin [facility] Medical History Arthralgia of right hand Bilateral hand numbness Verruca Generalized anxiety disorder Gastroesophageal reflux disease Hypersomnia Dysphagia Plantar fasciitis, bilateral Achilles tendinitis of left lower extremity De Quervain's tenosynovitis, right Calcaneal spur of left foot Well woman exam with routine gynecological exam Epidermoid cyst of skin of back Sacrococcygeal pilonidal cyst with abscess Numbness of right hand Gastroparesis COVID-19 virus infection Dyspnea Personal history of nicotine dependence Asthma-COPD overlap syndrome Cohn's esophagus determined by endoscopy Chronic cough Plantar fasciitis Chronic pain of left ankle Impaired fasting blood sugar Breast density Easy bruisability Lateral epicondylitis of left elbow Bicipital tendinitis of left shoulder Back pain Arthritis GERD (gastroesophageal reflux disease) Panic attacks Hx of tuberculosis Palpitations History of IBS Hypercholesterolemia Hip pain Obesity (BMI 30-39.9) Surgical History Hx of carpal tunnel repair History of loop electrosurgical excision procedure (LEEP) History of tubal ligation History of colonoscopy History of esophagogastroduodenoscopy (EGD) History of surgical removal of pilonidal cyst History of meniscectomy of left knee History of appendectomy History of section Family History Father Tongue cancer Mother CVD (cardiovascular disease) Maternal Aunt Colon cancer Maternal Uncle Colon cancer Brother CVD (cardiovascular disease) Substance abuse Sister CVD (cardiovascular disease) Social History Household Members: Spouse and Children Housing: Apartment Are you a primary lawn care professional to a significant other at home: No Do you presently have visiting nurse or other home services: No Alcohol intake: former Comment: counts correct Patient Tobacco Use Status: Current everyday Tobacco user Tobacco use type: Cigarette Cigarettes Per Day: 10 Years Smoked: 30 e-Cigarette/Vaping Use: Never Used Second Hand Smoke Exposure: Yes Substance Use Type: Marijuana service: No Current occupational status: disabled Cognitive needs: No Hearing needs: No Vision needs: No Female Reproductive History Menstrual Age of Menarche: 12 Questionnaire Thrive Questionnaire Date Thrive assessed: 08/12/23 I am a: Patient What is your living situation today?: I have a steady place to live Within the past 12 months, did the food you bought not last and you didn't have the money to get more?: Never true Within the past 12 months, did you worry whether your food would run out before you got money to buy more?: Never true Do you have trouble paying for medicines?: No Do you have trouble getting transportation to medical appointments?: No Do you have trouble paying your heating and electricity bill?: No Do you have trouble taking care of your child, family member or friend?: No Do you have trouble with day-to-day activities such as bathing, preparing meals, shopping, managing finances, etc.?: No Are you currently unemployed and looking for a job?: No Are you interested in more education?: No Please select the resources that you would like help with: None THRIVE Score: 0 AUDIT C Alcohol Use Questionnaire (AUDIT-C) 1. How often do you have a drink containing alcohol?: Never 3. How often do you have six or more drinks on one occasion?: Never Total Score: 0 ELIZABETH-7 AMB Questionnaire ELIZABETH-7 Date ELIZABETH - 7 assessed: 08/12/23 Source: Developed by Drs. Kain Gutierrez, Patricia Marx, Damaso Delacruz and colleagues, with an educational allison from [employer]. Physical exam (Primary Care) Vital Signs: Last Vital Signs Pulse 89 01/01/24 13:30 BP 118/64 01/01/24 13:30 Pulse Ox 96 01/01/24 13:30 Oxygen Delivery Method Room Air 01/01/24 13:30 BMI result Body Mass Index 32.1 Tobacco/Smoking Status: Tobacco use Status Tobacco use date assessed 01/01/24 01/01/24 13:31 Patient Tobacco Use Status Current everyday Tobacco 01/01/24 13:29 Tobacco use type Cigarette 01/01/24 13:29 e-Cigarette/Vaping Use Never Used 01/01/24 13:29 Thrive Assessment: Date of Thrive Assessment Date Thrive assessed 08/12/23 01/01/24 13:29 Const General: alert; No acute distress Eyes Conjunctivae: conjunctivae normal Resp Auscultation: clear to auscultation bilaterally Cardio Rate: regular rate Rhythm: regular rhythm GI Inspection: Yes normal to inspection Back/Spine/Pelvis Other: Tender on the lower back area no redness or swelling. And as for manual muscle testing 5 over 5 on all extremities Extrem General: Yes normal to inspection and No edema Assessment and Plan Assessment & Plan (1) Carpal tunnel syndrome of right wrist: Comment: August [address] Emanuel Code(s): G56.01 - Carpal tunnel syndrome, right upper limb Plan: Patient continues to follow-up with ortho status post surgical procedure (2) Carpal tunnel syndrome of left wrist: Comment: September [address] Fontaine Code(s): G56.02 - Carpal tunnel syndrome, left upper limb Plan: Continue to follow-up with orthopedics (3) Asthma-COPD overlap syndrome: Code(s): J44.9 - Chronic obstructive pulmonary disease, unspecified Plan: Patient is strongly advised to stop smoking! Continue with the inhalers (4) Cohn's esophagus determined by endoscopy: Code(s): K22.70 - Cohn's esophagus without dysplasia Plan: Patient advised strongly to stop smoking! Patient follows up with Gastroenterology on Carafate Nexium (5) Tobacco abuse: Code(s): Z72.0 - Tobacco use Plan: Patient is strongly advised to stop smoking (6) Obesity (BMI 30-39.9): Code(s): E66.9 - Obesity, unspecified Plan: Diet and exercise (7) Hypercholesterolemia: Code(s): E78.00 - Pure hypercholesterolemia, unspecified Plan: Avoid fried foods, chicken skin, eggs, butter margarine, pastries and meat. Be it pork or beef they have a lot of cholesterol need retesting. (8) Lumbar radicular pain: Code(s): M54.16 - Radiculopathy, lumbar region Plan: PAtient complains of having low back pain with radiation to the L leg. patient has been sent for 4 months of physical therapy which has not resolved the pain and numbness of the back. will order for MRI Orders: Orders Complete Blood Count Auto Diff 3 Months M54.16 - Radiculopathy, lumbar region Comprehensive Met. Panel 3 Months M54.16 - Radiculopathy, lumbar region Free T4 (Free Thyroxine) 3 Months M54.16 - Radiculopathy, lumbar region Thyroid Stimulating Hormone 3 Months M54.16 - Radiculopathy, lumbar region Vitamin B12 and Folate 3 Months M54.16 - Radiculopathy, lumbar region Vitamin D 25-OH Total 3 Months M54.16 - Radiculopathy, lumbar region MR lumbar spine wo con Today M54.16 - Radiculopathy, lumbar region Lipid Panel 3 Months E78.00 - Pure hypercholesterolemia, unspecified, M54.16 - Radiculopathy, lumbar region Medications: New atorvastatin 10 mg PO DAILY 90 tabs 2RF E78.00 - Pure hypercholesterolemia, unspecified Coding Level of Care Code Est Pt Level 4 (11513) Diagnoses Carpal tunnel syndrome of right wrist G56.01 Carpal tunnel syndrome of left wrist G56.02 Asthma-COPD overlap syndrome J44.9 Cohn's esophagus determined by endoscopy K22.70 Tobacco abuse Z72.0 Obesity (BMI 30-39.9) E66.9 Hypercholesterolemia E78.00 Lumbar radicular pain M54.16
[2024-01-01 13:30] VITALS: BP 118/64; PULSE 89; O2SAT 96; BMI 32.1
== END 2024-01-01 14:25 | disposition home or self-care (01) ==
PROVIDERS: PCP Internal Medicine; Visit Provider Internal Medicine
DX: G56.03 Carpal tunnel syndrome, bilateral upper limbs (principal); J44.9 Chronic obstructive pulmonary disease, unspecified; K22.70 Barrett's esophagus without dysplasia; Z72.0 Tobacco use; E66.9 Obesity, unspecified; E78.00 Pure hypercholesterolemia, unspecified; M54.16 Radiculopathy, lumbar region
CPT/HCPCS: 99214

== ENCOUNTER 2024-01-20 15:29 | Outpatient (REF) | payer MEDICARE, MEDICAID, SELFPAY ==
--- NOTE | ~2024-01-20 | MR_ITS ---
EXAMINATION: MR LUMBAR SPINE WITHOUT CONTRAST CLINICAL INFORMATION: Radiculopathy, lumbar region COMPARISON: None available. TECHNIQUE: MRI of the lumbar spine was obtained using routine sequences without contrast. FINDINGS: Transitional narrowing is sacralization of the L5 and pseudoarticulation on the left. Normal alignment. No acute bone marrow abnormality. The vertebral body heights are preserved. Disc desiccation and minimal disc height loss at L4-5. The visualized spinal cord is normal in caliber. No abnormal cord signal. The conus medullaris terminates at L1. T12-L1: No significant spinal canal or neural foraminal narrowing. L1-2: No significant spinal canal or neural foraminal narrowing. L2-3: Left foraminal disc protrusion. Mild left neural foraminal narrowing. No significant spinal canal stenosis. L3-4: Diffuse disc bulge with superimposed left foraminal disc protrusion. Mild to moderate left and mild right neural foraminal narrowing with the disc abutting the left exiting L3 nerve roots. No significant spinal canal stenosis. L4-5: Central disc protrusion and bilateral facet arthrosis. Mild spinal canal stenosis. Mild left greater than right neural foraminal narrowing with the disc abutting the exiting L4 nerve roots bilaterally. L5-S1: Bilateral facet arthrosis. No significant spinal canal or neural foraminal narrowing. There is however mass effect on the left extraforaminal L5 nerve roots in the region of the pseudoarticulation. The paravertebral soft tissues are unremarkable. MR/MR lumbar spine wo con IMPRESSION: -Transitional lumbosacral anatomy with sacralization of the L5 vertebral body and pseudoarticulation on the left. -At L5-S1, there is mass effect on the left extraforaminal L5 nerve roots in the region of the pseudoarticulation. -At L4-L5, there is a central disc protrusion with mild spinal canal stenosis and mild bilateral neural foraminal narrowing with the disc abutting the exiting L4 nerve roots bilaterally. -At L3-L4, there is mild to moderate left and mild right neural foraminal narrowing with the disc abutting the exiting left L3 nerve root. -At L2-L3, there is mild left neural foraminal narrowing. Electronically signed by: Shaka Patterson MD 02/18/2024 02:15 PM EDT
== END 2024-01-20 15:30 | disposition home or self-care (01) ==
LOC: HO.MRI 15:29
PROVIDERS: PCP Internal Medicine; Visit Provider Internal Medicine
DX: M54.16 Radiculopathy, lumbar region (principal)
CPT/HCPCS: 72148

== ENCOUNTER 2024-01-28 11:44 | Outpatient (AMB) | payer MEDICARE, MEDICAID, SELFPAY ==
[2024-01-28 11:46] VITALS: BMI 32.0
--- NOTE | 2024-01-28 11:46 | A.OFFVIS_ITS ---
Vital Signs 01/28/24 11:46 Height 5 ft 3 in Weight 180 lb 12.465 oz BMI 32.0 Intake Visit Reasons: Pilonidal cyst with abscess, Epidermal cyst Intake Note: This patient presents for an assessment for recurrent pilonidal cyst. Pt c/o; reports pain, reports foul odor, reports draining. 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 Accompanied by: Self / Same As Patient Allergies hydrocodone [From Vicodin] Allergy (Severe, Verified 01/28/24 14:05) Stomach Pain morphine [MORPHINE] Allergy (Severe, Verified 01/28/24 14:05) REDNESS, FEELS REALLY HOT, shortness of breath, anaphylaxis oxycodone Allergy (Severe, Verified 01/28/24 14:05) Stomach Upset amoxicillin Adverse Reaction (Severe, Verified 01/28/24 14:05) yeast infection Penicillins [PENICILLINS] Adverse Reaction (Severe, Verified 01/28/24 14:05) YEAST INFECTION Medication List - Last Reconciled 01/28/24 by Jonny Jerome MD acetaminophen 500 mg PO Q8H PRN albuterol sulfate 90 mcg/actuation (Ventolin HFA) 2 puffs inhalation Q6H PRN atorvastatin 10 mg PO DAILY cholecalciferol (vitamin D3) 50 mcg PO DAILY cyclobenzaprine 10 mg PO TID PRN esomeprazole magnesium 40 mg PO DAILY hydrocortisone 2.5% (Proctosol HC) 1 appl [place] BID-QID PRN lidocaine 4% 1 appl topical BID 2 weeks linaclotide (Linzess) 145 mcg PO DAILY lorazepam (Ativan) 1 mg PO DAILY PRN metoclopramide HCl (Reglan) 5 mg PO QIDACHS nabumetone 500 mg PO BID polyethylene glycol 3350 (Miralax) 17 grams PO DAILY sucralfate 10 mL PO BEDTIME HPI HPI Pilonidal cyst with abscess, Epidermal cyst: Details: [age] year old female here for follow-up for history of pilonidal cyst. She had excision of pilonidal cyst last February, However for the past 6 months or so, she has been noticing some recurrent discharge from area above the previous excision site. She says that often times this becomes indurated and tender This does not seem to go away completely now. She does state that the previous excision site area seemed to be well healed. [facility] Medical History (Updated 01/28/24 @ 14:07 by Jonny Jerome MD) Sacrococcygeal pilonidal cyst Arthralgia of right hand Bilateral hand numbness Verruca Generalized anxiety disorder Gastroesophageal reflux disease Hypersomnia Dysphagia Plantar fasciitis, bilateral Achilles tendinitis of left lower extremity De Quervain's tenosynovitis, right Calcaneal spur of left foot Well woman exam with routine gynecological exam Epidermoid cyst of skin of back Sacrococcygeal pilonidal cyst with abscess Numbness of right hand Gastroparesis COVID-19 virus infection Dyspnea Personal history of nicotine dependence Asthma-COPD overlap syndrome Cohn's esophagus determined by endoscopy Chronic cough Plantar fasciitis Chronic pain of left ankle Impaired fasting blood sugar Breast density Easy bruisability Lateral epicondylitis of left elbow Bicipital tendinitis of left shoulder Back pain Arthritis GERD (gastroesophageal reflux disease) Panic attacks Hx of tuberculosis Palpitations History of IBS Hypercholesterolemia Hip pain Obesity (BMI 30-39.9) Surgical History Hx of carpal tunnel repair History of loop electrosurgical excision procedure (LEEP) History of tubal ligation History of colonoscopy History of esophagogastroduodenoscopy (EGD) History of surgical removal of pilonidal cyst History of meniscectomy of left knee History of appendectomy History of section Family History Father Tongue cancer Mother CVD (cardiovascular disease) Maternal Aunt Colon cancer Maternal Uncle Colon cancer Brother CVD (cardiovascular disease) Substance abuse Sister CVD (cardiovascular disease) Social History Household Members: Spouse and Children Housing: Apartment Are you a primary floor care specialist to a significant other at home: No Do you presently have visiting nurse or other home services: No Alcohol intake: former Comment: counts correct Patient Tobacco Use Status: Current everyday Tobacco user Tobacco use type: Cigarette Cigarettes Per Day: 10 Years Smoked: 30 e-Cigarette/Vaping Use: Never Used Second Hand Smoke Exposure: Yes Substance Use Type: Marijuana service: No Current occupational status: disabled Cognitive needs: No Hearing needs: No Vision needs: No Female Reproductive History Menstrual Age of Menarche: 12 Review of Systems Const Denies chills and Denies fever(s) Card Denies chest pain, Denies dyspnea and Denies dyspnea on exertion Resp Denies cough, Denies dyspnea and Denies dyspnea on exertion GI Denies hematochezia and Denies change in bowel habits Denies hematuria Musc Denies back pain and Denies limited range of motion Neuro Denies focal weakness and Denies convulsions Psych Denies depression and Denies mood swings Physical Exam Vital Signs: BMI result Body Mass Index 32.0 Const General: comfortable and no acute distress Orientation/consciousness: patient oriented x3 Neck Neck: Yes no lymphadenopathy Resp Auscultation: clear to auscultation bilaterally Cardio Rhythm: regular rhythm GI Palpation (GI): Soft to palpation, nontender and no guarding Back/Spine/Pelvis Other: Examination of the sacrococcygeal area shows a sinus in the midline, superior to the previous excision site. This has some scanty drainage and some induration consistent with another sacrococcygeal pilonidal cyst. Neuro General: patient oriented x3 Assessment & Plan Assessment & Plan (1) Sacrococcygeal pilonidal cyst: Code(s): L05.91 - Pilonidal cyst without abscess Category: Medical Plan: She has what appears to be another pilonidal cyst on the sacrococcygeal area superior to the previous excision site. I explained the option of proceeding with excision. I explained the technique of this procedure under anesthesia. I reviewed the risks including but not limited to bleeding, infections, poor healing, as well as the benefits and alternatives She wants to proceed again. She knows what to expect postoperatively. Coding Level of Care Code Est Pt Level 3 (11816) Diagnoses Sacrococcygeal pilonidal cyst L05.91
== END 2024-01-28 12:05 | disposition home or self-care (01) ==
PROVIDERS: PCP Internal Medicine; Visit Provider Surgery
DX: L05.91 Pilonidal cyst without abscess (principal)
CPT/HCPCS: 99214

== ENCOUNTER 2024-01-28 11:44 | Outpatient (REF) | payer MEDICARE, MEDICAID, SELFPAY ==
--- NOTE | ~2024-01-28 | XR_ITS ---
EXAMINATION: XR tibia fibula LT 2V CLINICAL INFORMATION: S81.802A - Unspecified open wound, left lower leg, initial encounter COMPARISON: Ankle radiographs 02/26/2023 TECHNIQUE: Two views of the tibia and fibula FINDINGS: No acute fracture or dislocation. Mild osteoarthritis of the knee and ankle with small osteophytes. Plantar calcaneal spurring and Achilles tendon enthesopathy. No tibiotalar joint effusion. No cortical erosion, focal osteopenia or periosteal reaction to favor osteomyelitis however MRI would be more sensitive for evaluation. Soft tissue swelling in the calf. XR/XR tibia fibula LT 2V IMPRESSION: 1. No cortical erosion, focal osteopenia or periosteal reaction to favor osteomyelitis however MRI would be more sensitive for evaluation. 2. Soft tissue swelling in the calf. 3. Mild osteoarthritis of the knee, foot and ankle. Electronically signed by: Shelley Nguyễn MD 03/02/2024 01:56 PM EDT
== END 2024-01-28 11:45 | disposition home or self-care (01) ==
LOC: HO.XRAY 11:44
PROVIDERS: Absent Provider Internal Medicine; PCP Internal Medicine; Visit Provider Surgery
DX: S81.802A Unspecified open wound, left lower leg, initial encounter (principal); L05.91 Pilonidal cyst without abscess
CPT/HCPCS: 73590; 99212

== ENCOUNTER 2024-01-28 13:58 | Outpatient (AMB) | payer MEDICARE, MEDICAID, SELFPAY ==
[2024-01-28 14:05] VITALS: BP 118/86; PULSE 73; BMI 32.4
--- NOTE | 2024-01-28 14:05 | A.OFFPC_ITS ---
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 Allergies hydrocodone [From Vicodin] Allergy (Severe, Verified 01/28/24 14:25) Stomach Pain morphine [MORPHINE] Allergy (Severe, Verified 01/28/24 14:25) REDNESS, FEELS REALLY HOT, shortness of breath, anaphylaxis oxycodone Allergy (Severe, Verified 01/28/24 14:25) Stomach Upset amoxicillin Adverse Reaction (Severe, Verified 01/28/24 14:25) yeast infection Penicillins [PENICILLINS] Adverse Reaction (Severe, Verified 01/28/24 14:25) YEAST INFECTION Medication List - Last Reconciled 01/28/24 by Bandar Mcrae MD acetaminophen 500 mg PO Q8H PRN albuterol sulfate 90 mcg/actuation (Ventolin HFA) 2 puffs inhalation Q6H PRN atorvastatin 10 mg PO DAILY cholecalciferol (vitamin D3) 50 mcg PO DAILY cyclobenzaprine 10 mg PO TID PRN esomeprazole magnesium 40 mg PO DAILY fluconazole 150 mg PO Q3D 2 doses hydrocortisone 2.5% (Proctosol HC) [address] BID-QID PRN lidocaine 4% 1 appl topical BID 2 weeks linaclotide (Linzess) 145 mcg PO DAILY lorazepam (Ativan) 1 mg PO DAILY PRN metoclopramide HCl (Reglan) 5 mg PO QIDACHS nabumetone 500 mg PO BID polyethylene glycol 3350 (Miralax) 17 grams PO DAILY sucralfate 10 mL PO BEDTIME sulfamethoxazole-trimethoprim 800-160 mg (Bactrim DS) 1 tab PO BID 7 days Tobacco use date assessed: 01/01/24 Dental Screening Dental Screen Date: 08/12/23 HPI swollen leg HPI Details 53-year-old female [facility]. Her primary care provider is not present in the office and I am covering. Patient was hit by a stray projectile 2-1/2 weeks ago. 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 There was bleeding and subsequently the area has become painful and throbbing. She is having swelling in the feet and over the ankle. Able to walk without any support. No fevers or chills. [facility] Medical History Sacrococcygeal pilonidal cyst Arthralgia of right hand Bilateral hand numbness Verruca Generalized anxiety disorder Gastroesophageal reflux disease Hypersomnia Dysphagia Plantar fasciitis, bilateral Achilles tendinitis of left lower extremity De Quervain's tenosynovitis, right Calcaneal spur of left foot Well woman exam with routine gynecological exam Epidermoid cyst of skin of back Sacrococcygeal pilonidal cyst with abscess Numbness of right hand Gastroparesis COVID-19 virus infection Dyspnea Personal history of nicotine dependence Asthma-COPD overlap syndrome Cohn's esophagus determined by endoscopy Chronic cough Plantar fasciitis Chronic pain of left ankle Impaired fasting blood sugar Breast density Easy bruisability Lateral epicondylitis of left elbow Bicipital tendinitis of left shoulder Back pain Arthritis GERD (gastroesophageal reflux disease) Panic attacks Hx of tuberculosis Palpitations History of IBS Hypercholesterolemia Hip pain Obesity (BMI 30-39.9) Surgical History Hx of carpal tunnel repair History of loop electrosurgical excision procedure (LEEP) History of tubal ligation History of colonoscopy History of esophagogastroduodenoscopy (EGD) History of surgical removal of pilonidal cyst History of meniscectomy of left knee History of appendectomy History of section Family History Father Tongue cancer Mother CVD (cardiovascular disease) Maternal Aunt Colon cancer Maternal Uncle Colon cancer Brother CVD (cardiovascular disease) Substance abuse Sister CVD (cardiovascular disease) Social History Household Members: Spouse and Children Housing: Apartment Are you a primary care transition manager to a significant other at home: No Do you presently have visiting nurse or other home services: No Alcohol intake: former Comment: counts correct Patient Tobacco Use Status: Current everyday Tobacco user Tobacco use type: Cigarette Cigarettes Per Day: 10 Years Smoked: 30 e-Cigarette/Vaping Use: Never Used Second Hand Smoke Exposure: Yes Substance Use Type: Marijuana service: No Current occupational status: disabled Cognitive needs: No Hearing needs: No Vision needs: No Female Reproductive History Menstrual Age of Menarche: 12 Questionnaire Thrive Questionnaire Date Thrive assessed: 08/12/23 AUDIT C Alcohol Use Questionnaire (AUDIT-C) 1. How often do you have a drink containing alcohol?: Never 3. How often do you have six or more drinks on one occasion?: Never Total Score: 0 ELIZABETH-7 AMB Questionnaire ELIZABETH-7 Date ELIZABETH - 7 assessed: 08/12/23 Source: Developed by Drs. Kain Gutierrez, Patricia Marx, Damaso Delacruz and colleagues, with an educational allison from [employer] Physical exam (Primary Care) Vital Signs: Last Vital Signs Pulse 73 01/28/24 14:05 BP 118/86 01/28/24 14:05 Oxygen Delivery Method Room Air 01/28/24 14:05 BMI result Body Mass Index 32.4 Tobacco/Smoking Status: Tobacco use Status Tobacco use date assessed 01/01/24 01/28/24 14:05 Patient Tobacco Use Status Current everyday Tobacco 01/28/24 14:05 Tobacco use type Cigarette 01/28/24 14:05 e-Cigarette/Vaping Use Never Used 01/28/24 14:05 Thrive Assessment: Date of Thrive Assessment Date Thrive assessed 08/12/23 01/28/24 14:05 Skin Other: Left leg: Open wound on the lateral side of the leg, wound covered by black eschar. Surrounding the wound is erythematous and swollen. Swelling over the ankle. Pain on flexion of the ankle. Gait: Patient is able to bear weight on the left leg. Assessment and Plan Assessment & Plan (1) Wound of left leg: Code(s): S81.802A - Unspecified open wound, left lower leg, initial encounter Plan: The open wound appears to be infected. Wound was covered with a sterile dressing. Antibiotics systemically have been ordered. X-ray of the leg to rule out any foreign body present in the subcutaneous area. Orders: Orders XR tibia fibula LT 2V Today S81.802A - Unspecified open wound, left lower leg, initial encounter Medications: New sulfamethoxazole-trimethoprim 800-160 mg (Bactrim DS) 1 tab PO BID 14 tabs 0RF 7 days fluconazole 150 mg PO Q3D 2 tabs 0RF 2 doses Coding Level of Care Code Est Pt Level 3 (58461) Complex EM visit Add On G2211 Diagnoses Wound of left leg S81.801G
== END 2024-01-28 14:29 | disposition home or self-care (01) ==
PROVIDERS: PCP Internal Medicine; Visit Provider Internal Medicine
DX: S81.802A Unspecified open wound, left lower leg, initial encounter (principal)
CPT/HCPCS: 99213; G2211

== ENCOUNTER 2024-02-10 08:36 | Outpatient (AMB) | payer MEDICARE, MEDICAID, SELFPAY ==
[2024-02-10 08:43] VITALS: BP 122/74; PULSE 78; O2SAT 98; BMI 32.8
--- NOTE | 2024-02-10 08:43 | A.OFFPC_ITS ---
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 Accompanied by: Self / Same As Patient Allergies hydrocodone [From Vicodin] Allergy (Severe, Verified 02/10/24 08:45) Stomach Pain morphine [MORPHINE] Allergy (Severe, Verified 02/10/24 08:45) REDNESS, FEELS REALLY HOT, shortness of breath, anaphylaxis oxycodone Allergy (Severe, Verified 02/10/24 08:45) Stomach Upset amoxicillin Adverse Reaction (Severe, Verified 02/10/24 08:45) yeast infection Penicillins [PENICILLINS] Adverse Reaction (Severe, Verified 02/10/24 08:45) YEAST INFECTION Medication List - Last Reconciled 02/10/24 by Shira Raines MD acetaminophen 500 mg PO Q8H PRN albuterol sulfate 90 mcg/actuation (Ventolin HFA) 2 puffs inhalation Q6H PRN amoxicillin-pot clavulanate 875-125 mg 1 tab PO BID atorvastatin 10 mg PO DAILY cholecalciferol (vitamin D3) 50 mcg PO DAILY cyclobenzaprine 10 mg PO TID PRN esomeprazole magnesium 40 mg PO DAILY fluconazole 150 mg PO Q3D 2 doses hydrocortisone 2.5% (Proctosol HC) 1 appl [place] BID-QID PRN lidocaine 4% 1 appl topical BID 2 weeks linaclotide (Linzess) 145 mcg PO DAILY lorazepam (Ativan) 1 mg PO DAILY PRN metoclopramide HCl (Reglan) 5 mg PO QIDACHS nabumetone 500 mg PO BID polyethylene glycol 3350 (Miralax) 17 grams PO DAILY sucralfate 10 mL PO BEDTIME sulfamethoxazole-trimethoprim 800-160 mg (Bactrim DS) 1 tab PO BID 7 days Tobacco use date assessed: 02/10/24 Dental Screening Dental Screen Date: 02/10/24 Did you have a dental visit in the last 12 months?: Yes Did you have a dental problem in the last 6 months where you did not have access to dental care?: No Was dental information given to patient?: Patient has dentist HPI Swollen left leg 2 HPI0 Details 53-year-old obese female smoker with an asthma COPD overlap syndrome carpal tunnel bilateral Barretts hypercholesterolemia and chronic low back pain last seen in January 01 2024. Patient's colonoscopy is up-to-date mammogram is up-to-date. Review of the notes was recently seen by the [facility] for the swollen leg 01/28/2024 states was hit by a stray projectile sitting on the porch to the left leg patient was treated with Bactrim for infection x-ray was requested. Patient was also seen by the surgeon for evaluation of a cyst in the lower back history of pilonidal cyst with excision in February 2023. And last 6 months has been noting to have some discharge. Surgery is planned. Patient also had an MRI of the lower back as well as an x-ray of the lower back both results are pending [facility] Medical History Sacrococcygeal pilonidal cyst Arthralgia of right hand Bilateral hand numbness Verruca Generalized anxiety disorder Gastroesophageal reflux disease Hypersomnia Dysphagia Plantar fasciitis, bilateral Achilles tendinitis of left lower extremity De Quervain's tenosynovitis, right Calcaneal spur of left foot Well woman exam with routine gynecological exam Epidermoid cyst of skin of back Sacrococcygeal pilonidal cyst with abscess Numbness of right hand Gastroparesis COVID-19 virus infection Dyspnea Personal history of nicotine dependence Asthma-COPD overlap syndrome Cohn's esophagus determined by endoscopy Chronic cough Plantar fasciitis Chronic pain of left ankle Impaired fasting blood sugar Breast density Easy bruisability Lateral epicondylitis of left elbow Bicipital tendinitis of left shoulder Back pain Arthritis GERD (gastroesophageal reflux disease) Panic attacks Hx of tuberculosis Palpitations History of IBS Hypercholesterolemia Hip pain Obesity (BMI 30-39.9) Surgical History Hx of carpal tunnel repair History of loop electrosurgical excision procedure (LEEP) History of tubal ligation History of colonoscopy History of esophagogastroduodenoscopy (EGD) History of surgical removal of pilonidal cyst History of meniscectomy of left knee History of appendectomy History of section Family History Father Tongue cancer Mother CVD (cardiovascular disease) Maternal Aunt Colon cancer Maternal Uncle Colon cancer Brother CVD (cardiovascular disease) Substance abuse Sister CVD (cardiovascular disease) Social History Household Members: Spouse and Children Housing: Apartment Are you a primary restorative care technician to a significant other at home: No Do you presently have visiting nurse or other home services: No Alcohol intake: former Comment: counts correct Patient Tobacco Use Status: Current everyday Tobacco user Tobacco use type: Cigarette Cigarettes Per Day: 10 Years Smoked: 30 Packs per year/per ci.00 e-Cigarette/Vaping Use: Never Used Second Hand Smoke Exposure: Yes Substance Use Type: Marijuana service: No Current occupational status: disabled Cognitive needs: No Hearing needs: No Vision needs: No Female Reproductive History Menstrual Age of Menarche: 12 Questionnaire PHQ-9 Over the last 2 weeks, how often have you been bothered by any of the following problems? 1. Little interest or pleasure in doing things: not at all 2. Feeling down, depressed, or hopeless: not at all 3. Trouble falling or staying asleep, or sleeping too much: not at all 4. Feeling tired or having little energy: not at all 5. Poor appetite or overeating: not at all 6. Feeling bad about yourself - or that you are a failure or have let yourself or your family down: not at all 7. Trouble concentrating on things, such as reading the newspaper or watching television: not at all 8. Moving or speaking so slowly that other people could have noticed. Or the opposite - being so fidgety or restless that you have been moving around a lot more than usual: not at all 9. Thoughts that you would be better off or of hurting yourself in some way: not at all Total score: 0 Depression Screening Interpretation: Negative Depression Screening Done: Yes 63015 - PHQ-9 Billing: Yes Source: Developed by Drs. Kain Gutierrez, Patricia Marx, Damaso Delacruz and colleagues, with an educational allison from [email or web address] Thrive Questionnaire Date Thrive assessed: 02/10/24 I am a: Patient What is your living situation today?: I have a steady place to live Within the past 12 months, did the food you bought not last and you didn't have the money to get more?: Never true Within the past 12 months, did you worry whether your food would run out before you got money to buy more?: Never true Do you have trouble paying for medicines?: No Do you have trouble getting transportation to medical appointments?: No Do you have trouble paying your heating and electricity bill?: No Do you have trouble taking care of your child, family member or friend?: No Do you have trouble with day-to-day activities such as bathing, preparing meals, shopping, managing finances, etc.?: No Are you currently unemployed and looking for a job?: No Are you interested in more education?: No Please select the resources that you would like help with: None Currently or been in a relationship where the following occur: No concerns reported THRIVE Score: 0 AUDIT C Alcohol Use Questionnaire (AUDIT-C) 1. How often do you have a drink containing alcohol?: Never 3. How often do you have six or more drinks on one occasion?: Never Total Score: 0 ELIZABETH-7 AMB Questionnaire ELIZABETH-7 Date ELIZABETH - 7 assessed: 02/10/24 Feeling nervous, anxious, or on edge: 1 = Several days Not being able to stop or control worryin = Several days Worrying too much about different things: 0 = Not at all Trouble relaxin = Not at all Being so restless that it is hard to sit still: 0 = Not at all Becoming easily annoyed or irritable: 0 = Not at all Feeling afraid as if something awful might happen: 0 = Not at all Total ELIZABETH-7 score (0-4 normal; 5-9 mild; 10-14 moderate; 15-21 severe): 2 Source: Developed by Drs. Kain Gutierrez, Patricia Marx, Damaso Delacruz and colleagues, with an educational allison from [email or web address]. Physical exam (Primary Care) Vital Signs: Last Vital Signs Pulse 78 02/10/24 08:43 BP 122/74 02/10/24 08:43 Pulse Ox 98 02/10/24 08:43 Oxygen Delivery Method Room Air 02/10/24 08:43 BMI result Body Mass Index 32.8 Tobacco/Smoking Status: Tobacco use Status Tobacco use date assessed 02/10/24 02/10/24 08:51 Patient Tobacco Use Status Current everyday Tobacco 02/10/24 08:51 Tobacco use type Cigarette 02/10/24 08:51 e-Cigarette/Vaping Use Never Used 02/10/24 08:51 PHQ-9: PHQ-9 Score PHQ-9: Total score 0 02/10/24 08:54 Depression Screening Interpretation: Negative Thrive Assessment: Date of Thrive Assessment Date Thrive assessed 02/10/24 02/10/24 08:51 Currently or been in a relationship where the following occur: No concerns reported Const General: alert; No acute distress Eyes Conjunctivae: conjunctivae normal Resp Auscultation: clear to auscultation bilaterally Cardio Rate: regular rate Rhythm: regular rhythm GI Inspection: Yes normal to inspection Extrem General: Yes normal to inspection and No edema Upper/lower leg/hip images: 2 1. 2 cm abrasion with induration 3 cm underneath with swelling and redness Assessment and Plan Assessment & Plan (1) Sacrococcygeal pilonidal cyst: Code(s): L05.91 - Pilonidal cyst without abscess Plan: Patient has seen the surgeon has a planned excision of the pilonidal cyst in the sacrococcygeal area (2) Lumbar radicular pain: Code(s): M54.16 - Radiculopathy, lumbar region Plan: MRI has been done and results are pending (3) Tobacco abuse: Code(s): Z72.0 - Tobacco use Plan: Patient is strongly advised to stop smoking (4) Obesity (BMI 30-39.9): Code(s): E66.9 - Obesity, unspecified Plan: Diet and exercise (5) Vision changes: Code(s): H53.9 - Unspecified visual disturbance Plan: Referral to Ophthalmology done (6) Left leg cellulitis: Code(s): L03.116 - Cellulitis of left lower limb Plan: Discussed with the patient that I will wait for the x-ray results but it does not look like any foreign body is in the wound. For now due to the induration antibiotic treatment sent and for possible yeast infection antifungal sent. Orders: Referrals 2 Ophthalmology Referral H53.9 - Unspecified visual disturbance Medications: New 2 amoxicillin-pot clavulanate 875-125 mg 1 tab PO BID 14 tabs 0RF L03.116 - Cellulitis of left lower limb Refilled 2 fluconazole 150 mg PO Q3D 2 doses 2 tabs 0RF L03.116 - Cellulitis of left lower limb Coding Level of Care Code Est Pt Level 4 (48272) Diagnoses Sacrococcygeal pilonidal cyst L05.91 Lumbar radicular pain M54.16 Tobacco abuse Z72.0 Obesity (BMI 30-39.9) E66.9 Vision changes H53.9 Left leg cellulitis L03.116
== END 2024-02-10 09:23 | disposition home or self-care (01) ==
PROVIDERS: PCP Internal Medicine; Visit Provider Internal Medicine
DX: L05.91 Pilonidal cyst without abscess (principal); Z68.32 Body mass index [BMI] 32.0-32.9, adult; E66.9 Obesity, unspecified; M54.16 Radiculopathy, lumbar region; Z72.0 Tobacco use; H53.9 Unspecified visual disturbance; L03.116 Cellulitis of left lower limb
CPT/HCPCS: 99214

== ENCOUNTER 2024-02-17 07:26 | Outpatient (REF) | payer MEDICARE, MEDICAID, SELFPAY ==
--- NOTE | ~2024-02-17 | FL_ITS ---
EXAMINATION: XR FLUOROSCOPY UPPER GI WITH AIR CLINICAL INFORMATION: Dysphagia. Reflux. COMPARISON: 10/16/2020. TECHNIQUE: Fluoroscopic air contrast upper GI examination was performed utilizing standard techniques with thin and thick barium and effervescent granules. Numerous spot images were obtained. FINDINGS: Lateral cine images of the oropharynx and hypopharynx demonstrate normal swallow mechanism with normal epiglottic inversion and soft palate elevation. No tracheal penetration, glottic or subglottic aspiration identified. No nasopharyngeal reflux present. Hypopharyngeal structures appear normal without evidence of mass or diverticulum. There was no significant cricopharyngeal achalasia. Dual and single contrast images of the esophagus demonstrate normal caliber, contour, and mucosal pattern. No evidence of stricture, mass, or ulcerations identified. Esophageal peristalsis is mildly disorganized. A very small type I hiatal hernia is present. No significant gastroesophageal reflux was seen during the course of the examination and on reflux views. Dual contrast and single contrast images of the stomach demonstrated a normal contour. There are multiple foci of contrast pooling in the fundus of the stomach that could represent small superficial aphthous ulcers. Gastric folds also have a thickened appearance, suggestive of gastritis. Contrast freely passed into the gastric antrum and duodenal bulb without delay. Single and air-contrast images of the duodenal bulb demonstrate no abnormality. The duodenal sweep has a normal appearance, course, and mucosal fold appearance. The imaged proximal jejunum has a normal fold pattern and caliber. FLUOROSCOPY TIME: 4 minutes 17 seconds Number of Spot Images: 6 Number of Cine: 14 DOSE AREA PRODUCT: [id number] uGy-m2 (microgray-meter squared) FL/FL upper GI w air IMPRESSION: 1. Very small type I hiatal hernia 2. Mildly disordered esophageal peristalsis 3. Multiple small foci of contrast pooling in the fundus of the stomach. In addition the gastric rugal folds have a thickened appearance. These findings are suggestive of erosive gastritis. Recommend correlation EGD. This procedure was performed by Dakota Hernandez PA-C, and supervised by Dr. Farrell Electronically signed by: Anshu Farrell MD 02/19/2024 03:10 PM EDT
== END 2024-02-17 07:27 | disposition home or self-care (01) ==
LOC: HO.XRAY 07:26
PROVIDERS: PCP Internal Medicine; Visit Provider Nurse Practitioner Family
DX: K21.9 Gastro-esophageal reflux disease without esophagitis (principal)
CPT/HCPCS: 74246

== ENCOUNTER → 2024-02-17 07:28 | Outpatient (BNV) | payer MEDICARE, MEDICAID, SELFPAY | PROVIDERS: PCP Internal Medicine; Visit Provider Radiology Diagnostic Radiology | DX: R13.10 Dysphagia, unspecified (principal) | CPT/HCPCS: 74246 ==

== ENCOUNTER 2024-02-20 10:56 | Day surgery (SDC) | payer MEDICARE, MEDICAID, SELFPAY ==
[2024-02-18 12:21] VITALS: BMI 32.1
--- NOTE | 2024-02-18 13:39 | P.CONAN_ITS ---
Documented by User: Cheyanne Eastman NP 02/18/24 13:39 HPI - Anesthesia Eval Consult details Narrative: 53yo F for Excision Pilonidal Cyst,Sacrococcygeal area s/p same 02/2023 with GA-ETT 7 PMFSH Active Problems Active Problems: All Active Problems Left leg cellulitis (Acute) Vision changes (Acute) Lumbar radicular pain (Acute) Left wrist pain (Acute) Hypersensitivity (Acute) Perimenopausal symptoms (Acute) Lumbar spondylosis (Acute) Hip osteoarthritis (Acute) Fall (Acute) Right wrist pain (Acute) Plantar fasciitis of left foot (Acute) Carpal tunnel syndrome of right wrist (Acute) Carpal tunnel syndrome of left wrist (Acute) Joint pain (Acute) Smoker (Acute) Thyroid enlarged (Acute) Asthma (Acute) Tobacco abuse (Acute) Sacrococcygeal pilonidal cyst (Acute) Epidermoid cyst of skin of back (Acute) Sacrococcygeal pilonidal cyst with abscess (Acute) History of loop electrosurgical excision procedure (LEEP) (Acute) Gastroparesis (Acute) Personal history of nicotine dependence (Acute) Asthma-COPD overlap syndrome (Acute) Cohn's esophagus determined by endoscopy (Acute) Chronic cough (Acute) Plantar fasciitis (Acute) Obesity (BMI 30-39.9) (Acute) Hip pain (Acute) Hypercholesterolemia (Acute) History of IBS (Acute) Past Medical History Medical History Asthma Sacrococcygeal pilonidal cyst Calcaneal spur of left foot De Quervain's tenosynovitis, right Achilles tendinitis of left lower extremity Epidermoid cyst of skin of back Sacrococcygeal pilonidal cyst with abscess Bilateral hand numbness Arthralgia of right hand Numbness of right hand Gastroparesis COVID-19 virus infection Dyspnea Personal history of nicotine dependence Cohn's esophagus determined by endoscopy Chronic cough Plantar fasciitis Chronic pain of left ankle Verruca Impaired fasting blood sugar Generalized anxiety disorder Gastroesophageal reflux disease Breast density Hypersomnia Easy bruisability Dysphagia Plantar fasciitis, bilateral Lateral epicondylitis of left elbow Bicipital tendinitis of left shoulder Back pain Arthritis GERD (gastroesophageal reflux disease) Panic attacks Hx of tuberculosis Palpitations History of IBS Hypercholesterolemia Hip pain Obesity (BMI 30-39.9) Family History Family History Father Tongue cancer Mother CVD (cardiovascular disease) Maternal Aunt Colon cancer Maternal Uncle Colon cancer Brother CVD (cardiovascular disease) Substance abuse Sister CVD (cardiovascular disease) Family history of problems with anesthesia: No Surgical History Surgical History Hx of carpal tunnel repair History of loop electrosurgical excision procedure (LEEP) History of tubal ligation History of colonoscopy History of esophagogastroduodenoscopy (EGD) History of surgical removal of pilonidal cyst History of meniscectomy of left knee History of appendectomy History of section History of Problems with Anesthesia: No Social History Social History Household Members: Spouse and Children Housing: Apartment Are you a primary health care facilities inspector to a significant other at home: No Do you presently have visiting nurse or other home services: No Alcohol intake: former Comment: counts correct Patient Tobacco Use Status: Current everyday Tobacco user Tobacco use type: Cigarette Cigarettes Per Day: 10 Years Smoked: 30 e-Cigarette/Vaping Use: Never Used Second Hand Smoke Exposure: Yes Substance Use Type: Marijuana Advance Directives: No Advance Directives Information Provided: Yes service: No Current occupational status: disabled Cognitive needs: No Hearing needs: No Vision needs: No Meds Allergies Allergy/AdvReac Type Severity Reaction Status Date / Time hydrocodone [From Vicodin] Allergy Severe Stomach Verified 02/10/24 08:45 Pain morphine [MORPHINE] Allergy Severe REDNESS, Verified 02/10/24 08:45 FEELS REALLY HOT, shortness of breath, anaphylaxis oxycodone Allergy Severe Stomach Verified 02/10/24 08:45 Upset amoxicillin AdvReac Severe yeast Verified 02/10/24 08:45 infection Penicillins [PENICILLINS] AdvReac Severe YEAST Verified 02/10/24 08:45 INFECTION Home Medications ?Medication ?Instructions ?Recorded ?Confirmed ?Last Taken ?Type cholecalciferol (vitamin D3) 50 50 mcg PO DAILY 04/11/20 02/18/24 02/19/24 History mcg (2,000 unit) capsule acetaminophen 500 mg tablet 500 mg PO Q8H PRN mild pain 10/08/23 02/18/24 02/19/24 History Exam Height,Weight and Vital Signs: Height 5 ft 3 in Weight 82.1 kg Assessment and Plan Assessment Anesthesia Assessment: Chart Reviewed Final Anesthetic Review Family History of Problems with Anesthesia: No History of Problems with Anesthesia: No Documented by User: Katelyn De La Fuente MD 02/20/24 13:46 [facility] Past Medical History Medical History Asthma Sacrococcygeal pilonidal cyst Calcaneal spur of left foot De Quervain's tenosynovitis, right Achilles tendinitis of left lower extremity Epidermoid cyst of skin of back Sacrococcygeal pilonidal cyst with abscess Bilateral hand numbness Arthralgia of right hand Numbness of right hand Gastroparesis COVID-19 virus infection Dyspnea Personal history of nicotine dependence Cohn's esophagus determined by endoscopy Chronic cough Plantar fasciitis Chronic pain of left ankle Verruca Impaired fasting blood sugar Generalized anxiety disorder Gastroesophageal reflux disease Breast density Hypersomnia Easy bruisability Dysphagia Plantar fasciitis, bilateral Lateral epicondylitis of left elbow Bicipital tendinitis of left shoulder Back pain Arthritis GERD (gastroesophageal reflux disease) Panic attacks Hx of tuberculosis Palpitations History of IBS Hypercholesterolemia Hip pain Obesity (BMI 30-39.9) Family History Family History Father Tongue cancer Mother CVD (cardiovascular disease) Maternal Aunt Colon cancer Maternal Uncle Colon cancer Brother CVD (cardiovascular disease) Substance abuse Sister CVD (cardiovascular disease) Family history of problems with anesthesia: No Surgical History Surgical History Hx of carpal tunnel repair History of loop electrosurgical excision procedure (LEEP) History of tubal ligation History of colonoscopy History of esophagogastroduodenoscopy (EGD) History of surgical removal of pilonidal cyst History of meniscectomy of left knee History of appendectomy History of section History of Problems with Anesthesia: No Social History Social History Household Members: Spouse and Children Housing: Apartment Are you a primary health care facilities inspector to a significant other at home: No Do you presently have visiting nurse or other home services: No Alcohol intake: former Comment: counts correct Patient Tobacco Use Status: Current everyday Tobacco user Tobacco use type: Cigarette Cigarettes Per Day: 10 Years Smoked: 30 e-Cigarette/Vaping Use: Never Used Second Hand Smoke Exposure: Yes Substance Use Type: Marijuana Advance Directives: No Advance Directives Information Provided: Yes service: No Current occupational status: disabled Cognitive needs: No Hearing needs: No Vision needs: No Meds Allergies Allergy/AdvReac Type Severity Reaction Status Date / Time hydrocodone [From Vicodin] Allergy Severe Stomach Verified 02/10/24 08:45 Pain morphine [MORPHINE] Allergy Severe REDNESS, Verified 02/10/24 08:45 FEELS REALLY HOT, shortness of breath, anaphylaxis oxycodone Allergy Severe Stomach Verified 02/10/24 08:45 Upset amoxicillin AdvReac Severe yeast Verified 02/10/24 08:45 infection Penicillins [PENICILLINS] AdvReac Severe YEAST Verified 02/10/24 08:45 INFECTION Home Medications ?Medication ?Instructions ?Recorded ?Confirmed ?Last Taken ?Type cholecalciferol (vitamin D3) 50 50 mcg PO DAILY 04/11/20 02/18/24 02/19/24 History mcg (2,000 unit) capsule acetaminophen 500 mg tablet 500 mg PO Q8H PRN mild pain 10/08/23 02/18/24 02/19/24 History Exam Height,Weight and Vital Signs: Height 5 ft 3 in Weight 82.1 kg 02/20/24: Height 5 ft 3 in Weight 83.6 kg Vital Signs Temp Pulse Resp BP Pulse Ox O2 Del Method 02/20/24 11:51 97.3 F 84 18 134/84 95 Room Air Pertinent Lab Results Pertinent Lab Results: Lab Results 02/20/24 Range/Units 12:50 Urine Test NEGATIVE (NEGATIVE) Airway Mallampati Class: II TM Dist: >3cm Partial: Upper Loose/Missing/Broken Teeth: Yes (Partial top. Missing molars. Denies broken or loose teeth) Heart: RRR Lungs: CTAB Assessment and Plan Assessment Anesthesia Assessment: Anesthesia Plan Discussed and Chart Reviewed Final Anesthetic Review Family History of Problems with Anesthesia: No History of Problems with Anesthesia: No NPO: Yes ASA Class: II Final Preanesthetic Review: No Changes in Pt Med Stat, Meds/Allgs Chart Reviewed, Consent Obtained/Reviewed and Anes Risks/Benef Reviewed Patient Risk: Intermediate Procedure Risk: Low Assessment/Block/Sedation in SS: Assess/Block/Sedation-SS Anesthetic Plan Anesthetic Plan: GA Disposition: Standard PACU
[2024-02-20 11:51] VITALS: BP 134/84; PULSE 84; RESP 18; TEMP 36.3; O2SAT 95; BMI 32.6
--- NOTE | 2024-02-20 12:19 | PC.NURSE ---
chronic cough from smoking ls clear
[2024-02-20] MEDS: Lactated Ringers 1,000 ML 100 ML IVCONT (12:35)
--- NOTE | 2024-02-20 12:59 | MHC.SHP ---
Pre-Procedural Eval Section A - 24 Hr Update-Section A only Date of Service: 02/20/24 The patient is an INPATIENT: No Changes since office visit: No Cold of Flu in the past 2 weeks, No New Medical Problems, No Changes in Medication and No Patient answered all questions The patient has been examined within 24 hours of the surgical procedure. The History & Physical has been completed within 30 days and I have reviewed it.: Yes Section B - Complete if H&P > 30 days Chief Complaint: Pilonidal cyst without abscess Allergies: Allergies Allergy/AdvReac Type Severity Reaction Status Date / Time hydrocodone [From Vicodin] Allergy Severe Stomach Verified 02/10/24 08:45 Pain morphine [MORPHINE] Allergy Severe REDNESS, Verified 02/10/24 08:45 FEELS REALLY HOT, shortness of breath, anaphylaxis oxycodone Allergy Severe Stomach Verified 02/10/24 08:45 Upset amoxicillin AdvReac Severe yeast Verified 02/10/24 08:45 infection Penicillins [PENICILLINS] AdvReac Severe YEAST Verified 02/10/24 08:45 INFECTION Plan I have reviewed the history and physical and performed a pertinent physical examination on my patient. No changes have occurred unless specified. Time Spent With Patient Time: Total time managing care of this patient today ____ minutes.
[2024-02-20 13:02] LABS: UPreg QC Valid YES; Urine Pregnancy NEGATIVE (NEGATIVE)
--- NOTE | 2024-02-20 13:06 | PC.NURSE ---
pt sts spotting urine obtained and sent to lab
--- NOTE | 2024-02-20 14:51 | P.OP_ITS ---
Operative Note Operative Note Date of Service: 02/20/24 Narrative: Preop diagnosis: Recurrent pilonidal cyst, sacrococcygeal area Postop diagnosis: The same Procedure: Excision of recurrent pilonidal cyst sacrococcygeal area Surgeon: Jonny Jerome MD The patient is a 53 year female who has had recurrent drainage induration on the sacrococcygeal area. She previously had an excision of a pilonidal cyst. She had been doing well. About the past 6 months however, she had been noticing drainage and induration an area more cephalad to the previous excision site. Examination in the office revealed sinuses and this area consistent with a recurrent pilonidal cyst In view of this, she wanted to proceed with excision of the recurrent pilonidal cyst. She understood the technique of the planned procedure as well as the risks, benefits, and alternatives She was brought to the operating room. She was placed in prone position under general anesthesia via endotracheal tube. The buttocks were retracted with wide tape laterally. The sacrococcygeal area was prepped and draped in the usual sterile fashion. Surgical time-out was done. The patient received cefazolin 2 g IV preoperatively I marked my planned line of incision and infiltrated this with with lidocaine 1 %. I made an elliptical incision around this area of sinuses and induration blade 15. This carried down through the full-thickness of the skin and subcutaneous fat with electrocautery. I included all indurated areas in the subcutaneous layer excision. The area excised with a about 5 cm long and about cm wide. This was all the way into the deep subcutaneous layer. There were no residual areas of induration or any skin sinuses. I irrigated. I ensured hemostasis using electrocautery. I undermined both sides to allow closure without tension by developing planes to include subcutaneous flaps. I reapposed the deep subcutaneous tissue with Polysorb 3-0 interrupted sutures. Skin closure was achieved with nylon 2-0 simple interrupted sutures alternating with vertical mattress sutures. Dr essings were applied. The area was infiltrated with Marcaine 0.5% postop analgesia. The procedure was then completed The patient tolerated procedure well. There were no immediate complications. I nitial and final counts of sponges and instruments were correct. Estimated blood loss was about 20 cc. The patient was extubated without difficulty and transferred to the recovery room with stable vital signs.
[2024-02-20 15:04] VITALS: BP 114/69; PULSE 83; RESP 14; TEMP 36.6; O2SAT 99
[2024-02-20 15:05] VITALS: BP 114/74; PULSE 84; RESP 14; O2SAT 99
[2024-02-20 15:10] VITALS: BP 117/59; PULSE 80; RESP 14; O2SAT 99
[2024-02-20 15:15] VITALS: BP 117/70; PULSE 84; RESP 14; O2SAT 99
[2024-02-20 15:30] VITALS: BP 117/48; PULSE 86; RESP 14; TEMP 36.6; O2SAT 99
== END 2024-02-20 15:43 | disposition home or self-care (01) ==
PROVIDERS: Anesthesiology; PCP Internal Medicine; Visit Provider Surgery
PROC: (CPT 11771; principal; 2024-02-20 12:50)
DX: L05.91 Pilonidal cyst without abscess (principal); R73.01 Impaired fasting glucose; J44.9 Chronic obstructive pulmonary disease, unspecified; Z86.11 Personal history of tuberculosis; Z79.899 Other long term (current) drug therapy; Z88.5 Allergy status to narcotic agent; Z88.0 Allergy status to penicillin; Z88.1 Allergy status to other antibiotic agents
CPT/HCPCS: 11771; 81025; 88304; J0131; J0690; J1100; J2250; J2405; J2704; J2795; J3010

== ENCOUNTER → 2024-02-20 10:56 | Outpatient (BNV) | payer MEDICARE, MEDICAID, SELFPAY | PROVIDERS: PCP Internal Medicine; Visit Provider Surgery | DX: L05.91 Pilonidal cyst without abscess (principal) | CPT/HCPCS: 11771 ==

== ENCOUNTER → 2024-02-26 15:00 | Outpatient (RCR) | payer MEDICARE, MEDICAID, SELFPAY ==
[2020-12-06 09:05] VITALS: BP 104/58; PULSE 88; RESP 14; TEMP 37; O2SAT 96; BMI 34.7
--- NOTE | 2020-12-06 09:14 | P.CNHO_ITS ---
Subjective - Subjective Chief complaint: Easy Skin bruising Patient: new to practice Consult date: 12/06/20 Requesting Physician: Dr. Raines Primary Care Provider: Shira Raines MD HPI - Consult Narrative Reason for consult: Easy skin bruising Narrative: Jessy Dolan is a 50 year old woman referred for evaluation of easy skin bruising. She has a longstanding history of easy skin bruising but in the last 2 months she had an episode of hematoma in the right masseter/cheek and another episode of hematoma in medial aspect of left thigh. She denies being on aspirin or any NSAIDs. No history of trauma prior to either of these bruises. She has had multiple surgical procedures in the past including multiple extraction of wisdom teeth without any bleeding problems. No family history of bleeding. She denies mucosal bleeding such as hematuria, hematochezia, epistaxis or gum bleeding. Only new medication is probiotic. She denies any other complaints such as fever, chills, loss of appetite or weight loss. Review of Systems - Constitutional Reports as per HPI, Reports no additional constitutional complaints - Cardiovascular Reports no additional cardiovascular complaints - Respiratory Reports no additional respiratory complaints - Gastrointestinal Reports no additional gastrointestinal complaints Oncology Screenings - ECOG Performance Status ECOG Performance Status: 0 PMFSH Medical History: Medical History (Last Reviewed 11/29/20 @ 15:50 by DOMENICA Burger) Anxiety Arthritis Asthma Back pain GERD (gastroesophageal reflux disease) Hip pain History of IBS Hx of tuberculosis Hypercholesterolemia Obesity (BMI 30-39.9) Palpitations Panic attacks Tobacco abuse Family History: Family History (Last Reviewed 11/29/20 @ 15:50 by DOMENICA Burger) Father Tongue cancer Mother CVD (cardiovascular disease) Maternal Aunt Colon cancer Maternal Uncle Colon cancer Surgical History: Surgical History (Last Reviewed 11/29/20 @ 15:50 by DOMENICA Burger) History of appendectomy History of section History of meniscectomy of left knee History of removal of cyst Hx of colonoscopy Hx of endoscopy Hx of tubal ligation Social History: Social History (Last Updated 12/06/20 @ 09:08 by Yue Chance) Living Situation History: Household Members: Spouse Household Members: Children Are you a primary occasional caregiver to a significant other at home: No Do you presently have visiting nurse or other home services: No Alcohol History: Alcohol intake: former Alcohol History Details: Alcohol intake frequency: does not drink Tobacco History: Patient Tobacco Use Status: Current everyday Tobacco Cigarette Packs Per Day: 0.5 Years Smoked: 30 Substance Use History: Use of substances other than those prescribed or required for medical reasons : No Substance Use Type: Marijuana Occupation Assessmet: Current occupational status: disabled Home Medications and Allergies Home Medications Medication Instructions Recorded Confirmed Type cholecalciferol (vitamin D3) 50 50 mcg PO DAILY 04/11/20 12/06/20 History mcg (2,000 unit) capsule diclofenac sodium 1 % topical gel 2 g TOPICAL QID 04/11/20 12/06/20 History dicyclomine 10 mg capsule 20 mg PO TID cap 04/11/20 12/06/20 History lorazepam 1 mg tablet 1 mg PO DAILY PRN 04/11/20 12/06/20 History Allergies Allergy/AdvReac Type Severity Reaction Status Date / Time morphine [MORPHINE] Allergy Unknown REDNESS, Verified 11/29/20 15:47 FEELS REALLY HOT, shortness of breath, anaphylaxis amoxicillin AdvReac Unknown yeast Verified 11/29/20 15:47 infection Penicillins [PENICILLINS] AdvReac Unknown YEAST Verified 11/29/20 15:47 INFECTION Physical Exam Vital signs: Vital Signs Temp 98.6 F 12/06/20 09:05 Pulse 88 12/06/20 09:05 Resp 14 12/06/20 09:05 BP 104/58 L 12/06/20 09:05 Pulse Ox 96 12/06/20 09:05 Intake & Output 12/05/20 12/06/20 12/06/20 18:59 06:59 18:59 Other: Weight 89.1 kg Weight in Grams 00163 Weight 89.1 kg - Constitutional Present: no acute distress - Routine HEENT Exam Head: Present: normal inspection - Routine Neck Exam Absent: lymphadenopathy - Routine Respiratory Exam Present: CTAB - Routine Cardiovascular Exam Cardiovascular: Present: S1, S2 - Routine Skin Exam Present: intact. Absent: erythema, ecchymosis Assessment and Plan (1) Easy bruisability Status: Chronic 1. This is a 50-year-old woman referred for evaluation of easy skin bruisability. She has had this for many years but in the recent months has noticed more frequent episodes. She has no history of prolonged or excessive bleeding after multiple surgical procedures that she has had in the past. No family history of bleeding disorder. Her coagulation tests are normal. Her platelet counts are normal and she is not on any medications that could affect p latelet functions. I have submitted Von Willebrand's testing. If these are normal, platelet function tests can be done, appointment at [facility] reference lab will have to be made. Other causes such as hepatic or renal dysfunction her unlikely. Her nutritional status is good, endocrine causes or vitamin deficiencies are unlikely. Follow-up in 1 month. I thank you very much for this consultation.
[2020-12-06 10:44] LABS: INTERNATIONAL NORM RATIO 0.9 (0.9-1.1)
--- NOTE | 2020-12-06 14:01 | MHC.HEMONCMA ---
Patient came in for a consult for easy bruising- states that she is doing well. Clinical summary was reviewed and updated. Patient had labs and will have a telehealth in 1 month.
[2020-12-13 14:01] LABS: Factor VIII Activity Clotting 168 % normal (50-180); PTT, Activated 27 sec (23-32); Ristocetin Cofactor 139 % normal (42-200)
--- NOTE | 2021-01-05 09:23 | HO.HEMONCTE1 ---
[facility] Telehealth - Telehealth Location of Provider rendering services: Office Patient Identification confirmed using: Name, : Yes Telehealth Method: Telephone Patient verbally consented to treatment: Yes Patient verbally consented to billing insurance company: Yes Patient informed of any privacy concerns related to visit: Yes Medical Summary - Medical Summary Date of Service: 01/05/21 Chief complaint: Scheduled follow-up Interval History Interval history: This is scheduled tele visit for patient. Today's visit to discuss results of blood test from her last visit. She is doing well and has no complaints today. Home Medications and Allergies Home Medications Medication Instructions Recorded Confirmed Type cholecalciferol (vitamin D3) 50 50 mcg PO DAILY 04/11/20 12/06/20 History mcg (2,000 unit) capsule diclofenac sodium 1 % topical gel 2 g TOPICAL QID 04/11/20 12/06/20 History dicyclomine 10 mg capsule 20 mg PO TID cap 04/11/20 12/06/20 History lorazepam 1 mg tablet 1 mg PO DAILY PRN 04/11/20 12/06/20 History Allergies Allergy/AdvReac Type Severity Reaction Status Date / Time morphine [MORPHINE] Allergy Unknown REDNESS, Verified 11/29/20 15:47 FEELS REALLY HOT, shortness of breath, anaphylaxis amoxicillin AdvReac Unknown yeast Verified 11/29/20 15:47 infection Penicillins [PENICILLINS] AdvReac Unknown YEAST Verified 11/29/20 15:47 INFECTION Exam Vital signs: Vital Signs Temp 98.6 F 12/06/20 09:05 Pulse 88 12/06/20 09:05 Resp 14 12/06/20 09:05 BP 104/58 L 12/06/20 09:05 Pulse Ox 96 12/06/20 09:05 Weight 89.1 kg Body Mass Index 34.7 Narrative: Patient not examined today - Constitutional Present: no acute distress - Routine HEENT Exam Head: Present: normal inspection - Routine Respiratory Exam Present: CTAB - Routine Cardiovascular Exam Cardiovascular: Present: S1, S2 - Routine Skin Exam Present: intact. Absent: erythema, ecchymosis Data - Labs Labs: 12/06/20 09:44 Partial Thromboplastin Time Routine Prothrombin Time INR Routine von Willebrand Comp. Profile Routine Laboratory Last Values PT 11.0 SEC (10.8-13.0) 12/06/20 09:44 INR 0.9 (0.9-1.1) 12/06/20 09:44 APTT 37.0 SEC (24.1-38.0) 12/06/20 09:44 PTT 27 sec (23-32) 12/06/20 09:44 vWF VIII Activity 168 % normal (50-180) 12/06/20 09:44 von Willebrand Antigen 159 % (50-217) 12/06/20 09:44 vWF Multimeric Antigen see note 12/06/20 09:44 vWF Ristocetin Cofactr 139 % normal (42-200) 12/06/20 09:44 vWF Panel Interp see note 12/06/20 09:44 Progress Note: A/P (1) Easy bruisability Status: Chronic Assessment and plan: 1. This is a 50-year-old woman with easy skin bruising. She has normal platelet counts, coagulation tests and no evidence of von Willebrand's disease. She has no history of prolonged or excessive bleeding after multiple surgical procedures that she has had in the past. No family history of bleeding disorder. I am referring her to [facility] for platelet aggregation tests. Results will be discussed with patient. - Time Spent With Patient Time Spent with Patient (in minutes): 5 Comment: Time spent on the patient over telephone was 3 minutes, 2 minutes reviewing data.
--- NOTE | 2021-01-05 14:57 | MHC.HEMONCMA ---
Patient had telehealth with Dr Redding today, states she is doing well. Clinical summary was reviewed and updated. Patient did not have labs. Patient was scheduled for platelet aggregation appt for Friday01/09/2021 at 8am. Patient was notified.
== END | disposition home or self-care (01) ==
LOC: HO.ONC 12-06 08:56
PROVIDERS: PCP Internal Medicine; Referring Provider Internal Medicine; Visit Provider Internal Medicine
DX: R23.3 Spontaneous ecchymoses (principal)
CPT/HCPCS: 36415; 85240; 85245; 85246; 85247; 85610; 85730; 99204; 99212

== ENCOUNTER 2024-03-01 08:55 | Outpatient (AMB) | payer MEDICARE, MEDICAID, SELFPAY ==
--- NOTE | 2024-03-01 09:05 | HO.SPINEOV ---
Intake Visit Reasons: LBP Intake Note: Ms. Dolan is here today c/o low back pain. Residential [employer] Required: No Allergies hydrocodone [From Vicodin] Allergy (Severe, Verified 03/01/24 10:17) Stomach Pain morphine [MORPHINE] Allergy (Severe, Verified 03/01/24 10:17) REDNESS, FEELS REALLY HOT, shortness of breath, anaphylaxis oxycodone Allergy (Severe, Verified 03/01/24 10:17) Stomach Upset amoxicillin Adverse Reaction (Severe, Verified 03/01/24 10:17) yeast infection Penicillins [PENICILLINS] Adverse Reaction (Severe, Verified 03/01/24 10:17) YEAST INFECTION Assessment & Plan Assessment & Plan (1) Lumbar radiculopathy: Code(s): M54.16 - Radiculopathy, lumbar region Category: Medical Plan Dear Dr. Raines, Thank you for referring Jessy to our office today. She is a pleasant 53-year-old female who comes in today with a chief complaint of low back pain and left-sided lower extremity numbness. In addition to this she reports some mild shooting pains originating in her left groin and shooting over the surface of her anterior thigh on the left. When describing her numbness she states that it is primarily well localized to her left lateral thigh and her left heel. Of note, she has a confounding factor of a recurrent pilonidal cyst, which our general surgery department has attempted to resect x3 per her report. She most recently had a resection on February 19 of this year. She reports that she still has sutures in from this operation and is unsure if her ambulation troubles are result of the surgery or her low back pain. She reports that sitting and walking make her pain worse, and standing helps to alleviate her pain. She is trialed several [id number] medications including Tylenol, lidocaine patches, icy hot, and pain creams. She has been to physical therapy for this issue and found it was not helpful. She attempted to go and see the chiropractor however they said they would not attempt to realign her back due to her pilonidal cyst. She has not had cortisone injections, and is adamantly against the idea of having cortisone injections. PMH: History pilonidal cyst removal x3, history of bilateral carpal tunnel release, irritable bowel syndrome, hyperlipidemia, plantar fasciitis, Cohn's esophagus, asthma. Social hx: Patient smokes 1 pack cigarettes per day, denies other substance use. Medications: Linzess, hydrocortisone, lidocaine patch (4 mg), Percocet 5 mg, albuterol, Tylenol, atorvastatin, vitamin D3, cyclobenzaprine, omeprazole. Allergies: Vicodin, morphine, oxycodone, amoxicillin, penicillins. Physical exam: The patient needs to remain seated in the office chair for the duration of the exam. She is unable per her report to climb up onto the exam table. The patient has 4/5 strength with bilateral knee flexion and iliopsoas testing. The rest of her upper/lower extremity strength is 5/5. She is able to ambulate relatively well with minimally antalgic gait. Does not favor either side specifically. (-) bilateral straight leg raise, (-) clonus, (-) Ho's. Imaging review: MRI of the lumbar spine completed at [facility] shows mild degenerative disc disease with moderate left-sided foraminal stenosis at L3-4, in mild bilateral foraminal stenosis at L4-5. The MRI has transitional anatomy and the 1st fully formed disc space is considered L5-S1. Impression: Jessy is a pleasant 53-year-old female who comes in today with a chief complaint of low back pain, shooting pains over anterior left thigh, and numbness well localized to her left lateral thigh and left heel. Her exam and disclosed pain/symptoms are confounded by her recurrent pilonidal cyst. On MRI of her lumbar spine there is no obvious source that would be causing the constellation of symptoms which she is reporting. I recommended that she accept a referral to physiatry for consideration of steroid injections at L3-4, however she was very averse to this. She does not wish to pursue conservative management at this time. I encouraged her to reach back out to our office if her symptoms worsen at all in the future, but at this time I do not believe she is a good candidate for spine surgery. Thank you for allowing us to care for your patient. The total time spent with this visit with this patient was 45 minutes reviewing history, physical exam, MRI imaging review, and implementation of treatment plan or further diagnostic testing. Caio Montejo MD,PhD [facility] Coding Level of Care Code New Pt Level 4 (53744) Diagnoses Lumbar radiculopathy M54.16
== END 2024-03-01 09:44 | disposition home or self-care (01) ==
PROVIDERS: PCP Internal Medicine; Referring Provider Internal Medicine; Visit Provider Physician Assistant
DX: M54.16 Radiculopathy, lumbar region (principal)
CPT/HCPCS: 99204; 99214

== ENCOUNTER → 2024-03-01 08:55 | Outpatient (BNVA) | payer MEDICARE, MEDICAID, SELFPAY | PROVIDERS: PCP Internal Medicine; Visit Provider Physician Assistant | DX: Z09 Encounter for follow-up examination after completed treatment for conditions other than malignant neoplasm (principal); M54.16 Radiculopathy, lumbar region | CPT/HCPCS: 99202; 99212 ==

== ENCOUNTER 2024-03-01 09:54 | Outpatient (AMB) | payer MEDICARE, MEDICAID, SELFPAY ==
--- NOTE | 2024-03-01 10:13 | MHC.OFFVIS ---
Intake Visit Reasons: Check surgical area Pilonidal cyst w/o abcsess Intake Note: This patient presents for wound check status post pilonidal cyst excision. Pt c/o; reports large about of bleeding, reports pain. [employer] Required: No Accompanied by: Other Relationship Allergies hydrocodone [From Vicodin] Allergy (Severe, Verified 03/01/24 10:17) Stomach Pain morphine [MORPHINE] Allergy (Severe, Verified 03/01/24 10:17) REDNESS, FEELS REALLY HOT, shortness of breath, anaphylaxis oxycodone Allergy (Severe, Verified 03/01/24 10:17) Stomach Upset amoxicillin Adverse Reaction (Severe, Verified 03/01/24 10:17) yeast infection Penicillins [PENICILLINS] Adverse Reaction (Severe, Verified 03/01/24 10:17) YEAST INFECTION HPI Comments Details: Patient is status post pilonidal cyst excision with Dr. Jerome. He is in the operating room and unavailable for visit. Patient presents here because she has had some drainage from the inferior aspect of her incision. She presents here with her significant other. [facility] Medical History Asthma Sacrococcygeal pilonidal cyst Calcaneal spur of left foot De Quervain's tenosynovitis, right Achilles tendinitis of left lower extremity Epidermoid cyst of skin of back Sacrococcygeal pilonidal cyst with abscess Bilateral hand numbness Arthralgia of right hand Numbness of right hand Gastroparesis COVID-19 virus infection Dyspnea Personal history of nicotine dependence Cohn's esophagus determined by endoscopy Chronic cough Plantar fasciitis Chronic pain of left ankle Verruca Impaired fasting blood sugar Generalized anxiety disorder Gastroesophageal reflux disease Breast density Hypersomnia Easy bruisability Dysphagia Plantar fasciitis, bilateral Lateral epicondylitis of left elbow Bicipital tendinitis of left shoulder Back pain Arthritis GERD (gastroesophageal reflux disease) Panic attacks Hx of tuberculosis Palpitations History of IBS Hypercholesterolemia Hip pain Obesity (BMI 30-39.9) Surgical History Hx of carpal tunnel repair History of loop electrosurgical excision procedure (LEEP) History of tubal ligation History of colonoscopy History of esophagogastroduodenoscopy (EGD) History of surgical removal of pilonidal cyst History of meniscectomy of left knee History of appendectomy History of section Family History Father Tongue cancer Mother CVD (cardiovascular disease) Maternal Aunt Colon cancer Maternal Uncle Colon cancer Brother CVD (cardiovascular disease) Substance abuse Sister CVD (cardiovascular disease) Social History Household Members: Spouse and Children Housing: Apartment Are you a primary life care planner to a significant other at home: No Do you presently have visiting nurse or other home services: No Alcohol intake: former Comment: counts correct Patient Tobacco Use Status: Current everyday Tobacco user Tobacco use type: Cigarette Cigarettes Per Day: 10 Years Smoked: 30 e-Cigarette/Vaping Use: Never Used Second Hand Smoke Exposure: Yes Substance Use Type: Marijuana service: No Current occupational status: disabled Cognitive needs: No Hearing needs: No Vision needs: No Female Reproductive History Menstrual Age of Menarche: 12 Physical Exam Back/Spine/Pelvis Other: Pilonidal incision is clean dry and intact with sutures in place with no evidence of a cellulitis or abscess. Patient has some serosanguineous drainage from the inferior aspect of the incision but no evidence of any purulence. Assessment & Plan Assessment & Plan (1) Postop check: Code(s): Z09 - Encounter for follow-up examination after completed treatment for conditions other than malignant neoplasm Category: Surgical Plan According to the patient's significant other, she has been quite active as opposed to being somewhat sedentary , which is strongly recommended after this type surgery. This is probably resulting in her accumulating seroma and causing the drainage. At present, patient has been given local instructions including avoiding strenuous activities and excessive bending and is scheduled to follow with Dr. Jerome in few days time. During this time, should symptoms progress or any issues or concerns, patient was instructed to call the office or otherwise follow-up p.r.n.. Coding Level of Care Code Global (55584) Diagnoses Postop check Z09
== END 2024-03-01 10:32 | disposition home or self-care (01) ==
PROVIDERS: PCP Internal Medicine; Visit Provider Surgery
DX: Z09 Encounter for follow-up examination after completed treatment for conditions other than malignant neoplasm (principal)
CPT/HCPCS: 99024

== ENCOUNTER 2024-03-04 09:53 | Outpatient (AMB) | payer MEDICARE, SELFPAY ==
--- NOTE | 2024-03-04 10:05 | MHC.OFFVIS ---
Vital Signs 03/04/24 10:14 Height 5 ft 3 in Weight 182 lb 2 oz BMI 32.3 Intake Visit Reasons: S/P exc. pilonidal cyst sacrococcygeal area Intake Note: This patient presents for post-op status post excision pilonidal cyst sacrococcygeal area Pt c/o; reports pain and bleeding. Statement Processor Required: No Accompanied by: Self / Same As Patient Allergies hydrocodone [From Vicodin] Allergy (Severe, Verified 03/04/24 10:10) Stomach Pain morphine [MORPHINE] Allergy (Severe, Verified 03/04/24 10:10) REDNESS, FEELS REALLY HOT, shortness of breath, anaphylaxis oxycodone Allergy (Severe, Verified 03/04/24 10:10) Stomach Upset amoxicillin Adverse Reaction (Severe, Verified 03/04/24 10:10) yeast infection Penicillins [PENICILLINS] Adverse Reaction (Severe, Verified 03/04/24 10:10) YEAST INFECTION Medication List - Last Reconciled 03/04/24 by Jonny Jerome MD acetaminophen 500 mg PO Q8H PRN albuterol sulfate 90 mcg/actuation (Ventolin HFA) 2 puffs inhalation Q6H PRN amoxicillin-pot clavulanate 875-125 mg 1 tab PO BID atorvastatin 10 mg PO DAILY cholecalciferol (vitamin D3) 50 mcg PO DAILY cyclobenzaprine 10 mg PO TID PRN esomeprazole magnesium 40 mg PO DAILY hydrocortisone 2.5% (Proctosol HC) 1 appl AL BID-QID PRN lidocaine 4% 1 appl topical BID 2 weeks linaclotide (Linzess) 145 mcg PO DAILY oxycodone-acetaminophen 5-325 mg (Percocet) 1 tab PO Q4-6H PRN HPI HPI S/P exc. pilonidal cyst sacrococcygeal area: Details: She had undergone excision of a pilonidal cyst last 02/20/2024 She describes pain on the incision with some serosanguineous drainage She denies any fever or chills. She says that she still needs to take some narcotics for pain at night. [facility] Medical History Asthma Sacrococcygeal pilonidal cyst Calcaneal spur of left foot De Quervain's tenosynovitis, right Achilles tendinitis of left lower extremity Epidermoid cyst of skin of back Sacrococcygeal pilonidal cyst with abscess Bilateral hand numbness Arthralgia of right hand Numbness of right hand Gastroparesis COVID-19 virus infection Dyspnea Personal history of nicotine dependence Cohn's esophagus determined by endoscopy Chronic cough Plantar fasciitis Chronic pain of left ankle Verruca Impaired fasting blood sugar Generalized anxiety disorder Gastroesophageal reflux disease Breast density Hypersomnia Easy bruisability Dysphagia Plantar fasciitis, bilateral Lateral epicondylitis of left elbow Bicipital tendinitis of left shoulder Back pain Arthritis GERD (gastroesophageal reflux disease) Panic attacks Hx of tuberculosis Palpitations History of IBS Hypercholesterolemia Hip pain Obesity (BMI 30-39.9) Surgical History History of excision of pilonidal cyst (~02/20/24) Hx of carpal tunnel repair History of loop electrosurgical excision procedure (LEEP) History of tubal ligation History of colonoscopy History of esophagogastroduodenoscopy (EGD) History of surgical removal of pilonidal cyst History of meniscectomy of left knee History of appendectomy History of section Family History Father Tongue cancer Mother CVD (cardiovascular disease) Maternal Aunt Colon cancer Maternal Uncle Colon cancer Brother CVD (cardiovascular disease) Substance abuse Sister CVD (cardiovascular disease) Social History Household Members: Spouse and Children Housing: Apartment Are you a primary child care group leader to a significant other at home: No Do you presently have visiting nurse or other home services: No Alcohol intake: former Comment: counts correct Patient Tobacco Use Status: Current everyday Tobacco user Tobacco use type: Cigarette Cigarettes Per Day: 10 Years Smoked: 30 e-Cigarette/Vaping Use: Never Used Second Hand Smoke Exposure: Yes Substance Use Type: Marijuana service: No Current occupational status: disabled Cognitive needs: No Hearing needs: No Vision needs: No Female Reproductive History Menstrual Age of Menarche: 12 Review of Systems Const Denies chills and Denies fever(s) Card Denies chest pain Resp Denies cough Physical Exam Vital Signs: BMI result Body Mass Index 32.3 Const General: comfortable and no acute distress Resp Effort & Inspection: normal respiratory effort Back/Spine/Pelvis Other: Excision site sutures intact, no cellulitis, no pus, no significant induration, with serosanguineous drainage Assessment & Plan Assessment & Plan (1) Sacrococcygeal pilonidal cyst: Code(s): L05.91 - Pilonidal cyst without abscess Category: Medical Plan: Status post excision. The area is not infected. I explained to her that I would it anticipate serosanguineous drainage for several weeks . I did not remove her sutures. I will see her again next week to see if we can removed all her sutures by then I we will prescribe her some narcotics for her pain. Coding Level of Care Code Global (86553) Diagnoses Sacrococcygeal pilonidal cyst L05.91
[2024-03-04 10:14] VITALS: BMI 32.3
== END 2024-03-04 10:33 | disposition home or self-care (01) ==
PROVIDERS: PCP Internal Medicine; Visit Provider Surgery
DX: L05.91 Pilonidal cyst without abscess (principal)
CPT/HCPCS: 99024

== ENCOUNTER → 2024-03-04 09:53 | Outpatient (BNVA) | payer MEDICARE, SELFPAY | PROVIDERS: PCP Internal Medicine; Visit Provider Surgery | DX: L05.91 Pilonidal cyst without abscess (principal) | CPT/HCPCS: 99212 ==

== ENCOUNTER 2024-03-15 09:18 | Outpatient (AMB) | payer MEDICARE, SELFPAY ==
--- NOTE | 2024-03-15 09:35 | MHC.OFFVIS ---
Vital Signs 03/15/24 09:40 Height 5 ft 3 in Weight 189 lb BMI 33.5 Intake Visit Reasons: 1 week follow up exc. karin cyst Intake Note: This patient presents for one week follow up status post excision pilonidal cyst. Pt c/o; reports bleeding has improved, reports pain/discomfort. 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 karin cyst: Details: She underwent excision of a cyst from the sacrococcygeal area last 02/20/2024. She tolerated the procedure well. She is doing well at home postoperatively. She denies any new complaints. [facility] Medical History Asthma Sacrococcygeal pilonidal cyst Calcaneal spur of left foot De Quervain's tenosynovitis, right Achilles tendinitis of left lower extremity Epidermoid cyst of skin of back Sacrococcygeal pilonidal cyst with abscess Bilateral hand numbness Arthralgia of right hand Numbness of right hand Gastroparesis COVID-19 virus infection Dyspnea Personal history of nicotine dependence Cohn's esophagus determined by endoscopy Chronic cough Plantar fasciitis Chronic pain of left ankle Verruca Impaired fasting blood sugar Generalized anxiety disorder Gastroesophageal reflux disease Breast density Hypersomnia Easy bruisability Dysphagia Plantar fasciitis, bilateral Lateral epicondylitis of left elbow Bicipital tendinitis of left shoulder Back pain Arthritis GERD (gastroesophageal reflux disease) Panic attacks Hx of tuberculosis Palpitations History of IBS Hypercholesterolemia Hip pain Obesity (BMI 30-39.9) Surgical History History of excision of pilonidal cyst (~08/30/24) Hx of carpal tunnel repair History of loop electrosurgical excision procedure (LEEP) History of tubal ligation History of colonoscopy History of esophagogastroduodenoscopy (EGD) History of surgical removal of pilonidal cyst History of meniscectomy of left knee History of appendectomy History of section Family History Father Tongue cancer Mother CVD (cardiovascular disease) Maternal Aunt Colon cancer Maternal Uncle Colon cancer Brother CVD (cardiovascular disease) Substance abuse Sister CVD (cardiovascular disease) Social History Household Members: Spouse and Children Housing: Apartment Are you a primary nursing care partner to a significant other at home: No Do you presently have visiting nurse or other home services: No Alcohol intake: former Comment: counts correct Patient Tobacco Use Status: Current everyday Tobacco user Tobacco use type: Cigarette Cigarettes Per Day: 10 Years Smoked: 30 e-Cigarette/Vaping Use: Never Used Second Hand Smoke Exposure: Yes Substance Use Type: Marijuana service: No Current occupational status: disabled Cognitive needs: No Hearing needs: No Vision needs: No Female Reproductive History Menstrual Age of Menarche: 12 Review of Systems Const Denies chills and Denies fever(s) Physical Exam Vital Signs: BMI result Body Mass Index 33.5 Const General: comfortable and no acute distress Resp Effort & Inspection: normal respiratory effort Back/Spine/Pelvis Other: Excision site on the sacrococcygeal area is well healed, not infected, sutures intact Assessment & Plan Assessment & Plan (1) Sacrococcygeal pilonidal cyst: Code(s): L05.91 - Pilonidal cyst without abscess Category: Medical Plan: Status post excision under anesthesia. The incision is well healed. I removed all her sutures Her path report shows what appears to be a ruptured cyst in the area. This is likely to have been just a large epidermal cyst She otherwise can follow up with me on a p.r.n. basis. Coding Level of Care Code Global (07079) Diagnoses Sacrococcygeal pilonidal cyst L05.91
[2024-03-15 09:40] VITALS: BMI 33.5
== END 2024-03-15 09:47 | disposition home or self-care (01) ==
PROVIDERS: PCP Internal Medicine; Visit Provider Surgery
DX: L05.91 Pilonidal cyst without abscess (principal)
CPT/HCPCS: 99024

== ENCOUNTER → 2024-03-15 09:18 | Outpatient (BNVA) | payer MEDICARE, SELFPAY | PROVIDERS: PCP Internal Medicine; Visit Provider Surgery | DX: Z48.817 Encounter for surgical aftercare following surgery on the skin and subcutaneous tissue (principal); Z87.2 Personal history of diseases of the skin and subcutaneous tissue; Z98.890 Other specified postprocedural states | CPT/HCPCS: 99212 ==

== ENCOUNTER 2024-03-31 09:14 | Outpatient (AMB) | payer MEDICARE, MEDICAID, SELFPAY ==
[2024-03-31 09:19] VITALS: BP 104/68; PULSE 62; O2SAT 96; BMI 33.0
--- NOTE | 2024-03-31 09:19 | A.OFFVIS_ITS ---
Vital Signs 03/31/24 09:19 Height 5 ft 3 in Weight 186 lb 1.122 oz BMI 33.0 BP 104/68 Blood Pressure Location Rt brachial Position Sitting Pulse 62 Pulse Source Pulse Oximeter Pulse Oximetry (%) 96 Oxygen Delivery Method Room Air Intake Visit Reasons: 3 month follow up Intake Note: Jessy presents in office today for a scheduled 3 mos FUV. CC; Pt recently had an appt with gen surg as of 03/15. Pt had UGIS scheduled for 02/16. No recent rx or labs placed. Pt reports that they have been doing well since their last visit; pt does still report having breakthrough sx including abd distention and bloating, however, they do report that it has been improved since they started. Rehabilitation Services Coordinator Required: No Allergies hydrocodone [From Vicodin] Allergy (Severe, Verified 03/31/24 09:20) Stomach Pain morphine [MORPHINE] Allergy (Severe, Verified 03/31/24 09:20) REDNESS, FEELS REALLY HOT, shortness of breath, anaphylaxis oxycodone Allergy (Severe, Verified 03/31/24 09:20) Stomach Upset amoxicillin Adverse Reaction (Severe, Verified 03/31/24 09:20) yeast infection Penicillins [PENICILLINS] Adverse Reaction (Severe, Verified 03/31/24 09:20) YEAST INFECTION HPI HPI 3 month follow up: Details: LAST VISIT: Gastroparesis Cohn's esophagus determined by endoscopy Gastroesophageal reflux disease Constipation Postprandial abdominal bloating Epigastric pain Plan Continue Reglan with meals. Smaller meals and more often, patient will start taking Linzess. Increase fluid intake and activity to promote better bowel motility. Continue Nexium every morning before breakfast. Avoid dietary triggers and late night snacking. Staying upright for minimum 3 hours after meals discussed with patient. Patient will return in the office in 3 months, sooner on as needed basis. She is agreeable to this plan and verbalizes understanding of instructions. She was given the opportunity to ask questions and all questions answered. ? TODAY'S VISIT: Patient is here today for follow-up. Patient reports that she has been feeling little better. Moving her bowels, however she occasionally will have days where she is unable to go until she takes a 2nd dose of Linzess. Currently she is on 145 mcg daily. Patient reports that Nexium has been working for her. Patient states that she does not have acid reflux anymore, however patient does admit that occasionally she will still have choking episodes even when drinking water. Upper GI series showed disorganized peristalses. RAST allergen test completed and no allergies found. Patient continues to feel like there is something in her throat that is causing liquids to go down the wrong way . Patient denies any nausea or vomiting. Denies any melena, hematochezia, unintentional weight loss or ribbon like stools. [facility] Medical History Asthma Sacrococcygeal pilonidal cyst Calcaneal spur of left foot De Quervain's tenosynovitis, right Achilles tendinitis of left lower extremity Epidermoid cyst of skin of back Sacrococcygeal pilonidal cyst with abscess Bilateral hand numbness Arthralgia of right hand Numbness of right hand Gastroparesis COVID-19 virus infection Dyspnea Personal history of nicotine dependence Cohn's esophagus determined by endoscopy Chronic cough Plantar fasciitis Chronic pain of left ankle Verruca Impaired fasting blood sugar Generalized anxiety disorder Gastroesophageal reflux disease Breast density Hypersomnia Easy bruisability Dysphagia Plantar fasciitis, bilateral Lateral epicondylitis of left elbow Bicipital tendinitis of left shoulder Back pain Arthritis GERD (gastroesophageal reflux disease) Panic attacks Hx of tuberculosis Palpitations History of IBS Hypercholesterolemia Hip pain Obesity (BMI 30-39.9) Surgical History History of excision of pilonidal cyst (~02/20/24) Hx of carpal tunnel repair History of loop electrosurgical excision procedure (LEEP) History of tubal ligation History of colonoscopy History of esophagogastroduodenoscopy (EGD) History of surgical removal of pilonidal cyst History of meniscectomy of left knee History of appendectomy History of section Family History Father Tongue cancer Mother CVD (cardiovascular disease) Maternal Aunt Colon cancer Maternal Uncle Colon cancer Brother CVD (cardiovascular disease) Substance abuse Sister CVD (cardiovascular disease) Social History Household Members: Spouse and Children Housing: Apartment Are you a primary pet care associate to a significant other at home: No Do you presently have visiting nurse or other home services: No Alcohol intake: former Comment: counts correct Patient Tobacco Use Status: Current everyday Tobacco user Tobacco use type: Cigarette Cigarettes Per Day: 10 Years Smoked: 30 e-Cigarette/Vaping Use: Never Used Second Hand Smoke Exposure: Yes Substance Use Type: Marijuana service: No Current occupational status: disabled Cognitive needs: No Hearing needs: No Vision needs: No Female Reproductive History Menstrual Age of Menarche: 12 Physical Exam Vital Signs: Last Vital Signs Pulse 62 03/31/24 09:19 BP 104/68 03/31/24 09:19 Pulse Ox 96 03/31/24 09:19 Oxygen Delivery Method Room Air 03/31/24 09:19 BMI result Body Mass Index 33.0 Results Reviewed Results Reviewed: UPPER GI IMPRESSION: 1. Very small type I hiatal hernia 2. Mildly disordered esophageal peristalsis 3. Multiple small foci of contrast pooling in the fundus of the stomach. In addition the gastric rugal folds have a thickened appearance. These findings are suggestive of erosive gastritis. Recommend correlation EGD. Assessment & Plan Assessment & Plan (1) Gastroparesis: Code(s): K31.84 - Gastroparesis Category: Medical (2) Cohn's esophagus determined by endoscopy: Code(s): K22.70 - Cohn's esophagus without dysplasia Category: Medical (3) Gastroesophageal reflux disease: Code(s): K21.9 - Gastro-esophageal reflux disease without esophagitis Category: Medical Qualifiers: Esophagitis bleeding: without hemorrhage Esophagitis presence: with esophagitis Qualified Code(s): K21.00 - Gastro-esophageal reflux disease with esophagitis, without bleeding (4) Constipation: Code(s): K59.00 - Constipation, unspecified Qualifiers: Constipation type: chronic idiopathic constipation Qualified Code(s): K59.04 - Chronic idiopathic constipation (5) Postprandial abdominal bloating: Code(s): R14.0 - Abdominal distension (gaseous) (6) Epigastric pain: Code(s): R10.13 - Epigastric pain Plan Patient will continue taking Reglan with meals. Will increase Linzess to 290 mcg daily. Increase fluid intake and activity to promote better bowel motility. Continue Nexium. Patient does report of feeling like she has a lump in her throat will send her for x-ray. Patient in the meantime was encouraged to drink slowly. Encouraged smoking cessation. Discussed with patient the importance of avoiding dietary triggers and late night snacking. Staying upright for minimum 3 hours after meals discussed with patient. I will see patient in 6 months, sooner on as needed basis. She is agreeable to this plan and verbalizes understanding of instructions. She was given the opportunity to ask questions and all questions answered. Thank you for allowing me to participate in her care Orders: Orders XR soft tissue neck Today K22.2 - Esophageal obstruction Medications: New metoclopramide HCl (Reglan) hansa un comprimido 30 minutos antes de las comidas 5 mg PO QIDACHS 120 tabs 3RF K31.84 - Gastroparesis linaclotide (Linzess) 290 mcg PO QAM 30 caps 4RF K59.00 - Constipation, unspecified Refilled esomeprazole magnesium 40 mg PO DAILY 90 caps 2RF Discontinued linaclotide (Linzess) Discontinued Reason: Doctor's Order 145 mcg PO DAILY 30 caps 2RF Coding Level of Care Code Est Pt Level 4 (21581) Diagnoses Gastroparesis K31.84 Cohn's esophagus determined by endoscopy K22.70 Gastroesophageal reflux disease with esophagitis without hemorrhage K21.00 Esophagitis bleeding: without hemorrhage Esophagitis presence: with esophagitis Chronic idiopathic constipation K59.04 Constipation type: chronic idiopathic constipation Postprandial abdominal bloating R14.0 Epigastric pain R10.13 Time Spent (min) 35 Comment 20 minutes spent with patient and additional 15 minutes spent reviewing her records
== END 2024-03-31 09:54 | disposition home or self-care (01) ==
PROVIDERS: PCP Internal Medicine; Visit Provider Nurse Practitioner Family
DX: K31.84 Gastroparesis (principal); K22.70 Barrett's esophagus without dysplasia; K21.00 Gastro-esophageal reflux disease with esophagitis, without bleeding; K59.04 Chronic idiopathic constipation; R14.0 Abdominal distension (gaseous); R10.13 Epigastric pain
CPT/HCPCS: 99214

== ENCOUNTER → 2024-03-31 09:14 | Outpatient (BNVA) | payer MEDICARE, MEDICAID, SELFPAY | PROVIDERS: PCP Internal Medicine; Visit Provider Nurse Practitioner Family | DX: K31.84 Gastroparesis (principal); K22.70 Barrett's esophagus without dysplasia; K21.00 Gastro-esophageal reflux disease with esophagitis, without bleeding; K59.04 Chronic idiopathic constipation; R14.0 Abdominal distension (gaseous); R10.13 Epigastric pain | CPT/HCPCS: 99212 ==

== ENCOUNTER 2024-04-07 09:40 | Outpatient (AMB) | payer MEDICARE, SELFPAY ==
--- NOTE | 2024-04-07 09:56 | A.OFFVIS_ITS ---
Vital Signs 04/07/24 10:01 Height 5 ft 3 in Weight 183 lb BMI 32.4 Intake Visit Reasons: month follow up exc. karin cyst Intake Note: This patient presents for one month follow-up status post excision pilonidal cyst. Pt c/o; reports no complaints at this time. 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 karin cyst: Details: She states that she feels well. She denies any pain on the excision site. She has no new complaints. [facility] Medical History Asthma Sacrococcygeal pilonidal cyst Calcaneal spur of left foot De Quervain's tenosynovitis, right Achilles tendinitis of left lower extremity Epidermoid cyst of skin of back Sacrococcygeal pilonidal cyst with abscess Bilateral hand numbness Arthralgia of right hand Numbness of right hand Gastroparesis COVID-19 virus infection Dyspnea Personal history of nicotine dependence Cohn's esophagus determined by endoscopy Chronic cough Plantar fasciitis Chronic pain of left ankle Verruca Impaired fasting blood sugar Generalized anxiety disorder Gastroesophageal reflux disease Breast density Hypersomnia Easy bruisability Dysphagia Plantar fasciitis, bilateral Lateral epicondylitis of left elbow Bicipital tendinitis of left shoulder Back pain Arthritis GERD (gastroesophageal reflux disease) Panic attacks Hx of tuberculosis Palpitations History of IBS Hypercholesterolemia Hip pain Obesity (BMI 30-39.9) Surgical History History of excision of pilonidal cyst (~02/20/24) Hx of carpal tunnel repair History of loop electrosurgical excision procedure (LEEP) History of tubal ligation History of colonoscopy History of esophagogastroduodenoscopy (EGD) History of surgical removal of pilonidal cyst History of meniscectomy of left knee History of appendectomy History of section Family History Father Tongue cancer Mother CVD (cardiovascular disease) Maternal Aunt Colon cancer Maternal Uncle Colon cancer Brother CVD (cardiovascular disease) Substance abuse Sister CVD (cardiovascular disease) Social History Household Members: Spouse and Children Housing: Apartment Are you a primary health care law specialist to a significant other at home: No Do you presently have visiting nurse or other home services: No Alcohol intake: former Comment: counts correct Patient Tobacco Use Status: Current everyday Tobacco user Tobacco use type: Cigarette Cigarettes Per Day: 10 Years Smoked: 30 e-Cigarette/Vaping Use: Never Used Second Hand Smoke Exposure: Yes Substance Use Type: Marijuana service: No Current occupational status: disabled Cognitive needs: No Hearing needs: No Vision needs: No Female Reproductive History Menstrual Age of Menarche: 12 Review of Systems Const Denies chills and Denies fever(s) Physical Exam Vital Signs: BMI result Body Mass Index 32.4 Const General: comfortable and no acute distress Back/Spine/Pelvis Other: Excision site is well healed, not infected, no induration or redness Assessment & Plan Assessment & Plan (1) Postop check: Code(s): Z09 - Encounter for follow-up examination after completed treatment for conditions other than malignant neoplasm Category: Surgical Plan: Status post excision of a cyst from the sacrococcygeal area. She is doing well with the excision site is well healed. She understands the risks of recurrence. She can follow up on a p.r.n. basis. Coding Level of Care Code Global (54412) Diagnoses Postop check Z09
[2024-04-07 10:01] VITALS: BMI 32.4
== END 2024-04-07 10:17 | disposition home or self-care (01) ==
PROVIDERS: PCP Internal Medicine; Visit Provider Surgery
DX: Z09 Encounter for follow-up examination after completed treatment for conditions other than malignant neoplasm (principal)
CPT/HCPCS: 99024

== ENCOUNTER → 2024-04-07 09:40 | Outpatient (BNVA) | payer MEDICARE, SELFPAY | PROVIDERS: PCP Internal Medicine; Visit Provider Surgery | DX: Z09 Encounter for follow-up examination after completed treatment for conditions other than malignant neoplasm (principal); Z87.2 Personal history of diseases of the skin and subcutaneous tissue | CPT/HCPCS: 99212 ==

== ENCOUNTER 2024-06-24 10:02 | Outpatient (AMB) | payer MEDICARE, SELFPAY ==
--- NOTE | 2024-06-24 10:22 | A.OFFPC_ITS ---
Vital Signs 06/24/24 10:24 Height 5 ft 3 in Weight 192 lb 4 oz BMI 34.1 BP 110/68 Blood Pressure Location Lt brachial Position Sitting Pulse 85 Pulse Source Pulse Oximeter Pulse Oximetry (%) 96 Oxygen Delivery Method Room Air Intake Visit Reasons: Annual Exam Intake Note: Patient is here today for a physical. Pt decline flu shot today. Dough Machine Operator Required: No Dubbing Machine Operator: Not Required per policy Accompanied by: Self / Same As Patient Allergies hydrocodone [From Vicodin] Allergy (Severe, Verified 06/24/24 10:23) Stomach Pain morphine [MORPHINE] Allergy (Severe, Verified 06/24/24 10:23) REDNESS, FEELS REALLY HOT, shortness of breath, anaphylaxis oxycodone Allergy (Severe, Verified 06/24/24 10:23) Stomach Upset amoxicillin Adverse Reaction (Severe, Verified 06/24/24 10:23) yeast infection Penicillins [PENICILLINS] Adverse Reaction (Severe, Verified 06/24/24 10:23) YEAST INFECTION Medication List - Last Reconciled 06/24/24 by Shira Raines MD acetaminophen 500 mg PO Q8H PRN albuterol sulfate 90 mcg/actuation (Ventolin HFA) 2 puffs inhalation Q6H PRN atorvastatin 10 mg PO DAILY cholecalciferol (vitamin D3) 50 mcg PO DAILY cyclobenzaprine 10 mg PO TID PRN esomeprazole magnesium 40 mg PO DAILY hydrocortisone 2.5% (Proctosol HC) 1 appl [place] BID-QID PRN linaclotide (Linzess) 290 mcg PO QAM metoclopramide HCl (Reglan) 5 mg PO QIDACHS Tobacco use date assessed: 06/24/24 Dental Screening Dental Screen Date: 06/24/24 Did you have a dental visit in the last 12 months?: Yes Did you have a dental problem in the last 6 months where you did not have access to dental care?: No Was dental information given to patient?: Patient has dentist HPI Annual Exam HPI Details The patient is a 53-year-old female presenting for an annual physical examination. She reports a history of asthma, which occasionally exacerbates, and has been told in the past that she might have Chronic Obstructive Pulmonary Disease (COPD), but she has been given conflicting information about this diagnosis. Recently, she has experienced issues with breathing, for which she has not yet seen a mc kay stitcher. Regarding her digestive health, the patient reports a history of erosive gastritis and considerable stomach issues. She was informed of erosion in her stomach related to smoking and was advised to quit smoking to alleviate s ymptoms. She currently suffers from frequent headaches and vision disturbances, describing them as severe and causing double vision. These visual symptoms appear to be related to eye strain and have been attributed, in part, to sinus issues. Her history of back pain has resulted in substantial sleep disruption and decreased mobility since a fall, and previous interventions like injections temporarily alleviated symptoms. She has documented allergies to several pain medications, though she states Percocet, specifically the formulation with acetaminophen, does not exacerbate her stomach issues. - Lung cancer screening program enrollme nt recommended - Plan for routine blood work - Referred for an eye examination due to vision disturbances - Encouraged cessation of smoking - Reinforced the importance of adequate hydration for bowel function - Dietary guidance provided, emphasizing balanced diet and fluid intake - Smoking: Currently smokes approximatel y seven cigarettes a day - Alcohol: Rarely consumes alcohol, citi ng medication interactions as a concern - Physical activity: Limited due to back pain - Diet: Eats salads, cucumbers, fruits, and generally considers herself a light eater - HEENT: Reports frequent headaches, vis ion disturbances, and mucus production - Respiratory: Denies waking up short of breath, reports occasional use of an inhaler - Gastrointestinal: Reports normal bowel movements with Linzess, denies nausea and vomiting - Neurologic: Denies syncopal episodes b ut reports dizziness and numbness in the head - Musculoskeletal: Reports chronic back pain affecting her sleep - Labs: Pending fasting blood work resul ts - Imaging: Awaiting referral for jacky zabala ultrasound - Screening: Enrollment in lung cancer s creening program pending [facility] Medical History Asthma Sacrococcygeal pilonidal cyst Calcaneal spur of left foot De Quervain's tenosynovitis, right Achilles tendinitis of left lower extremity Epidermoid cyst of skin of back Sacrococcygeal pilonidal cyst with abscess Bilateral hand numbness Arthralgia of right hand Numbness of right hand Gastroparesis COVID-19 virus infection Dyspnea Personal history of nicotine dependence Cohn's esophagus determined by endoscopy Chronic cough Plantar fasciitis Chronic pain of left ankle Verruca Impaired fasting blood sugar Generalized anxiety disorder Gastroesophageal reflux disease Breast density Hypersomnia Easy bruisability Dysphagia Plantar fasciitis, bilateral Lateral epicondylitis of left elbow Bicipital tendinitis of left shoulder Back pain Arthritis GERD (gastroesophageal reflux disease) Panic attacks Hx of tuberculosis Palpitations History of IBS Hypercholesterolemia Hip pain Obesity (BMI 30-39.9) Surgical History History of excision of pilonidal cyst (~02/20/24) Hx of carpal tunnel repair History of loop electrosurgical excision procedure (LEEP) History of tubal ligation History of colonoscopy History of esophagogastroduodenoscopy (EGD) History of surgical removal of pilonidal cyst History of meniscectomy of left knee History of appendectomy History of section Family History (Updated 06/24/24 @ 10:28 by DOMENICA Pacheco) Father Tongue cancer Mother CVD (cardiovascular disease) Maternal Aunt Colon cancer Maternal Uncle Colon cancer Brother CVD (cardiovascular disease) Substance abuse Sister CVD (cardiovascular disease) Social History (Updated 06/24/24 @ 10:53 by Shira Raines MD) Household Members: Spouse and Children Housing: Apartment Are you a primary critical care technician to a significant other at home: No Do you presently have visiting nurse or other home services: No Alcohol intake: former Comment: holidays 1 glass of wine Patient Tobacco Use Status: Current everyday Tobacco user Tobacco use type: Cigarette Cigarette Packs Per Day: 0.5 Cigarettes Per Day: 7 Years Smoked: 30 e-Cigarette/Vaping Use: Never Used Second Hand Smoke Exposure: Yes Substance Use Type: Marijuana service: No Current occupational status: disabled Cognitive needs: No Hearing needs: No Vision needs: No Female Reproductive History Menstrual Age of Menarche: 12 Questionnaire PHQ-9 Over the last 2 weeks, how often have you been bothered by any of the following problems? 1. Little interest or pleasure in doing things: several days 2. Feeling down, depressed, or hopeless: not at all 3. Trouble falling or staying asleep, or sleeping too much: nearly every day 4. Feeling tired or having little energy: nearly every day 5. Poor appetite or overeating: not at all 6. Feeling bad about yourself - or that you are a failure or have let yourself or your family down: not at all 7. Trouble concentrating on things, such as reading the newspaper or watching television: several days 8. Moving or speaking so slowly that other people could have noticed. Or the opposite - being so fidgety or restless that you have been moving around a lot more than usual: not at all 9. Thoughts that you would be better off or of hurting yourself in some way: not at all Total score: 8 Depression Screening Interpretation: Positive Depression Screening Done: Yes Source: Developed by Drs. Kain Gutierrez, Patricia Marx, Damaso Delacruz and colleagues, with an educational allison from [employer]. Thrive Questionnaire Date Thrive assessed: 06/24/24 I am a: Patient What is your living situation today?: I have a steady place to live Within the past 12 months, did the food you bought not last and you didn't have the money to get more?: Never true Within the past 12 months, did you worry whether your food would run out before you got money to buy more?: Never true Do you have trouble paying for medicines?: No Do you have trouble getting transportation to medical appointments?: No Do you have trouble paying your heating and electricity bill?: No Do you have trouble taking care of your child, family member or friend?: No Do you have trouble with day-to-day activities such as bathing, preparing meals, shopping, managing finances, etc.?: No Are you currently unemployed and looking for a job?: No Are you interested in more education?: No Please select the resources that you would like help with: None Currently or been in a relationship where the following occur: No concerns reported THRIVE Score: 0 AUDIT C Alcohol Use Questionnaire (AUDIT-C) 1. How often do you have a drink containing alcohol?: Never Total Score: 0 ELIZABETH-7 AMB Questionnaire ELIZABETH-7 Date ELIZABETH - 7 assessed: 06/24/24 Feeling nervous, anxious, or on edge: 1 = Several days Not being able to stop or control worryin = Several days Worrying too much about different things: 1 = Several days Trouble relaxin = Several days Being so restless that it is hard to sit still: 2 = More than half the days Becoming easily annoyed or irritable: 1 = Several days Feeling afraid as if something awful might happen: 0 = Not at all Total ELIZABETH-7 score (0-4 normal; 5-9 mild; 10-14 moderate; 15-21 severe): 7 Source: Developed by Drs. Kain Gutierrez, Patricia Marx, Damaso Delacruz and colleagues, with an educational allison from [employer]. Review of Systems Const Denies poor appetite and Denies weakness Eyes Denies no additional complaints ENT Reports Normal hearing present, Denies dizziness, Denies nasal congestion, Denies tinnitus and Denies sore throat Card Denies chest pain, Denies syncope, Denies rapid heart rate and Denies dyspnea Resp Denies cough and Denies dyspnea GI Denies change in stool character, Reports constipation, Denies diarrhea, Denies nausea and Denies vomiting Denies urinary frequency, Denies difficulty voiding and Denies dysuria Neuro Reports Normal hearing present, Denies confusion, Denies dizziness, Denies syncope and Denies weakness Psych Denies confusion Physical exam (Primary Care) Vital Signs: Last Vital Signs Pulse 85 06/24/24 10:24 BP 110/68 06/24/24 10:24 Pulse Ox 96 06/24/24 10:24 Oxygen Delivery Method Room Air 06/24/24 10:24 BMI result Body Mass Index 34.1 Tobacco/Smoking Status: Tobacco use Status Tobacco use date assessed 06/24/24 06/24/24 10:23 Patient Tobacco Use Status Current everyday Tobacco 06/24/24 10:53 Tobacco use type Cigarette 06/24/24 10:53 e-Cigarette/Vaping Use Never Used 06/24/24 10:53 PHQ-9: PHQ-9 Score PHQ-9: Total score 8 06/24/24 10:44 Depression Screening Interpretation: Positive Thrive Assessment: Date of Thrive Assessment Date Thrive assessed 06/24/24 06/24/24 10:23 Currently or been in a relationship where the following occur: No concerns reported Const General: No confusion Orientation/consciousness: No confusion HENMT Head: Yes normocephalic Ears: external ears normal and TM's normal bilaterally Face and sinus: Yes normal facial exam Mouth: moist mucous membranes Throat: Yes tonsils normal Eyes Conjunctivae: conjunctivae normal Pupils: Equal, round and reactive pupils present and Pupil accommodation reflex normal Direct Ophthalmoscopy: normal light reflex Neck Neck: No lymphadenopathy Thyroid: Thyroid normal Chest Chest palpation & inspection: normal inspection of the chest Resp Effort & Inspection: normal respiratory effort and no audible wheezes Auscultation: clear to auscultation bilaterally, no crackles, no wheezes and lung sounds not diminished Cardio Rate: regular rate Rhythm: regular rhythm Peripheral pulses: radial pulses present and dorsalis pedis present GI Palpation (GI): no masses Auscultation: normal bowel sounds and normoactive bowel sounds Rectal Exam - Female: deferred Skin General skin exam: no rashes or lesions noted Rashes: no rashes Neuro General: No confusion Cranial nerves: Yes Equal, round and reactive pupils present and Yes Normal hearing present Cognition (Neuro): normal cognition Gait exam (Neuro): Normal gait present Motor exam (neuro): 5/5 motor strength present throughout Deep tendon reflexes (DTR's): Right brachioradialis reflex intensity grade: 2+, Left brachioradialis reflex intensity grade: 2+, Right patellar reflex intensity grade: 2+ and Left patellar reflex intensity grade: 2+ Extrem General: No edema Coding Level of Care Code Est Pt Prev Care 40-64y(25635) Diagnoses Annual physical exam Z00.00 Tobacco abuse Z72.0 Obesity (BMI 30-39.9) E66.9 Asthma-COPD overlap syndrome J44.9 Hypercholesterolemia E78.00 Sacrococcygeal pilonidal cyst with abscess L05.01 Lumbar spondylosis M47.816 RUQ abdominal pain R10.11 Assessment & Plan Assessment & Plan (1) Annual physical exam: Code(s): Z00.00 - Encounter for general adult medical examination without abnormal findings Category: Medical (2) Tobacco abuse: Code(s): Z72.0 - Tobacco use Category: Medical (3) Obesity (BMI 30-39.9): Code(s): E66.9 - Obesity, unspecified Category: Medical (4) Asthma-COPD overlap syndrome: Code(s): J44.9 - Chronic obstructive pulmonary disease, unspecified Category: Medical (5) Hypercholesterolemia: Code(s): E78.00 - Pure hypercholesterolemia, unspecified Category: Medical (6) Sacrococcygeal pilonidal cyst with abscess: Code(s): L05.01 - Pilonidal cyst with abscess Category: Medical (7) Lumbar spondylosis: Code(s): M47.816 - Spondylosis without myelopathy or radiculopathy, lumbar region Category: Medical (8) RUQ abdominal pain: Code(s): R10.11 - Right upper quadrant pain Category: Medical Plan - Emphasize smoking cessation to improve respiratory and gastrointestinal health - Proceed with re-evaluation for lung cancer screening - Encourage increased hydration to aid gastrointestinal motility - Follow up on vision disturbances with an certified health education specialist - Continue current medications and monitor for any medication side effects - Consider repeating previous back pain management strategies as needed During our discussion, I advised the patient on the importance of smoking cessation to manage her respiratory and gastrointestinal conditions effectively. We outlined that cessation could potentially alleviate some of the gastric erosion and mucus overproduction. Options for managing back pain and sleep issues were revisited, highlighting the temporary relief provided previously by corticosteroid injections to consider reevaluation by a seo marketing specialist. We discussed all current medications, confirming her intolerance to certain opioids while ensuring the efficacy and tolerability of Percocet. Vision issues were noted, necessitating a referral to an eye healthcare consulting manager to discern the etiology behind her symptoms. We discussed the rationale for enrolling in the lung cancer screening as she meets the criteria due to her smoking history. The importance of maintaining adequate hydration for bowel health was also emphasized. - Stop smoking to improve overall health and alleviate respiratory and gastric symptoms. - Schedule and complete the fasting blood test as soon as possible. - Follow up with an eye doctor to address vision disturbances. - Maintain regular use of inhalers and medications as prescribed and only when needed. - Ensure adequate daily hydration, aiming for six to eight glasses of water or equivalent fluids. - Monitor any changes in symptoms, and report weakening vision, breathing difficulties, or increased pain. - Schedule an appointment for a gallbladder ultrasound as directed. Orders: Orders Complete Blood Count Auto Diff Today E78.00 - Pure hypercholesterolemia, unspecified Comprehensive Met. Panel Today E78.00 - Pure hypercholesterolemia, unspecified Lipid Panel Today E78.00 - Pure hypercholesterolemia, unspecified Thyroid Stimulating Hormone Today E78.00 - Pure hypercholesterolemia, unspecified UA CC w/rflx Micro + Cult Today E78.00 - Pure hypercholesterolemia, unspecified, R30.0 - Dysuria Free T4 (Free Thyroxine) Today E78.00 - Pure hypercholesterolemia, unspecified Vitamin B12 and Folate Today E78.00 - Pure hypercholesterolemia, unspecified Vitamin D 25-OH Total Today E78.00 - Pure hypercholesterolemia, unspecified US abdomen complete Today R10.11 - Right upper quadrant pain, R79.89 - Other specified abnormal findings of blood chemistry Referrals Lung Cancer Screening Referral Z87.891 - Personal history of nicotine dependence
[2024-06-24 10:24] VITALS: BP 110/68; PULSE 85; O2SAT 96; BMI 34.1
== END 2024-06-24 11:23 | disposition home or self-care (01) ==
PROVIDERS: PCP Internal Medicine; Visit Provider Internal Medicine
DX: Z00.00 Encounter for general adult medical examination without abnormal findings (principal); J44.9 Chronic obstructive pulmonary disease, unspecified; E66.9 Obesity, unspecified; Z68.34 Body mass index [BMI] 34.0-34.9, adult; Z72.0 Tobacco use; E78.00 Pure hypercholesterolemia, unspecified; L05.01 Pilonidal cyst with abscess; M47.816 Spondylosis without myelopathy or radiculopathy, lumbar region; R10.11 Right upper quadrant pain

== ENCOUNTER 2024-07-05 08:01 | Outpatient (REF) | payer MEDICARE, SELFPAY ==
--- NOTE | ~2024-07-05 | XR_ITS ---
EXAMINATION: XR NECK SOFT TISSUE HISTORY: K22.2 - Esophageal obstruction COMPARISON: There are no prior studies for comparison. FINDINGS: AP and lateral views of the soft tissues of the neck are submitted. The epiglottis and aryepiglottic folds are unremarkable in appearance. The airway is patent. There is no radiopaque foreign body. XR/XR soft tissue neck IMPRESSION: Unremarkable examination of the soft tissues of the neck. Electronically signed by: Kain Song MD 07/06/2024 12:22 PM EST
== END 2024-07-05 08:02 | disposition home or self-care (01) ==
LOC: HO.XRAY 08:01
PROVIDERS: PCP Internal Medicine; Visit Provider Nurse Practitioner Family
DX: K22.2 Esophageal obstruction (principal)
CPT/HCPCS: 70360

== ENCOUNTER → 2024-07-05 08:07 | Outpatient (BNV) | payer MEDICARE, SELFPAY | PROVIDERS: PCP Internal Medicine; Visit Provider Radiology Diagnostic Radiology | DX: K22.2 Esophageal obstruction (principal) | CPT/HCPCS: 70360 ==

== ENCOUNTER → 2024-07-07 10:03 | Outpatient (BNVA) | payer MEDICARE, MEDICAID, SELFPAY | PROVIDERS: PCP Internal Medicine; Visit Provider Nurse Practitioner Family | DX: J01.20 Acute ethmoidal sinusitis, unspecified (principal); H10.32 Unspecified acute conjunctivitis, left eye; H53.2 Diplopia; H57.89 Other specified disorders of eye and adnexa; N76.0 Acute vaginitis; K21.9 Gastro-esophageal reflux disease without esophagitis; K22.70 Barrett's esophagus without dysplasia; K31.84 Gastroparesis; K21.00 Gastro-esophageal reflux disease with esophagitis, without bleeding; K59.01 Slow transit constipation; R14.0 Abdominal distension (gaseous); R10.13 Epigastric pain; K64.9 Unspecified hemorrhoids; Z79.899 Other long term (current) drug therapy | CPT/HCPCS: 99212 ==

== ENCOUNTER 2024-07-07 15:27 | Outpatient (AMB) | payer MEDICARE, MEDICAID, SELFPAY ==
--- NOTE | 2024-07-07 15:46 | A.OFFPC_ITS ---
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 Operator Required: No Accompanied by: Self / Same As Patient Allergies hydrocodone [From Vicodin] Allergy (Severe, Verified 07/07/24 16:01) Stomach Pain morphine [MORPHINE] Allergy (Severe, Verified 07/07/24 16:01) REDNESS, FEELS REALLY HOT, shortness of breath, anaphylaxis oxycodone Allergy (Severe, Verified 07/07/24 16:01) Stomach Upset amoxicillin Adverse Reaction (Severe, Verified 07/07/24 16:01) yeast infection Penicillins [PENICILLINS] Adverse Reaction (Severe, Verified 07/07/24 16:01) YEAST INFECTION Medication List - Last Reconciled 07/07/24 by Baljit Perry PA-C acetaminophen 500 mg PO Q8H PRN albuterol sulfate 90 mcg/actuation (Ventolin HFA) 2 puffs inhalation Q6H PRN atorvastatin 10 mg PO DAILY cholecalciferol (vitamin D3) 50 mcg PO DAILY cyclobenzaprine 10 mg PO TID PRN esomeprazole magnesium 40 mg PO DAILY hydrocortisone 2.5% (Proctosol HC) 1 appl DC BID-QID PRN linaclotide (Linzess) 290 mcg PO QAM metoclopramide HCl (Reglan) 5 mg PO QIDACHS Tobacco use date assessed: 06/24/24 Dental Screening Dental Screen Date: 06/24/24 HPI Swollen Eyes 2 HPI0 Details The patient is a 54-year-old female presenting with severe swelling and pain around the left eye, headache, and double vision. The swelling began on Friday and has progressively worsened. The patient reports a persistent headache for approximately a month and noted increased swelling and pain around the eye, which significantly worsened after trying home treatments such as hot compresses. The patient is experiencing diplopia, seeing double of objects like letters and faces. Additionally, her blood pressure readings have been elevated with recent measurements of 144/81 and 142/70. She feels weak with generalized chills and fever-like symptoms. The patient reports a history of high blood pressure readings and is troubled by these findings. Tylenol has been taken with minimal relief of pain, and she cannot take ibuprofen. Other symptoms include night sweats and intermittent hot and cold spells, interfering with her sleep. The patient has a history of cyst surgery, often followed by infections. She is scheduled for an eye examination due to ongoing vision issues and is troubled by the long wait times for appointments contributing to her distress. [facility], [facility] Medical History Asthma Sacrococcygeal pilonidal cyst Calcaneal spur of left foot De Quervain's tenosynovitis, right Achilles tendinitis of left lower extremity Epidermoid cyst of skin of back Sacrococcygeal pilonidal cyst with abscess Bilateral hand numbness Arthralgia of right hand Numbness of right hand Gastroparesis COVID-19 virus infection Dyspnea Personal history of nicotine dependence Cohn's esophagus determined by endoscopy Chronic cough Plantar fasciitis Chronic pain of left ankle Verruca Impaired fasting blood sugar Generalized anxiety disorder Gastroesophageal reflux disease Breast density Hypersomnia Easy bruisability Dysphagia Plantar fasciitis, bilateral Lateral epicondylitis of left elbow Bicipital tendinitis of left shoulder Back pain Arthritis GERD (gastroesophageal reflux disease) Panic attacks Hx of tuberculosis Palpitations History of IBS Hypercholesterolemia Hip pain Obesity (BMI 30-39.9) Surgical History History of excision of pilonidal cyst (~02/20/24) Hx of carpal tunnel repair History of loop electrosurgical excision procedure (LEEP) History of tubal ligation History of colonoscopy History of esophagogastroduodenoscopy (EGD) History of surgical removal of pilonidal cyst History of meniscectomy of left knee History of appendectomy History of section Family History Father Tongue cancer Mother CVD (cardiovascular disease) Maternal Aunt Colon cancer Maternal Uncle Colon cancer Brother CVD (cardiovascular disease) Substance abuse Sister CVD (cardiovascular disease) Social History Household Members: Spouse and Children Housing: Apartment Are you a primary intensive care anaesthetist to a significant other at home: No Do you presently have visiting nurse or other home services: No Alcohol intake: former Comment: holidays 1 glass of wine Patient Tobacco Use Status: Current everyday Tobacco user Tobacco use type: Cigarette Cigarette Packs Per Day: 0.5 Cigarettes Per Day: 7 Years Smoked: 30 e-Cigarette/Vaping Use: Never Used Second Hand Smoke Exposure: Yes Substance Use Type: Marijuana service: No Current occupational status: disabled Cognitive needs: No Hearing needs: No Vision needs: No Female Reproductive History Menstrual Age of Menarche: 12 Questionnaire Thrive Questionnaire Date Thrive assessed: 06/24/24 I am a: Patient What is your living situation today?: I have a steady place to live Within the past 12 months, did the food you bought not last and you didn't have the money to get more?: Never true Within the past 12 months, did you worry whether your food would run out before you got money to buy more?: Never true Do you have trouble paying for medicines?: No Do you have trouble getting transportation to medical appointments?: No Do you have trouble paying your heating and electricity bill?: No Do you have trouble taking care of your child, family member or friend?: No Do you have trouble with day-to-day activities such as bathing, preparing meals, shopping, managing finances, etc.?: No Are you currently unemployed and looking for a job?: No Are you interested in more education?: No Please select the resources that you would like help with: None Currently or been in a relationship where the following occur: No concerns reported THRIVE Score: 0 ELIZABETH-7 AMB Questionnaire ELIZABETH-7 Date ELIZABETH - 7 assessed: 06/24/24 Source: Developed by Drs. Kain Gutierrez, Patricia Marx, Damaso Delacruz and colleagues, with an educational allison from [employer]. Review of Systems Const Denies headache(s) Eyes Denies loss of vision ENT Denies vertigo, Denies dizziness, Denies headache(s) and Denies sore throat Card Denies chest pain, Denies leg edema and Denies lightheadedness Resp Denies cough, Denies hemoptysis and Denies wheezing GI Denies abdominal pain, Denies melena, Denies constipation, Denies diarrhea and Denies vomiting Denies urinary frequency, Denies dysuria and Denies urinary urgency Musc Denies arthralgias, Denies joint swelling, Denies numbness and Denies tingling Neuro Denies Abnormal speech present, Denies behavioral changes, Denies vertigo, Denies dizziness, Denies headache(s), Denies loss of vision, Denies memory loss, Denies numbness and Denies tingling Psych Denies anxiety, Denies behavioral changes, Denies depression, Denies memory loss and Denies panic attacks Devonte/Lymph Denies easy bleeding and Denies easy bruising Aller/Immun Denies wheezing Physical exam (Primary Care) Vital Signs: Last Vital Signs Pulse 72 07/07/24 15:55 BP 142/78 H 07/07/24 15:55 Pulse Ox 98 07/07/24 15:55 Oxygen Delivery Method Room Air 07/07/24 15:55 BMI result Body Mass Index 34.2 Tobacco/Smoking Status: Tobacco use Status Tobacco use date assessed 06/24/24 07/07/24 15:47 Patient Tobacco Use Status Current everyday Tobacco 07/07/24 15:47 Tobacco use type Cigarette 07/07/24 15:47 e-Cigarette/Vaping Use Never Used 07/07/24 15:47 Thrive Assessment: Date of Thrive Assessment Date Thrive assessed 06/24/24 07/07/24 15:47 Currently or been in a relationship where the following occur: No concerns reported Const General: healthy appearing, no acute distress, alert and awake Nutritional Appearance: well nourished Orientation/consciousness: oriented to person, oriented to place and oriented to time HENMT Ears: TM's normal bilaterally General nose exam: Normal nasal mucous membranes and turbinates present Eyes Conjunctivae: conjunctivae normal Sclerae: sclerae normal Pupils: Equal, round and reactive pupils present Eyes/upper lids images: 2 1. SOME NOTED EDEMA OVER LEFT UPPER LID Neck Neck: Yes no lymphadenopathy and Yes no JVD Thyroid: Thyroid normal Carotids: no bruits Resp Effort & Inspection: normal respiratory effort and not tachypneic Auscultation: no crackles, no rales, no rhonchi and no wheezes Cardio Rate: regular rate Rhythm: regular rhythm Heart sounds: no murmurs and normal S1 and S2 GI Palpation (GI): Soft to palpation, nontender, no hepatomegaly and no splenomegaly Auscultation: normal bowel sounds Skin General skin exam: no rashes or lesions noted and dry skin Neuro General: oriented to person, oriented to place and oriented to time Cranial nerves: Yes Equal, round and reactive pupils present Speech: No Abnormal speech present Gait exam (Neuro): Normal gait present Motor exam (neuro): no tremor noted Extrem Right upper extremity: full ROM Left upper extremity: full ROM Right lower extremity: full ROM; no edema Left lower extremity: full ROM; no edema Psych Mental Status: mental status grossly normal Speech and movement: Normal speech and movement present Affect: normal affect Attitude: cooperative Thought process: Normal thought process present Coding Level of Care Code Est Pt Level 3 (59012) Diagnoses Subacute ethmoidal sinusitis J01.20 Sinusitis location: ethmoidal Chronicity: subacute Acute bacterial conjunctivitis of left eye H10.32 Laterality: left Diplopia H53.2 Assessment & Plan Assessment & Plan (1) Sinus infection: Code(s): J32.9 - Chronic sinusitis, unspecified Category: Medical Qualifiers: Sinusitis location: ethmoidal Chronicity: subacute Qualified Code(s): J01.20 - Acute ethmoidal sinusitis, unspecified Plan: I discussed with the patient the potential for a sinus infection causing her symptoms, including swelling and an increased blood pressure possibly related to pain and anxiety. We agreed on initiating an antibiotic treatment with doxycycline, as well as issuing Diflucan to prevent yeast infections given her prior history. We talked about eye symptom management with prescribed Sulfacetamide drops until her hardwood flooring specialist visit, which is priority due to her diplopia and ocular pain. Initiate treatment for suspected sinus infection with doxycycline for seven days. - Provide Diflucan concurrently to prevent potential antibiotic-induced yeast infections. - Prescribe Sulfacetamide eye drops to address dry eyes and possible superficial ocular infection. - Ensure follow-up with an hardwood flooring specialist is scheduled for the assessment of diplopia and potential glaucoma. (2) Acute bacterial conjunctivitis: Code(s): H10.30 - Unspecified acute conjunctivitis, unspecified eye Category: Medical Qualifiers: Laterality: left Qualified Code(s): H10.32 - Unspecified acute conjunctivitis, left eye Plan: As above (3) Diplopia: Code(s): H53.2 - Diplopia Category: Medical Plan: Due to the double vision will refer to Ophthalmology to evaluate her retina was and intra-ocular pressures. Orders: Referrals 2 Ophthalmology Referral H53.2 - Diplopia, H57.89 - Other specified disorders of eye and adnexa Medications: New 2 fluconazole 150 mg PO Q3D 2 tabs 0RF J01.20 - Acute ethmoidal sinusitis, unspecified, N76.0 - Acute vaginitis polymyxin B sulf-trimethoprim 10,000 unit- 1 mg/mL while awake; do not exceed 6 doses in 24 hours 1 drp ophthalmic (eye) QID 7 days 10 mL 0RF H10.32 - Unspecified acute conjunctivitis, left eye, H10.9 - Unspecified conjunctivitis doxycycline monohydrate 100 mg PO BID 7 days 14 caps 0RF J01.20 - Acute ethmoidal sinusitis, unspecified
[2024-07-07 15:55] VITALS: BP 142/78; PULSE 72; O2SAT 98; BMI 34.2
== END 2024-07-07 16:19 | disposition home or self-care (01) ==
PROVIDERS: PCP Internal Medicine; Visit Provider Physician Assistant
DX: J01.20 Acute ethmoidal sinusitis, unspecified (principal); H10.32 Unspecified acute conjunctivitis, left eye; H53.2 Diplopia

== ENCOUNTER 2024-07-12 11:42 | Outpatient (AMB) | payer MEDICARE, MEDICAID, SELFPAY ==
[2024-07-12 11:48] VITALS: BP 134/82; BMI 34.2
--- NOTE | 2024-07-12 11:48 | A.OFFVIS_ITS ---
Vital Signs 07/12/24 11:48 Height 5 ft 3 in Weight 193 lb BMI 34.2 BP 134/82 Blood Pressure Location Lt brachial Position Sitting Intake Visit Reasons: recurrent pilonidal cyst Intake Note: Patient in office today for recurrent pilonidal cyst. CC: Patient states that that pilonidal cyst is now located lower than the previous ones. She reports that it bursted 2 days ago and a lot of blood came out. She c/o pain when sitting and states that theres not much discharge right now. Vice Principal Required: No Accompanied by: Self / Same As Patient Allergies hydrocodone [From Vicodin] Allergy (Severe, Verified 07/12/24 11:54) Stomach Pain morphine [MORPHINE] Allergy (Severe, Verified 07/12/24 11:54) REDNESS, FEELS REALLY HOT, shortness of breath, anaphylaxis oxycodone Allergy (Severe, Verified 07/12/24 11:54) Stomach Upset amoxicillin Adverse Reaction (Severe, Verified 07/12/24 11:54) yeast infection Penicillins [PENICILLINS] Adverse Reaction (Severe, Verified 07/12/24 11:54) YEAST INFECTION Medication List - Last Reconciled 07/14/24 by Jonny Jerome MD acetaminophen 500 mg PO Q8H PRN albuterol sulfate 90 mcg/actuation (Ventolin HFA) 2 puffs inhalation Q6H PRN atorvastatin 10 mg PO DAILY cholecalciferol (vitamin D3) 50 mcg PO DAILY cyclobenzaprine 10 mg PO TID PRN esomeprazole magnesium 40 mg PO DAILY hydrocortisone 2.5% (Proctosol HC) 1 appl GA BID-QID PRN linaclotide (Linzess) 290 mcg PO QAM metoclopramide HCl (Reglan) 5 mg PO QIDACHS polymyxin B sulf-trimethoprim 10,000 unit- 1 mg/mL 1 drp ophthalmic (eye) QID 7 days HPI HPI recurrent pilonidal cyst: Details: She is here for history of a pilonidal cyst. She thinks that she may have a recurrent cyst. She says that she had felt a swollen area few weeks ago near the gluteal cleft. She denies any drainage. [facility] Medical History (Updated 07/14/24 @ 07:38 by Jonny Jerome MD) Epidermal cyst Palpitations Hypercholesterolemia Impaired fasting blood sugar Asthma-COPD overlap syndrome Hx of tuberculosis Chronic cough Nicotine dependence, cigarettes, uncomplicated Dysphagia GERD (gastroesophageal reflux disease) Gastroparesis History of IBS Cohn's esophagus determined by endoscopy Obesity (BMI 30-39.9) Panic attacks Generalized anxiety disorder Hypersomnia Easy bruisability Breast density Lumbar radicular pain Plantar fasciitis Sacrococcygeal pilonidal cyst Calcaneal spur of left foot De Quervain's tenosynovitis, right Achilles tendinitis of left lower extremity Bilateral hand numbness Arthralgia of right hand Chronic pain of left ankle Lateral epicondylitis of left elbow Bicipital tendinitis of left shoulder Arthritis Hip pain Verruca Surgical History History of carpal tunnel release of both wrists History of excision of pilonidal cyst (~02/20/24) History of loop electrosurgical excision procedure (LEEP) History of tubal ligation History of colonoscopy History of esophagogastroduodenoscopy (EGD) History of meniscectomy of left knee History of appendectomy History of section Family History Father Tongue cancer Mother CVD (cardiovascular disease) Maternal Aunt Colon cancer Maternal Uncle Colon cancer Brother CVD (cardiovascular disease) Substance abuse Sister CVD (cardiovascular disease) Social History Household Members: Spouse and Children Housing: Apartment Are you a primary healthcare network pricing consultant to a significant other at home: No Do you presently have visiting nurse or other home services: No Alcohol intake: former Comment: holidays 1 glass of wine Patient Tobacco Use Status: Current everyday Tobacco user Tobacco use type: Cigarette Cigarette Packs Per Day: 0.5 Cigarettes Per Day: 7 Years Smoked: 30 e-Cigarette/Vaping Use: Never Used Second Hand Smoke Exposure: Yes Substance Use Type: Marijuana service: No Current occupational status: disabled Cognitive needs: No Hearing needs: No Vision needs: No Female Reproductive History Menstrual Age of Menarche: 12 Review of Systems Const Denies chills and Denies fever(s) Card Denies chest pain, Denies dyspnea and Denies dyspnea on exertion Resp Denies cough, Denies dyspnea and Denies dyspnea on exertion GI Denies hematochezia and Denies change in bowel habits Denies hematuria Musc Denies back pain and Denies limited range of motion Neuro Denies focal weakness and Denies convulsions Psych Denies depression and Denies mood swings Physical Exam Vital Signs: Last Vital Signs BP 134/82 07/12/24 11:48 BMI result Body Mass Index 34.2 Const General: comfortable and no acute distress Cardio Rate: regular rate GI Palpation (GI): Soft to palpation Back/Spine/Pelvis Other: Small area of cystic induration probably about 5 mm, lateral to the midline of the right buttock, separate from previous area of pilonidal disease, non fluctuant, no cellulitis Assessment & Plan Assessment & Plan (1) Epidermal cyst: Code(s): L72.0 - Epidermal cyst Category: Medical Plan: She has what appears to be a discrete and separate area of cystic induration as described above. This is lateral to the midline and appears to be an epidermal cyst. I did explain the option of proceeding with excision under local anesthesia. I reviewed the technique of this procedure as well as the risks, benefits, and alternatives. She says she does not want to proceed with excision at this time. She says she will follow up with me on a p.r.n. basis. Coding Level of Care Code Est Pt Level 2 (23993) Diagnoses Epidermal cyst L72.0
== END 2024-07-12 12:00 | disposition home or self-care (01) ==
PROVIDERS: PCP Internal Medicine; Visit Provider Surgery
DX: L72.0 Epidermal cyst (principal)
CPT/HCPCS: 99212

== ENCOUNTER → 2024-07-12 11:42 | Outpatient (BNVA) | payer MEDICARE, MEDICAID, SELFPAY | PROVIDERS: PCP Internal Medicine; Visit Provider Surgery | DX: L72.0 Epidermal cyst (principal) | CPT/HCPCS: 99212 ==

== ENCOUNTER 2024-07-19 08:17 | Outpatient (REF) | payer MEDICARE, MEDICAID, SELFPAY ==
--- NOTE | ~2024-07-19 | US_ITS ---
CLINICAL HISTORY: R79.89 - Other specified abnormal findings of blood chemistry US abdomen complete with duplex and color Doppler Comparison: None Findings: The visualized pancreas, aorta, and inferior vena cava are unremarkable. Liver normal size and echotexture. No focal hepatic masses. Common duct 2.0 mm diameter. Physiologic distention of the gallbladder. No gallstones or sludge. No gallbladder wall thickening. No pericholecystic fluid. No sonographic Benjamin sign. Main portal vein antegrade. Right kidney normal size, 11.2 cm in length. Normal cortical width and echotexture. No solid or cystic renal masses. No nephrolithiasis or hydronephrosis. Left kidney normal, 10.6 cm in length. Normal cortical width and echotexture. No solid or cystic renal masses. No nephrolithiasis or hydronephrosis. Spleen measures 8.5 cm. No splenic masses. No ascites. No lymphadenopathy. Impression: 1. Normal abdominal ultrasound. This document has been electronically signed by: Landry Treviño MD on 07/19/2024 11:26:51
--- OUTSIDE RECORDS SUMMARY | 2024-07-19 12:38 | XMS_ITS ---
Author Organization [facility] Address [address] [address] Care Team Providers Care Frame Assembler Name Role Phone Shira Rainse Primary Care Provider Sincere Young Unavailable [phone] Cassie Hernandez Unavailable [phone] Allergies Allergen (clinical drug ingredient) Drug/Non Drug Allergy documented on EMR Reaction Allergy Type Onset Date Status amoxicillin Amoxicillin Unknown Drug Allergy Act nito morphine Morphine Unknown Drug Allergy Active Penicillin Unknown Drug Allergy Active REASON FOR VISIT New Patient Medications Medication SIG (Take, Route, Frequency, Duration) Notes Start Date End Date Status Acetaminophen 500 MG 1 capsule as needed Orally every 6 hrs Active Esomeprazole Magnesium 40 MG 1 capsule 1 /2 to 1 hour before morning meal Orally Once a day Active Atorvastatin Calcium 10 MG 1 tablet Oral ly Once a day Active Albuterol Sulfate Ac tive Linzess 145 MCG 1 capsule at least 3 0 minutes before the first meal of the day on an empty stomach Orally Once a day Active Cyclobenzaprine HCl 10 MG 1 tablet at be dtime as needed Orally Once a day Active Vitamin D3 Active Social History Tobacco Use: Social History Observation Description Date Details (start date - stop date) Current Smoker NA - NA Tobacco use other than smoking: Question Answer Notes Are you an other tobacco user? No Tobacco Control (Standard) Question Answer Notes Tobacco use: Current smoker How often do you smoke cigarettes? Some days, bu t not every day How many cigarettes a day do you smoke? 5 or les s AUDIT-C (Standard) Question Answer Notes Did you have a drink containing alcohol in the p ast year? No Points 0 Interpretation Negative Problems Problem Type SNOMED Code ICD Code Onset Dates Problem Status W/U Status Risk Notes Problem Lumbar radiculopathy (405319765) Radiculopathy, lumbar region (M54.16) Active confirmed Problem Lumbosacral spondylosis without myelopathy (88445926) Spondylosis without myelopathy or radiculopathy, lumbar region (M47.816) Active confirmed Vital Signs Heart Rate 84 /min 04/14/2024 Height 5 ft 3 in in 04/14/2024 Weight 176 lbs 04/14/2024 BMI 31.17 kg/m2 04/14/2024 Oximetry 97 % 04/14/2024 Encounters Encounter Location Date Provider Diagnosis [facility] [address] [facility] [address] [place] [address] 04/14/2024 Cassie Gitonga Radiculopathy, lumbar region M54.16 and Spondylosis without myelopathy or radiculopathy, lumbar region M47.816 Assessments Encounter Date Diagnosis (ICD Code) Assessment Notes Treatment Notes Treatment Clinical Notes Section Notes 04/14/2024 Radiculopathy, lumbar region (ICD-10 - M54.16) Progressive. Patient complains of lower back pain that radiates to the LLE with numbness/tingling. Lumbar MRI obtained on 01/20/24 which noted at L3-4 there is mild to moderate left foraminal narrowing with the disc abutting the exiting left L3 nerve root. At L4-5 mild bilateral neural foraminal narrowing with the disc abutting the exiting L4 nerve roots bilaterally. More over at L5-S1 there os mass effect on the left extraforaminal L5 nerve roots in the region of pseudoarticulation . Conservative treatment with PT, HEP, OTC medication, and activity modification has provided no significant relief. Patient is a candidate for a LESI and or TESI. Plan to proceed with a LOM LESI at L4-5 04/14/2024 Spondylosis without myelopathy or radiculopathy, lumbar region (ICD-10 - M47.816) Patient complains of lower back pain that can occur independent of LE pain as noted above. Patient is a candidate for a diagnostic lumbar and possible RFA pending on response to LESI Plan Of Treatment Treatment Notes Assessment Notes Radiculopathy, lumbar region Progressive . Patient complains of lower back pain that radiates to the LLE with numbness/tingling. Lumbar MRI obtained on 01/20/24 which noted at L3-4 there is mild to moderate left foraminal narrowing with the disc abutting the exiting left L3 nerve root. At L4-5 mild bilateral neural foraminal narrowing with the disc abutting the exiting L4 nerve roots bilaterally. More over at L5-S1 there os mass effect on the left extraforaminal L5 nerve roots in the region of pseudoarticulation. Conservative treatment with PT, HEP, OTC medication, and activity modification has provided no significant relief. Patient is a candidate for a LESI and or TESI. Plan to proceed with a LOM LESI at L4-5 Spondylosis without myelopat hy or radiculopathy, lumbar region Patient complains of lower back pain toshia t can occur independent of LE pain as noted above. Patient is a candidate for a diagnostic lumbar and possible RFA pending on response to LESI Next Appt Details Follow Up: LOM LESI at L4-5, Reason: Progress Notes * RICHY DwainOB:1970 (53 yo F)Acc No.[id number]:04/14/2024 Progress Notes Patient:?Chayo DOLANsol Provider:?Cassie Hernandez, DANA, CONTOUR SANDER-C :1970???Age:53 Y???Sex:Female D ate:04/14/2024 Address:[address] [place], [place] [id number] Pcp:Shira Raines Subjective: * Chief Complaints: * ???New Patient * HPI: ???:?04/14/24: Jessy Dolan is a 53 y.o new patient here for the evaluation of lower back pain that radiates to the LLE with numbness/tingling intermittently. Patient was involved in slip ad fall injury that occurred in Jun 2023. Patient was initially evaluated at the ED where x-rays were obtained which noted no fractures. As OTC medication and activity modification provided no relief patient was referred for PT. She completed 4-5 months of PT with some benefit but no resolution. She adheres to HEP. Pain was rated a 10 and exacerbated with walking, standing, and walking. Pain affects her quality of sleep and physical functions. Not currently on any blood thinners or antibiotics. Denies bladder or bowel incontinence. Received notes that the patient has been evaluated by hematology in 2020. Patient reports she was not diagnosed with a bleeding disorder. She denies any spontaneous bleeding, nosebleeds, or bleeding gums. * ROS:?General/Constitutional:?Change in appetite?denies.?Chills?denies.?Fatigue?denies.?Fever?denies.?Night sweats?denies.?Sleep disturbance?denies.?Allergy/Immunology:?Congestion?denies.?Hives?denies.?Itching?denies.?Rash?denies.?Wheezing?den ies.?Ophthalmologic:?Diminished visual acuity?denies.?Pain?denies.?Endocrine:?Frequent urination?denies.?Weakness?denies.?Respiratory:?Chest pain?denies.?Shortness of breath at rest?denies.?Shortness of breath with exertion?denies.?Cardiovascular:?Claudication?denies.?Difficulty laying flat?denies.?Gastrointestinal:?Abdominal pain?denies.?Blood in stool?denies.?Change in bowel habits?denies.?Hematology:?Easy bruising?denies.?Prolonged bleeding?denies.?Genitourinary:?Abdominal pain/swelling?denies.?Difficulty urinating?denies.?Frequent urination?denies.?Musculoskeletal:?Comments?See HPI for details.?Neurologic:?Balance difficulty?denies.?Gait abnormality?denies.?Loss of strength?denies.?Tingling/Numbness?denies.?Psychiatric:?Suicidal thoughts?denies.? * Medical History:? * Surgical History:?x2 c-secti ons appendix removal knee x3 cyst surgeries * Hospitalization/Major Diagno stic Procedure:?rapid heartbeat * Family History:?Father: nieves nosed with Cancer.? * Social History:?Tobacco Use:?Tobacco use other than smoking?Are you an other tobacco user??No.?Tobacco Use?Do you smoke??Yes.?Tobacco Control (Standard)?Tobacco use:?Current smoker, How often do you smoke cigarettes??Some days, but not every day,?How many cigarettes a day do you smoke??5 or less.?Drugs/Alcohol:?Drugs?Have you used drugs other than those for medical reasons in the past 12 months??No.?Alcohol use?Do you drink alcohol??No.?Substance Abuse?Do you have a history of substance abuse??No.?Drug/Alcohol:?AUDIT-C (Standard)?Did you have a drink containing alcohol in the past year??No,?Points?0,?Interpretation?Negative.? * Medications:?TakingCyclobenz aprine HCl 10 MG Tablet 1 tablet at bedtime as needed Orally Once a day Vitamin D3 Atorvastatin Calcium 10 MG Tablet 1 tablet Orally Once a day Albuterol Sulfate Acetaminophen 500 MG Capsule 1 capsule as needed Orally every 6 hrs Esomeprazole Magnesium 40 MG Capsule Delayed Release 1 capsule 1/2 to 1 hour before morning meal Orally Once a day Linzess 145 MCG Capsule 1 capsule at least 30 minutes before the first meal of the day on an empty stomach Orally Once a day Medication List reviewed and reconciled with the patientTaking Cyclobenzaprine HCl 10 MG Tablet 1 tablet at bedtime as needed Orally Once a day Taking Vitamin D3 Taking Atorvastatin Calcium 10 MG Tablet 1 tablet Orally Once a day Taking Albuterol Sulfate Taking Acetaminophen 500 MG Capsule 1 capsule as needed Orally every 6 hrs Taking Esomeprazole Magnesium 40 MG Capsule Delayed Release 1 capsule 1/2 to 1 hour before morning meal Orally Once a day Taking Linzess 145 MCG Capsule 1 capsule at least 30 minutes before the first meal of the day on an empty stomach Orally Once a day Medication List reviewed and reconciled with the patient * Allergies:?Amoxicillin: Douglas rgyPenicillin: AllergyMorphine: Allergyno[Allergies Verified] Objective: * Vitals:?HR:84/min, Ht: 5 ft 3 in, Wt:176lbs, BMI:31.17Index, Oxygen sat %:97%, Pain scale:101-10, Ht-cm: 160.02 cm, Wt-k.83 kg. * Examination: ???General Examination: ?GENERAL APPEARANCE:?well developed, well nourished, in no acute distress.?HEAD:?normocephalic, atraumatic.?EYES:?pupils equal, round, reactive to light and accommodation, sclera non-icteric.?EARS:?normal.?SKIN:?warm and dry.?HEART:?radial pulses intact, non-delayed cap refill.?LUNGS:?good air movement.?EXTREMITIES:?no clubbing, cyanosis, or edema.?NEUROLOGIC:?nonfocal, motor strength normal upper and lower extremities, sensory exam intact.?Lumbar Spine/Lower back: ?INSPECTION:?normal curvature of spine.?PALPATION:?tender paraspinal muscle tenderness.?RANGE OF MOTION:?limited. Pain with extension, flexion, and side bending.?STRAIGHT LEG RAISING TEST:?positive on the left.?STABILITY:?normal.?STRENGTH:?decreased in LLE.?SENSORY EXAM:?normal.?GAIT:?able to weight bear but painful, favoring affected side.?Psychiatry: ?APPEARANCE:?appears stated age.?ATTITUDE:?cooperative.?PSYCHOMOTOR ACTIVITY:?within normal range.?ATTENTION:?good.?ORIENTATION:?yes.?AFFECT:?appropriate.?CURRENT SUICIDALITY:?not presently.?CURRENT HOMICIDALITY:?none.? Assessment: * Assessment: 1.?Radiculopathy, lumbar reg ion - M54.16???2.?Spondylosis without myelopathy or radiculopathy, lumbar region - M47.816??? Plan: * Treatment: 2.?Spondylosis without myelo aki or radiculopathy, lumbar region? Notes: Patient complains of lower back pain that can occur independent of LE pain as noted above. Patient is a candidate for a diagnostic lumbar and possible RFA pending on response to LESI?? * Procedure Codes:? * Preventive Medicine:? ??Counseling:?BMI Care goal follow-up plan:?BMI counseling provided to patient:?Lifestyle education.? * Follow Up:?LOM LESI at L4-5 * * Sign off status: Completed true * Provider:?DANA Shin, CONTOUR SANDER-C Marcio e:?04/14/2024 Generated for Manav doyle/Freddie/eTransmitting on:?07/19/2024 12:37 PM EST History and Physical Notes * HPI (History of Present Illness) Category Sub-Category Detail Notes Category Not es 04/14/24: Radha Dolan is a 53 y.o new patient here for the evaluation of lower back pain that radiates to the LLE with numbness/tingling intermittently. Patient was involved in slip ad fall injury that occurred in Jun 2023. Patient was initially evaluated at the ED where x-rays were obtained which noted no fractures. As OTC medication and activity modification provided no relief patient was referred for PT. She completed 4-5 months of PT with some benefit but no resolution. She adheres to HEP. Pain was rated a 10 and exacerbated with walking, standing, and walking. Pain affects her quality of sleep and physical functions. Not currently on any blood thinners or antibiotics. Denies bladder or bowel incontinence. Received notes that the patient has been evaluated by hematology in 2020. Patient reports she was not diagnosed with a bleeding disorder. She denies any spontaneous bleeding, nosebleeds, or bleeding gums Examination Category Sub-Category Detail Notes Category Not es Lumbar Spine/Lower back STRAIGHT LEG RAISING TEST: positive on the left SENSORY EXAM: normal GAIT: able to weight bear but painful, favoring affected side INSPECTION: normal curvature of spine PALPATION: tender paraspinal mu scle tenderness RANGE OF MOTION: limited. Pain with e xtension, flexion, and side bending STABILITY: normal STRENGTH: decreased in LLE Psychiatry APPEARANCE: appears stated age ATTITUDE: cooperative PSYCHOMOTOR ACTIVITY: within normal rang e ATTENTION: good ORIENTATION: yes AFFECT: appropriate CURRENT SUICIDALITY: not presently CURRENT HOMICIDALITY: none General Examination GENERAL APPEARANCE: well dev eloped, well nourished, in no acute distress HEAD: normocephalic, atrau matic EYES: pupils equal, round, reactive to light and accommodation, sclera non-icteric EARS: normal HEART: radial pulses intact , non-delayed cap refill LUNGS: good air movement NEUROLOGIC: nonfocal, motor stre ngth normal upper and lower extremities, sensory exam intact SKIN: warm and dry EXTREMITIES: no clubbing, cyanosi s, or edema
--- OUTSIDE RECORDS SUMMARY | 2024-07-19 12:38 | XMS_ITS | Encounter Summary ---
Author Organization [employer] Address [address] [facility] [address] [place] [address] Care Team Providers Care Negative Cleaner Name Role Phone Unavailable Primary Care Provider Unavailabl e Reason for Visit * Reason Onset Date Comments medication 09/25/2023 Encounter Details Date Type Department Care Team (Late st Contact Info) Description 09/25/2023 Telephone [facility] [address] [place] [address] Leon Tejeda DDS [address], [place] [phone] medication Social History Tobacco Use Types Packs/Day Years Used Date Smoking Tobacco: Every Day Cigarettes Smokeless Tobacco: Never Alcohol Use Standard Drinks/Week Comments Defer 0 (1 standard drink = 0.6 oz pur e alcohol) Comments Unknown Sex and Gender Information Value Date Recorded Sex Assigned at Female 11/27/2022 1:21 PM EDT Legal Sex Female 1:16 PM EDT Gender Identity Female 11/27/2022 1:21 PM EDT Sexual Orientation Choose not to disclose 2022 1:21 PM EDT documented as of this encounter Miscellaneous Notes * Telephone Encounter - Carol Khan - 09/25/2023 2:11 PM EDT Patient called in stating that she was expecting to get percocet with tylenol for medication and ended up getting plain tylenol. I informed patient that I would send the message over tot he provider.She state she was heading back over to the office. I informed patient that I would send message either way documented in this encounter Plan of Treatment Not on file documented as of this encounter Visit Diagnoses Not on filedocumented in this encounter
--- OUTSIDE RECORDS SUMMARY | 2024-07-19 12:38 | XMS_ITS | Clinical Summary ---
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 3 Active cyclobenzaprine (Flexeril) 10 MG tablet TAKE 10 MG (1 TABLET) BY MOUTH 3 TIMES A DAY NEEDED FOR FOR MUSCLE SPASM 4 Active esomeprazole (NexIUM) [address] capsule 3 Active Diclofenac Sodium 1 % gel 3 Active Linzess 145 MCG capsule 3 Active sucralfate (Carafate) 1 GM/10ML suspension 3 Active azithromycin (Zithromax) 250 MG tablet Take two tabs on day one followed by one tablet from day two until gone. 6 tablet 4 Active Social History Tobacco Use Types Packs/Day Years Used Date Smoking Tobacco: Every Day Cigarettes Smokeless Tobacco: Never Tobacco Cessation:Ready to Q uit: Not Asked; Counseling Given: Not Answered Alcohol Use Standard Drinks/Week Comments Defer 0 (1 standard drink = 0.6 oz pur e alcohol) Comments Unknown Sex and Gender Information Value Date Recorded Sex Assigned at Female 11/27/2022 1:21 PM EDT Legal Sex Female 1:16 PM EDT Gender Identity Female 11/27/2022 1:21 PM EDT Sexual Orientation Choose not to disclose 2022 1:21 PM EDT Plan of Treatment Health Maintenance Due Date Last Done Comments CT Colonography 1971 Colonoscopy 1971 Colorectal Cancer Screening 1971 Dental Prophylaxis 1971 Depression Screening 1971 FIT DNA/Cologuard 1971 FIT 1971 FOBT 1971 HIV Screening 1971 Lipid Panel 1971 SDOH Screening 1971 Sigmoidoscopy 1971 Alcohol/Substance Use Screening 1983 Hepatitis C Screening 1989 Hepatitis B Vaccines (1 of 3 - 19+ 3-dose series) 1990 Pap Smear 1992 Cervical Cancer Screening 2001 HPV/Cotest 2001 Mammogram 2011 Zoster Vaccines (1 of 2) 2021 Pneumococcal Vaccine: Pediatrics (0 to 5 Years) and At-Risk Patients (6 to 64 Years) (2 of 2 - PCV) 05/28/2022 05/28/2021 Dental Oral Exam 12/13/2023 06/12/2023 COVID-19 Vaccine (1 - 2023-2 5 season) 2024 Influenza Vaccine (#1) 2024 Dental X-Ray: Bitewings 06/13/2024 06/12/2023 Tobacco Screening 09/24/2024 09/25/2023 Dental X-Ray: Full Mouth 06/13/2026 023, 08/22/2009 DTaP/Tdap/Td Vaccines (2 - T d or Tdap) 02/04/2027 02/04/2017 RSV Patients and Patients Aged 60 years or older (1 - 1-dose 75+ series) 2046 HIB Vaccines Aged Out No longer eligi ble based on patient's age to complete this topic HPV Vaccines Aged Out No longer eligi ble based on patient's age to complete this topic Hepatitis A Vaccines Aged Out No long er eligible based on patient's age to complete this topic IPV Vaccines Aged Out No longer eligi ble based on patient's age to complete this topic Meningococcal Vaccine Aged Out No daxa ashu eligible based on patient's age to complete this topic RSV under 20 months Aged Out No longe r eligible based on patient's age to complete this topic Rotavirus Vaccines Aged Out No longer eligible based on patient's age to complete this topic Procedures Procedure Name Priority Date/Time Associated Diagnosis Comments DIAGNOSTIC - DIAGNOSTIC IMAGING - INTRAORAL - COMPREHENSIVE SERIES OF RADIOGRAPHIC IMAGES Routine 06/12/2023 11:00 AM EST COMPREHENSIVE ORAL EVALUATION - NEW OR ESTABLISHED PATIENT Routine 06/12/2023 11:00 AM EST from Last 3 Months or Most Recently Relevant to Health Maintenance Insurance [facility] [facility]
--- OUTSIDE RECORDS SUMMARY | 2024-07-19 12:38 | XMS_ITS | Patient Health Record ---
Author Organization [facility] Address [address] [address] Care Team Providers Care Director Of Provider Relations Name Role Phone Shira Raines Primary Care Provider Sincere Young Unavailable [phone] Cassie Hernandez Unavailable [phone] Allergies Allergen (clinical drug ingredient) Drug/Non Drug Allergy documented on EMR Reaction Allergy Type Onset Date Status amoxicillin Amoxicillin Unknown Drug Allergy Act nito morphine Morphine Unknown Drug Allergy Active Penicillin Unknown Drug Allergy Active Reason For Referral No Information Medications Medication SIG (Take, Route, Frequency, Duration) Notes Start Date End Date Status Linzess 145 MCG 1 capsule at least 3 0 minutes before the first meal of the day on an empty stomach Orally Once a day Active Vitamin D3 Active Cyclobenzaprine HCl 10 MG 1 tablet at be dtime as needed Orally Once a day Active Acetaminophen 500 MG 1 capsule as needed Orally every 6 hrs Active Esomeprazole Magnesium 40 MG 1 capsule 1 /2 to 1 hour before morning meal Orally Once a day Active Atorvastatin Calcium 10 MG 1 tablet Oral ly Once a day Active Albuterol Sulfate Ac tive Social History Tobacco Use: Social History Observation [...] do you smoke? 5 or les s Problems Problem Type SNOMED Code ICD Code Onset Dates Problem Status W/U Status Risk Notes Problem Lumbosacral spondylosis without myelopathy (11056177) Spondylosis without myelopathy or radiculopathy, lumbar region (M47.816) Active confirmed Problem Lumbar radiculopathy (922979222) Radiculopathy, lumbar region (M54.16) Active confirmed Vital Signs Heart Rate 84 /min 04/14/2024 Oximetry 97 % 04/14/2024 Height 5 ft 3 in in 04/14/2024 Weight 176 lbs 04/14/2024 BMI 31.17 kg/m2 04/14/2024 Encounters Encounter Location Date Provider Diagnosis [facility] [address] [address] 04/14/2024 Cassie Gitonga Radiculopathy, lumbar region M54.16 and Spondylosis without myelopathy or radiculopathy, lumbar region M47.816 [facility] [address] [address] 04/14/2024 Benniemarlo Wilsonmel Radiculopathy, lumbar region M54.16 and Spondylosis without [...] with a LOM LESI at L4-5 04/14/2024 Radiculopathy, lumbar region (ICD-10 - M54.16) Risks and potential benefits of the procedure including, nerve injury, bleeding, infection, paralysis, stroke, and others discussed. The patient expressed understanding and wishes to proceed. 04/14/2024 Spondylosis without myelopathy or radiculopathy, lumbar region (ICD-10 - M47.816) Patient complains of lower back pain that can occur independent of LE pain as noted above. Patient is a candidate for a diagnostic lumbar and possible RFA pending on response to LESI 04/14/2024 Spondylosis without myelopathy or radiculopathy, lumbar region (ICD-10 - M47.816) secondary issue. We will address the radicular component first and then most likely complete a trial of diagnostic lumbar MBB. The patient is in agreement. Plan Of Treatment No Information Insurance Providers Payer Name Payer Address Payer Phone Subscriber Number Group Number Insured Name Patient Relationship to Insured Coverage Start Date Coverage End Date [employer] [id number] Jessy Dolan Self - patient is the insured Medical (General) History Medical History History ICD Code reflux constipation mucos/blood in stool ibs arthritis high cholesterol arrythmia bronchitis asthma hernia Surgical History Surgery Date(Month/Year) x2 c-sections appendix removal knee x3 cyst surgeries Hospitalization History Reason Date(Month/Year) rapid heartbeat
--- OUTSIDE RECORDS SUMMARY | 2024-07-19 12:38 | XMS_ITS ---
Author Organization [facility] Address [address] [address] Care Team Providers Care Naval Engineer Name Role Phone Shira Raines Primary Care Provider Sincere Young Unavailable [phone] Allergies Allergen (clinical drug ingredient) Drug/Non Drug Allergy documented on EMR Reaction Allergy Type Onset Date Status amoxicillin Amoxicillin Unknown Drug Allergy Act nito morphine Morphine Unknown Drug Allergy Active Penicillin Unknown Drug Allergy Active REASON FOR VISIT [facility] - LESI, ROS PROC Medications Medication SIG (Take, Route, Frequency, Duration) Notes Start Date End Date Status Vitamin D3 Active Acetaminophen 500 MG 1 capsule as [...] as needed Orally Once a day Active Social History Tobacco Use: Social History [...] do you smoke? 5 or les s Vital Signs Heart Rate 84 /min 04/14/2024 Height 5 ft 3 in in 04/14/2024 Weight 176 lbs 04/14/2024 BMI 31.17 kg/m2 04/14/2024 Oximetry 97 % 04/14/2024 Encounters Encounter Location Date Provider Diagnosis [facility] [address] [facility] [address] [place] [address] 04/14/2024 Sincere Borden Radiculopathy, lumbar region M54.16 and Spondylosis without [...] patient is in agreement. Plan Of Treatment Treatment Notes Assessment Notes Radiculopathy, lumbar region Risks and p otential benefits of the procedure including, nerve injury, bleeding, infection, paralysis, stroke, and others discussed. The patient expressed understanding and wishes to proceed. Spondylosis without myelopat hy or radiculopathy, lumbar region secondary issue. We will address the radicular component first and then most likely complete a trial of diagnostic lumbar MBB. The patient is in agreement. Next Appt Details Follow Up: return to clinic 3 weeks to assess response and consider possible diagnostic lumbar MBB, Reason: Procedure Notes * Category Sub-Category Detail Notes OP NOTE PRE-OP DX Low back/radicul ar pain POST-OP DX same PROCEDURE Lumbar epidural ster oid injection PHYSICIAN Sincere Borden , DO LEVEL L45, LOM ANESTHESIA none MEDICATIONS 1% lidocaine, 10 mg dexamethasone and 5 cc of preservative-free normal saline BLOOD LOSS none COMPLICATIONS none PROCEDURE DESCRIPTION Prior to the proce dure, the risks and potential benefits were again described to the patient. All questions were answered. Informed consent was obtained. The site was marked and a time-out was performed. Pulse ox was placed. The patient was placed in the prone position on the OR table. The lumbar spine area was then sterilely prepped and draped in the usual fashion. Using live Fluoro, the lumbar anatomy was visualized. 1% lidocaine was used to topicalize the skin and along the expected needle track. A 20 gauge Touhy needle was then advanced towards the targeted interspace under Fluoro guidance as needed. The needle tip position was verified in AP, lateral and oblique views as needed. Entry into the epidural space was confirmed with a loss of resistance to PFNS technique. At this point the syringe was aspirated and was negative for free air, heme and CSF. The injectate was then delivered under slow and steady pressure without undue pain or pressure reported by the patient. The Touhy was then re- stiletted and withdrawn. The area was cleaned and a sterile dressing was applied. The patient was returned to the upright position, a set of vital signs was obtained, and as the patient was stable, was placed in the recovery room. The patient was monitored, repeat vital signs were stable, the patient was given discharge instructions, a followup appointment was made and the patient was discharged home. POST-OP CONDITION stable Progress Notes * Dwain DOLANOB:1970 (53 yo F)Acc No.[id number]:04/14/2024 Patient:?Jessy DOLAN Provider:?Sincere Borden, :1970???Age:53 Y???Sex:Female D ate:04/14/2024 Address:[address] [place] [address] [id number] Pcp:Shira Raines Subjective: * Chief Complaints: * ???H - LESIROS PROC * HPI: ???:? 04/14/2024.? The patient is here for lumbar epidural steroid injection. * ROS:?General/Constitutional:?Change in appetite?denies.?Chills?denies, denies.?Fatigue?denies.?Fever?denies, denies.?Night sweats?denies, denies.?Sleep disturbance?denies.?Allergy/Immunology:?Congestion?denies.?Hives?denies.?Itching?denies.?Rash?denies.?Wheezing?den ies.?Ophthalmologic:?Diminished visual acuity?denies.?Pain?denies.?Endocrine:?Frequent urination?denies.?Weakness?denies.?Respiratory:?Chest pain?denies.?Shortness of breath at rest?denies.?Shortness of breath with exertion?denies.?Cardiovascular:?Claudication?denies.?Difficulty laying flat?denies.?Gastrointestinal:?Abdominal pain?denies.?Blood in stool?denies.?Change in bowel habits?denies.?Hematology:?Easy bruising?denies.?Prolonged bleeding?denies.?Genitourinary:?Abdominal pain/swelling?denies.?Difficulty urinating?denies.?Frequent urination?denies.?Musculoskeletal:?Comments?See HPI for details.?Neurologic:?Balance difficulty?denies.?Gait abnormality?denies.?Loss of strength?denies.?Tingling/Numbness?denies.?Psychiatric:?Suicidal thoughts?denies.? * Medical History:? * Surgical History:?x2 c-secti ons appendix removal knee x3 cyst surgeries * Hospitalization/Major Diagno stic Procedure:?rapid heartbeat * Family History:?Father: diag nosed with Cancer.? * Social History:?Tobacco Use:?Tobacco use other than smoking?Are you an other tobacco user??No ?Tobacco Use?Do you smoke??Yes ?Tobacco Control (Standard)?Tobacco use:?Current smoker ?How often do you smoke cigarettes??Some days, but not every day ?How many cigarettes a day do you smoke??5 or less * Medications:?TakingCyclobenz aprine HCl 10 MG Tablet [...] exam intact.?Lumbar Spine/Lower back: ?INSPECTION:?normal curvature of spine.?PALPATION:?no muscle spasm, no paraspinal tenderness.?RANGE OF MOTION:?Extension (deg):, Flexion (deg):, Rotation, Side bending (deg):.?STRAIGHT LEG RAISING TEST:?negative bilaterally.?STABILITY:?normal.?STRENGTH:?within normal limits bilaterally.?SENSORY EXAM:?normal.?GAIT:?no pain with weightbearing.?Psychiatry: ?APPEARANCE:?appears stated age.?ATTITUDE:?cooperative.?PSYCHOMOTOR ACTIVITY:?within normal range.?ATTENTION:?good.?ORIENTATION:?yes.?AFFECT:?appropriate.?CURRENT SUICIDALITY:?not presently.?CURRENT HOMICIDALITY:?none.? Assessment: * Assessment: 1.?Radiculopathy, lumbar reg ion - M54.16???2.?Spondylosis without myelopathy or radiculopathy, lumbar region - M47.816??? Plan: * Treatment: 2.?Spondylosis without myelo aki or radiculopathy, lumbar region? Notes: secondary issue. We will address the radicular component first and then most likely complete a trial of diagnostic lumbar MBB. The patient is in agreement.?? * Procedures:?OP NOTE:?PRE-OP DX?Low back/radicular pain.?POST-OP DX?same.?PROCEDURE?Lumbar epidural steroid injection.?PHYSICIAN?Sincere Borden DO.?LEVEL?L45, LOM.?ANESTHESIA?none.?MEDICATIONS?1% lidocaine, 10 mg dexamethasone and 5 cc of preservative- free normal saline.?BLOOD LOSS?none.?COMPLICATIONS?none.?PROCEDURE DESCRIPTION?Prior to the procedure, the risks and potential benefits were again described to the patient. All questions were answered. Informed consent was obtained. The site was marked and a time-out was performed. Pulse ox was placed. The patient was placed in the prone position on the OR table. The lumbar spine area was then sterilely prepped and draped in the usual fashion. Using live Fluoro, the lumbar anatomy was visualized. 1% lidocaine was used to topicalize the skin and along the expected needle track. A 20 gauge Touhy needle was then advanced towards the targeted interspace under Fluoro guidance as needed. The needle tip position was verified in AP, lateral and oblique views as needed. Entry into the epidural space was confirmed with a loss of resistance to PFNS technique. At this point the syringe was aspirated and was negative for free air, heme and CSF. The injectate was then delivered under slow and steady pressure without undue pain or pressure reported by the patient. The Touhy was then re-stiletted and withdrawn. The area was cleaned and a sterile dressing was applied. The patient was returned to the upright position, a set of vital signs was obtained, and as the patient was stable, was placed in the recovery room. The patient was monitored, repeat vital signs were stable, the patient was given discharge instructions, a followup appointment was made and the patient was discharged home..?POST-OP CONDITION?stable.?Total fluoroscopy time was : 2.2 sec. ? * Procedure Codes:?53297 NJX I NTERLAMINAR LMBR/[id number] INJ DEXETHOSONE SODIM PHOSHATE 1 MG, Units: 10.00 * Preventive Medicine:? ??Counseling:?BMI Care goal follow-up plan:?BMI counseling provided to patient:?Lifestyle education * Follow Up:?return to clinic 3 weeks to assess response and consider possible diagnostic lumbar MBB * * Sign off status: Completed true * Provider:Aminah Borden DO Date :?04/14/2024 Generated for Manav doyle/Freddie/eTransmitting on:?07/19/2024 12:37 PM EST History and Physical Notes * HPI (History of Present Illness) Category Sub-Category Detail Notes Category Not es 04/14/2024. The patient is here for lumbar epidural steroid injection. Examination Category Sub-Category Detail Notes Category Not es Lumbar Spine/Lower back STRAIGHT LEG RAISING TEST: negative bilaterally SENSORY EXAM: normal GAIT: no pain with weightb earing INSPECTION: normal curvature of spine PALPATION: no muscle spasm, no paraspinal tenderness RANGE OF MOTION: Extension (deg):, Fl exion (deg):, Rotation, Side bending (deg): STABILITY: normal STRENGTH: within normal limits bilaterally Psychiatry APPEARANCE: appears stated age ATTITUDE: cooperative [...]
== END 2024-07-19 08:18 | disposition home or self-care (01) ==
LOC: HO.US 08:17
PROVIDERS: PCP Internal Medicine; Visit Provider Internal Medicine
DX: R10.11 Right upper quadrant pain (principal); R79.89 Other specified abnormal findings of blood chemistry
CPT/HCPCS: 76700

== ENCOUNTER → 2024-07-19 08:19 | Outpatient (BNV) | payer MEDICARE, MEDICAID, SELFPAY | PROVIDERS: PCP Internal Medicine; Visit Provider Radiology Diagnostic Radiology | DX: R79.89 Other specified abnormal findings of blood chemistry (principal) | CPT/HCPCS: 76700 ==

== ENCOUNTER 2024-08-30 10:00 | Outpatient (REF) | payer MEDICARE, MEDICAID, SELFPAY ==
--- NOTE | ~2024-08-30 | CT_ITS ---
CLINICAL HISTORY: F17.210 - Nicotine dependence, cigarettes, uncomplicated CT lung cancer screening (LDCT) Comparison: None Technique: Axial CT images of the chest using low-dose technique. Referring provider counseled the patient on shared decision-making for LDCT screening. Additional counseling was provided on smoking cessation. Effective radiation dose total: DLP 43.6 mGycm, CTDIvol 1.4 mGy. Findings: Lung: No evidence of pneumonia or edema. No suspicious nodules. Coronary artery calcifications: None Limited upper abdomen: Unremarkable Other: None Impression: LungRADS 1: Negative exam. Continue annual screening with low dose Chest CT in 12 months. ##L1# Category 1: Normal; continue annual screening Category 2: Benign appearance or behavior, continue annual screening Category 3: Probably benign, [address] recommended Category 4A: Suspicious, [address] recommended; may consider PET/CT Category 4B: Suspicious, Additional diagnostics and/or tissue sampling recommended Category 4X: Suspicious, Additional diagnostics and/or tissue sampling recommended Category 0: Recalls (incomplete screen due to Incomplete coverage, Noise, Respiratory motion, Expiration, Obscured by acute abnormality) Dammit This document has been electronically signed by: Tresa Santacruz MD on 08/31/2024 13:46:49
--- OUTSIDE RECORDS SUMMARY | 2024-08-30 11:05 | XMS_ITS | Clinical Summary ---
Author Organization [employer] Address [address] [place] [address] [address] [place] [address] Care Team Providers Care Revenue Cycle Specialist Name Role Phone Unavailable Primary Care Provider [...] 2022 1:21 PM EDT Plan of Treatment Upcoming Encounters Date Type Department Care Team (Late st Contact Info) Description 09/24/2024 11:00 AM EDT Office Visit [facility] [address] [place], [place] [phone] Leon Tejeda, DDS [address] [place], [place] [phone] Health Maintenance Due Date Last Done Comments [...] Vaccines (1 of 2) 2021 Pneumococcal Vaccine: 50+ Years (2 of 2 - PCV) 05/28/2022 05/28/2021 [...] Procedure Name Priority Date/Time Associated Diagnosis Comments INTRAORAL - COMPLETE SERIES OF RADIOGRAPHIC IMAGES Routine 06/12/2023 11:00 AM EST COMPREHENSIVE ORAL EVALUATION - NEW OR ESTABLISHED PATIENT Routine 06/12/2023 11:00 AM EST from Last 3 Months or Most Recently Relevant to Health Maintenance Insurance [facility] ADULT DENTAL [facility]
--- OUTSIDE RECORDS SUMMARY | 2024-08-30 11:06 | XMS_ITS | Encounter Summary ---
Author Organization [employer] Address [address] [facility] [address] [place] [address] Care Team Providers Care Regulatory Affairs Coordinator Name Role Phone Unavailable Primary Care Provider Unavailabl e Reason for Visit * Reason Onset Date Comments medication 09/25/2023 Encounter Details Date Type Department Care Team ([facility] Contact Info) Description 09/25/2023 Telephone [facility] [address] [place] [address] Leon Tejeda DDS [address] [place] [address] medication Social History Tobacco Use Types Packs/Day [...] documented in this encounter Plan of Treatment Upcoming Encounters Date Type Department Care Team ([facility] Contact Info) Description 09/24/2024 11:00 AM EDT Office Visit [facility] [address] [place] [address] Leon Tejeda DDS [address] [place] [address] documented as of this encounter Visit Diagnoses Not on filedocumented in this encounter
== END 2024-08-30 10:01 | disposition home or self-care (01) ==
LOC: HO.CT 10:00
PROVIDERS: PCP Internal Medicine; Visit Provider Physician Assistant Medical
DX: Z12.2 Encounter for screening for malignant neoplasm of respiratory organs (principal); F17.210 Nicotine dependence, cigarettes, uncomplicated
CPT/HCPCS: 71271; 99212

== ENCOUNTER → 2024-08-30 10:04 | Outpatient (BNV) | payer MEDICARE, MEDICAID, SELFPAY | PROVIDERS: PCP Internal Medicine; Visit Provider Radiology Diagnostic Radiology | DX: F17.210 Nicotine dependence, cigarettes, uncomplicated (principal) | CPT/HCPCS: 71271 ==

== ENCOUNTER 2024-08-30 14:07 | Outpatient (AMB) | payer MEDICARE, SELFPAY ==
--- NOTE | 2024-08-30 14:44 | A.OFFPC_ITS ---
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: No Accompanied by: Self / Same As Patient Allergies hydrocodone [From Vicodin] Allergy (Severe, Verified 08/30/24 14:46) Stomach Pain morphine [MORPHINE] Allergy (Severe, Verified 08/30/24 14:46) REDNESS, FEELS REALLY HOT, shortness of breath, anaphylaxis oxycodone Allergy (Severe, Verified 08/30/24 14:46) Stomach Upset amoxicillin Adverse Reaction (Severe, Verified 08/30/24 14:46) yeast infection Penicillins [PENICILLINS] Adverse Reaction (Severe, Verified 08/30/24 14:46) YEAST INFECTION Tobacco use date assessed: 08/30/24 Dental Screening Dental Screen Date: 08/30/24 Did you have a dental visit in the last 12 months?: No Did you have a dental problem in the last 6 months where you did not have access to dental care?: No Was dental information given to patient?: Patient has dentist [facility] Medical History (Updated 07/14/24 @ 07:38 by Jonny Jerome MD) Epidermal cyst Palpitations Hypercholesterolemia Impaired fasting blood sugar Asthma-COPD overlap syndrome Hx of tuberculosis Chronic cough Nicotine dependence, cigarettes, uncomplicated Dysphagia GERD (gastroesophageal reflux disease) Gastroparesis History of IBS Cohn's esophagus determined by endoscopy Obesity (BMI 30-39.9) Panic attacks Generalized anxiety disorder Hypersomnia Easy bruisability Breast density Lumbar radicular pain Plantar fasciitis Sacrococcygeal pilonidal cyst Calcaneal spur of left foot De Quervain's tenosynovitis, right Achilles tendinitis of left lower extremity Bilateral hand numbness Arthralgia of right hand Chronic pain of left ankle Lateral epicondylitis of left elbow Bicipital tendinitis of left shoulder Arthritis Hip pain Verruca Surgical History History of carpal tunnel release of both wrists History of excision of pilonidal cyst (~02/20/24) History of loop electrosurgical excision procedure (LEEP) History of tubal ligation History of colonoscopy History of esophagogastroduodenoscopy (EGD) History of meniscectomy of left knee History of appendectomy History of section Family History Father Tongue cancer Mother CVD (cardiovascular disease) Maternal Aunt Colon cancer Maternal Uncle Colon cancer Brother CVD (cardiovascular disease) Substance abuse Sister CVD (cardiovascular disease) Social History Household Members: Spouse and Children Housing: Apartment Are you a primary critical care physician to a significant other at home: No Do you presently have visiting nurse or other home services: No Alcohol intake: former Comment: holidays 1 glass of wine Patient Tobacco Use Status: Current everyday Tobacco user Tobacco use type: Cigarette Cigarette Packs Per Day: 0.5 Cigarettes Per Day: 7 Years Smoked: 30 e-Cigarette/Vaping Use: Never Used Second Hand Smoke Exposure: Yes Substance Use Type: Marijuana service: No Current occupational status: disabled Cognitive needs: No Hearing needs: No Vision needs: No Female Reproductive History Menstrual Age of Menarche: 12 Questionnaire PHQ-9 Over the last 2 weeks, how often have you been bothered by any of the following problems? 1. Little interest or pleasure in doing things: several days 2. Feeling down, depressed, or hopeless: not at all 3. Trouble falling or staying asleep, or sleeping too much: nearly every day 4. Feeling tired or having little energy: nearly every day 5. Poor appetite or overeating: not at all 6. Feeling bad about yourself - or that you are a failure or have let yourself or your family down: not at all 7. Trouble concentrating on things, such as reading the newspaper or watching television: several days 8. Moving or speaking so slowly that other people could have noticed. Or the opposite - being so fidgety or restless that you have been moving around a lot more than usual: not at all 9. Thoughts that you would be better off or of hurting yourself in some way: not at all Total score: 8 Depression Screening Interpretation: Positive Depression Screening Done: Yes Source: Developed by Drs. Kain Gutierrez, Patricia Marx, Damaso Delacruz and colleagues, with an educational allison from [employer]. Thrive Questionnaire Date Thrive assessed: 08/30/24 I am a: Patient What is your living situation today?: I have a steady place to live Within the past 12 months, did the food you bought not last and you didn't have the money to get more?: Never true Within the past 12 months, did you worry whether your food would run out before you got money to buy more?: Never true Do you have trouble paying for medicines?: No Do you have trouble getting transportation to medical appointments?: No Do you have trouble paying your heating and electricity bill?: No Do you have trouble taking care of your child, family member or friend?: No Do you have trouble with day-to-day activities such as bathing, preparing meals, shopping, managing finances, etc.?: No Are you currently unemployed and looking for a job?: No Are you interested in more education?: No Please select the resources that you would like help with: None Currently or been in a relationship where the following occur: No concerns reported THRIVE Score: 0 AUDIT C Alcohol Use Questionnaire (AUDIT-C) 1. How often do you have a drink containing alcohol?: Never 3. How often do you have six or more drinks on one occasion?: Never Total Score: 0 ELIZABETH-7 AMB Questionnaire ELIZABETH-7 Date ELIZABETH - 7 assessed: 08/30/24 Feeling nervous, anxious, or on edge: 0 = Not at all Not being able to stop or control worryin = Not at all Worrying too much about different things: 0 = Not at all Trouble relaxin = Not at all Being so restless that it is hard to sit still: 0 = Not at all Becoming easily annoyed or irritable: 0 = Not at all Feeling afraid as if something awful might happen: 0 = Not at all Total ELIZABETH-7 score (0-4 normal; 5-9 mild; 10-14 moderate; 15-21 severe): 0 Source: Developed by Drs. Kain Gutierrez, Damaso Gomes and colleagues, with an educational allison from [employer]. Physical exam (Primary Care) Vital Signs: Last Vital Signs Pulse 68 08/30/24 14:45 BP 122/78 08/30/24 14:45 Pulse Ox 97 08/30/24 14:45 Oxygen Delivery Method Room Air 08/30/24 14:45 BMI result Body Mass Index 34.4 Tobacco/Smoking Status: Tobacco use Status Tobacco use date assessed 08/30/24 08/30/24 14:49 Patient Tobacco Use Status Current everyday Tobacco 08/30/24 14:49 Tobacco use type Cigarette 08/30/24 14:49 e-Cigarette/Vaping Use Never Used 08/30/24 14:49 PHQ-9: PHQ-9 Score PHQ-9: Total score 8 08/30/24 14:56 Depression Screening Interpretation: Positive Thrive Assessment: Date of Thrive Assessment Date Thrive assessed 08/30/24 08/30/24 14:56 Currently or been in a relationship where the following occur: No concerns reported Const General: alert; No acute distress Eyes Conjunctivae: conjunctivae normal Resp Auscultation: clear to auscultation bilaterally Cardio Rate: regular rate Rhythm: regular rhythm GI Inspection: Yes normal to inspection Extrem General: Yes normal to inspection and No edema Coding Level of Care Code Est Pt Level 4 (02768) Diagnoses Asthma-COPD overlap syndrome J44.9 Nicotine dependence, cigarettes, uncomplicated F17.210 Cohn's esophagus determined by endoscopy K22.70 Sacrococcygeal pilonidal cyst L05.91 Assessment & Plan Assessment & Plan (1) Asthma-COPD overlap syndrome: Code(s): J44.9 - Chronic obstructive pulmonary disease, unspecified Category: Medical Plan: Patient is strongly advised to stop smoking has albuterol inhaler to use (2) Nicotine dependence, cigarettes, uncomplicated: Comment: (current smoker - onset 22, x 32yrs - max 2ppd, now 1/2ppd, 45+PYH) Code(s): F17.210 - Nicotine dependence, cigarettes, uncomplicated Category: Medical Plan: CT scan done results are pending. (3) Cohn's esophagus determined by endoscopy: Code(s): K22.70 - Cohn's esophagus without dysplasia Category: Medical Plan: Strongly advised to stop smoking! Avoid the foods that causes that usually spicy foods, tomato products, juices, coffee, soda and foods that your sensitive to. After eating do not lie down, allow 3-4 hours before in lie down. And keep the head of bed above 30 degrees to avoid the acid from going up. (4) Sacrococcygeal pilonidal cyst: Code(s): L05.91 - Pilonidal cyst without abscess Category: Medical Plan: Patient has been seeing the surgeon and was advised to have another procedure Plan History of Present Illness The patient is a 54-year-old female presenting for a follow-up regarding multiple chronic conditions, including hip osteoarthritis, Cohn's esophagus, and asthma-COPD overlap syndrome. She reports a significant back injury following a fall, which has later resulted in chronic lower back pain with associated disc pathology seen on MRI. The patient is managing her respiratory symptoms proactively with her albuterol inhaler. Recent diagnostic tests indicate stable esophageal and abdominal health with pending CT scan results. She has been thoroughly advised to cease smoking, as it exacerbates her respiratory conditions. Notably, she expresses a strong desire for non-surgical management of her back pain despite the presence of disc-related symptoms affecting a nerve. Health Maintenance - Colonoscopy completed in 2020. - Mammogram scheduled for December 2023. - EGD conducted in January 2023. - Strong advisement given to cease smoking. - Encouraged adherence to cholesterol management with medication. Social History - Smoker, advised to cease due to exacerbation of respiratory conditions. - Reports her quit smoking after surgery, inspiring motivation. - Receives medications via [facility] delivery service. Review of Systems - Musculoskeletal: Reports chronic back pain, hip pain. - Respiratory: Reports minimal use of albuterol inhaler. - Gastrointestinal: Reports chronic management of Cohn's esophagus; denies current obstruction. Physical Exam Results - Ultrasound of the abdomen in June: Normal liver, no gallstones, normal kidneys and spleen. - MRI of the lumbar spine: Diffuse disc bulge, central disc protrusion with nerve impact. - CT scan: Results pending. Plan Continue current management strategies for chronic conditions, focusing on smoking cessation and monitoring respiratory health. For lumbar pain, the plan emphasizes non-surgical management through an appropriate pain management referral. Ensure the prescription for hypercholesterolemia is refilled and sent to [facility]. Surveillance of gastrointestinal health through scheduled screenings continues as planned. Encounters will include updating blood work, addressing emergent symptoms, and assessing ongoing therapy efficacy. Patient was informed and verbally consented to the use of an ambient scribe for clinic note documentation during this visit. Discussion Notes I discussed with the patient the importance of smoking cessation in managing her respiratory health and explained the potential benefits and limitations of non- surgical options for back pain management. We reviewed the MRI findings and considered her preference to avoid surgery, guiding her toward referral for further non-surgical evaluation. I reinforced the importance of medication adherence for hypercholesterolemia and addressed the need to update routine blood work and follow-up on pending diagnostic results. The patient was informed about the importance of attending future scheduled tests, such as the mammogram, for comprehensive care management. Patient Instructions - Cease smoking to improve respiratory health and reduce risk factors. - Continue using albuterol inhaler as needed for respiratory symptoms. - Schedule and complete pending blood work, ensuring overnight fasting. - Follow the management plan for lumbar spine pain without surgical intervention. - Maintain adherence to prescribed cholesterol medication. - Expect delivery of medications via [facility] and contact if adjustments are needed. - Follow up with all scheduled health screenings. Orders: Referrals Orthopedics Referral M54.16 - Radiculopathy, lumbar region Medications: Refilled atorvastatin 10 mg PO DAILY 90 tabs 2RF E78.00 - Pure hypercholesterolemia, unspecified atorvastatin 10 mg PO DAILY 90 tabs 2RF E78.00 - Pure hypercholesterolemia, unspecified
[2024-08-30 14:45] VITALS: BP 122/78; PULSE 68; O2SAT 97; BMI 34.4
--- OUTSIDE RECORDS SUMMARY | 2024-08-30 16:05 | XMS_ITS | Encounter Summary ---
Author Organization [employer] Address [address] [place] [address] Care Team Providers Care Track Coach Name Role Phone Unavailable Primary Care Provider Unavailabl e Reason for Visit * Reason Onset Date Comments medication 09/25/2023 Encounter Details Date Type Department Care Team ([facility] Contact Info) Description 09/25/2023 Telephone [facility] [address] [place] [address] Leon Tejeda DDS [address] [place] [address] medication Social History Tobacco Use Types Packs/Day [...] Upcoming Encounters Date Type Department Care Team ([facility] Contact Info) Description 09/24/2024 11:00 AM EDT Office Visit [facility] [address] [place] [address] Leon Tejeda DDS [address] [place] [address] documented as of this encounter Visit Diagnoses Not on filedocumented in this encounter
--- OUTSIDE RECORDS SUMMARY | 2024-08-30 16:05 | XMS_ITS | Clinical Summary ---
Author Organization [employer] Address [address] [place] [address] [address] [place] [address] Care Team Providers Care Technician Assistant Name Role Phone Unavailable Primary Care Provider [...] Description 09/24/2024 11:00 AM EDT Office Visit [facility] [address] [place], [place] [phone] Leon Tejeda, DDS [address] [place], [place] [phone] Health Maintenance Due Date Last Done Comments [...] Maintenance Insurance [facility] AD[facility] D[facility]AL [facility]
== END 2024-08-30 15:18 | disposition home or self-care (01) ==
PROVIDERS: PCP Internal Medicine; Visit Provider Internal Medicine
DX: J44.9 Chronic obstructive pulmonary disease, unspecified (principal); F17.210 Nicotine dependence, cigarettes, uncomplicated; K22.70 Barrett's esophagus without dysplasia; L05.91 Pilonidal cyst without abscess

== ENCOUNTER 2024-09-27 09:48 | Outpatient (AMB) | payer MEDICARE, SELFPAY ==
[2024-09-27 09:56] VITALS: BP 128/72; PULSE 78; O2SAT 97; BMI 34.9
--- NOTE | 2024-09-27 09:56 | A.OFFPC_ITS ---
Vital Signs 09/27/24 09:56 Height 5 ft 3 in Weight 197 lb BMI 34.9 BP 128/72 Blood Pressure Location Lt brachial Position Sitting Pulse 78 Pulse Source Pulse Oximeter Pulse Oximetry (%) 97 Oxygen Delivery Method Room Air Intake Visit Reasons: tobacco abuse Allergies hydrocodone [From Vicodin] Allergy (Severe, Verified 09/27/24 09:56) Stomach Pain morphine [MORPHINE] Allergy (Severe, Verified 09/27/24 09:56) REDNESS, FEELS REALLY HOT, shortness of breath, anaphylaxis oxycodone Allergy (Severe, Verified 09/27/24 09:56) Stomach Upset amoxicillin Adverse Reaction (Severe, Verified 09/27/24 09:56) yeast infection Penicillins [PENICILLINS] Adverse Reaction (Severe, Verified 09/27/24 09:56) YEAST INFECTION Medication List - Last Reconciled 09/27/24 by Shira Raines MD acetaminophen 500 mg PO Q8H PRN albuterol sulfate 90 mcg/actuation (Ventolin HFA) 2 puffs inhalation Q6H PRN atorvastatin 10 mg PO DAILY cholecalciferol (vitamin D3) 50 mcg PO DAILY cyclobenzaprine 10 mg PO TID PRN esomeprazole magnesium 40 mg PO DAILY hydrocortisone 2.5% (Proctosol HC) 1 appl MD BID-QID PRN linaclotide (Linzess) 290 mcg PO QAM metoclopramide HCl (Reglan) 5 mg PO QIDACHS polymyxin B sulf-trimethoprim 10,000 unit- 1 mg/mL 1 drp ophthalmic (eye) QID 7 days Tobacco use date assessed: 09/27/24 Dental Screening Dental Screen Date: 08/30/24 [facility] Medical History (Updated 09/27/24 @ 10:15 by Shira Raines MD) Epidermal cyst Palpitations Hypercholesterolemia Impaired fasting blood sugar Asthma-COPD overlap syndrome Hx of tuberculosis Chronic cough Nicotine dependence, cigarettes, uncomplicated Dysphagia GERD (gastroesophageal reflux disease) Gastroparesis History of IBS Cohn's esophagus determined by endoscopy Obesity (BMI 30-39.9) Panic attacks Generalized anxiety disorder Hypersomnia Easy bruisability Breast density Lumbar radicular pain Plantar fasciitis Sacrococcygeal pilonidal cyst Calcaneal spur of left foot De Quervain's tenosynovitis, right Achilles tendinitis of left lower extremity Bilateral hand numbness Arthralgia of right hand Chronic pain of left ankle Lateral epicondylitis of left elbow Bicipital tendinitis of left shoulder Arthritis Hip pain Verruca Surgical History History of carpal tunnel release of both wrists History of excision of pilonidal cyst (~02/20/24) History of loop electrosurgical excision procedure (LEEP) History of tubal ligation History of colonoscopy History of esophagogastroduodenoscopy (EGD) History of meniscectomy of left knee History of appendectomy History of section Family History Father Tongue cancer Mother CVD (cardiovascular disease) Maternal Aunt Colon cancer Maternal Uncle Colon cancer Brother CVD (cardiovascular disease) Substance abuse Sister CVD (cardiovascular disease) Social History Household Members: Spouse and Children Housing: Apartment Are you a primary child caregiver private home to a significant other at home: No Do you presently have visiting nurse or other home services: No Alcohol intake: former Comment: holidays 1 glass of wine Patient Tobacco Use Status: Current someday Tobacco user Tobacco use type: Cigarette Cigarette Packs Per Day: 0.5 Cigarettes Per Day: 7 Years Smoked: 30 e-Cigarette/Vaping Use: Never Used Second Hand Smoke Exposure: Yes Substance Use Type: Marijuana service: No Current occupational status: disabled Cognitive needs: No Hearing needs: No Vision needs: No Female Reproductive History Menstrual Age of Menarche: 12 Questionnaire PHQ-9 Over the last 2 weeks, how often have you been bothered by any of the following problems? 1. Little interest or pleasure in doing things: several days 2. Feeling down, depressed, or hopeless: not at all 3. Trouble falling or staying asleep, or sleeping too much: nearly every day 4. Feeling tired or having little energy: nearly every day 5. Poor appetite or overeating: not at all 6. Feeling bad about yourself - or that you are a failure or have let yourself or your family down: not at all 7. Trouble concentrating on things, such as reading the newspaper or watching television: several days 8. Moving or speaking so slowly that other people could have noticed. Or the opposite - being so fidgety or restless that you have been moving around a lot more than usual: not at all 9. Thoughts that you would be better off or of hurting yourself in some way: not at all Total score: 8 Depression Screening Interpretation: Positive Depression Screening Done: Yes Source: Developed by Drs. Kain Gutierrez, Damaso Gomes and colleagues, with an educational allison from [employer]. Thrive Questionnaire Date Thrive assessed: 08/30/24 I am a: Patient What is your living situation today?: I have a steady place to live Within the past 12 months, did the food you bought not last and you didn't have the money to get more?: Never true Within the past 12 months, did you worry whether your food would run out before you got money to buy more?: Never true Do you have trouble paying for medicines?: No Do you have trouble getting transportation to medical appointments?: No Do you have trouble paying your heating and electricity bill?: No Do you have trouble taking care of your child, family member or friend?: No Do you have trouble with day-to-day activities such as bathing, preparing meals, shopping, managing finances, etc.?: No Are you currently unemployed and looking for a job?: No Are you interested in more education?: No Please select the resources that you would like help with: None Currently or been in a relationship where the following occur: No concerns reported THRIVE Score: 0 AUDIT C Alcohol Use Questionnaire (AUDIT-C) 1. How often do you have a drink containing alcohol?: Never 3. How often do you have six or more drinks on one occasion?: Never Total Score: 0 ELIZABETH-7 AMB Questionnaire ELIZABETH-7 Date ELIZABETH - 7 assessed: 08/30/24 Source: Developed by Drs. Kain Gutierrez, Damaso Gomes and colleagues, with an educational allison from [employer]. Physical exam (Primary Care) Vital Signs: Last Vital Signs Pulse 78 09/27/24 09:56 BP 128/72 09/27/24 09:56 Pulse Ox 97 09/27/24 09:56 Oxygen Delivery Method Room Air 09/27/24 09:56 BMI result Body Mass Index 34.9 Tobacco/Smoking Status: Tobacco use Status Tobacco use date assessed 09/27/24 09/27/24 10:05 Patient Tobacco Use Status Current someday Tobacco 09/27/24 10:05 Tobacco use type Cigarette 09/27/24 09:57 e-Cigarette/Vaping Use Never Used 09/27/24 09:57 PHQ-9: PHQ-9 Score PHQ-9: Total score 8 09/27/24 10:15 Depression Screening Interpretation: Positive Thrive Assessment: Date of Thrive Assessment Date Thrive assessed 08/30/24 09/27/24 09:57 Currently or been in a relationship where the following occur: No concerns reported Const General: alert; No acute distress Eyes Conjunctivae: conjunctivae normal Resp Auscultation: clear to auscultation bilaterally Cardio Rate: regular rate Rhythm: regular rhythm GI Inspection: Yes normal to inspection Extrem General: Yes normal to inspection and No edema Coding Level of Care Code Est Pt Level 4 (58466) Diagnoses Hypercholesterolemia E78.00 Asthma-COPD overlap syndrome J44.9 Nicotine dependence, cigarettes, uncomplicated F17.210 Cohn's esophagus determined by endoscopy K22.70 Obesity (BMI 30-39.9) E66.9 Colon cancer screening Z12.11 Assessment & Plan Assessment & Plan (1) Hypercholesterolemia: Code(s): E78.00 - Pure hypercholesterolemia, unspecified Category: Medical Plan: Avoid fried foods, chicken skin, eggs, butter margarine, pastries and meat. Be it pork or beef they have a lot of cholesterol on atorvastatin 10 mg once a day patient needs blood work (2) Asthma-COPD overlap syndrome: Code(s): J44.9 - Chronic obstructive pulmonary disease, unspecified Category: Medical Plan: Continue with albuterol inhaler. (3) Nicotine dependence, cigarettes, uncomplicated: Comment: (current smoker - onset 22, x 32yrs - max 2ppd, now 1/2ppd, 45+PYH) August 2024 Code(s): F17.210 - Nicotine dependence, cigarettes, uncomplicated Category: Medical (4) Cohn's esophagus determined by endoscopy: Code(s): K22.70 - Cohn's esophagus without dysplasia Category: Medical Plan: Avoid the foods that causes that usually spicy foods, tomato products, juices, coffee, soda and foods that your sensitive to. After eating do not lie down, allow 3-4 hours before in lie down. And keep the head of bed above 30 degrees to avoid the acid from going up. On Nexium 40 mg once a day (5) Obesity (BMI 30-39.9): Code(s): E66.9 - Obesity, unspecified Category: Medical Plan: Diet and exercise (6) Colon cancer screening: Code(s): Z12.11 - Encounter for screening for malignant neoplasm of colon Category: Medical Plan: Patient is reminded about colonoscopy. Plan History of Present Illness The patient is a 54-year-old female presenting with a follow-up visit to manage her chronic conditions and to discuss recent complications with her back following a fall. In June of the previous year, she fell, resulting in significant back pain that has persisted since then. An MRI was conducted last year, showing nerve compression at L5-S1, L4-L5, and L3-L4, correlating with the reported symptoms of shooting leg pain on the left side. Chronic health issues include lumbar spondylosis, Cohn's esophagus, for which she takes Nexium 40 mg daily, and an asthma-COPD overlap syndrome treated with as-needed albuterol inhaler. Her weight increased slightly by three pounds, complicating her obesity management. She is on atorvastatin 10 mg daily to manage hypercholesterolemia, with the most recent blood work in January 2023 reported as normal. With a history of nicotine dependence, she is currently using mint candies to manage cravings and has reported abstinence since the last visit, except for a minor lapse. Additionally, her colonoscopy and chest CAT scan results were negative, and her scheduled mammography is due in December 2024. Despite consulting with [facility], follow-up is pending for specialist care regarding her ongoing lumbar issues. Arrangements have been made to facilitate this. Health Maintenance - Upper GI endoscopy (EGD) in January 2023: normal findings. - Colonoscopy in August 2020: normal findings. - Scheduled mammogram in December 2024. - Blood work in January 2023 showed normal results. - Management of hypercholesterolemia with atorvastatin 10 mg daily. - Management of Cohn's esophagus with Nexium 40 mg daily. - Obesity management with diet and exercise recommendations. - Smoking cessation efforts with candied mints for craving mitigation. Social History - Reports recent tobacco use cessation, with occasional cravings managed using mint candies. - Obesity, with emphasis on diet and exercise for weight management. - Complains of ongoing chronic back pain following a fall. - Subject to legal proceedings related to the fall, involving a settlement claim. Review of Systems - Musculoskeletal: Reports chronic back pain and shooting pain down the left leg. - Respiratory: Denies routine asthma exacerbations; uses albuterol inhaler as needed. - Gastrointestinal: Denies recent GERD symptoms; manages well with Nexium. - Mood: No reports of depression or anxiety, but coping with cravings following tobacco cessation. Physical Exam Results - Labs: Blood count in January 2023: normal. - Diagnostic Imaging: CAT scan of the chest on August 30, 2024: negative results. MRI of lumbar spine, last year, showed nerve compression L5-S1, L4-L5, and L3- L4. Plan During today's consultation, comprehensive management of the patient's chronic lumbar spondylosis and acute complications from her fall were reviewed. Immediate facilitation of specialist referral follow-up was prioritized due to persistent pain and existing nerve root compressions. The patient is advised to continue using non-prescriptive methods like heat application for symptom relief. We maintain respiratory focus on asthma-COPD overlap syndrome, ensuring inhaler compliance. Her Cohn's esophagus management with Nexium is encouraged to continue unabated, coupled with a diligent approach to our ongoing hypercholesterolemia plan via atorvastatin. The patient is commended on her effort to cease tobacco use and instructed to maintain strategies for cravings. Regular screening adherence and check on evolving needs were also reiterated. Patient was informed and verbally consented to the use of an ambient scribe for clinic note documentation during this visit. Discussion Notes I discussed with the patient the significant findings from her MRI, including nerve compression affecting her lumbar region. We talked about pursuing specialist referral support, emphasizing timely follow-up with [facility]. I reiterated that while awaiting further evaluation, low-risk pain management strategies such as heat application may offer relief. We reviewed the indications for continued use of current medications, including Nexium for Cohn's esophagus and atorvastatin for cholesterol control, outlining their benefits. We discussed the recent stability in her respiratory status under current asthma-COPD overlap syndrome treatment outlined with as-needed use of the albuterol inhaler. The importance of regular follow-ups, both pending mammography and routine COPD evaluations, were emphasized. We celebrated her commitment to nicotine cessation, addressing coping strategies for cravings. The patient understands the necessity of these measures and the ongoing commitment required in managing chronic conditions comprehensively. Patient Instructions - Follow up with [facility] for a pending referral regarding back pain. - Use the albuterol inhaler as needed for asthma-COPD symptoms. - Continue taking atorvastatin 10 mg and Nexium 40 mg daily as directed. - Apply heat to your back as non-invasive, supportive care for pain relief. - Maintain nicotine cessation strategies as planned; use mint candies for cravings. - Adhere to follow-up schedules for routine health screenings, including mammograms next scheduled for December 2024. - Continue to monitor cholesterol levels with routine blood work as previously scheduled. - Notify me immediately if you experience worsening symptoms or new health concerns.
--- OUTSIDE RECORDS SUMMARY | 2024-09-27 11:22 | XMS_ITS | Encounter Summary ---
Author Organization [employer] Address [address] [place] [address] Care Team Providers Care Sueding Machine Tender Name Role Phone Unavailable Primary Care Provider Unavailabl e Reason for Visit * Reason Onset Date Comments medication 09/25/2023 Encounter Details Date Type Department Care Team (Late st Contact Info) Description 09/25/2023 Telephone [facility] [address] [place] [address] Leon Tejeda, DDS [address] [place], [place] [phone] medication Social History Tobacco Use Types Packs/Day [...] that I would send message either way DR documented in this encounter Plan of Treatment Not on file documented as of this encounter Visit Diagnoses Not on filedocumented in this encounter
--- OUTSIDE RECORDS SUMMARY | 2024-09-27 11:22 | XMS_ITS | Encounter Summary ---
Author Organization [employer] [facility] Address [address] [place] [address] [address] [place] [address] Care Team Providers Care Assistant Hairstylist Name Role Phone Unavailable Primary Care Provider Unavailabl e Reason for Visit * Reason Comments Dental Exam Encounter Details Date Type Department Care Team (Late st Contact Info) Description 09/24/2024 11:00 AM EDT Office Visit [facility] [address] [place], [place] [phone] Leon Tejeda DDS [address] [place], [place] [phone] Social History Tobacco Use Types Packs/Day Years [...] PM EDT documented as of this encounter Plan of Treatment Scheduled Orders Name Type Priority Associated Diagnoses Orde r Schedule 15 15 EXTRACTION, ERUPTED TOOTH OR EXPOSED ROOT (ELEVATION/FORCEPS REMOVAL) Dental Routine [address] arting 09/24/2024 3 3 EXTRACTION, ERUPTED TOOTH OR EXPOSED ROOT (ELEVATION/FORCEPS REMOVAL) Dental Routine [address] arting 09/24/2024 8 MDFF(V)L 8 MDFF(V)L RESIN-BASED COMPOSITE - 4 OR MORE SURFACES (ANTERIOR) Dental Routine [address] arting 09/24/2024 9 MDFF(V) 9 MDFF(V) RESIN-BASED COMPOSITE - 3 SURF, ANTERIOR Dental Routine [address] arting 09/24/2024 15,14,12,11,10,7,5,4,2 15,14,12,11,10,7,5,4,2 MAXILLARY PARTIAL DENTURE - RESIN BASE (INCLUDING, RETENTIVE/CLASPING MATERIALS, RESTS, AND TEETH) Dental Routine [address] art09/24/2024 31,30,29,20,19,18 31,30,29,20,19,18 MANDIBULAR PARTIAL DENTURE - RESIN BASE (INCLUDING, RETENTIVE/CLASPING MATERIALS, RESTS, AND TEETH) Dental Routine [address] arting 09/24/2024 PANORAMIC RADIOGRAPHIC IMAGE Dental Routine 1 Occurrences 09/24/2024 BITEWINGS - 2 RADIOGRAPHIC IMAGES Dental Routine 1 Occurrence s starting 09/24/2024 PERIODIC ORAL EVALUATION - ESTABLISHED PATIENT Dental Routine 1 Occurren maranda starting 09/24/2024 documented as of this encounter Visit Diagnoses Not on filedocumented in this encounter
--- OUTSIDE RECORDS SUMMARY | 2024-09-27 11:22 | XMS_ITS | Clinical Summary ---
Author Organization [employer] [facility] Address [address] [place] [address] [address] [place] [address] Care Team Providers Care Shank Tapper Name Role Phone Unavailable Primary Care Provider [...] two until gone. 6 tablet 4 Active Encounters Date Type Department Care Team Description 09/24/2024 11:00 AM EDT Office Visit [facility] [address] [place] [address] Leon Tejeda DDS from Last 3 Months Social History Tobacco Use Types Packs/Day Years [...] FIT 1971 FOBT 1971 HIV Screening 1971 SDOH Screening 1971 Sigmoidoscopy 1971 Alcohol/Substance [...] Maintenance Insurance [place] [facility]
== END 2024-09-27 10:31 | disposition home or self-care (01) ==
LOC: HO.HMCH 09:49
PROVIDERS: PCP Internal Medicine; Visit Provider Internal Medicine
DX: E78.00 Pure hypercholesterolemia, unspecified (principal); J44.9 Chronic obstructive pulmonary disease, unspecified; E66.9 Obesity, unspecified; Z68.34 Body mass index [BMI] 34.0-34.9, adult; F17.210 Nicotine dependence, cigarettes, uncomplicated; K22.70 Barrett's esophagus without dysplasia; Z12.11 Encounter for screening for malignant neoplasm of colon

== ENCOUNTER → 2024-09-27 09:48 | Outpatient (BNVA) | payer MEDICARE, SELFPAY | PROVIDERS: PCP Internal Medicine; Visit Provider Internal Medicine | DX: J44.89 Other specified chronic obstructive pulmonary disease (principal); E78.00 Pure hypercholesterolemia, unspecified; K22.70 Barrett's esophagus without dysplasia; E66.9 Obesity, unspecified; F17.210 Nicotine dependence, cigarettes, uncomplicated; Z68.34 Body mass index [BMI] 34.0-34.9, adult; Z79.899 Other long term (current) drug therapy | CPT/HCPCS: 96127; 99212 ==

== ENCOUNTER 2024-11-02 09:21 | Outpatient (REF) | payer MEDICARE, SELFPAY ==
[2024-11-02 10:08] LABS: MANUAL DIFF FLAG NO
[2024-11-02 10:46] LABS: Basophils Percent Auto 0.3 % (0-2); Eosinophils Absolute Auto 0.1 X10*3/uL (0.0-0.4); Eosinophils Percent Auto 0.6 % (0-4); Hematocrit 45.2 % (37.0-47.0); Hemoglobin 15.1 g/dl (12.0-16.0); Imm Gran Abs Auto 0.04 X10*3/uL (0.00-0.03); Imm Gran Pct Auto 0.4 % (0.0-0.4); Lymphocytes Absolute Auto 2.1 X10*3/uL (1.2-4.9); Lymphocytes Percent Auto 20.5 % (20-40); Mean Corpuscular HGB Conc 33.4 g/dl (31.0-35.0); Mean Corpuscular Hemoglobin 31.5 pg (27.0-33.0); Mean Corpuscular Volume 94.4 fL (80.0-98.0); Mean Platelet Volume 8.8 fL (9.4-12.3); Monocytes Absolute Auto 0.8 X10*3/uL (0.1-1.2); Monocytes Percent Auto 7.6 % (2-11); Neutrophils Absolute Auto 7.3 x10*3/uL (2.0-8.3); Neutrophils Percent Auto 70.6 % (45-73); Platelet Count 337 X10*3/uL (160-400); Red Blood Count 4.79 X10*6/uL (4.20-5.50); Red Cell Distribution Width 12.9 % (11.0-16.0); White Blood Count 10.4 X10*3/uL (4.8-10.8)
--- OUTSIDE RECORDS SUMMARY | 2024-11-02 10:47 | XMS_ITS | Clinical Summary ---
Author Organization [employer] [facility] Address [address] [place] [address] 7 [place] [address] Care Team Providers Care High School Professional Name Role Phone Unavailable Primary Care Provider [...] Description 09/24/2024 11:00 AM EDT Office Visit [facility] ADULT [facility] [address] [place] [address] Leon Teejda DDS from Last 3 Months Social History [...] Insurance [place] ADULT D[facility] - [facility]
--- OUTSIDE RECORDS SUMMARY | 2024-11-02 10:47 | XMS_ITS | Encounter Summary ---
Author Organization [employer] Address [address] [facility] [address] [place] [address] Care Team Providers Care Stripper Black And White Name Role Phone Unavailable Primary Care Provider Unavailabl e Reason for Visit * Reason Onset Date Comments medication 09/25/2023 Encounter Details Date Type Department Care Team (Late st Contact Info) Description 09/25/2023 Telephone [facility] [address] [place] [address] Leon Tejeda, DDS [address] [facility] [place], [place] [phone] medication Social History Tobacco Use Types Packs/Day [...]
[2024-11-02 11:34] LABS: Appearance Urine Clear; Color Urine Yellow; Glucose Urine UA Negative (Negative); Leukocyte Esterase Urine Moderate (2+) (Negative); Nitrite Urine Negative (Negative); PH 6.5 (5.0-9.0); UMIC TRIGGER UACC YES; Urine Blood Moderate (2+) (Negative); Urine Ketones Negative (Negative); Urine Protein Trace mg/dL (Neg-Trace)
[2024-11-02 11:55] LABS: Bacteria Urine 2+ (None Seen); Hyaline Casts Urine 0-2 /LPF (0-2); UACC Culture Trigger YES
[2024-11-02 12:02] LABS: Vitamin B12 274 pg/mL (200-900)
[2024-11-02 12:03] LABS: Alanine Aminotransferase 11 U/L (0-31); Albumin Level 4.1 g/dL (3.5-5.0); Anion Gap 13 (12-20); Aspartate Amino Transferase 20 U/L (5-31); Bilirubin Total 0.3 mg/dL (0.0-1.0); Blood Urea Nitrogen 13 mg/dL (9-16); Calcium 9.2 mg/dL (8.4-10.2); Carbon Dioxide 29 mmol/L (22-29); Chloride 103 mmol/L (96-108); Estimated Glomerular Filt Rate > 60; Glucose Random 95 mg/dL (60-115); Potassium 4.1 mmol/L (3.3-5.1); Sodium 141 mmol/L (135-145); Total Protein 7.4 g/dL (6.5-8.0)
[2024-11-02 12:04] LABS: Alanine Aminotransferase 12 U/L (0-31); Albumin Level 4.1 g/dL (3.5-5.0); Anion Gap 14 (12-20); Aspartate Amino Transferase 21 U/L (5-31); Bilirubin Total 0.3 mg/dL (0.0-1.0); Blood Urea Nitrogen 13 mg/dL (9-16); Calcium 9.3 mg/dL (8.4-10.2); Carbon Dioxide 29 mmol/L (22-29); Chloride 103 mmol/L (96-108); Cholesterol 236 mg/dL (<200); Estimated Glomerular Filt Rate > 60; Glucose Random 95 mg/dL (60-115); HDL Cholesterol 63 mg/dL (>40); LDL Cholesterol Calculated 159 mg/dL (<100); Lipase 33 U/L (8-78); Potassium 4.4 mmol/L (3.3-5.1); Sodium 142 mmol/L (135-145); Thyroid Stimulating Hormone 0.91 uIU/mL (0.32-4.0); Total Protein 7.4 g/dL (6.5-8.0); Triglycerides 74 mg/dL (<150)
[2024-11-02 12:35] LABS: Free T4 (Free Thyroxine) 1.04 ng/dL (0.71-1.85); Vitamin D 25-OH Total 17.4 ng/mL (>30)
[2024-11-02 12:38] LABS: Alkaline Phosphatase 101 U/L (39-117); Alkaline Phosphatase 105 U/L (39-117)
== END 2024-11-02 09:22 | disposition home or self-care (01) ==
LOC: HO.LAB 09:21
PROVIDERS: PCP Internal Medicine; Visit Provider Nurse Practitioner Family
DX: K21.9 Gastro-esophageal reflux disease without esophagitis (principal); E78.00 Pure hypercholesterolemia, unspecified; K31.84 Gastroparesis; K22.70 Barrett's esophagus without dysplasia; K59.01 Slow transit constipation; R14.0 Abdominal distension (gaseous); R10.13 Epigastric pain
CPT/HCPCS: 36415; 80053; 80061; 81001; 82306; 82607; 82746; 83690; 84439; 84443; 85025; 87086; 87147; 99212

== ENCOUNTER 2024-11-02 09:21 | Outpatient (AMB) | payer MEDICARE, SELFPAY ==
--- NOTE | 2024-11-02 09:23 | A.OFFVIS_ITS ---
Vital Signs 11/02/24 09:34 Height 5 ft 3 in Weight 195 lb BMI 34.5 BP 138/64 Blood Pressure Location Rt brachial Position Sitting Pulse 78 Pulse Source Pulse Oximeter Pulse Oximetry (%) 97 Oxygen Delivery Method Room Air Intake Visit Reasons: Epigastric pain, nausea, worsening sx. Intake Note: ESTABLISHED PATIENT for mgmt of exacerbation of sx. Chief Complaint; C.O. epigastric pain, N+V, lack of appetite, fatigue, ? motility concerns. Pt also has concerns over condition of hernia that has been present for an extended period of time. Pt reports onset of this presentation approximately 1.5 weeks ago. Pt had originally thought it was just an IBS flare up but it has gotten progressively worse. Pt had originally been attempting a bland diet but has stopped eating out of fear of making sx worse (last 24 hours). Attendant [employer] Required: No Accompanied by: Self / Same As Patient Allergies hydrocodone [From Vicodin] Allergy (Severe, Verified 11/02/24 09:35) Stomach Pain morphine [MORPHINE] Allergy (Severe, Verified 11/02/24 09:35) REDNESS, FEELS REALLY HOT, shortness of breath, anaphylaxis oxycodone Allergy (Severe, Verified 11/02/24 09:35) Stomach Upset amoxicillin Adverse Reaction (Severe, Verified 11/02/24 09:35) yeast infection Penicillins [PENICILLINS] Adverse Reaction (Severe, Verified 11/02/24 09:35) YEAST INFECTION HPI HPI Epigastric pain, nausea, worsening sx.: Details: LAST VISIT: Gastroparesis Cohn's esophagus determined by endoscopy Gastroesophageal reflux disease Constipation Postprandial abdominal bloating Epigastric pain Plan Patient will continue taking Nexium as ordered. She was given script for genetic and 1 prescription looked different than the other. Explained to patient that that depends on what company the pharmacy orders from. Avoid dietary triggers and late night snacking. Staying upright for minimum 3 hours after meals discussed with patient. Continue Linzess. Continue Reglan as ordered. Patient reports occasional blood in her stools if she is constipated or if she will have too much of loose stools after taking Linzess. Script for Proctosol send. Patient was also encouraged to increase fiber. She may purchased [id number] fiber with probiotic. Follow-up in 3 months, sooner on as needed basis. She is agreeable to this plan and verbalizes understanding of instructions. She was given the opportunity to ask questions and all questions answered. ? Thank you for allowing me to participate in her care Medications Refilled hydrocortisone 2.5% (Proctosol HC) 1 appl OH BID-QID PRN 30 grams 2RF hemorrhoids K64.9 TODAY'S VISIT Patient is here today for requested visit. Patient had car trouble 2 weeks ago and was unable to make to her regular appointment. Today patient reports that she has been having epigastric pain so bad that she can not even bend over or wear a bra, that is how painful it is. Patient also reports nausea and occasional vomiting. She is reporting loose stools so she stopped taking Linzess. Denies any fever or chills. Denies any melena, hematochezia. Reports dyspepsia without dysphagia or odynophagia. Patient is taking Nexium daily. Takes Reglan and only able to eat 1 time daily as she is having nausea. Symptoms started about a week ago. Patient denies traveling anywhere. No one else has similar symptoms. Patient has not been changing her eating anything different than she has. Patient feels like something is twisting in her epigastric area. Patient had upper GI series done last year and it showed very small grade 1 hiatal hernia. [facility] Medical History Epidermal cyst Palpitations Hypercholesterolemia Impaired fasting blood sugar Asthma-COPD overlap syndrome Hx of tuberculosis Chronic cough Nicotine dependence, cigarettes, uncomplicated Dysphagia GERD (gastroesophageal reflux disease) Gastroparesis History of IBS Cohn's esophagus determined by endoscopy Obesity (BMI 30-39.9) Panic attacks Generalized anxiety disorder Hypersomnia Easy bruisability Breast density Lumbar radicular pain Plantar fasciitis Sacrococcygeal pilonidal cyst Calcaneal spur of left foot De Quervain's tenosynovitis, right Achilles tendinitis of left lower extremity Bilateral hand numbness Arthralgia of right hand Chronic pain of left ankle Lateral epicondylitis of left elbow Bicipital tendinitis of left shoulder Arthritis Hip pain Verruca Surgical History History of carpal tunnel release of both wrists History of excision of pilonidal cyst (~02/20/24) History of loop electrosurgical excision procedure (LEEP) History of tubal ligation History of colonoscopy History of esophagogastroduodenoscopy (EGD) History of meniscectomy of left knee History of appendectomy History of section Family History Father Tongue cancer Mother CVD (cardiovascular disease) Maternal Aunt Colon cancer Maternal Uncle Colon cancer Brother CVD (cardiovascular disease) Substance abuse Sister CVD (cardiovascular disease) Social History Household Members: Spouse and Children Housing: Apartment Are you a primary career services assistant to a significant other at home: No Do you presently have visiting nurse or other home services: No Alcohol intake: former Comment: holidays 1 glass of wine Patient Tobacco Use Status: Current someday Tobacco user Tobacco use type: Cigarette Cigarette Packs Per Day: 0.5 Cigarettes Per Day: 7 Years Smoked: 30 e-Cigarette/Vaping Use: Never Used Second Hand Smoke Exposure: Yes Substance Use Type: Marijuana service: No Current occupational status: disabled Cognitive needs: No Hearing needs: No Vision needs: No Female Reproductive History Menstrual Age of Menarche: 12 Review of Systems Const Denies weight gain and Denies weight loss ENT Reports no additional complaints, Denies dysphagia and Denies odynophagia Card Reports no additional complaints Resp Reports no additional complaints GI Reports abdominal pain (Epigastric), Denies belching, Denies melena, Reports bloating, Denies constipation, Denies dysphagia, Denies excessive flatus, Denies dyspepsia, Reports heartburn, Denies diarrhea, Reports loose stools, Reports nausea, Denies odynophagia and Denies vomiting Reports no additional complaints Musc Reports no additional complaints Neuro Reports no additional complaints Psych Reports no additional complaints Endo Reports no additional complaints Physical Exam Vital Signs: Last Vital Signs Pulse 78 11/02/24 09:34 BP 138/64 11/02/24 09:34 Pulse Ox 97 11/02/24 09:34 Oxygen Delivery Method Room Air 11/02/24 09:34 BMI result Body Mass Index 34.5 Const General: well groomed; No comfortable Nutritional Appearance: obese Orientation/consciousness: patient oriented x3 Resp Effort & Inspection: normal respiratory effort, able to speak in complete sentences, no tracheal deviation and symmetric chest movement Auscultation: clear to auscultation bilaterally Cardio Rate: regular rate GI Inspection: Yes normal to inspection, No distended and Yes obesity Palpation (GI): Soft to palpation, not firm, nontender and No hepatosplenomegaly present Auscultation: normal bowel sounds General: Yes no CVA tenderness Back/Spine/Pelvis Back: no CVA tenderness Skin General skin exam: elasticity normal, turgor normal and dry skin Neuro General: patient oriented x3 Psych Appearance: grossly normal Mental Status: mental status grossly normal Assessment & Plan Assessment & Plan (1) Gastroparesis: Code(s): K31.84 - Gastroparesis Category: Medical (2) Cohn's esophagus determined by endoscopy: Code(s): K22.70 - Cohn's esophagus without dysplasia Category: Medical (3) Gastroesophageal reflux disease: Code(s): K21.9 - Gastro-esophageal reflux disease without esophagitis Category: Medical Qualifiers: Esophagitis bleeding: without hemorrhage Esophagitis presence: with esophagitis Qualified Code(s): K21.00 - Gastro-esophageal reflux disease with esophagitis, without bleeding (4) Constipation: Code(s): K59.00 - Constipation, unspecified Qualifiers: Constipation type: slow transit constipation Qualified Code(s): K59.01 - Slow transit constipation (5) Postprandial abdominal bloating: Code(s): R14.0 - Abdominal distension (gaseous) (6) Epigastric pain: Code(s): R10.13 - Epigastric pain Plan Patient will continue taking Nexium. She will start taking sucralfate twice a day. Continue avoiding dietary triggers. Hold Linzess for now. Patient was encouraged to drink plenty fluids. Avoid dietary triggers and late night snacking. Staying upright for minimum 3 hours after meals discussed with patient. Will check CMP, lipase. Patient will be sent for CT of abdomen and pelvis. Patient will be seen in depending on the results. Patient was instructed if she will have fever, chills or unable to schedule CT with the next couple days to go to ED for evaluation. Patient is agreeable to current plan of care and verbalizes understanding of instructions. She was given the opportunity to ask questions and all questions answered. Thank you for allowing me to participate in her care Orders: Orders Comprehensive Met. Panel Today K21.9 - Gastro-esophageal reflux disease without esophagitis CT abdomen pelvis w IV con Today R10.13 - Epigastric pain, R10.9 - Unspecified abdominal pain, R11.2 - Nausea with vomiting, unspecified Lipase Today R10.9 - Unspecified abdominal pain Medications: New sucralfate Please take it at noon time and at bedtime 10 mL PO BID 400 mL 3RF K21.9 - Gastro-esophageal reflux disease without esophagitis Coding Level of Care Code Est Pt Level 4 (82756) Complex EM visit Add On G2211 Diagnoses Gastroparesis K31.84 Cohn's esophagus determined by endoscopy K22.70 Gastroesophageal reflux disease with esophagitis without hemorrhage K21.00 Esophagitis bleeding: without hemorrhage Esophagitis presence: with esophagitis Slow transit constipation K59.01 Constipation type: slow transit constipation Postprandial abdominal bloating R14.0 Epigastric pain R10.13 Time Spent (min) 45 Comment 30 minutes spent with patient and additional 15 minutes spent reviewing her records
[2024-11-02 09:34] VITALS: BP 138/64; PULSE 78; O2SAT 97; BMI 34.5
--- OUTSIDE RECORDS SUMMARY | 2024-11-02 09:53 | XMS_ITS | Encounter Summary ---
Author Organization [employer] Address [address] [facility] [place] [address] Care Team Providers Care Radio Adjuster Name Role Phone Unavailable Primary Care Provider Unavailabl e Reason for Visit * Reason Onset Date Comments medication 09/25/2023 Encounter Details Date Type Department Care Team (Late st Contact Info) Description 09/25/2023 Telephone [facility] [address] [place] [address] Leon Tejeda, DDS [address] [facility] [place], [place] [phone] medication Social History Tobacco Use Types Packs/Day [...]
--- OUTSIDE RECORDS SUMMARY | 2024-11-02 09:53 | XMS_ITS | Clinical Summary ---
Author Organization [employer] [facility] Address [address] [place] [address] 7 [place] [address] Care Team Providers Care Fugitive Detective Name Role Phone Unavailable Primary Care Provider [...] Description 09/24/2024 11:00 AM EDT Office Visit [facility] [address] [place] [address] Leon Tejeda DDS from Last 3 Months [...] (2 of 2 - PCV) 05/28/2022 05/28/2021 COVID-19 Vaccine ( - 2023-2 5 season) 2024 Influenza Vaccine (#1) 2024 Tobacco Screening 09/24/2024 09/25/2023 Dental Oral Exam 03/27/2025 09/24/2024, 06/12/2023 Dental X-Ray: Bitewings 09/25/2025 09/25/19 25, 06/12/2023 DTaP/Tdap/Td Vaccines (2 - T d or Tdap) 02/04/2027 02/04/2017 Dental X-Ray: Full Mouth 09/26/2027 025, 06/12/2023, 08/22/2009 RSV Patients and Patients Aged 60 years [...] Procedure Name Priority Date/Time Associated Diagnosis Comments CASE PRESENTATION, DETAILED AND EXTENSIVE TREATMENT PLANNING Routine 09/24/2024 11:00 AM EDT COMPREHENSIVE PERIODONTAL EVALUATION - NEW OR ESTABLISHED PATIENT Routine 09/24/2024 11:00 AM EDT PERIODIC ORAL EVALUATION - ESTABLISHED PATIENT Routine 09/24/2024 11:00 AM EDT BITEWINGS - 2 RADIOGRAPHIC IMAGES Routine 09/24/2024 11:00 AM EDT PANORAMIC RADIOGRAPHIC IMAGE Routine 09/24/2024 11:00 AM EDT from Last 3 Months Insurance [facility] ADULT DENTAL - [facility]
== END 2024-11-02 09:55 | disposition home or self-care (01) ==
LOC: HO.HGI 09:22
PROVIDERS: PCP Internal Medicine; Visit Provider Nurse Practitioner Family
DX: K31.84 Gastroparesis (principal); K22.70 Barrett's esophagus without dysplasia; K21.00 Gastro-esophageal reflux disease with esophagitis, without bleeding; K59.01 Slow transit constipation; R14.0 Abdominal distension (gaseous); R10.13 Epigastric pain
CPT/HCPCS: 99214; G2211

== ENCOUNTER 2024-12-03 10:58 | Outpatient (AMB) | payer MEDICARE, SELFPAY ==
[2024-12-03 10:59] VITALS: BP 140/94; PULSE 93; TEMP 36.9; O2SAT 96; BMI 34.6
--- NOTE | 2024-12-03 10:59 | AM.OFFWIN_ITS ---
Intake Vital Signs 12/03/24 10:59 Height 5 ft 3 in Weight 195 lb 6 oz BMI 34.6 BP 140/94 H Blood Pressure Location Lt brachial Position Sitting Pulse 93 Pulse Source Pulse Oximeter Temp 98.5 F Temp Source Oral Pulse Oximetry (%) 96 Oxygen Delivery Method Room Air Intake Visit Reasons: EP bumps, hot, velazquez, itching Intake Note: Pt presents to the office today today for c/o bumps on buttock and legs that are red,itchy, and pus filled. Pt states she has been having this issue for a while now. Patient Tobacco Use Status: Current someday Tobacco user Allergies hydrocodone [From Vicodin] Allergy (Severe, Verified 12/03/24 11:05) Stomach Pain morphine [MORPHINE] Allergy (Severe, Verified 12/03/24 11:05) REDNESS, FEELS REALLY HOT, shortness of breath, anaphylaxis oxycodone Allergy (Severe, Verified 12/03/24 11:05) Stomach Upset amoxicillin Adverse Reaction (Severe, Verified 12/03/24 11:05) yeast infection Penicillins [PENICILLINS] Adverse Reaction (Severe, Verified 12/03/24 11:05) YEAST INFECTION HPI HPI Comments History of Present Illness Details History - The patient is a 54-year-old female pr esenting with a painful and burning hot skin lesion. - The patient has a history of developin g cysts over the past few years, with previous surgical interventions by Dr. Jerome. - The cysts are typically filled with pu s, have a foul odor, and sometimes require surgical removal, particularly pilonidal cysts. - Today, the current lesion is painful, burning, and itchy, with a small head, it is on her left low back. - The patient has been applying peroxide , alcohol, and triple antibiotic ointment to manage the lesions. Physical Exam General: Cooperative, healthy appearing, comfortable, no acute distress and well developed Orientation: Patient oriented x3 Limitations: No limitations Head: Normal to inspection Ears: Hearing grossly normal bilaterally Nose: Normal External nose present Face and sinus: Normal facial exam Mouth: normal, moist oral mucosa Eyes: Appearance normal, both eyes and all related structures Neck: Normal visual inspection and Yes full ROM Respiratory: Normal respiratory effort and able to speak in complete sentences. Skin: left low back has indurated, warm 2cm round area of erythema wiht pinpoint purulence in the lateral-mid area Neuro: Patient oriented x3 Extremities: moving all extremities normally [facility] Medical History Epidermal cyst Palpitations Hypercholesterolemia Impaired fasting blood sugar Asthma-COPD overlap syndrome Hx of tuberculosis Chronic cough Nicotine dependence, cigarettes, uncomplicated Dysphagia GERD (gastroesophageal reflux disease) Gastroparesis History of IBS Cohn's esophagus determined by endoscopy Obesity (BMI 30-39.9) Panic attacks Generalized anxiety disorder Hypersomnia Easy bruisability Breast density Lumbar radicular pain Plantar fasciitis Sacrococcygeal pilonidal cyst Calcaneal spur of left foot De Quervain's tenosynovitis, right Achilles tendinitis of left lower extremity Bilateral hand numbness Arthralgia of right hand Chronic pain of left ankle Lateral epicondylitis of left elbow Bicipital tendinitis of left shoulder Arthritis Hip pain Verruca Surgical History History of carpal tunnel release of both wrists History of excision of pilonidal cyst (~02/20/24) History of loop electrosurgical excision procedure (LEEP) History of tubal ligation History of colonoscopy History of esophagogastroduodenoscopy (EGD) History of meniscectomy of left knee History of appendectomy History of section Family History Father Tongue cancer Mother CVD (cardiovascular disease) Maternal Aunt Colon cancer Maternal Uncle Colon cancer Brother CVD (cardiovascular disease) Substance abuse Sister CVD (cardiovascular disease) Social History Household Members: Spouse and Children Housing: Apartment Are you a primary health care attorney to a significant other at home: No Do you presently have visiting nurse or other home services: No Alcohol intake: former Comment: holidays 1 glass of wine Patient Tobacco Use Status: Current someday Tobacco user Tobacco use type: Cigarette Cigarette Packs Per Day: 0.5 Cigarettes Per Day: 7 Years Smoked: 30 e-Cigarette/Vaping Use: Never Used Second Hand Smoke Exposure: Yes Substance Use Type: Marijuana service: No Current occupational status: disabled Cognitive needs: No Hearing needs: No Vision needs: No Female Reproductive History Menstrual Age of Menarche: 12 Review of Systems Const All systems reviewed & are unremarkable except as noted in HPI and below Physical Exam Const General: cooperative, healthy appearing and comfortable Orientation/consciousness: patient oriented x3 HEENT Head: Yes normal to inspection and Yes normocephalic General nose exam: Normal external nose present Face and sinus: Yes normal facial exam Eyes General: appearance normal, both eyes and all related structures Resp Effort & Inspection: normal respiratory effort and able to speak in complete sentences General: Yes no CVA tenderness Back/Spine/Pelvis Back: no CVA tenderness Cervical Spine: cervical ROM normal and No Cervical spine tenderness Thoracic/Lumbar Spine: thoracic and lumbar spine normal to inspection, paraspinal muscle tenderness, thoraco-lumbar ROM limited, No thoracic spinal tenderness and No lumbar spinal tenderness Neuro General: patient oriented x3 Extrem Other: Straight leg raise test negative on right; Straight leg raise test negative on left; Reflexes normal ankle and knee bilaterally; motor strength normal bilaterally Assessment & Plan Assessment & Plan (1) Cellulitis and abscess of other specified site: Code(s): L03.818 - Cellulitis of other sites; L02.818 - Cutaneous abscess of other sites Plan: Cellulitis - Plan: Prescribe Keflex 500 mg every 6 hours for 7 days. Monitor for improvement and consider adding doxycycline if no improvement by Friday. Yeast Infection concerns - Plan: Prescribe fluconazole for potential yeast infection secondary to antibiotic use. Use antifungal cream as needed. Medications: New fluconazole may repeat second dose 72 hrs after first dose if symptoms persist 150 mg PO Q3D 2 tabs 0RF cephalexin 500 mg PO Q6H 28 caps 0RF Coding Level of Care Code Est Pt Level 3 (92766) Diagnoses Cellulitis and abscess of other specified site L03.818; L02.818
== END 2024-12-03 11:23 | disposition home or self-care (01) ==
PROVIDERS: PCP Internal Medicine; Visit Provider Physician Assistant
DX: L03.818 Cellulitis of other sites (principal); L02.818 Cutaneous abscess of other sites

== ENCOUNTER → 2024-12-03 10:58 | Outpatient (BNVA) | payer MEDICARE, SELFPAY | PROVIDERS: PCP Internal Medicine; Visit Provider Physician Assistant | DX: L03.818 Cellulitis of other sites (principal); L02.818 Cutaneous abscess of other sites | CPT/HCPCS: 99212 ==

== ENCOUNTER 2024-12-08 10:59 | Outpatient (AMB) | payer MEDICARE, MEDICAID, SELFPAY ==
--- NOTE | 2024-12-08 11:02 | MHC.PC.OV ---
Vital Signs 12/08/24 11:03 Height 5 ft 3 in Weight 192 lb 8 oz BMI 34.1 BP 124/80 Blood Pressure Location Lt brachial Position Sitting Pulse 105 H Pulse Source Pulse Oximeter Pulse Oximetry (%) 96 Oxygen Delivery Method Room Air Intake Visit Reasons: ASThma/copd Cigar Packer And Shader Required: No Accompanied by: Self / Same As Patient Allergies hydrocodone (From Vicodin) Allergy (Severe, Verified 12/08/24 11:03) Stomach Pain morphine (MORPHINE) Allergy (Severe, Verified 12/08/24 11:03) REDNESS, FEELS REALLY HOT, shortness of breath, anaphylaxis oxycodone Allergy (Severe, Verified 12/08/24 11:03) Stomach Upset amoxicillin Adverse Reaction (Severe, Verified 12/08/24 11:03) yeast infection Penicillins (PENICILLINS) Adverse Reaction (Severe, Verified 12/08/24 11:03) YEAST INFECTION Tobacco use date assessed: 12/08/24 Dental Screening Dental Screen Date: 12/08/24 Did you have a dental visit in the last 12 months?: Yes Did you have a dental problem in the last 6 months where you did not have access to dental care?: No Was dental information given to patient?: Patient has dentist HPI ASThma/copd HPI Details R gluteal area and Left lower back infection of the skin states having groin infections also. [facility] Medical History Epidermal cyst Palpitations Hypercholesterolemia Impaired fasting blood sugar Asthma-COPD overlap syndrome Hx of tuberculosis Chronic cough Nicotine dependence, cigarettes, uncomplicated Dysphagia GERD (gastroesophageal reflux disease) Gastroparesis History of IBS Cohn's esophagus determined by endoscopy Obesity (BMI 30-39.9) Panic attacks Generalized anxiety disorder Hypersomnia Easy bruisability Breast density Lumbar radicular pain Plantar fasciitis Sacrococcygeal pilonidal cyst Calcaneal spur of left foot De Quervain's tenosynovitis, right Achilles tendinitis of left lower extremity Bilateral hand numbness Arthralgia of right hand Chronic pain of left ankle Lateral epicondylitis of left elbow Bicipital tendinitis of left shoulder Arthritis Hip pain Verruca Surgical History History of carpal tunnel release of both wrists History of excision of pilonidal cyst (~02/20/24) History of loop electrosurgical excision procedure (LEEP) History of tubal ligation History of colonoscopy History of esophagogastroduodenoscopy (EGD) History of meniscectomy of left knee History of appendectomy History of section Family History Father Tongue cancer Mother CVD (cardiovascular disease) Maternal Aunt Colon cancer Maternal Uncle Colon cancer Brother CVD (cardiovascular disease) Substance abuse Sister CVD (cardiovascular disease) Social History Household Members: Spouse and Children Housing: Apartment Are you a primary continuum of care manager to a significant other at home: No Do you presently have visiting nurse or other home services: No Alcohol intake: former Comment: holidays 1 glass of wine Patient Tobacco Use Status: Current someday Tobacco user Tobacco use type: Cigarette Cigarette Packs Per Day: 0.5 Cigarettes Per Day: 7 Years Smoked: 30 e-Cigarette/Vaping Use: Never Used Second Hand Smoke Exposure: Yes Substance Use Type: Marijuana service: No Current occupational status: disabled Cognitive needs: No Hearing needs: No Vision needs: No Female Reproductive History Menstrual Age of Menarche: 12 Questionnaire PHQ-9 Over the last 2 weeks, how often have you been bothered by any of the following problems? 1. Little interest or pleasure in doing things: several days 2. Feeling down, depressed, or hopeless: not at all 3. Trouble falling or staying asleep, or sleeping too much: nearly every day 4. Feeling tired or having little energy: nearly every day 5. Poor appetite or overeating: not at all 6. Feeling bad about yourself - or that you are a failure or have let yourself or your family down: not at all 7. Trouble concentrating on things, such as reading the newspaper or watching television: several days 8. Moving or speaking so slowly that other people could have noticed. Or the opposite - being so fidgety or restless that you have been moving around a lot more than usual: not at all 9. Thoughts that you would be better off or of hurting yourself in some way: not at all Total score: 8 Depression Screening Interpretation: Positive Depression Screening Done: Yes Source: Developed by Drs. Kain Gutierrez, Damaso Gomes and colleagues, with an educational allison from [employer]. Thrive Questionnaire Date Thrive assessed: 12/08/24 I am a: Patient What is your living situation today?: I have a steady place to live Within the past 12 months, did the food you bought not last and you didn't have the money to get more?: Never true Within the past 12 months, did you worry whether your food would run out before you got money to buy more?: Never true Do you have trouble paying for medicines?: No Do you have trouble getting transportation to medical appointments?: No Do you have trouble paying your heating and electricity bill?: No Do you have trouble taking care of your child, family member or friend?: No Do you have trouble with day-to-day activities such as bathing, preparing meals, shopping, managing finances, etc.?: No Are you currently unemployed and looking for a job?: No Are you interested in more education?: No Please select the resources that you would like help with: None Currently or been in a relationship where the following occur: No concerns reported THRIVE Score: 0 AUDIT C Alcohol Use Questionnaire (AUDIT-C) 1. How often do you have a drink containing alcohol?: Never 3. How often do you have six or more drinks on one occasion?: Never Total Score: 0 ELIZABETH-7 AMB Questionnaire ELIZABETH-7 Date ELIZABETH - 7 assessed: 12/08/24 Feeling nervous, anxious, or on edge: 0 = Not at all Not being able to stop or control worryin = Not at all Worrying too much about different things: 0 = Not at all Trouble relaxin = Not at all Being so restless that it is hard to sit still: 0 = Not at all Becoming easily annoyed or irritable: 0 = Not at all Feeling afraid as if something awful might happen: 0 = Not at all Total ELIZABETH-7 score (0-4 normal; 5-9 mild; 10-14 moderate; 15-21 severe): 0 Source: Developed by Drs. Kain Gutierrez, Damaso Gomes and colleagues, with an educational allison from [employer]. Physical exam (Primary Care) Vital Signs: Last Vital Signs Pulse 105 H 12/08/24 11:03 BP 124/80 12/08/24 11:03 Pulse Ox 96 12/08/24 11:03 Oxygen Delivery Method Room Air 12/08/24 11:03 BMI result Body Mass Index 34.1 Tobacco/Smoking Status: Tobacco use Status Tobacco use date assessed 12/08/24 12/08/24 11:08 Patient Tobacco Use Status Current someday Tobacco 12/08/24 11:02 Tobacco use type Cigarette 12/08/24 11:02 e-Cigarette/Vaping Use Never Used 12/08/24 11:02 PHQ-9: PHQ-9 Score PHQ-9: Total score 8 12/08/24 11:08 Depression Screening Interpretation: Positive Thrive Assessment: Date of Thrive Assessment Date Thrive assessed 12/08/24 12/08/24 11:08 Currently or been in a relationship where the following occur: No concerns reported Const General: alert; No acute distress Eyes Conjunctivae: conjunctivae normal Resp Auscultation: clear to auscultation bilaterally Cardio Rate: regular rate Rhythm: regular rhythm GI Inspection: Yes normal to inspection Extrem General: Yes normal to inspection and No edema Coding Level of Care Code Est Pt Level 4 (94544) Diagnoses Cohn's esophagus determined by endoscopy K22.70 Asthma-COPD overlap syndrome J44.9 Nicotine dependence, cigarettes, uncomplicated F17.210 Obesity (BMI 30-39.9) E66.9 Recurrent infection of skin L08.9 Assessment & Plan Assessment & Plan (1) Cohn's esophagus determined by endoscopy: Code(s): K22.70 - Cohn's esophagus without dysplasia Category: Medical Plan: Patient is advised strongly to stop smoking! Avoid the foods that causes that usually spicy foods, tomato products, juices, coffee, soda and foods that your sensitive to. After eating do not lie down, allow 3-4 hours before in lie down. And keep the head of bed above 30 degrees to avoid the acid from going up. Patient on Nexium and has been started on Carafate (2) Asthma-COPD overlap syndrome: Code(s): J44.9 - Chronic obstructive pulmonary disease, unspecified Category: Medical Plan: Patient is strongly advised to stop smoking! On albuterol inhaler as needed (3) Nicotine dependence, cigarettes, uncomplicated: Comment: (current smoker - onset , x 32yrs - max 2ppd, now 1/2ppd, 45+PYH) August 2024 Code(s): F17.210 - Nicotine dependence, cigarettes, uncomplicated Category: Medical Plan: Patient is advised strongly to stop smoking! Stopped last month 10/2024 (4) Obesity (BMI 30-39.9): Code(s): E66.9 - Obesity, unspecified Category: Medical Plan: Diet and exercise (5) Recurrent infection of skin: Code(s): L08.9 - Local infection of the skin and subcutaneous tissue, unspecified Category: Medical Plan History of Present Illness The patient is a 54-year-old female presenting with management of multiple chronic conditions and preventative care. The patient has a history of lumbar spondylosis, which has been a chronic issue. She also has Cohn's esophagus, for which she underwent an esophagogastroduodenoscopy (EGD) in January 2023. The patient has been diagnosed with asthma-COPD overlap syndrome and hypercholesterolemia. Her last blood work in October 2024 showed a high LDL cholesterol level of 159 mg/dL, with normal blood count and electrolytes. She also has vitamin B12 and vitamin D deficiencies. In November 2024, the patient was diagnosed with cellulitis on the buttocks and legs, for which she was prescribed Keflex and doxycycline. She was also given fluconazole. The patient reports experiencing epigastric pain and is currently on Nexium and Carafate. A CAT scan of the abdomen and pelvis is scheduled for December 09 to further investigate the cause of her symptoms. The patient has a history of smoking but has recently quit. She is advised to continue smoking cessation efforts. Health Maintenance - Colonoscopy last performed in 2020 - EGD for Cohn's esophagus in January 2023 - Mammogram in December - Strongly advised to stop smoking Social History - Smoking: History of smoking, recently quit - Weight management: Patient reports weight fluctuations and efforts to lose weight Review of Systems - Gastrointestinal: Reports epigastric pain - Dermatological: Reports recurrent skin infections on buttocks and legs - Respiratory: Reports asthma symptoms, denies current smoking Physical Exam Results - Labs: Normal blood count, normal electrolytes, high LDL cholesterol at 159 mg/dL, low vitamin B12, low vitamin D (October 2024) Plan The patient is advised to continue with her current medications for asthma-COPD overlap syndrome and hypercholesterolemia, with a focus on lifestyle modifications including diet and exercise to manage her cholesterol levels. She is scheduled for a CAT scan of the abdomen and pelvis on December 09 to investigate the cause of her epigastric pain. For her cellulitis, the patient is instructed to complete the course of Keflex and doxycycline as prescribed, and to follow up with infectious disease specialists to explore the underlying causes of her recurrent skin infections. Smoking cessation is strongly encouraged, and the patient is advised to continue her efforts in this regard. Patient was informed and verbally consented to the use of an ambient scribe for clinic note documentation during this visit. Discussion Notes During the consultation, I discussed the importance of continuing her current medications for asthma-COPD overlap syndrome and hypercholesterolemia, emphasizing lifestyle modifications such as diet and exercise to manage cholesterol levels. We reviewed the plan for a CAT scan of the abdomen and pelvis scheduled for December 09 to further investigate her epigastric pain. I advised the patient to complete her prescribed antibiotics for cellulitis and to follow up with infectious disease specialists to determine the cause of her recurrent skin infections. Smoking cessation was strongly encouraged, and I reinforced the benefits of quitting smoking for her overall health. Patient Instructions - Continue taking medications for asthma-COPD overlap syndrome and hypercholesterolemia. - Follow a healthy diet and exercise regularly to manage cholesterol levels. - Attend the scheduled CAT scan on December 09. - Complete the course of Keflex and doxycycline for cellulitis. - Follow up with infectious disease specialists as advised. - Continue efforts to quit smoking and avoid tobacco products. Orders: Referrals Infectious Disease Referral L08.9 - Local infection of the skin and subcutaneous tissue, unspecified
[2024-12-08 11:03] VITALS: BP 124/80; PULSE 105; O2SAT 96; BMI 34.1
== END 2024-12-08 11:26 | disposition home or self-care (01) ==
LOC: HO.HMCH 11:00
PROVIDERS: PCP Internal Medicine; Visit Provider Internal Medicine
DX: K22.70 Barrett's esophagus without dysplasia (principal); J44.9 Chronic obstructive pulmonary disease, unspecified; E66.9 Obesity, unspecified; Z68.34 Body mass index [BMI] 34.0-34.9, adult; F17.210 Nicotine dependence, cigarettes, uncomplicated; L08.9 Local infection of the skin and subcutaneous tissue, unspecified

== ENCOUNTER → 2024-12-08 10:59 | Outpatient (BNVA) | payer MEDICARE, MEDICAID, SELFPAY | PROVIDERS: PCP Internal Medicine; Visit Provider Internal Medicine | DX: K22.70 Barrett's esophagus without dysplasia (principal); J44.9 Chronic obstructive pulmonary disease, unspecified; E66.9 Obesity, unspecified; Z68.34 Body mass index [BMI] 34.0-34.9, adult; L08.9 Local infection of the skin and subcutaneous tissue, unspecified; F17.210 Nicotine dependence, cigarettes, uncomplicated; Z71.6 Tobacco abuse counseling; Z71.3 Dietary counseling and surveillance | CPT/HCPCS: 99212 ==

== ENCOUNTER 2024-12-09 08:16 | Outpatient (REF) | payer MEDICARE, MEDICAID, SELFPAY ==
--- NOTE | ~2024-12-09 | CT_ITS ---
EXAMINATION: CT ABDOMEN AND PELVIS WITH CONTRAST CLINICAL INFORMATION: Abdominal pain COMPARISON: Abdomen ultrasound July 19, 2024 DLP: 735 mGY*cm TECHNIQUE: Multidetector volumetric images were obtained from the superior aspect of the liver through the pubic symphysis following administration 85 mL of Omnipaque 350 intravenous contrast. Sagittal and coronal reformatted images were obtained on the technologist's workstation. Oral contrast: No This CT examination was performed using dose optimization techniques as appropriate, variously including the following: *Automated exposure control *Adjustment of mA and/or kV according to patient size (this includes techniques or standardized protocols for targeted exams where dose is matched to indication/reason for exam; i.e. extremities or head) *Use of iterative reconstruction technique FINDINGS: LUNG BASES: The visualized lung bases are unremarkable. LIVER, GALLBLADDER, AND BILIARY TREE: The liver is normal in size, shape, and attenuation. No focal hepatic lesion or biliary ductal dilatation is present. The gallbladder is unremarkable with no evidence of radiopaque gallstones, gallbladder wall thickening, or obvious pericholecystic inflammatory changes. PANCREAS: Unremarkable. SPLEEN: Unremarkable. ADRENAL GLANDS: Unremarkable. KIDNEYS AND URETERS: The kidneys are normal in size, shape, and attenuation. No hydronephrosis, hydroureter, or calculi seen. No perinephric stranding. BLADDER: Unremarkable. GASTROINTESTINAL TRACT: Pseudodiverticula are present in the descending and sigmoid colon without wall thickening or inflammation in the mesentery. Appendix is nonvisualized. There is no pericecal inflammation or fluid collection. ABDOMINAL WALL: No significant hernia is appreciated. LYMPH NODES: Normal. VASCULAR: Unremarkable. PELVIC VISCERA: The uterus and ovaries are unremarkable. OSSEOUS STRUCTURES: Unremarkable. CT/CT abdomen pelvis w IV con IMPRESSION: Diverticulosis without infection. Nonvisualized appendix. No pericecal inflammation or fluid collection. Fleischner guidelines were followed. Electronically signed by: Ander Dick MD 12/09/2024 11:05 AM EDT
[2024-12-09] MEDS: iohexoL 350 MG/ML 100 ML INFUS..BTL IV (10:51)
[2024-12-09] MEDS: Barium Sulfate Oral (Berry) 450 ML ORAL.SUSP 900 ML PO (10:54)
[2024-12-13 11:26] LABS: Creatinine POC 0.9 mg/dL (0.5-1.4); GFR POC 60
== END 2024-12-09 08:17 | disposition home or self-care (01) ==
LOC: HO.CT 08:16
PROVIDERS: PCP Internal Medicine; Visit Provider Nurse Practitioner Family
DX: R10.9 Unspecified abdominal pain (principal); R10.13 Epigastric pain; R11.2 Nausea with vomiting, unspecified
CPT/HCPCS: 74177; 82565; Q9967

== ENCOUNTER → 2024-12-09 08:16 | Outpatient (BNV) | payer MEDICARE, MEDICAID, SELFPAY | PROVIDERS: PCP Internal Medicine; Visit Provider Radiology Diagnostic Radiology | DX: K57.90 Diverticulosis of intestine, part unspecified, without perforation or abscess without bleeding (principal) | CPT/HCPCS: 74177 ==

== ENCOUNTER 2024-12-20 11:08 | Outpatient (AMB) | payer MEDICARE, MEDICAID, SELFPAY ==
--- OUTSIDE RECORDS SUMMARY | 2024-12-20 12:00 | XMS_ITS | Clinical Summary ---
Author Organization [employer] [facility] Address [address] [place] [address] [address] [place] [address] Care Team Providers Care Screw Machine Repairer Name Role Phone Unavailable Primary Care Provider [...] Description 09/24/2024 11:00 AM EDT Office Visit [facility] [address] [place] [address] Leon Tejeda DDS from Last 3 Months [...] Screening 1971 SDOH Screening 1971 Sigmoidoscopy 1971 Disability Screening 1971 Alcohol/Substance Use Screening 1983 Hepatitis C Screening 1989 Hepatitis B Vaccines (1 of 3 - 19+ 3-dose series) 1990 Pap Smear 1992 Cervical Cancer Screening 2001 HPV/Cotest 2001 Mammogram 2011 Zoster Vaccines (1 of 2) 2021 Pneumococcal Vaccine: 50+ Years (2 of 2 - PCV) 05/28/2022 05/28/2021 COVID-19 Vaccine ( - 2023-2 5 season) 2024 Tobacco Screening 09/24/2024 09/25/2023 Influenza Vaccine (Season Ended) 2025 Dental Oral Exam 03/27/2025 09/24/2024, 06/12/2023 Dental [...] patient's age to complete this topic Meningococcal B Vaccine Aged Out No l onger eligible based on patient's age to complete [...] Months Insurance [facility] [facility]
--- NOTE | 2024-12-20 15:03 | A.OFFVIS_ITS ---
Intake Visit Reasons: Local infection of the skin and subcutaneous tiss Allergies hydrocodone (From Vicodin) Allergy (Severe, Verified 12/08/24 11:03) Stomach Pain morphine (MORPHINE) Allergy (Severe, Verified 12/08/24 11:03) REDNESS, FEELS REALLY HOT, shortness of breath, anaphylaxis oxycodone Allergy (Severe, Verified 12/08/24 11:03) Stomach Upset amoxicillin Adverse Reaction (Severe, Verified 12/08/24 11:03) yeast infection Penicillins (PENICILLINS) Adverse Reaction (Severe, Verified 12/08/24 11:03) YEAST INFECTION HPI Comments Details: She has had left back redness and inflammation over last week.' She has had pilonidal cysts in past She has seen Dr Jerome. She has been on Keflex 12/03 and then Doxycycline/ She says only pustular area on buttock has persisted. [facility] Medical History Epidermal cyst Palpitations Hypercholesterolemia Impaired fasting blood sugar Asthma-COPD overlap syndrome Hx of tuberculosis Chronic cough Nicotine dependence, cigarettes, uncomplicated Dysphagia GERD (gastroesophageal reflux disease) Gastroparesis History of IBS Cohn's esophagus determined by endoscopy Obesity (BMI 30-39.9) Panic attacks Generalized anxiety disorder Hypersomnia Easy bruisability Breast density Lumbar radicular pain Plantar fasciitis Sacrococcygeal pilonidal cyst Calcaneal spur of left foot De Quervain's tenosynovitis, right Achilles tendinitis of left lower extremity Bilateral hand numbness Arthralgia of right hand Chronic pain of left ankle Lateral epicondylitis of left elbow Bicipital tendinitis of left shoulder Arthritis Hip pain Verruca Surgical History History of carpal tunnel release of both wrists History of excision of pilonidal cyst (~02/20/24) History of loop electrosurgical excision procedure (LEEP) History of tubal ligation History of colonoscopy History of esophagogastroduodenoscopy (EGD) History of meniscectomy of left knee History of appendectomy History of section Family History Father Tongue cancer Mother CVD (cardiovascular disease) Maternal Aunt Colon cancer Maternal Uncle Colon cancer Brother CVD (cardiovascular disease) Substance abuse Sister CVD (cardiovascular disease) Social History Household Members: Spouse and Children Housing: Apartment Are you a primary child care centre manager to a significant other at home: No Do you presently have visiting nurse or other home services: No Alcohol intake: former Comment: holidays 1 glass of wine Patient Tobacco Use Status: Current someday Tobacco user Tobacco use type: Cigarette Cigarette Packs Per Day: 0.5 Cigarettes Per Day: 7 Years Smoked: 30 e-Cigarette/Vaping Use: Never Used Second Hand Smoke Exposure: Yes Substance Use Type: Marijuana service: No Current occupational status: disabled Cognitive needs: No Hearing needs: No Vision needs: No Female Reproductive History Menstrual Age of Menarche: 12 Review of Systems Const All systems reviewed & are unremarkable except as noted in HPI and below Physical Exam Const General: cooperative Orientation/consciousness: patient oriented x3 HEENT Head: Yes normal to inspection Mouth: Normal oral and palatal mucosa present Eyes General: appearance normal, both eyes and all related structures Pupils: Equal, round and reactive pupils present Resp Effort & Inspection: normal respiratory effort Cardio Rate: regular rate Rhythm: regular rhythm GI Palpation (GI): Soft to palpation and nontender Back/Spine/Pelvis Other: healed area back Skin General skin exam: no rashes or lesions noted Neuro General: patient oriented x3 Cranial nerves: Yes CN's II-XII intact bilaterally and Yes Equal, round and reactive pupils present Extrem General: Yes normal to inspection Psych Appearance: grossly normal Assessment & Plan Assessment & Plan (1) Sacrococcygeal pilonidal cyst: Code(s): L05.91 - Pilonidal cyst without abscess Category: Medical Plan: Antibiotics prn need. Can give p o Doxycycline daily 100 mg bid as prevention if more than 3 episodes a year (2) Cellulitis and abscess of other specified site: Code(s): L03.818 - Cellulitis of other sites; L02.818 - Cutaneous abscess of other sites Category: Medical Plan: na Coding Level of Care Code Est Pt Level 3 (47754) Diagnoses Sacrococcygeal pilonidal cyst L05.91 Cellulitis and abscess of other specified site L03.818; L02.818
== END 2024-12-20 11:39 | disposition home or self-care (01) ==
LOC: HO.HCC 11:08
PROVIDERS: PCP Internal Medicine; Visit Provider Internal Medicine
DX: L05.91 Pilonidal cyst without abscess (principal); L03.818 Cellulitis of other sites; L02.818 Cutaneous abscess of other sites
CPT/HCPCS: 99213

== ENCOUNTER → 2024-12-20 11:08 | Outpatient (BNVA) | payer MEDICARE, MEDICAID, SELFPAY | PROVIDERS: PCP Internal Medicine; Visit Provider Internal Medicine | DX: L02.818 Cutaneous abscess of other sites (principal); L03.818 Cellulitis of other sites; Z79.2 Long term (current) use of antibiotics | CPT/HCPCS: 99212 ==

== ENCOUNTER 2025-01-04 07:24 | Outpatient (REF) | payer MEDICARE, MEDICAID, SELFPAY ==
--- NOTE | ~2025-01-04 | MM_ITS ---
EXAMINATION: MM SCREENING DIGITAL BREAST TOMOSYNTHESIS, BILATERAL CLINICAL INFORMATION: Screening. Asymptomatic. COMPARISON: Mammography: Comparison is made with available priors TECHNIQUE: Digital breast mammography with tomosynthesis is performed in both the craniocaudal and mediolateral oblique views along with computer-aided detection (CAD). FINDINGS: There are scattered areas of fibroglandular density (ACR BI-RADS breast composition Category b). Left: Circumscribed oval mass central slightly outer breast middle depth. Focal asymmetry upper outer breast middle to posterior depth. No suspicious calcifications or other abnormal findings. Right: There are no significant masses, abnormal calcifications, or other abnormalities. MM/MM tomosynthesis screening BI IMPRESSION: Additional imaging is recommended ASSESSMENT: BI-RADS BI-RADS 0 - Incomplete: Needs additional Imaging. RECOMMENDATION: 1. Additional views of the left breast. 2. Targeted ultrasound if warranted after review of the additional views. 3. Radiology department staff will contact the patient for additional imaging. Additional Imaging required This examination should not preclude the clinical evaluation of a suspicious palpable abnormality. This patient's information was entered into a reminder system with a target due date for their next mammogram. Electronically signed by: Tere Bedolla DO 01/07/2025 08:29 PM EDT
== END 2025-01-04 07:25 | disposition home or self-care (01) ==
LOC: HO.MAMMO 07:24
PROVIDERS: PCP Internal Medicine; Visit Provider Internal Medicine
DX: Z12.31 Encounter for screening mammogram for malignant neoplasm of breast (principal)
CPT/HCPCS: 77063; 77067

== ENCOUNTER → 2025-01-04 07:30 | Outpatient (BNV) | payer MEDICARE, MEDICAID, SELFPAY | PROVIDERS: PCP Internal Medicine; Visit Provider Internal Medicine | DX: Z12.31 Encounter for screening mammogram for malignant neoplasm of breast (principal) | CPT/HCPCS: 77063; 77067 ==

== ENCOUNTER 2025-01-14 09:54 | Outpatient (AMB) | payer MEDICARE, SELFPAY ==
--- NOTE | 2025-01-14 10:08 | MHC.PC.OV ---
Vital Signs 01/14/25 10:10 Height 5 ft 3 in Weight 195 lb BMI 34.5 BP 120/70 Blood Pressure Location Lt brachial Position Sitting Pulse 87 Pulse Source Pulse Oximeter Temp 97.3 F Temp Source Temporal Artery Scan Pulse Oximetry (%) 97 Oxygen Delivery Method Room Air Intake Visit Reasons: cholesterol Intake Note: Patient is here to follow up on Cholesterol. Set Up And Lay Out Inspector Required: No Toll Testboard Worker: Not Required per policy Accompanied by: Self / Same As Patient Allergies hydrocodone (From Vicodin) Allergy (Severe, Verified 01/14/25 10:09) Stomach Pain morphine (MORPHINE) Allergy (Severe, Verified 01/14/25 10:09) REDNESS, FEELS REALLY HOT, shortness of breath, anaphylaxis oxycodone Allergy (Severe, Verified 01/14/25 10:09) Stomach Upset amoxicillin Adverse Reaction (Severe, Verified 01/14/25 10:09) yeast infection Penicillins (PENICILLINS) Adverse Reaction (Severe, Verified 01/14/25 10:09) YEAST INFECTION Tobacco use date assessed: 01/14/25 Dental Screening Dental Screen Date: 12/08/24 COUNT INCLUDES THE [facility] Medical History Epidermal cyst Palpitations Hypercholesterolemia Impaired fasting blood sugar Asthma-COPD overlap syndrome Hx of tuberculosis Chronic cough Nicotine dependence, cigarettes, uncomplicated Dysphagia GERD (gastroesophageal reflux disease) Gastroparesis History of IBS Cohn's esophagus determined by endoscopy Obesity (BMI 30-39.9) Panic attacks Generalized anxiety disorder Hypersomnia Easy bruisability Breast density Lumbar radicular pain Plantar fasciitis Sacrococcygeal pilonidal cyst Calcaneal spur of left foot De Quervain's tenosynovitis, right Achilles tendinitis of left lower extremity Bilateral hand numbness Arthralgia of right hand Chronic pain of left ankle Lateral epicondylitis of left elbow Bicipital tendinitis of left shoulder Arthritis Hip pain Verruca Surgical History History of carpal tunnel release of both wrists History of excision of pilonidal cyst (~02/20/24) History of loop electrosurgical excision procedure (LEEP) History of tubal ligation History of colonoscopy History of esophagogastroduodenoscopy (EGD) History of meniscectomy of left knee History of appendectomy History of section Family History Father Tongue cancer Mother CVD (cardiovascular disease) Maternal Aunt Colon cancer Maternal Uncle Colon cancer Brother CVD (cardiovascular disease) Substance abuse Sister CVD (cardiovascular disease) Social History Household Members: Spouse and Children Housing: Apartment Are you a primary animal care assistant to a significant other at home: No Do you presently have visiting nurse or other home services: No Alcohol intake: former Comment: holidays 1 glass of wine Patient Tobacco Use Status: Former Tobacco user Tobacco use type: Cigarette Cigarette Packs Per Day: 0.5 Cigarettes Per Day: 7 Years Smoked: 30 e-Cigarette/Vaping Use: Never Used Second Hand Smoke Exposure: Yes Substance Use Type: Marijuana service: No Current occupational status: disabled Cognitive needs: No Hearing needs: No Vision needs: No Female Reproductive History Menstrual Age of Menarche: 12 Questionnaire Thrive Questionnaire Date Thrive assessed: 06/24/24 I am a: Patient What is your living situation today?: I have a steady place to live Within the past 12 months, did the food you bought not last and you didn't have the money to get more?: Never true Within the past 12 months, did you worry whether your food would run out before you got money to buy more?: Never true Do you have trouble paying for medicines?: No Do you have trouble getting transportation to medical appointments?: No Do you have trouble paying your heating and electricity bill?: No Do you have trouble taking care of your child, family member or friend?: No Do you have trouble with day-to-day activities such as bathing, preparing meals, shopping, managing finances, etc.?: No Are you currently unemployed and looking for a job?: No Are you interested in more education?: No Please select the resources that you would like help with: None Currently or been in a relationship where the following occur: No concerns reported THRIVE Score: 0 ELIZABETH-7 AMB Questionnaire ELIZABETH-7 Date ELIZABETH - 7 assessed: 12/08/24 Source: Developed by Drs. Kain Gutierrez, Patricia Marx, Damaso Delacruz and colleagues, with an educational allison from [employer]. Physical exam (Primary Care) Vital Signs: Last Vital Signs Temp 97.3 F 01/14/25 10:10 Pulse 87 01/14/25 10:10 BP 120/70 01/14/25 10:10 Pulse Ox 97 01/14/25 10:10 Oxygen Delivery Method Room Air 01/14/25 10:10 BMI result Body Mass Index 34.5 Tobacco/Smoking Status: Tobacco use Status Tobacco use date assessed 01/14/25 01/14/25 10:18 Patient Tobacco Use Status Former Tobacco user 01/14/25 10:18 Tobacco use type Cigarette 01/14/25 10:18 e-Cigarette/Vaping Use Never Used 01/14/25 10:18 Thrive Assessment: Date of Thrive Assessment Date Thrive assessed 06/24/24 01/14/25 10:18 Currently or been in a relationship where the following occur: No concerns reported Const General: alert; No acute distress Eyes Conjunctivae: conjunctivae normal Resp Auscultation: clear to auscultation bilaterally Cardio Rate: regular rate Rhythm: regular rhythm GI Inspection: Yes normal to inspection Extrem General: Yes normal to inspection and No edema Coding Level of Care Code Est Pt Level 4 (49985) Complex EM visit Add On G2211 Diagnoses Hypercholesterolemia E78.00 Obesity (BMI 30-39.9) E66.9 Cohn's esophagus determined by endoscopy K22.70 Recurrent infection of skin L08.9 Hip osteoarthritis M16.9 Asthma-COPD overlap syndrome J44.9 Nicotine dependence, cigarettes, uncomplicated F17.210 Assessment & Plan Assessment & Plan (1) Hypercholesterolemia: Code(s): E78.00 - Pure hypercholesterolemia, unspecified Category: Medical Plan: Avoid fried foods, chicken skin, eggs, butter margarine, pastries and meat. Be it pork or beef they have a lot of cholesterol LDL goal of less than 130 and triglyceride of less than 150 patient is on atorvastatin 10 (2) Obesity (BMI 30-39.9): Code(s): E66.9 - Obesity, unspecified Category: Medical Plan: Diet and exercise (3) Cohn's esophagus determined by endoscopy: Code(s): K22.70 - Cohn's esophagus without dysplasia Category: Medical Plan: Avoid the foods that causes that usually spicy foods, tomato products, juices, coffee, soda and foods that your sensitive to. After eating do not lie down, allow 3-4 hours before in lie down. And keep the head of bed above 30 degrees to avoid the acid from going up. On Carafate metoclopramide Nexium (4) Recurrent infection of skin: Code(s): L08.9 - Local infection of the skin and subcutaneous tissue, unspecified Category: Medical Plan: Patient has met with Infectious Disease and did suggest antibiotic prevention (5) Hip osteoarthritis: Code(s): M16.9 - Osteoarthritis of hip, unspecified Category: Medical Plan: Keep active and lose the weight (6) Asthma-COPD overlap syndrome: Code(s): J44.9 - Chronic obstructive pulmonary disease, unspecified Category: Medical Plan: Patient is strongly advised to stop smoking! On albuterol inhaler (7) Nicotine dependence, cigarettes, uncomplicated: Comment: (current smoker - onset 22, x 32yrs - max 2ppd, now 1/2ppd, 45+PYH) August 2024 Code(s): F17.210 - Nicotine dependence, cigarettes, uncomplicated Category: Medical Plan: Patient is strongly advised to stop smoking! Plan History of Present Illness The patient is a 54-year-old female presenting for follow-up on multiple chronic conditions including asthma-COPD overlap syndrome, hypercholesterolemia, and recurrent infections. The patient has a history of obesity and postural arthritis, which have been ongoing concerns. She also suffers from lumbar spondylosis, contributing to her chronic back pain. Cohn's esophagus was diagnosed with the last endoscopy performed in January 2023. The patient is a smoker, which exacerbates her respiratory conditions, including asthma-COPD overlap syndrome. She has been managing hypercholesterolemia with atorvastatin, although adherence has been inconsistent. Her last cholesterol test in October 2024 showed elevated levels, with LDL at 159 mg/dL. The patient has a history of recurrent pyelonephritis, for which she has been under the care of an infectious disease specialist. She was prescribed doxycycline 100 mg twice daily for prevention. An abdominal CT in November 2024 revealed diverticular disease, which has been associated with her episodes of constipation and diarrhea. She has been advised to increase fiber intake to manage her bowel symptoms. The patient reports menopausal symptoms, which have been ongoing since age 36. She experiences intermittent constipation and diarrhea, which she attributes to her dietary habits. Health Maintenance - Cholesterol management with atorvastatin and lifestyle modifications including diet and exercise. - Smoking cessation strongly advised to reduce respiratory complications. - Vitamin D supplementation recommended due to deficiency. - Fiber intake encouraged to manage bowel symptoms related to diverticular disease. Social History - Smoking: Patient is a current smoker, advised to quit. - Exercise: Engages in stretching exercises from physical therapy. - Diet: Consumes green vegetables and beans, but experiences bloating with high fiber foods. Review of Systems - Respiratory: Reports asthma-COPD overlap syndrome, smoking exacerbates symptoms. - Gastrointestinal: Reports intermittent constipation and diarrhea, associated with dietary habits. - Musculoskeletal: Reports chronic back pain due to lumbar spondylosis. - Endocrine: Reports menopausal symptoms ongoing since age 36. Physical Exam Results - Labs: October 2024 blood work showed elevated cholesterol levels, LDL at 159 mg/dL, and low vitamin D. - Imaging: Abdominal CT in November 2024 revealed diverticular disease. Plan The patient is advised to continue atorvastatin for hypercholesterolemia, with a goal to reduce LDL levels below 130 mg/dL through medication adherence and lifestyle changes, including diet and exercise. Smoking cessation is strongly recommended to improve respiratory health and reduce the risk of exacerbations related to asthma-COPD overlap syndrome. For recurrent pyelonephritis, doxycycline 100 mg twice daily is prescribed for prevention, with caution advised regarding potential side effects of long-term antibiotic use. The patient is encouraged to increase fiber intake to manage symptoms of diverticular disease and constipation, with a focus on dietary adjustments to minimize gastrointestinal discomfort. Vitamin D supplementation is recommended to address deficiency, with a suggested dose of 2000 IU daily. Patient was informed and verbally consented to the use of an ambient scribe for clinic note documentation during this visit. Discussion Notes During the visit, I discussed the importance of medication adherence for managing hypercholesterolemia and the need for lifestyle modifications to achieve target LDL levels. I emphasized the critical need for smoking cessation to improve respiratory health and reduce the risk of exacerbations associated with asthma-COPD overlap syndrome. We reviewed the plan for recurrent pyelonephritis, including the use of doxycycline for prevention and the potential risks of long-term antibiotic use. I advised increasing fiber intake to manage diverticular disease symptoms and discussed the benefits of vitamin D supplementation for bone health. Patient Instructions - Continue taking atorvastatin as prescribed to manage cholesterol levels. - Quit smoking to improve lung health and reduce risks associated with asthma-COPD overlap syndrome. - Take doxycycline 100 mg twice daily as directed for infection prevention. - Increase dietary fiber intake to help with bowel regularity and manage diverticular disease. - Take 2000 IU of vitamin D daily to address deficiency. Medications: Changed From doxycycline hyclate 100 mg PO BID 14 caps 0RF To doxycycline hyclate 100 mg PO BID 60 caps 0RF 30 days Discontinued cephalexin Discontinued Reason: Patient Refused 500 mg PO Q6H 28 caps 0RF
--- OUTSIDE RECORDS SUMMARY | 2025-01-14 10:09 | XMS_ITS | Clinical Summary ---
Author Organization [employer] [facility] Address [address] [place] [address] [address] [place] [address] Care Team Providers Care Neurology Physician Name Role Phone Unavailable Primary Care Provider [...] 2 - PCV) 05/28/2022 05/28/2021 COVID-19 Vaccine (1 - 2023-2 5 season) 2024 Tobacco Screening 09/24/2024 09/25/2023 Influenza Vaccine (#1) 2025 Dental Oral Exam 03/27/2025 09/24/2024, 06/12/2023 [...] Procedure Name Priority Date/Time Associated Diagnosis Comments PANORAMIC RADIOGRAPHIC IMAGE Routine 09/24/2024 11:00 AM EDT BITEWINGS - 2 RADIOGRAPHIC IMAGES Routine 09/24/2024 11:00 AM EDT PERIODIC ORAL EVALUATION - ESTABLISHED PATIENT Routine 09/24/2024 11:00 AM EDT from Last 3 Months or Most Recently Relevant to Health Maintenance Insurance [place] AD[place] [facility] - [facility]
[2025-01-14 10:10] VITALS: BP 120/70; PULSE 87; TEMP 36.3; O2SAT 97; BMI 34.5
== END 2025-01-14 11:12 | disposition home or self-care (01) ==
LOC: HO.HMCH 09:55
PROVIDERS: PCP Internal Medicine; Visit Provider Internal Medicine
DX: E78.00 Pure hypercholesterolemia, unspecified (principal); E66.9 Obesity, unspecified; J44.9 Chronic obstructive pulmonary disease, unspecified; Z68.34 Body mass index [BMI] 34.0-34.9, adult; K22.70 Barrett's esophagus without dysplasia; L08.9 Local infection of the skin and subcutaneous tissue, unspecified; M16.9 Osteoarthritis of hip, unspecified; F17.210 Nicotine dependence, cigarettes, uncomplicated

== ENCOUNTER → 2025-01-14 09:54 | Outpatient (BNVA) | payer MEDICARE, SELFPAY | PROVIDERS: PCP Internal Medicine; Visit Provider Internal Medicine | DX: E78.00 Pure hypercholesterolemia, unspecified (principal); E66.9 Obesity, unspecified; K22.70 Barrett's esophagus without dysplasia; L08.9 Local infection of the skin and subcutaneous tissue, unspecified; M16.9 Osteoarthritis of hip, unspecified; J44.9 Chronic obstructive pulmonary disease, unspecified; F17.210 Nicotine dependence, cigarettes, uncomplicated; Z71.6 Tobacco abuse counseling | CPT/HCPCS: 99212 ==

== ENCOUNTER 2025-01-22 11:10 | Emergency (ER) | payer MEDICARE, MEDICAID, SELFPAY ==
--- NOTE | ~2025-01-22 | XR_ITS ---
CLINICAL HISTORY: pain, swelling 4 view right knee Comparison: None provided Findings: Bones intact. No dislocations. No significant loss of joint space, osteophytes, or erosions. No joint effusion. No radiopaque foreign body. IMPRESSION: No acute fracture, dislocation or significant joint effusion. This document has been electronically signed by: Marley Bishop DO on 01/22/2025 13:08:04
--- NOTE | ~2025-01-22 | US_ITS ---
CLINICAL HISTORY: pain, swelling VENOUS DUPLEX ULTRASOUND RIGHT LOWER EXTREMITY Comparison: None provided Findings: The visualized deep veins are fully compressible with normal Doppler color flow and spectral tracings. No popliteal cyst. IMPRESSION: 1. Negative for right lower extremity deep vein thrombosis. This document has been electronically signed by: Marley Bishop DO on 01/22/2025 13:06:45
[2025-01-22 11:12] VITALS: BP 147/71; PULSE 95; RESP 18; TEMP 36.8; O2SAT 99; BMI 34.5
--- NOTE | 2025-01-22 11:12 | ED.LOWEXIN ---
HPI - Extremity Injury (Lower) General Chief Complaint: Extremity Injury, Lower Stated Complaint: r knee and leg swollen Time Seen by Provider: 01/22/25 14:55 Source: patient Mode of arrival: ambulatory Limitations: no limitations History of Present Illness ED Provider: MADALYN TIMMONS PA-C HPI Narrative: 54-year-old female presents to the ED today for evaluation of right knee pain x 3 days. Patient states that while walking her dog on morning, she had sudden onset pain to the upper aspect of her right knee, radiating up into her right thigh. Reports feeling as though her knee gave out. She was able to continue her walk with pain. Since this time, reports increasing pain to the right knee/right thigh. She has been taking a 1000 mg Tylenol at home without improvement, applying ice/heat. No history of surgery on the knee. Denies history of DVT. Denies numbness/tingling/weakness of the right lower extremity. Related Data Home Medications ?Medication ?Instructions ?Recorded ?Confirmed cholecalciferol (vitamin D3) 50 50 mcg PO DAILY 04/11/20 09/27/24 mcg (2,000 unit) capsule acetaminophen 500 mg tablet 500 mg PO Q8H PRN mild pain 10/08/23 09/27/24 Previous Rx's ?Medication ?Instructions ?Recorded albuterol sulfate 90 mcg/actuation 2 puff inhalation Q6H PRN 09/05/23 aerosol inhaler (Ventolin HFA) shortness of breath or wheezing #8.5 grams metoclopramide HCl 5 mg tablet 5 mg PO QIDACHS #120 tabs 05/10/24 (Reglan) esomeprazole magnesium 40 mg 40 mg PO DAILY #90 caps 05/25/24 capsule,delayed release cyclobenzaprine 10 mg tablet 10 mg PO TID PRN for muscle spasm 05/31/24 #90 tabs hydrocortisone 2.5 % topical cream 1 appl NM BID-QID PRN hemorrhoids 07/07/24 with perineal applicator #30 grams (Proctosol HC) atorvastatin 10 mg tablet 10 mg PO DAILY #90 tabs 08/30/24 linaclotide 290 mcg capsule 290 mcg PO QAM #30 caps 10/20/24 (Linzess) sucralfate 100 mg/mL oral 10 ml PO BID #400 mL 11/02/24 suspension doxycycline hyclate 100 mg capsule 100 mg PO BID 30 days #60 caps 01/14/25 prednisone 50 mg tablet 50 mg PO DAILY 5 days #5 tabs 01/22/25 Allergies Allergy/AdvReac Type Severity Reaction Status Date / Time hydrocodone (From Vicodin) Allergy Severe Stomach Verified 01/22/25 11:17 Pain morphine (MORPHINE) Allergy Severe REDNESS, Verified 01/22/25 11:17 FEELS REALLY HOT, shortness of breath, anaphylaxis oxycodone Allergy Severe Stomach Verified 01/22/25 11:17 Upset amoxicillin AdvReac Severe yeast Verified 01/22/25 11:17 infection Penicillins (PENICILLINS) AdvReac Severe YEAST Verified 01/22/25 11:17 INFECTION Review of Systems Review of Systems: Yes all other systems are reviewed and are negative [facility] Past Medical History Attestation statement: The following information was validated with the patient. Source: old records reviewed and nursing notes reviewed Medical History Epidermal cyst Palpitations Hypercholesterolemia Impaired fasting blood sugar Asthma-COPD overlap syndrome Hx of tuberculosis Chronic cough Nicotine dependence, cigarettes, uncomplicated Dysphagia GERD (gastroesophageal reflux disease) Gastroparesis History of IBS Cohn's esophagus determined by endoscopy Obesity (BMI 30-39.9) Panic attacks Generalized anxiety disorder Hypersomnia Easy bruisability Breast density Lumbar radicular pain Plantar fasciitis Sacrococcygeal pilonidal cyst Calcaneal spur of left foot De Quervain's tenosynovitis, right Achilles tendinitis of left lower extremity Bilateral hand numbness Arthralgia of right hand Chronic pain of left ankle Lateral epicondylitis of left elbow Bicipital tendinitis of left shoulder Arthritis Hip pain Verruca Surgical History History of carpal tunnel release of both wrists History of excision of pilonidal cyst (~02/20/24) History of loop electrosurgical excision procedure (LEEP) History of tubal ligation History of colonoscopy History of esophagogastroduodenoscopy (EGD) History of meniscectomy of left knee History of appendectomy History of section Family History Family History Father Tongue cancer Mother CVD (cardiovascular disease) Maternal Aunt Colon cancer Maternal Uncle Colon cancer Brother CVD (cardiovascular disease) Substance abuse Sister CVD (cardiovascular disease) Social History Social History Household Members: Spouse and Children Housing: Apartment Are you a primary clinical care coordinator to a significant other at home: No Do you presently have visiting nurse or other home services: No Alcohol intake: former Comment: holidays 1 glass of wine Patient Tobacco Use Status: Former Tobacco user Tobacco use type: Cigarette Cigarette Packs Per Day: 0.5 Cigarettes Per Day: 7 Years Smoked: 30 Smoked in Last 30 Days: No e-Cigarette/Vaping Use: Never Used Second Hand Smoke Exposure: Yes Substance Use Type: Marijuana Advance Directives: No Advance Directives Information Provided: No Do you have a plan to hurt others: No Plan service: No Current occupational status: disabled Cognitive needs: No Hearing needs: No Vision needs: No Physical Exam Vital Signs: Vital Signs: Last Vital Signs Temp 97.4 F 01/22/25 16:02 Pulse 72 01/22/25 16:02 Resp 18 01/22/25 16:02 BP 121/69 01/22/25 16:02 Pulse Ox 96 01/22/25 16:02 O2 Del Method Room Air 01/22/25 16:02 BMI result Body Mass Index 34.5 vital signs stable General: Well appearing, in no acute distress. Skin: Warm, dry, intact. No rashes or lesions. Head: Normocephalic, atraumatic. EENT: Hearing is intact b/l. Conjunctiva clear. Sclera is anicteric. PERRLA. EOM intact. Moist mucous membranes.? Neck: Supple without LAD Cardiac: Chest wall symmetric. RRR Lungs: Normal respiratory effort without accessory muscle use. CTA bilaterally Back: No midline spinous or paraspinal tenderness. No step off deformity. Ext: +no overlying skin changes/swelling/deformity to right thigh or knee. ttp over proximal right knee overlying guad tendon. no palpable deformity, crepitus, step off. difficulty extending knee/ straightening the RLE. no calf tenderness. compartments soft, compressible. no tenderness over Achilles insertion or plantar fascia. 2+ popliteal, DP/PT pulse. Ambulating with slight limping gait. Neuro: AOx3. Normal speech.Sensation intact to light touch. NV intact distally. Course Course Course Narrative: This is an RME performed by Mary Lawrence CNP: Additional HPI, ROS, PE not included below will be deferred to primary provider. This is a 54-year-old female who presents emergency department for evaluation. She reports 2 days ago on she was walking when she felt a sudden snap had abrupt onset of pain to her upper right knee. Pain radiates down. She endorses having chronic degenerative changes to the bilateral lower extremities but her right is worse than the left. Denies numbness tingling or cold sensation to the extremity. Denies history of DVT. Plan: XR of the knee, venous duplex ultrasound Reevaluation(s) Reevaluation #1: X-ray right knee without fracture. No joint effusion. Venous duplex of right lower extremity without popliteal cyst or DVT. > exam concerning for quadriceps tendon injury given difficulty extending right knee or straightening like off of bed. Will place patient in knee immobilizer and provide crutches. Advised Tylenol at home. Will also prescribe a short course of prednisone. educated on RICE therapy. advisesd outpatient PCP and ortho followup - referrals provided. Patient has remained stable throughout ED visit today. Discussed worrisome signs and symptoms and when to return to the ED. All questions answered at this time. Patient is agreeable with disposition and stable for discharge. Medications Administered Discontinued Medications Generic Name Dose Route Start Last Admin Trade Name Freq PRN Reason Stop Dose Admin Acetaminophen 975 mg 01/22/25 14:42 01/22/25 15:34 Acetaminophen 325 Mg Tablet PO 01/22/25 14:43 975 mg ONCE ONE Administration Medical Decision Making Medical Decision Making [facility] Narrative: 54-year-old female presents to the ED today for evaluation of right knee pain x 3 days. hypertensive, vitals are otherwise wnl. she is well appearing and in NAD. on exam, of RLE, no overlying skin changes/swelling/deformity to right thigh or knee. ttp over proximal right knee overlying guad tendon. no palpable deformity, crepitus, step off. difficulty extending knee/ straightening the RLE. no calf tenderness. compartments soft, compressible. no tenderness over Achilles insertion or plantar fascia. 2+ popliteal, DP/PT pulse. Ambulating with slight limping gait. Differential diagnosis includes contusion, ligament/tendon injury, tendonitis, arthritis, fracture, dislocation. Unlikely neurovascular compromise, threat to limb, compartment syndrome. Unlikely a DVT, popliteal cyst. X-ray and ultrasound ordered from triage. Plan to review. Differential Diagnosis Differential Diagnoses: The differential diagnosis associated with the presentation includes as above. Admission/Observation not indicated Independent Interpretation I performed an independent interpretation of an: Plain X-Ray and Ultrasound Interpretation: xr right knee without fracture or joint effusion venous duplex without DVT Radiology Impression Discussion of test interpretation with radiology: I have reviewed the radiologist's reading. Radiologist Impression: Date of Service: 01/22/25 Procedure(s): XR knee RT 4V Accession Number(s): [id number] cc: Sandi Lawrence CNP; Shira Raines MD~ CLINICAL HISTORY: pain, swelling 4 view right knee Comparison: None provided Findings: Bones intact. No dislocations. No significant loss of joint space, osteophytes, or erosions. No joint effusion. No radiopaque foreign body. IMPRESSION: No acute fracture, dislocation or significant joint effusion. This document has been electronically signed by: Marley Bishop DO on 01/22/2025 13:08:04 Date of Service: 01/22/25 Procedure(s): US venous duplex LE RT Accession Number(s): [id number] cc: Sandi Lawrence CNP; Shira Raines MD~ CLINICAL HISTORY: pain, swelling VENOUS DUPLEX ULTRASOUND RIGHT LOWER EXTREMITY Comparison: None provided Findings: The visualized deep veins are fully compressible with normal Doppler color flow and spectral tracings. No popliteal cyst. IMPRESSION: 1. Negative for right lower extremity deep vein thrombosis. This document has been electronically signed by: Marley Bishop DO on 01/22/2025 13:06:45 External Record Review External record reviewed: Inpatient record Prescription Management I considered prescription management with: Other (prednisone) Social Determinants Patient?s care significantly limited by Social Determinants of Health including: Other Social Determinant of Health Critical Care Time Critical Care Time Critical Care Time: No Discharge Plan Discharge Clinical Impression: Injury of quadriceps tendon Patient Disposition: Home, Self-Care Instructions: Crutch Instructions (ED), Knee Immobilizer (ED) Additional Instructions: You were evaluated in the ED today for right knee/thigh pain. Your xrays are reassuring. There is no fracture. The ultrasound of your right leg does not demonstrate cyst or clot. I have concern for injury to your quadriceps tendon. You were placed in a knee immobilizer today and provided with crutches. You may continue taking Tylenol for pain/discomfort. I am starting you on a 5 day course of prednisone. Take this as prescribed. Utilize RICE therapy - rest, ice, compress, elevate. Follow up with primary care doctor and/or bankruptcy law specialist. You have been provided with a referral. Call them to establish care. They not call you. Return with any new or worsening symptoms. In the case of an emergency call 911. Prescriptions: New prednisone 50 mg tablet 50 mg PO DAILY 5 Days Qty: 5 0RF No Action albuterol sulfate [Ventolin HFA] 90 mcg/actuation HFA aerosol inhaler 2 puff inhalation Q6H PRN (Reason: shortness of breath or wheezing) Qty: 8.5 0RF metoclopramide HCl [Reglan] 5 mg tablet 5 mg PO QIDACHS Qty: 120 3RF Rx Instructions: hansa un comprimido 30 minutos antes de las comidas esomeprazole magnesium 40 mg capsule,delayed release(DR/EC) 40 mg PO DAILY Qty: 90 2RF cyclobenzaprine 10 mg tablet 10 mg PO TID PRN (Reason: for muscle spasm) Qty: 90 11RF Linzess 290 mcg capsule 290 mcg PO QAM Qty: 30 4RF cholecalciferol (vitamin D3) 50 mcg (2,000 unit) capsule 50 mcg PO DAILY acetaminophen 500 mg tablet 500 mg PO Q8H PRN (Reason: mild pain) doxycycline hyclate 100 mg capsule 100 mg PO BID 30 Days Qty: 60 0RF hydrocortisone [Proctosol HC] 2.5 % cream with perineal applicator 1 appl NM BID-QID PRN (Reason: hemorrhoids) Qty: 30 2RF atorvastatin 10 mg tablet 10 mg PO DAILY Qty: 90 2RF sucralfate 100 mg/mL suspension 10 ml PO BID Qty: 400 3RF Rx Instructions: Please take it at noon time and at bedtime [place]: [facility] [place] Group] Po,Shira Orta MD [Primary Care Provider, Internal Medicine] Interventions: ED Discharge Assessment Last Done: 01/22/25 16:02 Print Language: Choose Not To Answer
[2025-01-22 14:52] VITALS: BP 121/69; PULSE 72; RESP 18; TEMP 36.3; O2SAT 96
--- NOTE | 2025-01-22 15:42 | PC.NURSE ---
Addendum entered by Venecia Samano RN 01/22/25 15:43: Patient is a 54-year-old female presenting for follow-up on multiple chronic conditions including asthma-COPD overlap syndrome, hypercholesterolemia, and recurrent infections. The patient has a history of obesity and postural arthritis, which have been ongoing concerns. She also suffers from lumbar spondylosis, contributing to her chronic back pain. She presents with c/o sudden onset right leg pain from thigh to knee and calf. Respirations even and non-labored. Abdomen soft, non-tender with positive bowel sounds. Positive pedal pulses with no edema. No bruising or swelling noted to the affected limb/ Original Note: Medical History Epidermal cyst Palpitations Hypercholesterolemia Impaired fasting blood sugar Asthma-COPD overlap syndrome Hx of tuberculosis Chronic cough Nicotine dependence, cigarettes, uncomplicated Dysphagia GERD (gastroesophageal reflux disease) Gastroparesis History of IBS Cohn's esophagus determined by endoscopy Obesity (BMI 30-39.9) Panic attacks Generalized anxiety disorder Hypersomnia Easy bruisability Breast density Lumbar radicular pain Plantar fasciitis Sacrococcygeal pilonidal cyst Calcaneal spur of left foot De Quervain's tenosynovitis, right Achilles tendinitis of left lower extremity Bilateral hand numbness Arthralgia of right hand Chronic pain of left ankle Lateral epicondylitis of left elbow Bicipital tendinitis of left shoulder Arthritis Hip pain Verru
[2025-01-22 16:02] VITALS: BP 121/69; PULSE 72; RESP 18; TEMP 36.3; O2SAT 96
== END 2025-01-22 17:00 | disposition home or self-care (01) ==
PROVIDERS: Emergency Provider Emergency Medicine; PCP Internal Medicine
DX: M79.89 Other specified soft tissue disorders (principal); S76.101A Unspecified injury of right quadriceps muscle, fascia and tendon, initial encounter; Y93.K1 Activity, walking an animal; Y92.9 Unspecified place or not applicable; Y99.9 Unspecified external cause status; I10 Essential (primary) hypertension; M25.561 Pain in right knee; E78.00 Pure hypercholesterolemia, unspecified; J44.9 Chronic obstructive pulmonary disease, unspecified; R13.10 Dysphagia, unspecified; K21.9 Gastro-esophageal reflux disease without esophagitis; K31.84 Gastroparesis; K22.70 Barrett's esophagus without dysplasia; E66.9 Obesity, unspecified; F41.1 Generalized anxiety disorder; Z68.34 Body mass index [BMI] 34.0-34.9, adult; Z87.891 Personal history of nicotine dependence
CPT/HCPCS: 73564; 93971; 99284

== ENCOUNTER → 2025-01-22 11:14 | Outpatient (BNV) | payer MEDICARE, SELFPAY | PROVIDERS: PCP Internal Medicine; Visit Provider Radiology Diagnostic Radiology | DX: R22.41 Localized swelling, mass and lump, right lower limb (principal); M25.561 Pain in right knee | CPT/HCPCS: 73564; 93971 ==

== ENCOUNTER 2025-01-28 09:54 | Outpatient (AMB) | payer MEDICARE, MEDICAID, SELFPAY ==
--- NOTE | 2025-01-28 09:56 | MHC.OFFVIS ---
Vital Signs 01/28/25 10:00 Height 5 ft 3 in Weight 195 lb BMI 34.5 Intake Visit Reasons: FC - right knee injury, DOI 01/20/25 Intake Note: Jessy is a 54 year old female who presents today for a evaluation of her right knee pain. She was seen at the ED on 01/22/25 and she was given knee immobilizer today and provided with crutches. Patient states that while walking her dog on 01/20/25 morning, she had sudden onset pain in her right knee, radiating up into her right thigh. Patient notices that she is also getting cramps in her leg. She mentions the feeling as though her knee gave out. Patient was recommenced to take Tylenol and they gave her prednisone which gave her mild relief. Allergies hydrocodone (From Vicodin) Allergy (Severe, Verified 01/28/25 09:59) Stomach Pain morphine (MORPHINE) Allergy (Severe, Verified 01/28/25 09:59) REDNESS, FEELS REALLY HOT, shortness of breath, anaphylaxis oxycodone Allergy (Severe, Verified 01/28/25 09:59) Stomach Upset amoxicillin Adverse Reaction (Severe, Verified 01/28/25 09:59) yeast infection Penicillins (PENICILLINS) Adverse Reaction (Severe, Verified 01/28/25 09:59) YEAST INFECTION HPI HPI FC - right knee injury, DOI 01/20/25: Details: Ms. Dolan is a 54-year-old female who presents to the office today after sustaining an injury to the right knee. Date of injury was 01/20/25. She states she was walking her dog on even ground when she felt her right lower extremity gave out on her. She felt immediate pain in the right thigh and on the lateral aspect of the knee traveling down towards the ankle. She attempted to continue normal activities however after 2 days she continued to have severe pain. Therefore, she presented to the emergency department where an ultrasound and x-rays were obtained. Both imaging modalities were negative for DVT, fracture or dislocation. She was given a knee immobilizer and crutches and instructed to follow up with orthopedics outpatient for further evaluation and treatment. Of note, the patient reports that she has a history of low back degenerative joint disease causing radiation of pain to bilateral lower extremities and numbness and tingling to the left foot specifically the last 3 digits. She is seeing a marketing development specialist for this issue. She is unsure if she has a new injury to the right knee or if this is related to her low back issues. [facility] Medical History Epidermal cyst Palpitations Hypercholesterolemia Impaired fasting blood sugar Asthma-COPD overlap syndrome Hx of tuberculosis Chronic cough Nicotine dependence, cigarettes, uncomplicated Dysphagia GERD (gastroesophageal reflux disease) Gastroparesis History of IBS Cohn's esophagus determined by endoscopy Obesity (BMI 30-39.9) Panic attacks Generalized anxiety disorder Hypersomnia Easy bruisability Breast density Lumbar radicular pain Plantar fasciitis Sacrococcygeal pilonidal cyst Calcaneal spur of left foot De Quervain's tenosynovitis, right Achilles tendinitis of left lower extremity Bilateral hand numbness Arthralgia of right hand Chronic pain of left ankle Lateral epicondylitis of left elbow Bicipital tendinitis of left shoulder Arthritis Hip pain Verruca Surgical History History of carpal tunnel release of both wrists History of excision of pilonidal cyst (~02/20/24) History of loop electrosurgical excision procedure (LEEP) History of tubal ligation History of colonoscopy History of esophagogastroduodenoscopy (EGD) History of meniscectomy of left knee History of appendectomy History of section Family History Father Tongue cancer Mother CVD (cardiovascular disease) Maternal Aunt Colon cancer Maternal Uncle Colon cancer Brother CVD (cardiovascular disease) Substance abuse Sister CVD (cardiovascular disease) Social History Household Members: Spouse and Children Housing: Apartment Are you a primary wound care nurse to a significant other at home: No Do you presently have visiting nurse or other home services: No Alcohol intake: former Comment: holidays 1 glass of wine Patient Tobacco Use Status: Former Tobacco user Tobacco use type: Cigarette Cigarette Packs Per Day: 0.5 Cigarettes Per Day: 7 Years Smoked: 30 e-Cigarette/Vaping Use: Never Used Second Hand Smoke Exposure: Yes Substance Use Type: Marijuana service: No Current occupational status: disabled Cognitive needs: No Hearing needs: No Vision needs: No Female Reproductive History Menstrual Age of Menarche: 12 Review of Systems Const All systems reviewed & are unremarkable except as noted in HPI and below Physical Exam Vital Signs: BMI result Body Mass Index 34.5 Const General: cooperative, healthy appearing and no acute distress Resp Effort & Inspection: normal respiratory effort and able to speak in complete sentences Extrem Other: Right knee: Normal to inspection. No ecchymosis, erythema, or joint effusion. Tenderness to palpation along the lateral aspect of the knee excluding the joint line. Full knee extension and flexion. Negative Elijah's. Negative anterior drawer. Patient is able to perform straight leg raise with reproduction of symptoms (ie.) Pain that radiates from the thigh to the knee extending down towards the ankle. She does have significant weakness with straight leg raise. Psych Appearance: grossly normal Mental Status: mental status grossly normal Attitude: cooperative Assessment & Plan Assessment & Plan (1) Lumbar spondylosis: Code(s): M47.816 - Spondylosis without myelopathy or radiculopathy, lumbar region Category: Medical (2) Lumbar radicular pain: Comment: Januaryansitional lumbosacral anatomy with sacralization of the L5 vertebral body and pseudoarticulation on the left. -At L5-S1, there is mass effect on the left extraforaminal L5 nerve roots in the region of the pseudoarticulation. -At L4-L5, there is a central disc protrusion with mild spinal canal stenosis and mild bilateral neural foraminal narrowing with the disc abutting the exiting L4 nerve roots bilaterally. -At L3-L4, there is mild to moderate left and mild right neural foraminal narrowing with the disc abutting the exiting left L3 nerve root. -At L2-L3, there is mild left neural foraminal narrowing. Code(s): M54.16 - Radiculopathy, lumbar region Category: Medical Plan Ms. Dolan is a 54-year-old female who presents to the office today after sustaining an injury to the right knee. Date of injury was 01/20/25. She states she was walking her dog on even ground when she felt her right lower extremity gave out on her. She felt immediate pain in the right thigh and on the lateral aspect of the knee traveling down towards the ankle. She attempted to continue normal activities however after 2 days she continued to have severe pain. Therefore, she presented to the emergency department where an ultrasound and x-rays were obtained. Both imaging modalities were negative for DVT, fracture or dislocation. She was given a knee immobilizer and crutches and instructed to follow up with orthopedics outpatient for further evaluation and treatment. Of note, the patient reports that she has a history of low back degenerative joint disease causing radiation of pain to bilateral lower extremities and numbness and tingling to the left foot specifically the last 3 digits. She is seeing a marketing development specialist for this issue. She is unsure if she has a new injury to the right knee or if this is related to her low back issues. While in the office today, we discussed that her recent injury is likely due to her low back pathology. This is likely what caused of the right lower extremity to give out and experienced radiation of pain. Patient had an ultrasound as well as x-rays performed on 01/22/2025 in the emergency department which are available for my review and are negative for any acute fracture, dislocation or DVT. The patient was given a playmaker knee brace off the shelf while in the office today for support. She was advised to follow up with her marketing development specialist. Follow up with Orthopedics will be PRN, sooner if needed. Coding Level of Care Code Est Pt Level 3 (07494) Diagnoses Lumbar spondylosis M47.816 Lumbar radicular pain M54.16
--- OUTSIDE RECORDS SUMMARY | 2025-01-28 09:57 | XMS_ITS ---
Author Organization Unknown ENCOUNTERS Encounter Performer Location Date Diagnosis Diagnosis Status Emergency [facility] [address] [place] [address] [phone] [place] Pre Admit [facility] [address] [place] [address] [phone] [place] Pre Admit [facility] [address] [place] [address] [phone] Outpatient [facility] [address] [place] [address] [phone] [place] Pre Admit [facility] [address] [place] [address] [phone] Outpatient [facility] [address] [place] [address] [phone] [place] Pre Admit [facility] [address] [place] [address] [phone] Outpatient [facility] [address] [place] [address] [phone] [place] Emergency [facility] [address] [place] [address] [phone] [place] Pre Admit [facility] Physician [facility] [address] [place] [address] [phone] Pre Admit [facility] [address] [place] [address] [phone] Outpatient [facility] [address] [place] [address] [phone] [place] Pre Admit [facility] [address] [place] [address] [phone] Outpatient [facility] [address] [place] [address] [phone] [place] Emergency [facility] [address] [place] [address] [phone] [place] Pre Admit [facility] [address] [place] [address] [phone] Emergency Gerardo Kathleen [facility] [address] [place] [address] [phone] SAPNA Emergency Ahmed [facility] [address] [place] [address] [phone] [place] Outpatient Keithamber Gutierrez [facility] [address] [place] [address] [phone] [facility] Outpatient KATHLEEN MORALES [facility] [address] [place] [address] [phone] *H *Note: Encounters from your own facility or health system may be excluded. Allergies, Adverse Reactions, Alerts Allergen Type Severity Identification Date oxycodone drug allergy 4 [id number] amoxicillin drug allergy 20201003 hydrocodone drug allergy 4 [id number] acetaminophen drug allergy 4 [id number] Medications Name Date Quantity Days Supplied GPI Number
--- OUTSIDE RECORDS SUMMARY | 2025-01-28 09:57 | XMS_ITS | Clinical Summary ---
Author Organization [employer] [facility] Address [address] [place] [address] 7[address] [place] [address] Care Team Providers Care Gasoline Tester Name Role Phone Unavailable Primary Care Provider [...] Insurance [place] STAND ADULT DENTAL - [facility]
[2025-01-28 10:00] VITALS: BMI 34.5
== END 2025-01-28 10:54 | disposition home or self-care (01) ==
LOC: HO.HOS 09:54
PROVIDERS: PCP Internal Medicine; Visit Provider Physician Assistant
DX: M47.816 Spondylosis without myelopathy or radiculopathy, lumbar region (principal); M54.16 Radiculopathy, lumbar region
CPT/HCPCS: 99213

== ENCOUNTER → 2025-01-28 09:54 | Outpatient (BNVA) | payer MEDICARE, MEDICAID, SELFPAY | PROVIDERS: PCP Internal Medicine; Visit Provider Physician Assistant | DX: M47.816 Spondylosis without myelopathy or radiculopathy, lumbar region (principal); M54.16 Radiculopathy, lumbar region | CPT/HCPCS: 99212 ==

== ENCOUNTER 2025-02-16 13:15 | Outpatient (REF) | payer MEDICARE, MEDICAID, SELFPAY ==
--- NOTE | ~2025-02-16 | MM_ITS ---
EXAMINATION: MM DIAGNOSTIC DIGITAL BREAST TOMOSYNTHESIS, LEFT Limited left breast ultrasound. CLINICAL INFORMATION: Call back from screening for asymmetries in the left breast. COMPARISON: Mammography: There is on PACS. TECHNIQUE: Digital breast tomosynthesis is performed in both the craniocaudal and mediolateral oblique views along with computer-aided detection (CAD). Synthesized 2D images are generated from the tomosynthesis. FINDINGS: There are scattered areas of fibroglandular density (ACR BI-RADS breast composition Category b). Circumscribed oval masses in the upper outer breast and central outer breast middle depth persist on additional imaging projections. There are no significant masses, abnormal calcifications, or other abnormalities. Targeted color Doppler ultrasound at 3:00 7 cm from the nipple demonstrates a minimally complicated cyst measuring 6 x 7 x 6 mm which correlates with the circumscribed oval mass at middle depth central outer breast. Targeted color Doppler ultrasound at 2:00 9 cm from nipple demonstrates very area of probable adjacent minimally complicated cysts versus solid mass at 2:00 9 cm from the nipple measuring a 12 x 3 x 5 mm. MM/MM tomosynthesis added views L IMPRESSION: Probable complicated cysts versus solid mass in the left breast on ultrasound. Recommend 6 month follow-up ultrasound for further evaluation of stability. Minimally complicated cyst on ultrasound. Benign. ASSESSMENT: BI-RADS BI-RADS 3 - Probably benign finding(s) - 6 month follow-up suggested RECOMMENDATION: 6 Month F/U Results were provided to the patient at time of visit by the technologist. This patient's information was entered into a reminder system with a target due date for their next mammogram. Electronically signed by: Tere Bedolla DO 02/16/2025 02:49 PM EDT
--- OUTSIDE RECORDS SUMMARY | 2025-02-16 13:55 | XMS_ITS | Encounter Summary ---
Author Organization [employer] Address [address] [facility] 7t [place] [address] Care Team Providers Care Range Operator Name Role Phone Unavailable Primary Care Provider Unavailabl e Reason for Visit * Reason Onset Date Comments medication 09/25/2023 Encounter Details Date Type Department Care Team (Late st Contact Info) Description 09/25/2023 Telephone [facility] [address] [place] [address] Leon Tejeda, DDS [address] [facility] [place], [place] [phone] medication Social History Tobacco Use Types Packs/Day [...]
--- OUTSIDE RECORDS SUMMARY | 2025-02-16 13:55 | XMS_ITS | Clinical Summary ---
Author Organization [employer] [facility] Address [address] [place] [address] [address] [place] [address] Care Team Providers Care Carbonizer Name Role Phone Unavailable Primary Care Provider [...] Insurance [place] STAND ADULT DENTAL - [facility]
--- OUTSIDE RECORDS SUMMARY | 2025-02-16 13:55 | XMS_ITS ---
Author Organization Unknown ENCOUNTERS Encounter Performer Location Date Diagnosis Diagnosis Status Emergency [facility] [address] [place] [address] [phone] [place] Pre Admit [facility] [address] [place] [address] [phone] [place] Pre Admit [facility] [address] [place] [address] [phone] Outpatient [facility] [address] [place] [address] [phone] ESTE[place] Pre Admit [facility] [address] [place] [address] [phone] Outpatient [facility] [address] [place] [address] [phone] [place] Pre Admit [facility] [address] [place] [address] [phone] Outpatient [facility] [address] [place] [address] [phone] [place] Emergency [facility] [address] [place] [address] [phone] [place] Pre Admit [facility] Physician [facility] [address] [place] [address] [phone] Pre Admit [facility] [address] [place] [address] [phone] Outpatient [facility] [address] [place] [address] [phone] EST[place] Pre Admit [facility] [address] [place] [address] [phone] Outpatient [facility] [address] [place] [address] [phone] [place] Emergency [facility] [address] [place] [address] [phone] [place] Pre Admit [facility] [address] [place] [address] [phone] Emergency Gerardo Kathleen [facility] [address] [place] [address] [phone] [facility] Emergency Ahmed [facility] [address] [place] [address] [phone] [place] Outpatient [facility] [address] [place] [address] [phone] [place] *Note: Encounters from your own facility or health system may be excluded. Allergies, Adverse Reactions, Alerts Allergen Type Severity Identification Date oxycodone drug allergy 4 [id number] amoxicillin drug allergy 20201003 hydrocodone drug allergy 4 [id number] acetaminophen drug allergy 4 [id number] Medications Name Date Quantity Days Supplied GPI Number
== END 2025-02-16 13:16 | disposition home or self-care (01) ==
LOC: HO.MAMMO 13:15
PROVIDERS: PCP Internal Medicine; Visit Provider Internal Medicine
DX: Z12.31 Encounter for screening mammogram for malignant neoplasm of breast (principal)
CPT/HCPCS: 76642; 77061; 77065

== ENCOUNTER → 2025-02-16 13:30 | Outpatient (BNV) | payer MEDICARE, MEDICAID, SELFPAY | PROVIDERS: PCP Internal Medicine; Visit Provider Internal Medicine | DX: R92.8 Other abnormal and inconclusive findings on diagnostic imaging of breast (principal) | CPT/HCPCS: 76642; 77065; G0279 ==

== ENCOUNTER 2025-04-13 15:54 | Outpatient (AMB) | payer MEDICARE, MEDICAID, SELFPAY ==
--- NOTE | 2025-04-13 15:56 | MHC.OFFVIS ---
Vital Signs 04/13/25 16:05 Height 5 ft 3 in Weight 197 lb 6 oz BMI 35.0 Intake Visit Reasons: recurrent pilonidal cyst Intake Note: Patient presents for an assessment for recurrent pilonidal cyst. Pt c/o; reports pain, drainage, completed x2 course of abx. 02/20/2024: excision recurrent pilonidal cyst sacrococcygeal area Storage Consultant Required: No Accompanied by: Self / Same As Patient Allergies hydrocodone (From Vicodin) Allergy (Severe, Verified 04/13/25 16:06) Stomach Pain morphine (MORPHINE) Allergy (Severe, Verified 04/13/25 16:06) REDNESS, FEELS REALLY HOT, shortness of breath, anaphylaxis oxycodone Allergy (Severe, Verified 04/13/25 16:06) Stomach Upset amoxicillin Adverse Reaction (Severe, Verified 04/13/25 16:06) yeast infection Penicillins (PENICILLINS) Adverse Reaction (Severe, Verified 04/13/25 16:06) YEAST INFECTION Medication List - Last Reconciled 04/13/25 by Jonny Jerome MD acetaminophen 500 mg PO Q8H PRN albuterol sulfate 90 mcg/actuation (Ventolin HFA) 2 puffs inhalation Q6H PRN atorvastatin 10 mg PO DAILY cholecalciferol (vitamin D3) 50 mcg PO DAILY cyclobenzaprine 10 mg PO TID PRN doxycycline hyclate 100 mg PO BID 30 days esomeprazole magnesium 40 mg PO QAM hydrocortisone 2.5% (Proctosol HC) 1 appl GA BID-QID PRN linaclotide (Linzess) 290 mcg PO QAM metoclopramide HCl (Reglan) 5 mg PO QIDACHS prednisone 50 mg PO DAILY 5 days sucralfate 10 mL PO BID HPI HPI recurrent pilonidal cyst: Details: She is here because of what she describes as a recurrence of her cyst. She has had some periodic pain on the area just to the right of the gluteal cleft near the buttock. She says that she seems to be swollen on and off. She says that this has been swollen for the past 2 days but this has improved today. She denies any drainage. [facility] Medical History Epidermal cyst Palpitations Hypercholesterolemia Impaired fasting blood sugar Asthma-COPD overlap syndrome Hx of tuberculosis Chronic cough Nicotine dependence, cigarettes, uncomplicated Dysphagia GERD (gastroesophageal reflux disease) Gastroparesis History of IBS Cohn's esophagus determined by endoscopy Obesity (BMI 30-39.9) Panic attacks Generalized anxiety disorder Hypersomnia Easy bruisability Breast density Lumbar radicular pain Plantar fasciitis Sacrococcygeal pilonidal cyst Calcaneal spur of left foot De Quervain's tenosynovitis, right Achilles tendinitis of left lower extremity Bilateral hand numbness Arthralgia of right hand Chronic pain of left ankle Lateral epicondylitis of left elbow Bicipital tendinitis of left shoulder Arthritis Hip pain [facility] Surgical History History of carpal tunnel release of both wrists History of excision of pilonidal cyst (~02/20/24) History of loop electrosurgical excision procedure (LEEP) History of tubal ligation History of colonoscopy History of esophagogastroduodenoscopy (EGD) History of meniscectomy of left knee History of appendectomy History of section Family History Father Tongue cancer Mother CVD (cardiovascular disease) Maternal Aunt Colon cancer Maternal Uncle Colon cancer Brother CVD (cardiovascular disease) Substance abuse Sister CVD (cardiovascular disease) Social History Household Members: Spouse and Children Housing: Apartment Are you a primary behavioral health care manager to a significant other at home: No Do you presently have visiting nurse or other home services: No Alcohol intake: former Comment: holidays 1 glass of wine Patient Tobacco Use Status: Former Tobacco user Tobacco use type: Cigarette Cigarette Packs Per Day: 0.5 Cigarettes Per Day: 7 Years Smoked: 30 e-Cigarette/Vaping Use: Never Used Second Hand Smoke Exposure: Yes Substance Use Type: Marijuana service: No Current occupational status: disabled Cognitive needs: No Hearing needs: No Vision needs: No Female Reproductive History Menstrual Age of Menarche: 12 Review of Systems Const Denies chills and Denies fever(s) Card Denies chest pain, Denies dyspnea and Denies dyspnea on exertion Resp Denies cough, Denies dyspnea and Denies dyspnea on exertion GI Denies hematochezia and Denies change in bowel habits Denies hematuria Musc Denies back pain and Denies limited range of motion Neuro Denies focal weakness and Denies convulsions Psych Denies depression and Denies mood swings Physical Exam Vital Signs: BMI result Body Mass Index 35.0 Const General: comfortable and no acute distress Orientation/consciousness: patient oriented x3 Neck Neck: Yes no lymphadenopathy Resp Auscultation: clear to auscultation bilaterally Cardio Rhythm: regular rhythm GI Palpation (GI): Soft to palpation, nontender and no guarding Back/Spine/Pelvis Other: Examination of the sacrococcygeal area does not reveal any induration, swelling, fluctuance or any lesion. There is no redness. She has an old scar from her previous surgery to excise the pilonidal cyst Neuro General: patient oriented x3 Assessment & Plan Assessment & Plan (1) Sacrococcygeal pilonidal cyst: Code(s): L05.91 - Pilonidal cyst without abscess Category: Medical Plan: She describes recurrence of her pilonidal cyst. However current exam does not suggest this. I did not see any midline pits. I do not see any induration, cystic mass, redness, or any fluctuance I did tell her that if she notices this next time around, I would like to see her in the office that day so we can re-evaluate her and see if we can actually define the diseased area. She is a little frustrated about this as she says that each time she comes to the office, the induration and swelling resolves I told her that I will accommodate her in the office urgently next time if she notices the swelling . She does not need any antibiotics at this time. Coding Level of Care Code Est Pt Level 3 (22673) Diagnoses Sacrococcygeal pilonidal cyst L05.91
[2025-04-13 16:05] VITALS: BMI 35.0
--- OUTSIDE RECORDS SUMMARY | 2025-04-13 21:56 | XMS_ITS | Encounter Summary ---
Author Organization [employer] Address [address] [facility] 7[address] [place] [address] Care Team Providers Care Life Educator Name Role Phone Unavailable Primary Care Provider Unavailabl e Reason for Visit * Reason Onset Date Comments medication 09/25/2023 Encounter Details Date Type Department Care Team (Late st Contact Info) Description 09/25/2023 Telephone [facility] [address] [place] [address] Leon Tejeda, DDS [address] [facility] [place], [place] [phone] medication Social History Tobacco Use Types Packs/Day [...]
--- OUTSIDE RECORDS SUMMARY | 2025-04-13 21:56 | XMS_ITS | Clinical Summary ---
Author Organization [employer] [facility] Address [address] [place] [address] [address] [place] [address] Care Team Providers Care Perfect Bind Machine Operator Name Role Phone Unavailable Primary Care [...] (2 of 2 - PCV) 05/28/2022 05/28/2021 Tobacco Screening 09/24/2024 09/25/2023 COVID-19 Vaccine (1 - 2023-2 5 season) 2025 Influenza Vaccine (#1) 2025 Dental Oral Exam [...] Insurance [place] ADULT D[facility]AL - [facility]
== END 2025-04-13 16:21 | disposition home or self-care (01) ==
LOC: HO.HGS 15:55
PROVIDERS: PCP Internal Medicine; Visit Provider Surgery
DX: L05.91 Pilonidal cyst without abscess (principal)
CPT/HCPCS: 99213

== ENCOUNTER → 2025-04-13 15:54 | Outpatient (BNVA) | payer MEDICARE, MEDICAID, SELFPAY | PROVIDERS: PCP Internal Medicine; Visit Provider Surgery | DX: L05.91 Pilonidal cyst without abscess (principal) | CPT/HCPCS: 99212 ==

== ENCOUNTER 2025-05-09 09:39 | Outpatient (AMB) | payer MEDICARE, SELFPAY ==
[2025-05-09 09:46] VITALS: BP 130/80; PULSE 75; O2SAT 98; BMI 35.4
--- NOTE | 2025-05-09 09:46 | MHC.PC.OV ---
Vital Signs 05/09/25 09:46 Height 5 ft 3 in Weight 200 lb BMI 35.4 BP 130/80 Blood Pressure Location Lt brachial Position Sitting Pulse 75 Pulse Source Pulse Oximeter Pulse Oximetry (%) 98 Oxygen Delivery Method Room Air Intake Visit Reasons: recurrent skin infection Allergies hydrocodone (From Vicodin) Allergy (Severe, Verified 05/09/25 09:46) Stomach Pain morphine (MORPHINE) Allergy (Severe, Verified 05/09/25 09:46) REDNESS, FEELS REALLY HOT, shortness of breath, anaphylaxis oxycodone Allergy (Severe, Verified 05/09/25 09:46) Stomach Upset amoxicillin Adverse Reaction (Severe, Verified 05/09/25 09:46) yeast infection Penicillins (PENICILLINS) Adverse Reaction (Severe, Verified 05/09/25 09:46) YEAST INFECTION Medication List - Last Reconciled 05/09/25 by Shira Raines MD acetaminophen 500 mg PO Q8H PRN albuterol sulfate 90 mcg/actuation (Ventolin HFA) 2 puffs inhalation Q6H PRN atorvastatin 10 mg PO DAILY cholecalciferol (vitamin D3) 50 mcg PO DAILY cyclobenzaprine 10 mg PO TID PRN doxycycline hyclate 100 mg PO BID 30 days esomeprazole magnesium 40 mg PO QAM hydrocortisone 2.5% (Proctosol HC) 1 appl NV BID-QID PRN linaclotide (Linzess) 290 mcg PO QAM metoclopramide HCl (Reglan) 5 mg PO QIDACHS sucralfate 10 mL PO BID Tobacco use date assessed: 01/14/25 Dental Screening Dental Screen Date: 12/08/24 HPI recurrent skin infection HPI Details PAtient has been disabled 36 years old for the depression and anxiety. patient stopped PSychiatry treatment/counselling started [facility] then changed to [facility]. [facility] seen for 5 years. better now presently not on any med. PAtient is now telling me that she gets depression at times and states decline pills and counselling. 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 -At L5-S1, there is mass effect on the left extraforaminal L5 nerve roots in the region of the pseudoarticulation. -At L4-L5, there is a central disc protrusion with mild spinal canal stenosis and mild bilateral neural foraminal narrowing with the disc abutting the exiting L4 nerve roots bilaterally. -At L3-L4, there is mild to moderate left and mild right neural foraminal narrowing with the disc abutting the exiting left L3 nerve root. -At L2-L3, there is mild left neural foraminal narrowing. COMPLAINS OF neck pain now HPI Comments History of Present Illness Details History of Present Illness The patient is a 54-year-old obese female presenting for a follow-up visit. Her past medical history includes lumbar spondylosis, Cohn's esophagus, asthma-COPD overlap syndrome, hypercholesterolemia, and a history of smoking. Her last colonoscopy was in 2020, her EGD for Cohn's esophagus was in January 2023, and her last mammogram in December 2024 recommended a repeat in 6 months. She is also followed by a surgeon for a sacrococcygeal pilonidal cyst, with her last visit in March 2025. Blood work from October 2024 was notable for an elevated LDL of 159, low vitamin D, and low vitamin B12, while her blood count, electrolytes, renal function, and liver function were normal. She is prescribed atorvastatin 10 mg daily. She reports new musculoskeletal symptoms, including neck pain with a shattering sound on movement, sometimes accompanied by posterior neck swelling and migraines. Since a fall last June, she has experienced sharp pains in her left hip, where she was found to have arthritis. The patient also complains of stiffness and limping after sitting for a period, which improves with movement. The patient has been on disability since age 36 for depression and anxiety. She received counseling for five years but has not been on psychiatric medications or in therapy for a long time. She states she still experiences anxiety and gets depressed sometimes but works through it on her own, refusing medication and counseling. She reports having stopped smoking, which was followed by a weight gain to 200 pounds despite efforts to eat healthily. Her physical activity is limited by her back pain. Health Maintenance Patient requires a 6-month follow-up mammogram. Discussed the optional Shingrix vaccine series for shingles prevention, which is available at the pharmacy. Patient advised to schedule a complete physical exam. Social History - Substance Use: Patient has a history of smoking but reports she has recently quit. - Functional Status: The patient is on disability, which she has been on since age 36, initially for depression and anxiety. - Exercise: Activity is limited due to lower back pain. - Nutrition: Reports trying to eat fruits and non-fattening foods since quitting smoking, and now bakes foods instead of frying. - Weight Management: Reports a weight of 200 pounds with weight gain after smoking cessation. Results - Labs from October 2024: Normal blood count, electrolytes, renal function, liver function, and glucose. - Labs from October 2024: LDL cholesterol was 159 mg/dL. - Labs from October 2024: Low vitamin D and vitamin B12. - Procedures: Colonoscopy performed in 2020; EGD for Cohn's esophagus in January 2023. - Imaging: Mammogram from December 2024 advised for a 6-month follow-up. [facility] Medical History Epidermal cyst Palpitations Hypercholesterolemia Impaired fasting blood sugar Asthma-COPD overlap syndrome Hx of tuberculosis Chronic cough Nicotine dependence, cigarettes, uncomplicated Dysphagia GERD (gastroesophageal reflux disease) Gastroparesis History of IBS Cohn's esophagus determined by endoscopy Obesity (BMI 30-39.9) Panic attacks Generalized anxiety disorder Hypersomnia Easy bruisability Breast density Lumbar radicular pain Plantar fasciitis Sacrococcygeal pilonidal cyst Calcaneal spur of left foot De Quervain's tenosynovitis, right Achilles tendinitis of left lower extremity Bilateral hand numbness Arthralgia of right hand Chronic pain of left ankle Lateral epicondylitis of left elbow Bicipital tendinitis of left shoulder Arthritis Hip pain [facility] Surgical History History of carpal tunnel release of both wrists History of excision of pilonidal cyst (~02/20/24) History of loop electrosurgical excision procedure (LEEP) History of tubal ligation History of colonoscopy History of esophagogastroduodenoscopy (EGD) History of meniscectomy of left knee History of appendectomy History of section Family History Father Tongue cancer Mother CVD (cardiovascular disease) Maternal Aunt Colon cancer Maternal Uncle Colon cancer Brother CVD (cardiovascular disease) Substance abuse Sister CVD (cardiovascular disease) Social History Household Members: Spouse and Children Housing: Apartment Are you a primary account executive healthcare to a significant other at home: No Do you presently have visiting nurse or other home services: No Alcohol intake: former Comment: holidays 1 glass of wine Patient Tobacco Use Status: Former Tobacco user Tobacco use type: Cigarette Cigarette Packs Per Day: 0.5 Cigarettes Per Day: 7 Years Smoked: 30 e-Cigarette/Vaping Use: Never Used Second Hand Smoke Exposure: Yes Substance Use Type: Marijuana service: No Current occupational status: disabled Cognitive needs: No Hearing needs: No Vision needs: No Female Reproductive History Menstrual Age of Menarche: 12 Questionnaire Thrive Questionnaire Date Thrive assessed: 06/24/24 I am a: Patient What is your living situation today?: I have a steady place to live Within the past 12 months, did the food you bought not last and you didn't have the money to get more?: Never true Within the past 12 months, did you worry whether your food would run out before you got money to buy more?: Never true Do you have trouble paying for medicines?: No Do you have trouble getting transportation to medical appointments?: No Do you have trouble paying your heating and electricity bill?: No Do you have trouble taking care of your child, family member or friend?: No Do you have trouble with day-to-day activities such as bathing, preparing meals, shopping, managing finances, etc.?: No Are you currently unemployed and looking for a job?: No Are you interested in more education?: No Please select the resources that you would like help with: None Currently or been in a relationship where the following occur: No concerns reported THRIVE Score: 0 AUDIT C Alcohol Use Questionnaire (AUDIT-C) 2. How many drinks containing alcohol do you have on a typical day when you are drinking?: 1 or 2 3. How often do you have six or more drinks on one occasion?: Never Total Score: 0 ELIZABETH-7 AMB Questionnaire ELIZABETH-7 Date ELIZABETH - 7 assessed: 12/08/24 Source: Developed by Drs. Kain Gutierrez, Patricia Marx, Damaso Delacruz and colleagues, with an educational allison from [employer] Review of Systems Narrative Review of Systems - Constitutional: Reports weight gain. - HEENT: Reports intermittent ear pain and migraines. - Respiratory: Reports using albuterol inhaler as needed, approximately every other week. - Musculoskeletal: Reports sharp lower back pain, neck pain with crepitus on movement, posterior neck swelling, sharp left hip pain, knee pain, and stiffness with limping after periods of rest that improves with activity. - Neurological: Reports sharp pain radiating to her head upon coughing. - Psychiatric: Reports experiencing anxiety and intermittent depression, but denies needing or wanting treatment. Physical exam (Primary Care) Vital Signs: Last Vital Signs Pulse 75 05/09/25 09:46 BP 130/80 05/09/25 09:46 Pulse Ox 98 05/09/25 09:46 Oxygen Delivery Method Room Air 05/09/25 09:46 BMI result Body Mass Index 35.4 Tobacco/Smoking Status: Tobacco use Status Tobacco use date assessed 01/14/25 05/09/25 09:52 Patient Tobacco Use Status Former Tobacco user 05/09/25 09:52 Tobacco use type Cigarette 05/09/25 09:52 e-Cigarette/Vaping Use Never Used 05/09/25 09:52 Thrive Assessment: Date of Thrive Assessment Date Thrive assessed 06/24/24 05/09/25 09:52 Currently or been in a relationship where the following occur: No concerns reported Narrative Physical Exam - Lungs: Auscultated. - Ears: External auditory canals are patent and clean bilaterally, with no tenderness on auricular manipulation. Const General: alert; No acute distress Eyes Conjunctivae: conjunctivae normal Resp Auscultation: clear to auscultation bilaterally Cardio Rate: regular rate Rhythm: regular rhythm GI Inspection: Yes normal to inspection Extrem General: Yes normal to inspection and No edema Coding Level of Care Code Est Pt Level 4 (98563) Diagnoses Hypercholesterolemia E78.00 Obesity (BMI 30-39.9) E66.9 Cohn's esophagus determined by endoscopy K22.70 Nicotine dependence, cigarettes, uncomplicated F17.210 Asthma-COPD overlap syndrome J44.9 Neck pain M54.2 Assessment & Plan Assessment & Plan (1) Hypercholesterolemia: Code(s): E78.00 - Pure hypercholesterolemia, unspecified Category: Medical Plan: Avoid fried foods, chicken skin, eggs, butter margarine, pastries and meat. Be it pork or beef they have a lot of cholesterol LDL goal of less than 130 and triglyceride of less than 150. On atorvastatin 10 mg once a day (2) Obesity (BMI 30-39.9): Code(s): E66.9 - Obesity, unspecified Category: Medical Plan: Diet and exercise (3) Cohn's esophagus determined by endoscopy: Code(s): K22.70 - Cohn's esophagus without dysplasia Category: Medical Plan: Avoid the foods that causes that usually spicy foods, tomato products, juices, coffee, soda and foods that your sensitive to. After eating do not lie down, allow 3-4 hours before in lie down. And keep the head of bed above 30 degrees to avoid the acid from going up. (4) Nicotine dependence, cigarettes, uncomplicated: Comment: (current smoker - onset 22, x 32yrs - max 2ppd, now 1/2ppd, 45+PYH) August 2024 Code(s): F17.210 - Nicotine dependence, cigarettes, uncomplicated Category: Medical Plan: Patient is strongly advised to stop smoking (5) Asthma-COPD overlap syndrome: Code(s): J44.9 - Chronic obstructive pulmonary disease, unspecified Category: Medical Plan: On albuterol inhaler as needed (6) Neck pain: Code(s): M54.2 - Cervicalgia Category: Medical Plan Plan Patient was informed and verbally consented to the use of an ambient scribe for clinic note documentation during this visit. 1. Hypercholesterolemia The patient's LDL cholesterol was elevated at 159 on her last labs in October 2024. The goal is an LDL of less than 130 and triglycerides less than 150. She will continue taking atorvastatin 10 mg daily. A lab request was provided for a follow-up fasting lipid panel, along with vitamin D and B12 levels. The patient was counseled on diet and exercise. 2. Neck Pain The patient presents with new-onset neck pain, crepitus on movement, posterior swelling, and associated migraines. A cervical spine X-ray has been ordered to evaluate for underlying causes such as arthritis. The patient was advised to perform stretching exercises while cautioning against overstretching. 3. Low Back Pain And Arthritis The patient has known lumbar spondylosis, arthritis in her hip, and reports ongoing low back pain and stiffness that worsens with rest and improves with activity. Counseled the patient on the chronic nature of arthritis, emphasizing that regular movement, healthy diet, and hydration are bentley management strategies. Her activity is limited by her back condition. 4. Asthma-Copd Overlap Syndrome The patient uses her albuterol inhaler on an as-needed basis, approximately every other week, indicating her condition is relatively stable. Continue albuterol inhaler as needed, with no refills requested at this time. 5. History Of Depression And Anxiety Disorder The patient has a history of disability due to depression and anxiety but is not currently receiving any psychiatric treatment and has been off medications for a long time. She reports still experiencing symptoms but declined referrals for counseling or medication. The discussion was documented in the context of her disability status. 6. Tobacco Use And Obesity The patient reports having stopped smoking, which is a significant positive health change. She has had subsequent weight gain and is now 200 pounds, which can exacerbate her joint pain. Counseled on healthy eating habits, such as consuming whole fruits over juices and baking instead of frying, and the importance of exercise for weight management. Discussion Notes I discussed with the patient her various musculoskeletal complaints, including new neck pain and chronic low back and hip pain. I explained that these symptoms are characteristic of arthritis, a progressive condition, and ordered a cervical spine X-ray to further evaluate her neck. We reviewed management strategies focusing on the importance of maintaining physical activity, healthy eating, and adequate hydration, clarifying that there is no 'magic cure'. I addressed her elevated cholesterol and low vitamin levels from her last lab work and provided a request for follow-up fasting labs. We discussed her successful smoking cessation and the associated weight gain, and I provided dietary counseling, including advising against sugary juices. We also reviewed her history of depression and anxiety in the context of her disability status, noting her refusal of further treatment at this time. Finally, I discussed preventative health, including the availability of the shingles vaccine and recommended she schedule a complete physical exam for overall health monitoring. Patient Instructions - Go for an X-ray of your neck as ordered. - Go to the lab for fasting blood work to recheck your cholesterol, vitamin D, and B12 levels. - Continue taking your atorvastatin 10 mg daily for cholesterol. - Use your albuterol inhaler only when you need it for breathing problems. - Continue to stay smoke-free. - Stay active and keep moving as much as your pain allows. - Focus on a healthy diet. Eat whole fruits instead of drinking sugary juices and try baking instead of frying foods. - Drink plenty of water. - Remember to get your follow-up mammogram in 6 months. - Schedule an appointment for a complete physical exam. Orders: Orders XR cervical spine 2V Today M54.2 - Cervicalgia Free T4 (Free Thyroxine) Today E78.00 - Pure hypercholesterolemia, unspecified Vitamin B12 and Folate Today E78.00 - Pure hypercholesterolemia, unspecified Vitamin D 25-OH Total Today E78.00 - Pure hypercholesterolemia, unspecified Comprehensive Met. Panel Today E78.00 - Pure hypercholesterolemia, unspecified Complete Blood Count Auto Diff Today E78.00 - Pure hypercholesterolemia, unspecified Thyroid Stimulating Hormone Today E78.00 - Pure hypercholesterolemia, unspecified Hemoglobin A1c Today E78.00 - Pure hypercholesterolemia, unspecified Lipid Panel Today E78.00 - Pure hypercholesterolemia, unspecified
== END 2025-05-09 10:19 | disposition home or self-care (01) ==
LOC: HO.HMCH 09:40
PROVIDERS: PCP Internal Medicine; Visit Provider Internal Medicine
DX: E78.00 Pure hypercholesterolemia, unspecified (principal); E66.9 Obesity, unspecified; J44.9 Chronic obstructive pulmonary disease, unspecified; Z68.35 Body mass index [BMI] 35.0-35.9, adult; K22.70 Barrett's esophagus without dysplasia; F17.210 Nicotine dependence, cigarettes, uncomplicated; M54.2 Cervicalgia

== ENCOUNTER → 2025-05-09 09:39 | Outpatient (BNVA) | payer MEDICARE, SELFPAY | PROVIDERS: PCP Internal Medicine; Visit Provider Internal Medicine | DX: E78.00 Pure hypercholesterolemia, unspecified (principal); E66.9 Obesity, unspecified; K22.70 Barrett's esophagus without dysplasia; J44.9 Chronic obstructive pulmonary disease, unspecified; M54.2 Cervicalgia; F17.210 Nicotine dependence, cigarettes, uncomplicated; Z71.6 Tobacco abuse counseling | CPT/HCPCS: 99212 ==